=== PATIENT | female | born 1955 | race Caucasian/White ===

== ENCOUNTER 2024-08-21 10:00 | Outpatient (CLI) | payer MEDICARE, SELFPAY ==
[2024-08-21 18:46] LABS: Basophils % 0.4 % (0.1-2.0); Eosinophils # 0.3 Kmm3 (0.0-0.4); Eosinophils % 3.3 % (0.1-12.0); Hematocrit 40.5 % (37.0-47.0); Hemoglobin 12.7 g/dL (12.2-16.2); Immature Granulocytes # 0.02 10^3uL; Immature Granulocytes % 0.2 %; Lymphocytes # 2.2 K/mm3 (0.7-4.5); Lymphocytes % 24.5 % (10-50); Mean Corpuscular HGB Conc 31.4 g/dL (31.8-35.4); Mean Corpuscular Hemoglobin 25.9 pg (27.0-31.2); Mean Corpuscular Volume 82.5 fl (81-99); Mean Platelet Volume 10.5 fl (7.4-10.4); Monocytes % 11.4 % (1.7-9.3); Neutrophils # 5.5 K/mm3 (1.8-7.8); Neutrophils % 60.2 % (37.0-80.0); Nucleated Red Blood Cells # 0 10^3/uL; Nucleated Red Blood Cells % 0 %; Platelet Count 210 K/mm3 (142-424); Red Blood Count 4.91 M/mm3 (4.20-5.40); Red Cell Distribution Width 15.5 % (11.5-17.5); Red Cell Distribution Width-SD 46.7 fL; White Blood Count 9.1 K/mm3 (4.8-10.8)
[2024-08-21 19:20] LABS: Alanine Aminotransferase 17 U/L (12-78); Albumin Level 3.8 g/dl (3.5-5.0); Albumin/Globulin Ratio 1.5 (1.1-1.8); Alkaline Phosphatase 121 U/L (38-126); Anion Gap 10.3 mEq/L (5-15); Aspartate Amino Transferase 17 U/L (14-36); Bilirubin,Total 0.6 mg/dl (0.2-1.3); Blood Urea Nitrogen 39 mg/dl (7-17); Calcium 8.9 mg/dl (8.4-10.2); Carbon Dioxide 28 mmol/L (22.0-30.0); Chloride 102 mmol/L (98-107); Chol/HDL Ratio 3.1 (1-3.5); Cholesterol 173 mg/dl (140-200); Estimated Glomerular Filt Rate 45 ml/min (>60); GFR (African American) 54 ML/MIN (>60); Globulin 2.5 g/dL (1.3-3.2); Glucose 119 mg/dl (74-100); HDL Cholesterol 56 mg/dl (40-60); Potassium 4.3 mmoL/L (3.5-5.1); Sodium 136 mmol/L (136-145); Total Protein,Serum 6.3 g/dl (6.3-8.2); Triglycerides 79 mg/dl (30-150); VLDL Cholesterol 16 mg/dL (0-40)
[2024-08-21 19:32] LABS: Direct LDL Cholesterol 78.08 mg/dL (100-129)
[2024-08-21 19:39] LABS: T4 (Thyroxine) 19.2 ug/dl (5.53-11.0)
[2024-08-21 19:45] LABS: D-Dimer 1.11 ug/mL (0.0-0.5)
[2024-08-21 19:52] LABS: Thyroid Stimulating Hormone < 0.02 uIU/mL (0.465-4.68)
[2024-08-21 19:55] LABS: HIV Combo NEGATIVE (Negative)
[2024-08-21 20:09] LABS: Hemoglobin A1C 6.7 % (4.0-6.0)
[2024-08-21 20:45] LABS: Hepatitis C Ab Qual. W/ RFX NEGATIVE (Negative)
--- OUTSIDE RECORDS SUMMARY | 2024-08-22 13:23 | XMS_ITS | Clinical Summary ---
Author Organization [facility] Address [address] [address] Phone Care Team Providers Care Six Color Press Operator Name Role Phone Unavailable Primary Care Provider Unavailabl e Allergies Active Allergy Reactions Criticality Noted Date Comments Adhesive Rash 10/16/2022 Medications albuterol (PROVENTIL) 2.5 mg /3 mL (0.083 %) Inhl Solution for Nebulization Take 2.5 mg by nebulization every 6 hours as needed. Active albuterol (PROVENTIL HFA;VENTOLIN HFA) 90 mcg/actuation Inhl HFA Aerosol Inhaler Inhale 2 Puffs into the lungs every 6 hours as needed. Active aspirin 81 mg Oral Tablet, Delayed Release (E.C.) Take 81 mg by mouth daily. Active torsemide (DEMADEX) 100 mg Oral Tablet Take 50 mg by mouth daily. Active rosuvastatin (CRESTOR) 40 mg Oral Tablet Take 40 mg by mouth nightly. Active pioglitazone (ACTOS) 15 mg Oral Tablet Take 15 mg by mouth daily. Active nitroGLYCERIN (NITROSTAT) 0.4 mg SL Tablet, Sublingual Place 0.4 mg under the tongue once. Active montelukast (SINGULAIR) 10 mg Oral Tablet Take 10 mg by mouth daily. Active metFORMIN (GLUCOPHAGE) 1,000 mg Oral Tablet Take 1,000 mg by mouth 2 times daily (with meals). Active lisinopriL (PRINIVIL;ZESTRI L) 5 mg Oral Tablet Take 5 mg by mouth daily. Active LEVOthyroxine (SYNTHROID) 150 mcg Oral Tablet Take 300 mcg by mouth daily. Active COMBIVENT RESPIMAT 20-100 mcg/actuation Inhl Mist Inhale 1 Puff into the lungs every 6 hours as needed. Active fluticasone propionate (FLONASE) 50 mcg/actuation Nasl [place], Suspension 2 Sprays by Nasal route daily. Active empagliflozin (JARDIANCE) 10 mg Oral Tablet Take 10 mg by mouth daily. Active TRULICITY 1.5 mg/0.5 mL SubQ Pen Injector once a week. Acti ve clopidogreL (PLAVIX) 75 mg Oral Tablet Take 75 mg by mouth daily. Active cephALEXin (KEFLEX) 500 mg Oral Capsule Take 500 mg by mouth every 6 hours. Active Oxygen and Equipment MISCELLANEOU 1 Device by MISCELLANEOUS route once. 2-3 L continuously Active pantoprazole (PROTONIX) 40 mg Oral Tablet, Delayed Release (E.C.) Take 1 Tablet by mouth daily. 30 Tablet 2 10/22/19 23 Active spironolactone (ALDACTONE) 25 mg Oral TabletIndication s:SOB (shortness of breath) Take 1 Tablet by mouth 2 times daily. 60 Tablet 11 10/31/19 23 Active Additional Information Patient not taking.Reason: Advised by Physician, Reported on 10/23/2023 bumetanide (BUMEX) 2 mg Oral Tablet Take 2 mg by mouth daily. Active Active Problems Problem Noted Date Diagnosed Date Severe aortic stenosis 10/06/2022 Overview (10/06/2022): Added automatically from request for surgery [id number] Surgical History Surgery Date Site/Laterality Comments CARDIAC CATHETERIZATION CARDIAC SURGERY stents x4 CHOLECYSTECTOMY TUBAL LIGATION DENTAL SURGERY full teeth extracted AORTIC VALVE REPLACEMENT 10/19/2022 N/A Transcatheter aortic valve replacement with echocardiogram and [place]; Surgeon: Alfred Greenberg MD; Location: [facility] MAIN OR; Service: Open Heart Medical devices from this surgery are in the Medical Devices section. Medical History Medical History Date Comments Asthma COPD (chronic obstructive pulmonary disease) (HC C) Pulmonary emphysema (HCC) Shortness of breath Sleep apnea can not wear Cpa p Pneumonia 2021 Bronchitis, chronic (HCC) Oxygen dependent 2-3 L continuou sly Hyperlipidemia Hypertension [place] (myocardial infarction) ([facility]) 12/13/1998 Heart murmur CAD (coronary artery disease) CHF (congestive heart failure) (HCC) Heartburn Arthritis Headache migraines Bladder problem Chronic kidney disease Diabetes mellitus (HCC) Thyroid disease Motion sickness Family History Medical History Relation Name Comments COPD Brother Heart Disease Brother Seizures Daughter Diabetes Father Heart Disease Father Cancer Mother breast, throat Kidney Disease Mother Unknown Sister Anesth Problems Neg Hx Relation Name Status Comments Brother Daughter Father Mother Sister Social History Tobacco Use Types Packs/Day Years Used Date Smoking Tobacco: Former Cigarettes Q uit: 1976 Smokeless Tobacco: Never Tobacco Cessation:Counseling Given: Not Answered Alcohol Use Standard Drinks/Week Comments Never 0 (1 standard drink = 0.6 oz pur e alcohol) Comments No Sex and Gender Information Value Date Recorded Sex Assigned at Not on file Legal Sex Female 9:07 AM EDT Gender Identity Not on file Sexual Orientation Not on file Obstetrics History Last Filed Vital Signs Vital Sign Reading Time Taken Comments Blood Pressure 96/59 10/23/2023 10:20 AM EDT Pulse 72 10/23/2023 10:20 AM EDT Temperature 37.1 C (98.7 F) 10/20/2022 8:52 AM EDT Respiratory Rate 18 10/20/2022 12:28 PM EDT Oxygen Saturation 94% 10/23/2023 10:20 AM EDT Inhaled Oxygen Concentration - - Weight 91.4 kg (201 lb 9.6 oz) 10/23/2023 10:20 AM EDT Height 152.4 cm (5') 10/23/2023 10:20 AM EDT Body Mass Index 39.37 10/23/2023 10:20 AM EDT Plan of Treatment Health Maintenance Due Date Last Done Comments Wellness Exam Medicare 08/09/1958 Microalbuminuria 08/09/1965 Diabetic Eye Exam 08/09/1973 Hepatitis C Screening 08/09/1973 Breast Cancer Screening 1995 Cologuard 08/09/2000 Colon Cancer Screening 08/09/2000 Colonoscopy 08/09/2000 FIT 08/09/2000 Sigmoidoscopy 08/09/2000 Virtual Colonography 08/09/2000 Zoster (1 of 2) 08/09/2005 RSV or 60+ (1 - Ris k 60-74 years 1-dose series) 2015 Bone Density Screening 08/09/2020 Hemoglobin A1c 04/18/2023 10/16/2022, 08/04/2022 Lipids 08/05/2023 08/04/2022 COVID-19 Vaccine (5 - 2023-2 5 season) 2023 02/22/2022, 10/12/2021, 01/26/2021, Additional history exists Influenza Vaccine (Season Ended) 2024 01/03/2023, 12/20/2021, 12/15/2020, Additional history exists Pneumococcal Vaccine 50+ (3 of 3 - PCV20 or PCV21) 12/15/2025 12/15/2020, 07/31/2016, 03/31/2011, Additional history exists DTaP/TDaP/Td (2 - Td or Tdap) 07/31/2026 07/31/2016 Hepatitis B Vaccine Aged Out No longe r eligible based on patient's age to complete this topic Meningococcal B Vaccine Aged Out No l onger eligible based on patient's age to complete this topic Medical Devices Implanted Type Area Stacker And Sorter Operator Device Identifier Shelf Expiration Date Model / Serial / Lot Cardiac Stents [place] 3 Ultra Transcatheter Heart Valve (26mm) - [id number] Implanted:Qty: 1 on 10/19/2022 by Alfred Greenberg MD at [facility] N/A: Heart [employer] [id number] 06/11/2025 [id number] / [id number] / Procedures Procedure Name Priority Date/Time Associated Diagnosis Comments HEMOGLOBIN A1C Routine 10/16/2022 10:23 AM EDT from Last 3 Months or Most Recently Relevant to Health Maintenance Results * (ABNORMAL) HEMOGLOBIN A1C (10/16/2022 10:23 AM EDT) Hgb A1C 6.9(H) 4.2 - 5.6 % 10/16/2022 11:19 AM EDT [employer] Est. Avg Glucose 151 mg/dL 10/16/2022 11:19 AM EDT [employer] Blood VENOUS BLOOD / Unknown Venipuncture / Unknown 10/16/2022 10:23 AM EDT 10/16/2022 10:29 AM EDT Narrative [employer] - 10/16/2022 11:19 AM EDT REFERENCE RANGE: Normal: 4.0-5.6% Pre-diabetes: 5.7-6.4% Provisional diagnosis of diabetes: >6.4% Hgb F>10% and anything which shortens red cell survival, such as hemolytic anemia, or unstable hemoglobin variants such as HbSS, HbSC, or HbCC, will lower the HbA1c value associated with a given level of glycemic control. Neena Concepcion APRN CHEMISTRY ORDERABLES Fin al Result [facility] [employer], [address] , [place] [id number] from Last 3 Months or Most Recently Relevant to Health Maintenance Insurance [facility] [address] [facility] [place] [address] Advance Directives For more information, please contact: [phone] Documents on File Type Date Recorded Patient Research Biostatistician Expl anation Power of Police Lieutenant Patrol 10/19/2022 9:00 AM * Full Code (Latest Code Status on File) Date Activated Date Inactivated Comments 10/19/2022 3:07 PM 10/20/2022 5:12 PM
--- OUTSIDE RECORDS SUMMARY | 2024-08-22 13:23 | XMS_ITS | Referral Summary ---
Author Organization [employer] [facility] Address [address] [place] [address] Care Team Providers Care Timber Deadener Name Role Phone Unavailable Primary Care Provider Unavailabl e Allergies No known active allergies Medications albuterol HFA (VENTOLIN HFA) 90 mcg/actuation inhaler Inhale 2 puffs by mouth via inhaler every 6 (six) hours as needed for Wheezing. Active bumetanide (BUMEX) 2 MG tablet Take 2 tablets (4 mg total) by mouth in the morning and 2 tablets (4 mg total) before bedtime. Active clopidogreL (PLAVIX) 75 mg tablet Take 1 tablet (75 mg total) by mouth in the morning. Active dulaglutide (Trulicity) 1.5 mg/0.5 mL syringe Inject 0.5 mLs (1.5 mg total) subcutaneously once a week. Active levothyroxine (SYNTHROID, LEVOTHROID) 150 MCG tablet Take 2 tablets (300 mcg total) by mouth Every morning on an empty stomach. Active lisinopriL (PRINIVIL,ZEST RIL) 5 MG tablet Take 1 tablet (5 mg total) by mouth in the morning. Active metFORMIN (GLUCOPHAGE) 1000 MG tablet Take 1 tablet (1,000 mg total) by mouth 2 (two) times daily with breakfast and dinner. Active pioglitazone (ACTOS) 15 MG tablet Take 1 tablet (15 mg total) by mouth in the morning. Active rosuvastatin (CRESTOR) 40 MG tablet Take 1 tablet (40 mg total) by mouth in the morning. Active aspirin 81 MG EC tablet Take 1 tablet (81 mg total) by mouth in the morning. Active montelukast (SINGULAIR) 10 mg tablet Take 1 tablet (10 mg total) by mouth nightly. Active Active Problems Problem Noted Date Diagnosed Date CAD in [place] artery 08/04/2022 Asthma 08/04/2022 CHF (congestive heart failure) 08/04/2022 COPD (chronic obstructive pulmonary disease) Coronary artery disease 08/04/2022 Diabetes mellitus 08/04/2022 Hyperlipidemia 08/04/2022 Hypothyroidism 08/04/2022 CKD (chronic kidney disease) 08/04/2022 Aortic stenosis 08/04/2022 Social History Tobacco Use Types Packs/Day Years Used Date Smoking Tobacco: Every Day Cigarettes 1 52 Smokeless Tobacco: Never Tobacco Cessation:Ready to Q uit: Not Asked; Counseling Given: Not Answered Alcohol Use Standard Drinks/Week Comments Never 0 (1 standard drink = 0.6 oz pur e alcohol) Interpersonal Safety Answer Date Record ed Family or friends hurt you Not on file 03/30 Family or friends insult you Not on file 02/2024 Family or friends threaten you Not on file 0 03/30/2023 Family or friends scream or curse at you Not on file 03/30/2023 Housing Stability Answer Date Recorded Living situation today Not on file Living situation problems Not on file 2023 Food Insecurity Answer Date Recorded Food run out past 12 months Not on file 03/19 Food did not last past 12 months Not on file 03/30/2023 Employment Answer Date Recorded Help finding and keeping a job Not on file 0 03/30/2023 Family and Community Support Answer Marcellus e Recorded Help with Day to Day Activities Not on file 03/30/2023 Feeling Lonely or Isolated Not on file 03/30 Educational Attainment Answer Date Sammy rded Speak language other than Singaporean at home Not on file 03/30/2023 Want help with school or training Not on file 03/30/2023 Depression Answer Date Recorded PHQ-2 Risk Not on file 03/30/2023 Disabilities Answer Date Recorded Difficulty concentrating Not on file 024 Difficulty doing errands alone Not on file 0 03/30/2023 Substance Use Answer Date Recorded Used prescription meds for non-medical reasons N ot on file 03/30/2023 Used illegal drugs past 12 months Not on file 03/30/2023 Comments Unknown Sex and Gender Information Value Date Recorded Sex Assigned at Not on file Legal Sex Female 3:05 PM CDT Gender Identity Not on file Sexual Orientation Not on file Last Filed Vital Signs Vital Sign Reading Time Taken Comments Blood Pressure 118/70 08/08/2022 5:00 PM EDT Pulse 68 08/08/2022 5:00 PM EDT Temperature 36.8 C (98.2 F) 08/08/2022 5:00 PM EDT Respiratory Rate 16 08/07/2022 6:00 PM EDT Oxygen Saturation 94% 08/08/2022 5:00 PM EDT Inhaled Oxygen Concentration - - Weight 110.8 kg (244 lb 4.8 oz) 08/05/2022 1:55 AM EDT Height - - Body Mass Index - - Plan of Treatment Not on file Procedures Procedure Name Priority Date/Time Associated Diagnosis Comments HEMOGLOBIN A1C Routine 08/04/2022 8:23 PM EDT from Last 3 Months or Most Recently Relevant to Health Maintenance Results * Hemoglobin A1c (08/04/2022 8:23 PM EDT) Hemoglobin A1C 8.8 % 08/05/2022 12:00 PM EDT [facility] Comment: Hemoglobin A1C levels are related to mean glucose during the preceding 2-3 months. Less than 7% demonstrates glycemic control in diabetic patients. Hemoglobin AlC % Suggested Diagnosis > or = 6.5 Diabetic 5.7 - 6.4 Prediabetic <5.7 Non-diabetic eAVG Glucose 205.86 mg/dL 08/05/2022 12:00 PM EDT [facility] Blood Venipuncture / Unknown 08/04/2022 8:23 PM EDT 08/04/2022 8:29 PM EDT us William Lau PA-C LAB BLOOD ORDERABLES Final Re sult [facility] [address] [phone] from Last 3 Months or Most Recently Relevant to Health Maintenance Insurance [employer] [facility] [place] [facility] DUAL COMPLETE MCR ADV [facility] MEDICARE ADVANTAGE Advance Directives For more information, please contact: [phone] * Full Code (Latest Code Status on File) Date Activated Date Inactivated Comments 08/04/2022 6:56 PM 08/09/2022 12:06 AM
--- OUTSIDE RECORDS SUMMARY | 2024-08-22 13:23 | XMS_ITS | Data Portability ---
Author Organization [facility] Address [address] [place] [address] Care Team Providers Care Program Coordinator Name Role Phone KASEY FITZGERALD Fine Hairer Assessment No assessment recorded. Plan of Treatment Reminders Order Date Submit Date Provider Last Modified By Organization Details Last Modified Time Details Appointments None recorded. Lab HbA1c (hemoglobin A1c), blood 2024 025 [facility], [address] [place], [address], 5 15:06:25 HbA1c (hemoglobin A1c), blood 2023 024 [facility], [address], [address], [place], [address], 4 08:37:42 CMP, serum or plasma 2023 024 [facility], [address], [address], [place], [address], 4 08:37:41 CBC w/ auto diff 2023 024 [facility], [address], [address], [place], [address], 4 08:37:40 lipid panel, serum 2023 024 [facility], [address], [address], [place], [address], 4 08:37:42 vitamin D, 25-hydroxy, total, serum 2023 024 [facility], [address], [address], [place], [address], 4 08:37:43 HbA1c (hemoglobin A1c), blood [address], [address] [place], [address], 4 14:43:14 HbA1c (hemoglobin A1c), blood 2023 024 [facility], [address], [address], [place], [address], 4 10:36:53 CMP, serum or plasma 2023 024 [facility], [address], [place], [address], 4 10:36:50 CBC w/ auto diff 2023 024 [facility], [address], [address], [place], [address], 4 10:36:49 lipid panel, serum 2023 024 [facility], [address], [address], [place], [address], 4 10:36:52 TSH + free T4, serum 2023 024 [facility], [address], [address], [place], [address], 4 10:36:48 vitamin D, 25-hydroxy, total, serum 2023 024 [facility], [address], [place], [address], 4 10:36:54 vitamin B12 + folate, serum or blood 2023 024 [facility], [address], [address], [place], [address], 4 10:36:52 Referral None recorded. Procedures None recorded. Surgeries None recorded. Imaging None recorded. Medication Orders fluticasone propionate 50 mcg/actuati on nasal spray,suspe nsion [address], [address], 5 10:44:00 OneTouch Verio test strips [address], [address], 5 10:43:59 ergocalcife rol (vitamin D2) 1,250 mcg (50,000 unit) capsule [address], [address], 5 10:43:59 Januvia 100 mg tablet [address], [address], 5 09:26:29 Mounjaro 7.5 mg/0.5 mL subcutaneou s pen injector [address], [address], 5 09:28:06 ergocalcife rol (vitamin D2) 1,250 mcg (50,000 unit) capsule 2023 024 [facility], [address] [place] [address], [place], [address], 4 11:00:11 Mounjaro 7.5 mg/0.5 mL subcutaneou s pen injector [email or web address], [place], [address], 5 09:13:27 amoxicillin 875 mg-potassiu m clavulanate 125 mg tablet [address], [address], 4 16:08:46 prednisone 10 mg tablet [address], [address], 4 16:08:43 omeprazole 40 mg capsule,del ayed release [address], [place], [address], 4 11:23:20 ropinirole 0.25 mg tablet [address], [address], 4 11:23:20 Mounjaro 5 mg/0.5 mL subcutaneou s pen injector [address], [address], 4 14:14:46 Patient TargetsNo targets recorded. Patient Instructions Encounter Date Encounter Id Patient Instructions Last Modified By Organization Details Last Modified Time 11/05/2023 [id number] smoking cessatio n counseling, greater than 3 minutes up to 10 minutes* Not available 11/05/2023 09:04:56 learning about healthy weight Not available 11/05/2023 14:00:04 body mass index: care instructions Not available 11/05/2023 14:00:04 Advised to take medication as directed Will call with results of labs once available Encouraged to follow heart healthy lifestyle - low fat diet and aim for 30 minutes per day of physical exercise. To call office for questions, concerns or issues Not available 11/05/2023 18:06:40 01/15/2024 [id number] learning about healthy weight Not available 01/15/2024 11:14:19 body mass index: care instructions Not available 01/15/2024 11:14:19 diabetic foot exam* Not available 01/15/2024 11:13:46 Advised to take medication as directed Discussed result of POC hgb A1c with pt Reviewed importance of hydration and rest To call office for questions, concerns or issues Not available 01/15/2024 15:03:27 03/10/2024 [id number] smoking cessatio n counseling, greater than 3 minutes up to 10 minutes* Not available 03/17/2024 07:37:27 learning about healthy weight Not available 03/10/2024 12:06:04 body mass index: care instructions Not available 03/10/2024 12:06:04 Advised to take medication as directed Will call with results of labs once available Encouraged to follow heart healthy lifestyle - low fat diet and aim for 30 minutes per day of physical exercise. To call office for questions, concerns or issues Not available 03/10/2024 11:02:36 04/30/2024 [id number] smoking cessatio n counseling, greater than 3 minutes up to 10 minutes* Not available 04/30/2024 08:50:05 learning about healthy weight Not available 04/30/2024 13:28:36 body mass index: care instructions Not available 04/30/2024 13:28:36 Will stop Mounjaro and start januvia Continue Jardiance and Metformin Advised to take medication as directed Will see in office in 2 months for repeat labs Encouraged to increase fiber in diet Reviewed signs warranting immediate evaluation - blood in stool, severe pain, lethargy, cyanosis To call office for questions, concerns or issues Not available 04/30/2024 10:48:10 06/17/2024 [id number] Discussed result s of in office testing with pt Advised to take medication as directed Encouraged to follow heart healthy lifestyle - low fat diet and aim for 30 minutes of physical activity per day To call office for questions, concerns or issues Not available 06/17/2024 15:07:36 Reason for Referral None Reported. Results Created Date Observation Date Name Description Value Unit Range Abnormal Flag Note LastModifiedBy Organization Detail LastModifiedTime 11/05/1911/06/2023 TSH+F REE T4 TSH 4.410 uIU/m L 0.450- 4.500 normal Not Available [facility] ([facility]) [address] [place], [address], 11/06/2023 10:36:48 11/05/19 24 11/06/2023 TSH+F REE T4 T4,free(dire ct) 1.46 NG/dL 0.82-1 .77 normal Not Available [facility] ([facility]) [address] [place], [address], 11/06/2023 10:36:48 11/05/19 24 11/06/2023 CBC WITH DIFFE RENTI AL/PL ATELE T WBC 8.8 x10e3 /uL 3.4-10 .8 normal Not Available [facility] ([facility]) [address] [place], [address], 11/06/2023 10:36:49 11/05/19 24 11/06/2023 CBC WITH DIFFE RENTI AL/PL ATELE T RBC 6.05 x10e6 /uL 3.77-5 .28 above high normal Not Available [facility] ([facility]) [address] [place], [address], 11/06/2023 10:36:49 08/19/20 24 11/06/2023 CBC WITH DIFFE RENTI AL/PL ATELE T hemoglobin 16.4 g/dL 11.1-1 5.9 above high normal Not Available [facility] ([facility]) [address] [place], [address], 11/06/2023 10:36:49 11/05/19 24 11/06/2023 CBC WITH DIFFE RENTI AL/PL ATELE T hematocrit 52.7 % 34.0-4 6.6 above high normal Not Available [facility] ([facility]) [address] [place], [address], 11/06/2023 10:36:49 11/05/19 24 11/06/2023 CBC WITH DIFFE RENTI AL/PL ATELE T MCV 87 fL 79-97 normal Not Available [facility] ([facility]) [address] [place], [address], 11/06/2023 10:36:49 11/05/19 24 11/06/2023 CBC WITH DIFFE RENTI AL/PL ATELE T MCH 27.1 pg 26.6-3 3.0 normal Not Available [facility] ([facility]) [address] [place], [address], 11/06/2023 10:36:49 11/05/19 24 11/06/2023 CBC WITH DIFFE RENTI AL/PL ATELE T MCHC 31.1 g/dL 31.5-3 5.7 below low normal Not Available [facility] ([facility]) [address] [place], [address], 11/06/2023 10:36:49 11/05/19 24 11/06/2023 CBC WITH DIFFE RENTI AL/PL ATELE T RDW 13.7 % 11.7-1 5.4 Not Available [facility] ([facility]) [address] [place], [address], 11/06/2023 10:36:49 11/05/19 24 11/06/2023 CBC WITH DIFFE RENTI AL/PL ATELE T platelets 184 x10e3 /uL 150-45 0 normal Not Available [facility] ([facility]) [address] [facility], [place], [address], 11/06/2023 10:36:49 11/05/19 24 11/06/2023 CBC WITH DIFFE RENTI AL/PL ATELE T neutrophils 63 % not estab. normal Not Available [facility] ([facility]) [address] [facility], [place], [address], 11/06/2023 10:36:49 11/05/19 24 11/06/2023 CBC WITH DIFFE RENTI AL/PL ATELE T lymphs 23 % not estab. normal Not Available [facility] ([facility]) [address] [facility], [place], [address], 11/06/2023 10:36:49 11/05/19 24 11/06/2023 CBC WITH DIFFE RENTI AL/PL ATELE T monocytes 10 % not estab. normal Not Available [facility] ([facility]) [address] [facility], [place], [address], 11/06/2023 10:36:49 11/05/19 24 11/06/2023 CBC WITH DIFFE RENTI AL/PL ATELE T eos 3 % not estab. normal Not Available [facility] ([facility]) [address] [facility], [place], [address], 11/06/2023 10:36:49 11/05/19 24 11/06/2023 CBC WITH DIFFE RENTI AL/PL ATELE T basos 1 % not estab. normal Not Available [facility] ([facility]) [address] [facility], [place], [address], 11/06/2023 10:36:49 11/05/19 24 11/06/2023 CBC WITH DIFFE RENTI AL/PL ATELE T immature cells SERVICE OPERATIONS MANAGER Not Available [facility] ([facility]) [address] [place], [address], 11/06/2023 10:36:49 11/05/19 24 11/06/2023 CBC WITH DIFFE RENTI AL/PL ATELE T neutrophils (absolute) 5.6 x10e3 /uL 1.4-7. 0 normal Not Available [facility] ([facility]) [address] [place], [address], 11/06/2023 10:36:49 11/05/19 24 11/06/2023 CBC WITH DIFFE RENTI AL/PL ATELE T lymphs (absolute) 2.0 x10e3 /uL 0.7-3. 1 normal Not Available [facility] ([facility]) [address] [place], [address], 11/06/2023 10:36:49 11/05/19 24 11/06/2023 CBC WITH DIFFE RENTI AL/PL ATELE T monocytes(ab solute) 0.8 x10e3 /uL 0.1-0. 9 normal Not Available [facility] ([facility]) [address] [place], [address], 11/06/2023 10:36:49 11/05/19 24 11/06/2023 CBC WITH DIFFE RENTI AL/PL ATELE T eos (absolute) 0.3 x10e3 /uL 0.0-0. 4 normal Not Available [facility] ([facility]) [address] [place], [address], 11/06/2023 10:36:49 11/05/19 24 11/06/2023 CBC WITH DIFFE RENTI AL/PL ATELE T baso (absolute) 0.1 x10e3 /uL 0.0-0. 2 normal Not Available [facility] ([facility]) [address] [place], [address], 11/06/2023 10:36:49 11/05/19 24 11/06/2023 CBC WITH DIFFE RENTI AL/PL ATELE T immature granulocytes 0 % not estab. Not Available [facility] ([facility]) [address] [facility], [place], [address], 11/06/2023 10:36:49 11/05/19 24 11/06/2023 CBC WITH DIFFE RENTI AL/PL ATELE T immature grans (abs) 0.0 x10e3 /uL 0.0-0. 1 Not Available [facility] ([facility]) [address] [facility], [place], [address], 11/06/2023 10:36:49 11/05/19 24 11/06/2023 CBC WITH DIFFE RENTI AL/PL ATELE T NRBC SERVICE OPERATIONS MANAGER Not Available [facility] ([facility]) [address] [facility], [place], [address], 11/06/2023 10:36:49 11/05/19 24 11/06/2023 CBC WITH DIFFE RENTI AL/PL ATELE T hematology comments: SERVICE OPERATIONS MANAGER Not Available [facility] ([facility]) [address] [facility], [place], [address], 11/06/2023 10:36:49 11/05/19 24 11/06/2023 COMP. METAB OLIC PANEL (14) glucose 321 mg/dL 70-99 above high normal Not Available [facility] ([facility]) [address] [facility], [place], [address], 11/06/2023 10:36:50 11/05/19 24 11/06/2023 COMP. METAB OLIC PANEL (14) BUN 27 mg/dL 8-27 normal Not Available [facility] ([facility]) [address] [facility], [place], [address], 11/06/2023 10:36:50 11/05/19 24 11/06/2023 COMP. METAB OLIC PANEL (14) creatinine 1.26 mg/dL 0.57-1 .00 above high normal Not Available [facility] ([facility]) [address] [facility] [place], [address], 11/06/2023 10:36:50 11/05/19 24 11/06/2023 COMP. METAB OLIC PANEL (14) eGFR 47 mL/mi n/1.7 3 >59 below low normal Not Available [facility] ([facility]) [address] [facility] [place], [address], 11/06/2023 10:36:50 11/05/19 24 11/06/2023 COMP. METAB OLIC PANEL (14) BUN/creatini ne ratio 21 12-28 normal Not Available [facility] ([facility]) [address] [facility] [place], [address], 11/06/2023 10:36:50 11/05/19 24 11/06/2023 COMP. METAB OLIC PANEL (14) sodium 135 mmol/ L 134-14 4 normal Not Available [facility] ([facility]) [address] [facility] [place], [address], 11/06/2023 10:36:50 11/05/19 24 11/06/2023 COMP. METAB OLIC PANEL (14) potassium 4.0 mmol/ L 3.5-5. 2 normal Not Available [facility] ([facility]) [address] [facility] [place], [address], 11/06/2023 10:36:50 11/05/19 24 11/06/2023 COMP. METAB OLIC PANEL (14) chloride 91 mmol/ L 96-106 below low normal Not Available [facility] ([facility]) [address] [facility] [place], [address], 11/06/2023 10:36:50 11/05/19 24 11/06/2023 COMP. METAB OLIC PANEL (14) carbon dioxide, total 28 mmol/ L 20-29 normal Not Available [facility] ([facility]) [address] [place], [address], 11/06/2023 10:36:50 11/05/19 24 11/06/2023 COMP. METAB OLIC PANEL (14) calcium 9.3 mg/dL 8.7-10 .3 normal Not Available [facility] ([facility]) [address] [place], [address], 11/06/2023 10:36:50 11/05/19 24 11/06/2023 COMP. METAB OLIC PANEL (14) protein, total 6.6 g/dL 6.0-8. 5 normal Not Available [facility] ([facility]) [address] [place], [address], 11/06/2023 10:36:50 11/05/19 24 11/06/2023 COMP. METAB OLIC PANEL (14) albumin 4.1 g/dL 3.9-4. 9 normal Not Available [facility] ([facility]) [address] [place], [address], 11/06/2023 10:36:50 11/05/19 24 11/06/2023 COMP. METAB OLIC PANEL (14) globulin, total 2.5 g/dL 1.5-4. 5 Not Available [facility] ([facility]) [address] [place], [address], 11/06/2023 10:36:50 11/05/19 24 11/06/2023 COMP. METAB OLIC PANEL (14) bilirubin, total 0.8 mg/dL 0.0-1. 2 normal Not Available [facility] ([facility]) [address] [place], [address], 11/06/2023 10:36:50 11/05/19 24 11/06/2023 COMP. METAB OLIC PANEL (14) alkaline phosphatase 154 IU/L 44-121 above high normal Not Available [facility] ([facility]) [address] [place], [address], 11/06/2023 10:36:50 11/05/19 24 11/06/2023 COMP. METAB OLIC PANEL (14) AST (SGOT) 14 IU/L 0-40 normal Not Available [facility] ([facility]) [address] [place], [address], 11/06/2023 10:36:50 11/05/19 24 11/06/2023 COMP. METAB OLIC PANEL (14) ALT (SGPT) 12 IU/L 0-32 normal Not Available [facility] ([facility]) [address] [place], [address], 11/06/2023 10:36:50 11/05/19 24 11/06/2023 LIPID PANEL cholesterol, total 239 mg/dL 100-19 9 above high normal Not Available [facility] ([facility]) [address] [place], [address], 11/06/2023 10:36:51 11/05/19 24 11/06/2023 LIPID PANEL triglyceride s 168 mg/dL 0-149 above high normal Not Available [facility] ([facility]) [address] [facility], [place], [address], 11/06/2023 10:36:51 11/05/19 24 11/06/2023 LIPID PANEL HDL cholesterol 58 mg/dL >39 normal Not Available [facility] ([facility]) [address] [place], [address], 11/06/2023 10:36:51 11/05/19 24 11/06/2023 LIPID PANEL VLDL cholesterol tico 30 mg/dL 5-40 Not Available [facility] ([facility]) [address] [place], [address], 11/06/2023 10:36:51 11/05/19 24 11/06/2023 LIPID PANEL LDL chol calc ([facility]) 151 mg/dL 0-99 above high normal Not Available [facility] ([facility]) [address] [facility] [place], [address], 11/06/2023 10:36:51 11/05/19 24 11/06/2023 LIPID PANEL LDL calc comment: SERVICE OPERATIONS MANAGER Not Available [facility] ([facility]) [address] [facility], [place], [address], 11/06/2023 10:36:51 11/05/19 24 11/06/2023 VITAM IN B12 AND FOLAT E vitamin B12 1250 pg/mL 232-12 45 above high normal Not Available [facility] ([facility]) [address] [facility], [place], [address], 11/06/2023 10:36:52 11/05/19 24 11/06/2023 VITAM IN B12 AND FOLAT E folate (folic acid), serum 10.1 NG/mL >3.0 normal A serum folat e laura ntrat ion of less than 3.1 ng/mL is consi dered to repre sent clini tico defic iency . Not Available [facility] ([facility]) [address] [facility], [place], [address], 11/06/2023 10:36:52 11/05/19 24 11/06/2023 HEMOG LOBIN A1C hemoglobin A1C 14.6 % 4.8-5. 6 above high normal Predi abete s: 5.7 - 6.4 Diabe cedrick: >6.4 Glyce jong contr ol for adult s with diabe cedrick: <7.0 Not Available [facility] ([facility]) [address] [facility], [place], [address], 11/06/2023 10:36:53 11/05/19 24 11/06/2023 VITAM IN D, 25-HY DROXY vitamin D, 25-hydroxy 13.8 NG/mL 30.0-1 00.0 below low normal Vitam in D defic iency has been defin ed by the Insti tute of Medic ine and an Endoc rine Socie ty pract ice guide line as a level of serum 25-OH vitam in D less than 20 ng/mL (1,2) . The Endoc rine Socie ty went on to furth er defin e vitam in D insuf ficie ncy as a level betwe en 21 and 29 ng/mL (2). 1. IOM (Inst itute of Medic ine). 2010. Dieta ry refer ence cecil es for calci um and D. Heidi ashton [place]: The [facility] . 2. Prudencio amor MF, Brent alexis [place], Bisch off-F errar i MYRICK, et al. Evalu ation , treat ment, and preve ntion of vitam in D defic iency : an Endoc rine Socie ty clini tico pract ice guide line. JCEM. 2010; 96(7) :1911 -30. Not Available [facility] ([facility]) [address] [facility], [place], [address], 11/06/2023 10:36:54 01/15/2001/15/2024 HbA1c (hemo globi n A1c), blood HbA1C 9.2 % Not Available [facility] [address] [place], [address], 01/15/2024 10:59:43 03/10/20 24 03/11/2024 CBC WITH DIFFE RENTI AL/PL ATELE T WBC 8.3 x10e3 /uL 3.4-10 .8 normal Not Available [facility] ([facility]) [address] [place], [address], 03/11/2024 08:37:40 03/10/20 24 03/11/2024 CBC WITH DIFFE RENTI AL/PL ATELE T RBC 4.68 x10e6 /uL 3.77-5 .28 normal Not Available [facility] ([facility]) [address] [place], [address], 03/11/2024 08:37:40 03/10/20 24 03/11/2024 CBC WITH DIFFE RENTI AL/PL ATELE T hemoglobin 13.1 g/dL 11.1-1 5.9 normal Not Available [facility] ([facility]) [address] [place], [address], 03/11/2024 08:37:40 03/10/20 24 03/11/2024 CBC WITH DIFFE RENTI AL/PL ATELE T hematocrit 40.3 % 34.0-4 6.6 normal Not Available [facility] ([facility]) [address] [place], [address], 03/11/2024 08:37:40 03/10/2003/11/2024 CBC WITH DIFFE RENTI AL/PL ATELE T MCV 86 fL 79-97 normal Not Available [facility] ([facility]) [address] [place], [address], 03/11/2024 08:37:40 03/10/20 24 03/11/2024 CBC WITH DIFFE RENTI AL/PL ATELE T MCH 28.0 pg 26.6-3 3.0 normal Not Available [facility] ([facility]) [address] [place], [address], 03/11/2024 08:37:40 03/10/20 24 03/11/2024 CBC WITH DIFFE RENTI AL/PL ATELE T MCHC 32.5 g/dL 31.5-3 5.7 normal Not Available [facility] ([facility]) [address] [place], [address], 03/11/2024 08:37:40 03/10/20 24 03/11/2024 CBC WITH DIFFE RENTI AL/PL ATELE T RDW 12.8 % 11.7-1 5.4 Not Available [facility] ([facility]) [address] [place], [address], 03/11/2024 08:37:40 03/10/20 24 03/11/2024 CBC WITH DIFFE RENTI AL/PL ATELE T platelets 216 x10e3 /uL 150-45 0 normal Not Available [facility] ([facility]) [address] [facility], [place], [address], 03/11/2024 08:37:40 03/10/20 24 03/11/2024 CBC WITH DIFFE RENTI AL/PL ATELE T neutrophils 66 % not estab. normal Not Available [facility] ([facility]) [address] [facility], [place], [address], 03/11/2024 08:37:40 03/10/2003/11/2024 CBC WITH DIFFE RENTI AL/PL ATELE T lymphs 22 % not estab. normal Not Available [facility] ([facility]) [address] [facility], [place], [address], 03/11/2024 08:37:40 03/10/20 24 03/11/2024 CBC WITH DIFFE RENTI AL/PL ATELE T monocytes 8 % not estab. normal Not Available [facility] ([facility]) [address] [facility], [place], [address], 03/11/2024 08:37:40 03/10/20 24 03/11/2024 CBC WITH DIFFE RENTI AL/PL ATELE T eos 3 % not estab. normal Not Available [facility] ([facility]) [address] [facility], [place], [address], 03/11/2024 08:37:40 03/10/20 24 03/11/2024 CBC WITH DIFFE RENTI AL/PL ATELE T basos 1 % not estab. normal Not Available [facility] ([facility]) [address] [facility], [place], [address], 03/11/2024 08:37:40 03/10/20 24 03/11/2024 CBC WITH DIFFE RENTI AL/PL ATELE T immature cells SERVICE OPERATIONS MANAGER Not Available [facility] ([facility]) [address] [place], [address], 03/11/2024 08:37:40 03/10/20 24 03/11/2024 CBC WITH DIFFE RENTI AL/PL ATELE T neutrophils (absolute) 5.5 x10e3 /uL 1.4-7. 0 normal Not Available [facility] ([facility]) [address] [place], [address], 03/11/2024 08:37:40 03/10/20 24 03/11/2024 CBC WITH DIFFE RENTI AL/PL ATELE T lymphs (absolute) 1.8 x10e3 /uL 0.7-3. 1 normal Not Available [facility] ([facility]) [address] [place], [address], 03/11/2024 08:37:40 03/10/20 24 03/11/2024 CBC WITH DIFFE RENTI AL/PL ATELE T monocytes(ab solute) 0.7 x10e3 /uL 0.1-0. 9 normal Not Available [facility] ([facility]) [address] [place], [address], 03/11/2024 08:37:40 03/10/20 24 03/11/2024 CBC WITH DIFFE RENTI AL/PL ATELE T eos (absolute) 0.3 x10e3 /uL 0.0-0. 4 normal Not Available [facility] ([facility]) [address] [place], [address], 03/11/2024 08:37:40 03/10/20 24 03/11/2024 CBC WITH DIFFE RENTI AL/PL ATELE T baso (absolute) 0.1 x10e3 /uL 0.0-0. 2 normal Not Available [facility] ([facility]) [address] [place], [address], 03/11/2024 08:37:40 03/10/20 24 03/11/2024 CBC WITH DIFFE RENTI AL/PL ATELE T immature granulocytes 0 % not estab. Not Available [facility] ([facility]) [address] [facility], [place], [address], 03/11/2024 08:37:40 03/10/20 24 03/11/2024 CBC WITH DIFFE RENTI AL/PL ATELE T immature grans (abs) 0.0 x10e3 /uL 0.0-0. 1 Not Available [facility] ([facility]) [address] [facility], [place], [address], 03/11/2024 08:37:40 03/10/20 24 03/11/2024 CBC WITH DIFFE RENTI AL/PL ATELE T NRBC SERVICE OPERATIONS MANAGER Not Available [facility] ([facility]) [address] [facility], [place], [address], 03/11/2024 08:37:40 03/10/20 24 03/11/2024 CBC WITH DIFFE RENTI AL/PL ATELE T hematology comments: SERVICE OPERATIONS MANAGER Not Available [facility] ([facility]) [address] [facility], [place], [address], 03/11/2024 08:37:40 03/10/20 24 03/11/2024 COMP. METAB OLIC PANEL (14) glucose 113 mg/dL 70-99 above high normal Not Available [facility] ([facility]) [address] [facility], [place], [address], 03/11/2024 08:37:41 03/10/20 24 03/11/2024 COMP. METAB OLIC PANEL (14) BUN 32 mg/dL 8-27 above high normal Not Available [facility] ([facility]) [address] [place], [address], 03/11/2024 08:37:41 03/10/20 24 03/11/2024 COMP. METAB OLIC PANEL (14) creatinine 0.70 mg/dL 0.57-1 .00 normal Not Available [facility] ([facility]) [address] [facility] [place], [address], 03/11/2024 08:37:41 03/10/20 24 03/11/2024 COMP. METAB OLIC PANEL (14) eGFR 94 mL/mi n/1.7 3 >59 normal Not Available [facility] ([facility]) [address] [facility] [place], [address], 03/11/2024 08:37:41 03/10/20 24 03/11/2024 COMP. METAB OLIC PANEL (14) BUN/creatini ne ratio 46 12-28 above high normal Not Available [facility] ([facility]) [address] [facility] [place], [address], 03/11/2024 08:37:41 03/10/20 24 03/11/2024 COMP. METAB OLIC PANEL (14) sodium 140 mmol/ L 134-14 4 normal Not Available [facility] ([facility]) [address] [facility] [place], [address], 03/11/2024 08:37:41 03/10/20 24 03/11/2024 COMP. METAB OLIC PANEL (14) potassium 3.6 mmol/ L 3.5-5. 2 normal Not Available [facility] ([place] [facility]) [address] [facility] [place], [address], 03/11/2024 08:37:41 03/10/20 24 03/11/2024 COMP. METAB OLIC PANEL (14) chloride 99 mmol/ L 96-106 normal Not Available [facility] ([place] [facility]) [address] [facility] [place], [address], 03/11/2024 08:37:41 03/10/20 24 03/11/2024 COMP. METAB OLIC PANEL (14) carbon dioxide, total 23 mmol/ L 20-29 normal Not Available [facility] ([facility]) [address] [place], [address], 03/11/2024 08:37:41 03/10/20 24 03/11/2024 COMP. METAB OLIC PANEL (14) calcium 9.0 mg/dL 8.7-10 .3 normal Not Available [facility] ([facility]) [address] [place], [address], 03/11/2024 08:37:41 03/10/20 24 03/11/2024 COMP. METAB OLIC PANEL (14) protein, total 6.1 g/dL 6.0-8. 5 normal Not Available [facility] ([facility]) [address] [facility] [place], [address], 03/11/2024 08:37:41 03/10/20 24 03/11/2024 COMP. METAB OLIC PANEL (14) albumin 4.0 g/dL 3.9-4. 9 normal Not Available [facility] ([facility]) [address] [facility] [place], [address], 03/11/2024 08:37:41 03/10/20 24 03/11/2024 COMP. METAB OLIC PANEL (14) globulin, total 2.1 g/dL 1.5-4. 5 Not Available [facility] ([facility]) [address] [facility] [place], [address], 03/11/2024 08:37:41 03/10/20 24 03/11/2024 COMP. METAB OLIC PANEL (14) bilirubin, total 0.3 mg/dL 0.0-1. 2 normal Not Available [facility] ([facility]) [address] [facility] [place], [address], 03/11/2024 08:37:41 03/10/20 24 03/11/2024 COMP. METAB OLIC PANEL (14) alkaline phosphatase 132 IU/L 44-121 above high normal Not Available [facility] ([facility]) [address] [facility] [place], [address], 03/11/2024 08:37:41 03/10/20 24 03/11/2024 COMP. METAB OLIC PANEL (14) AST (SGOT) 14 IU/L 0-40 normal Not Available [facility] ([facility]) [address] [place], [address], 03/11/2024 08:37:41 03/10/20 24 03/11/2024 COMP. METAB OLIC PANEL (14) ALT (SGPT) 10 IU/L 0-32 normal Not Available [facility] ([facility]) [address] [place], [address], 03/11/2024 08:37:41 03/10/20 24 03/11/2024 LIPID PANEL cholesterol, total 175 mg/dL 100-19 9 normal Not Available [facility] ([facility]) [address] [place], [address], 03/11/2024 08:37:42 03/10/20 24 03/11/2024 LIPID PANEL triglyceride s 117 mg/dL 0-149 normal Not Available [facility] ([facility]) [address] [place], [address], 03/11/2024 08:37:42 03/10/20 24 03/11/2024 LIPID PANEL HDL cholesterol 46 mg/dL >39 normal Not Available [facility] ([facility]) [address] [place], [address], 03/11/2024 08:37:42 03/10/20 24 03/11/2024 LIPID PANEL VLDL cholesterol tico 21 mg/dL 5-40 Not Available [facility] ([facility]) [address] [place], [address], 03/11/2024 08:37:42 03/10/20 24 03/11/2024 LIPID PANEL LDL chol calc ([facility]) 108 mg/dL 0-99 above high normal Not Available [facility] ([facility]) [address] [facility] [place], [address], 03/11/2024 08:37:42 03/10/2003/11/2024 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 6 above high normal Predi abete s: 5.7 - 6.4 Diabe cedrick: >6.4 Glyce jong contr ol for adult s with diabe cedrick: <7.0 Not Available [facility] ([facility]) [address] [facility], [place], [address], 03/11/2024 08:37:42 03/10/2003/11/2024 VITAM IN D, 25-HY DROXY vitamin D, 25-hydroxy 34.0 NG/mL 30.0-1 00.0 Vitam in D defic iency has been defin ed by the Insti tute of Medic ine and an Endoc rine Socie ty pract ice guide line as a level of serum 25-OH vitam in D less than 20 ng/mL (1,2) . The Endoc rine Socie ty [facility] e vitam in D insuf ficie ncy as a level betwe en 21 and 29 ng/mL (2). 1. IOM (Inst itute of Medic ine). 2010. Dieta ry refer ence intak es for calci um and D. Heidi ashton [place]: The [facility] Press . 2. Prduencio maor MF, Brent alexis [place], Vlad off-F errdaquan i MYRICK, et al. Evalu ation , treat ment, and preve ntion of vitam in D defic iency : an Endoc rine Socie ty clini tico pract ice guide line. JCEM. 2010; 96(7) :1911 -30. Not Available [facility] ([facility]) [address], [place], [address], 03/11/2024 08:37:43 06/18/1906/17/2024 HbA1c (hemo globi n A1c), blood HbA1C 7.8 % Not Available [facility] [address] [place], [address], 06/17/2024 10:42:37 Result Notes None recorded. Problems Name Problem SNOMED Code Status Onset Date Resolution Date Notes Provider Name and Address Organization Details Recorded Time Environm ental allergy 386528011 Active 2016 Not Available [facility] 3 22:28:27 Gastroes ophageal reflux disease 681512678 Active 2017 Not Available [facility] 3 22:28:27 Chronic kidney disease 944814645 Active 2019 Not Available [facility] 3 22:28:27 Peripher al venous insuffic iency 29855419 Active 2019 Not Available [facility] 3 22:28:27 Allergic rhinitis 00607010 Active 2019 Not Available [facility] 3 22:28:27 Type 2 diabetes mellitus 98159901 Active 2020 Not Available [facility] 3 22:28:27 Mammogra m declined 385903111 Completed 202009/03/2023 Yesi Larry null, [place] - [facility] 4 10:27:19 Colonosc opy declined 05378554761 9100 Completed 202009/03/2023 Crystal Laron null, [place] - [facility] 4 10:27:06 Peripher al edema 437527858 Active 2020 Not Available [facility] 3 22:28:27 Uncontro lled type 2 diabetes mellitus 358872276 Completed 201502/15/2016 Micaela Reza null, [place] - [facility] 6 19:41:00 Diabetes mellitus 27661750 Active 2015 Not Available [facility] 3 22:28:27 Congesti ve heart failure 99435916 Active 2015 Not Available [facility] 3 22:28:27 Essentia l hyperten desire 39746638 Active 2015 Not Available [facility] 3 22:28:27 Morbid obesity 041768171 Active 2015 Not Available [facility] 3 22:28:27 Tobacco user 939656547 Completed 201504/04/2021 Christi Barrios APRN [address], [place], [address] , [place] - [facility] 2 21:27:12 Mixed hyperlip idemia 526343224 Active 2015 Not Available [facility] 3 22:28:27 Aortic valve stenosis 80967884 Active 2015 Not Available [facility] 3 22:28:27 Chronic obstruct benji pulmonar y disease 51073270 Active 2015 Not Available [facility] 3 22:28:26 Hypothyr oidism 98066529 Completed 201506/28/2016 Micaela cloud, [place] - [facility] 7 19:20:39 Asthma 554387559 Completed 201501/03/2023 Christi Barrios APRN [address], [place], [address] , [place] - [facility] 3 22:03:03 Coronary arterios clerosis 15101516 Active 2015 Not Available [facility] 3 22:28:27 Ex-heavy cigarett e smoker (20-39/d ay) 445066915 Completed 202104/04/2021 Christi Barrios APRN [address], [place], [address] , [place] - [facility] 2 21:27:32 Heavy cigarett e smoker (20-39 cigs/day ) 599941431 Completed 202101/03/2023 Removal Reason: quit Fall 2022 Christi Barrios APRN [address], [place], [address] , [place] - [facility] 3 22:03:37 Hypokale denise 27485351 Active 2021 Not Available [facility] 3 22:28:27 Stented coronary artery 370148742 Active 2015 Not Available [facility] 3 22:28:27 Influenz a vaccine needed 03373269849 06 Completed 201502/07/2017 Yesi Larry null, [place] - [facility] 7 10:17:32 Preinfar ction syndrome 9326241 Active Not Available [facility] 3 22:28:27 Former heavy tobacco smoker 19990559843 4100 Completed 202205/23/2023 Christi Barrios, [employer]IST [address], [place], [address] , [place] - [facility] 4 21:13:27 Dependen ce on suppleme ntal oxygen 61207514980 7 Active 2022 Not Available [facility] 3 22:28:27 Vitamin D deficien cy 17041494 Active 2023 Tanaveronica Cardenas, ISAAC [address], [place], [address] , [place] - [facility] 4 14:23:44 Renewal of prescrip tion Completed 201608/08/2017 Yesi Larry null, [place] - [facility] 8 09:25:19 Bilatera l cramp of muscle of lower limbs 82125405173 828327 Active 2023 Tana Cardenas, ISAAC [address], [place], [address] , [place] - [facility] 4 11:18:30 Acute sinusiti s 64333542 Completed 202304/30/2024 Yesi Larry null, [place] - [facility] 5 08:44:32 Nicotine dependen ce 58940722 Active 2023 Tana Cardenas APRN [address], [place], [address] , [place] - [facility] 4 11:02:40 Diarrhea 47848978 Active 2024 Tana Ronald, [employer] [address], [place], [address] , [facility] - [facility] 5 09:20:05 Acute cellulit is Active 2024 Tana Ronald, [employer] [address], [place], [address] , [facility] - [facility] 5 15:05:40 Chronic diarrhea 590506337 Active 2016 Not Available [facility] 3 22:28:27 Heart murmur 76122298 Active 2016 Not Available [facility] 3 22:28:27 History of coronary artery bypass grafting 069984336 Active 2016 Not Available [facility] 3 22:28:27 Acquired hypothyr oidism 365317641 Active 2016 Not Available [facility] 3 22:28:26 Notes:Some problems listed i n Documents: #[id number], #[id number], #[id number], #[id number] could not be added to this patient's chart. Please review these documents and add these problems to the patient's chart manually as needed. Problem Notes None recorded. Procedures Surgical History Date Name Laterality Status Provider Name and Address Organization Details Recorded Time 07/23/19 24 A1C level 8.0 to 9.0 completed Christi Barrios APRN [address], [place], [address], [place] - [facility] 08/29/2023 11:47:21 01/23/20 23 Advance Care Planning cancelled Kiran [place] - [facility] 01/19/2023 13:31:56 01/23/20 23 Functional Status Assessed cancelled Kiran [place] - [facility] 01/19/2023 13:31:56 01/04/20 23 A1C level 6.9 and below completed Christi Barrios APRN [address], [place], [address], [facility] - [facility] 01/03/2023 21:57:07 09/05/19 23 cardiac catheterization completed Yesi Larry [place] - [facility] 09/07/2022 15:53:46 08/10/19 23 Medication Reconcilliation completed Tanisha Josepht [place] - [facility] 08/09/2022 13:14:51 12/21/19 22 A1C level 7.0 to 7.9 completed Christi Barrios APRN [address], [place], [address], [place] - [facility] 01/30/2022 20:44:46 11/04/19 20 Systolic B/P less than 130 mm Hg completed Aracelibereket Dietrich [place] - [facility] 11/04/2019 09:34:43 11/04/19 20 Diastolic B/P less than 80 mm Hg completed Aracelibereket [place] - [facility] 11/04/2019 09:34:48 08/01/19 17 Advance Care Planning completed Bessy [place] - [facility] 07/31/2016 12:53:13 Cholecystectomy, laparoscopic completed Micaela Reza [place] - [facility] 02/15/2016 19:46:05 Stent, coated/cov w/del sys completed Micaela Reza [place] - [facility] 01/03/2023 15:19:10 CABG completed Micaela Reza [place] - [facility] 02/15/2016 19:46:27 Tubal Ligation completed Micaela Reza [place] - [facility] 02/15/2016 19:46:41 Cardiac Cath completed Yesi Larry [place] - [facility] 01/15/2024 10:52:22 Cardiac Surgery completed Yesi Larry [facility] 01/15/2024 10:52:22 Adnexal surgery completed Yesi Larry [facility] 01/15/2024 10:52:22 Imaging Results None recorded. Procedure Notes None recorded. Medical Equipment None Reported. Allergies No known drug allergies Medications Name Sig Start Date Stop Date Status Note LastModified by Organization Details LastModified Time Prescript ion - Renewal 05/09 completed [facility] Not Available Not Available Not Available cyclobenz aprine 10 mg tablet TAKE ONE (1) TABLET THREE (3) TIMES A DAY BY ORAL ROUTE NEEDED FOR 10 DAYS. 04/05 completed Not Available Not Available Not Available metolazon e 2.5 mg tablet TAKE ONE TABLET BY MOUTH EVERY DAY FOR 3 DAYS 09/21 completed Not Available Not Available Not Available pioglitaz one 15 mg tablet TAKE ONE TABLET BY MOUTH EVERY DAY 01/03 completed Not Available Not Available Not Available atorvasta tin 40 mg tablet take 1 tablet (40 mg) by oral route once daily at bedtime 02/11 completed atorvast atin 40 mg oral tablet;P rescribe Status: Prescrib ed on: 02/08/20 13 7:24PM;D iscontin ued Status: Disconti nued on: 02/12/20 13 1:08PM;U ser: neuss;Es t. Completi on: 08/07/19 14;Indic ation: Mixed Hyperlip idemia - ();Phar Norris fied: 02/08/20 13 7:24PM Not Available Not Available Not Available metformin 500 mg tablet TAKE 1 TABLET TWICE DAILY WITH MORNING AND EVENING MEALS. 01/12 completed Not Available Not Available Not Available prednison e 10 mg tablet TAKE ONE (1) TABLET TWICE A DAY BY ORAL ROUTE FOR FIVE (5) DAYS. 03/10 completed Not Available Not Available Not Available doxycycli ne hyclate 100 mg capsule TAKE ONE (1) CAPSULE TWICE A DAY BY ORAL ROUTE FOR 7 DAYS. 06/24 completed Not Available Not Available Not Available ipratropi um 0.5 mg-albute rol 3 mg (2.5 mg base)/3 mL nebulizat ion soln inhale 3 millilit ers by nebuliza tion route 4 times per day for 30 days 12/25 completed ipratrop ium-albu terol 0.5 mg-3 mg(2.5 mg base)/3 mL inhalati on solution for nebuliza tion;Rec orded Status: Recorded on: 10/07/19 14 3:08PM;U ser: neuss;In dication : Chronic Obstruct benji Pulmonar y Disease with Bronchos pasms - (08.4960 02) Not Available Not Available Not Available Toprol XL 100 mg tablet,ex tended release take 1 tablet (100 mg) by oral route daily for 30 days 02/17 completed Toprol XL 100 mg oral tablet extended release 24 hr;Recor ded Status: Recorded on: 02/25/20 14 4:14PM;D iscontin ued Status: Disconti nued on: 02/18/20 15 2:00PM;U ser: neuss;Es t. Completi on: 08/24/19 15 Not Available Not Available Not Available torsemide 20 mg tablet TAKE ONE (1) TABLET (20 MG) BY ORAL ROUTE ONCE DAILY 05/22 completed Not Available Not Available Not Available bumetanid e 2 mg tablet TAKE TWO (2) TABLETS TWICE A DAY BY ORAL ROUTE FOR 90 DAYS. 2024 active Not Available Not Available Not Avai lable albuterol sulfate 2.5 mg/3 mL (0.083 %) solution for nebulizat ion INHALE THREE (3) ML FOUR (4) TIMES A DAY BY NEBULIZA TION ROUTE NEEDED. active Not Available Not Available No t Available azithromy cindy 250 mg tablet TAKE 2 TABLETS (500 MG) BY ORAL ROUTE ONCE DAILY FOR 1 DAY THEN 1 TABLET (250 MG) BY ORAL ROUTE ONCE DAILY FOR 4 DAYS 04/25 completed Not Available Not Available Not Available aspirin 325 mg tablet take 1 tablet (325 mg) by oral route daily for 30 days 06/21 completed aspirin 325 mg oral tablet;R ecorded Status: Recorded on: 03/23/19 11 3:57PM;U ser: ilya Matos on: 06/22/19 11 Not Available Not Available Not Available Celestone Soluspan 6 mg/mL suspensio n for injection Take 9 mg by injectio n route. 07/22 completed Not Available Not Available Not Available Lipitor 80 mg tablet take 0.5 tablet by oral route daily 12/17 completed Lipitor 80 mg oral tablet;R ecorded Status: Recorded on: 09/14/19 11 2:49PM;D iscontin ued Status: Disconti nued on: 12/18/19 13 11:23AM; User: cherri Matos on: 10/14/19 11 Not Available Not Available Not Available prednison e 20 mg tablet 2qd x5 days and then 1 qd x 5 days 11/12 completed predniso ne 20 mg oral tablet;R ecorded Status: Recorded on: 03/27/19 12 7:49PM;D iscontin ued Status: Disconti nued on: 11/13/19 13 5:03PM;U ser: bishopk; Est. Completi on: 04/06/19 12;Indic ation: Symptoms Involvin g Respirat ory System And Chest - (786.9) Not Available Not Available Not Available isosorbid e mononitra te ER 30 mg tablet,ex tended release 24 hr 09/13 completed Not Available Not Available Not Available Alcohol Pads 05/09 completed Not Available Not Available Not Available sertralin e 100 mg tablet take 1 tablet (50 mg) by oral route daily for 30 days 02/17 completed sertrali ne 100 mg oral tablet;P rescribe Status: Prescrib ed on: 02/24/20 14 2:36PM;D iscontin ued Status: Disconti nued on: 02/18/20 15 2:00PM;U ser: neuss;Es t. Completi on: 08/23/19 15;Pharm acyVerif ied: 02/24/20 14 2:36PM Not Available Not Available Not Available metolazon e 5 mg tablet TAKE ONE (1) TABLET ONCE DAILY 09/13 completed Not Available Not Available Not Available Excedrin Migraine 250 mg-250 mg-65 mg tablet take 1 tablet by oral route daily as needed for 90 days 07/31 completed Excedrin Migraine 250-250- 65 mg oral tablet;R ecorded Status: Recorded on: 10/07/19 14 3:08PM;U ser: neuss Not Available Not Available Not Available Lantus U-100 Insulin 100 unit/mL subcutane ous solution INJECT 35 UNITS IN THE EVENING. 05/09 completed Not Available Not Available Not Available acetazola mide 250 mg tablet Take 1 tablet every day by oral route. 01/03 completed On a 7 day trial from [facility] per [facility] 09/13/22 Not Available Not Available Not Available torsemide 10 mg tablet TAKE ONE (1) TABLET (10 MG) BY ORAL ROUTE ONCE DAILY 05/22 completed Pt not taking Not Available Not Available Not Available penicilli n V potassium 500 mg tablet take 1 tablet (500 mg) by oral route 3 times per day for 10 days 03/03 completed penicill in V chris m 500 mg oral tablet;P rescribe Status: Prescrib ed on: 02/05/20 13 12:21PM; Disconti nued Status: Disconti nued on: 03/03/20 13 1:09PM;U ser: neuss;Es t. Completi on: 02/15/20 13;Indic ation: abscesse d tooth - (522.5); Pharmacy Verified : 02/05/20 13 12:21PM Not Available Not Available Not Available potassium chloride ER 10 mEq tablet,ex tended release TAKE 1 TABLET BY MOUTH EVERY DAY 12/20 completed Not Available Not Available Not Available metronida zole 500 mg tablet Take 1 tablet every 8 hours by oral route. 07/31 completed Not Available Not Available Not Available clopidogr el 75 mg tablet TAKE ONE (1) TABLET EVERY DAY BY ORAL ROUTE FOR 90 DAYS. active Not Available Not Available No t Available amlodipin e 5 mg tablet TAKE ONE (1) TABLET EVERY DAY BY ORAL ROUTE DIRECTED FOR 90 DAYS. 2024 active Not Available Not Available Not Avai lable sulfameth oxazole 800 mg-trimet hoprim 160 mg tablet TAKE ONE TABLET BY MOUTH TWICE DAILY FOR 10 DAYS 11/03 completed Not Available Not Available Not Available omeprazol e 40 mg capsule,d elayed release TAKE ONE (1) CAPSULE EVERY DAY BY ORAL ROUTE FOR 30 DAYS. 2024 active Not Available Not Available Not Avai lable aspirin 81 mg tablet,de layed release Take 1 tablet every day by oral route as directed for 90 days. 09/02 completed Not Available Not Available Not Available spironola ctone 25 mg tablet TAKE ONE (1) TABLET BY MOUTH TWO (2) TIMES DAILY. 01/03 completed Not Available Not Available Not Available Depo-Medr ol 80 mg/mL suspensio n for injection Take 1 mL by injectio n route. 06/28 completed Not Available Not Available Not Available levothyro xine 100 mcg tablet take 3 tablets (100 mcg) by oral route once daily 03/31 completed levothyr oxine 100 mcg oral tablet;R ecorded Status: Recorded on: 03/23/19 11 3:57PM;D iscontin ued Status: Disconti nued on: 03/31/19 12 5:32PM;U ser: rankinw; Est. Completi on: 06/22/19 11 Not Available Not Available Not Available Tessalon Perles 100 mg capsule take 1 capsule (100 mg) by oral route every 4 hours as needed for 10 days 03/23 completed Tessalon Perles 100 mg oral capsule; Recorded Status: Recorded on: 05/12/19 10 10:27AM; Disconti nued Status: Disconti nued on: 03/23/19 11 3:20PM;U ser: rankinw; Est. Completi on: 05/23/19 10;Indic ation: Cough - (16.6894 00);Prin josé miguel: 05/12/19 10 Not Available Not Available Not Available quinapril 10 mg tablet take 1 tablet (10 mg) by oral route daily for 30 days 10/06 completed quinapri l 10 mg oral tablet;P rescribe Status: Prescrib ed on: 02/08/20 13 7:24PM;D iscontin ued Status: Disconti nued on: 10/07/19 14 3:08PM;U ser: neuss;Es t. Completi on: 08/07/19 14;Pharm acyVerif ied: 02/08/20 13 7:24PM Not Available Not Available Not Available ceftriaxo ne 1 gram solution for injection Take 1 g by injectio n route. 08/26 completed Not Available Not Available Not Available lancets test tid--E11 .51 05/09 completed lancets 250.02 Misc.(No n-Drug; Combo Route) Misc;Rec orded Status: Recorded on: 07/26/19 16 8:36PM;U ser: neuss;Es t. Completi on: 07/21/19 17;Indic ation: None Availabl e - (-5) Not Available Not Available Not Available potassium chloride ER 20 mEq tablet,ex tended release(p art/cryst ) TAKE ONE TABLET BY MOUTH EVERY DAY when taking metolazo ne FOR 3 DAYS 09/21 completed Not Available Not Available Not Available torsemide 100 mg tablet Take 0.5 tablets every day by oral route. 12/05 completed Not Available Not Available Not Available ropinirol e 0.25 mg tablet TAKE ONE (1) TABLET TWICE A DAY BY ORAL ROUTE NEEDED FOR 30 DAYS, FOR LEG CRAMPS. active Not Available Not Available No t Available insulin aspart U-100 100 unit/mL subcutane ous solution 08/04 completed Not Available Not Available Not Available cephalexi n 500 mg capsule TAKE ONE (1) CAPSULE BY MOUTH TWICE DAILY FOR 7 DAYS active Not Available Not Available No t Available pantopraz ole 40 mg tablet,de layed release Take 1 tablet every day by oral route for 90 days. 01/14 completed Not Available Not Available Not Available metformin 1,000 mg tablet TAKE ONE (1) TABLET TWICE A DAY BY ORAL ROUTE WITH MEALS FOR 90 DAYS. 2024 active Not Available Not Available Not Avai lable levothyro xine 125 mcg tablet take 3 tablets by oral route daily 02/11 completed levothyr oxine 125 mcg oral tablet;R ecorded Status: Recorded on: 01/18/20 13 5:08PM;D iscontin ued Status: Disconti nued on: 02/12/20 13 1:08PM;U ser: neuss;Chelle matias. Completi on: 04/17/19 14 Not Available Not Available Not Available Cipro 500 mg tablet take 1 tablet (500 mg) by oral route 2 times per day for 10 days 08/19 completed Cipro 500 mg oral tablet;R ecorded Status: Recorded on: 04/25/19 12 5:23PM;D iscontin ued Status: Disconti nued on: 08/20/19 13 11:46AM; User: indy;Chelle medina Completi on: 05/05/19 12;Print ed: 04/25/19 12 Not Available Not Available Not Available levothyro xine 150 mcg tablet TAKE TWO (2) TABLETS EVERY DAY BY ORAL ROUTE IN THE MORNING FOR 90 DAYS. 2024 active Not Available Not Available Not Avai lable Combivent 18 mcg-103 mcg/actua tion aerosol inhaler inhale 2 puffs by inhalati on route 4 times per day for 30 days 08/19 completed Combiven t 18-103 mcg/actu ation inhalati on aerosol; Recorded Status: Recorded on: 02/16/20 12 11:34AM; Disconti nued Status: Disconti nued on: 08/20/19 13 11:44AM; User: dayna aparicio;Est. Maryurii on: 03/17/20 12;Print ed: 02/16/20 12 Not Available Not Available Not Available Advair Diskus 500 mcg-50 mcg/dose powder for inhalatio n inhale 1 puff by inhalati on route 2 times per day morning and evening approxim ately 12 hours apart 03/23 completed Advair Diskus 500-50 mcg/dose inhalati on blister with device;R ecorded Status: Recorded on: 05/12/19 10 10:21AM; Disconti nued Status: Disconti nued on: 03/23/19 11 3:53PM;U ser: vesth Not Available Not Available Not Available nitroglyc helio 0.4 mg sublingua l tablet DISSOLVE 1 TABLET UNDER THE TONGUE EVERY 5 MINUTES UP TO 3 DOSES NEEDED FOR CHEST PAIN - IF NO RELIEF CALL 911 active Not Available Not Available No t Available omeprazol e 20 mg capsule,d elayed release TAKE ONE (1) CAPSULE EVERY DAY BY ORAL ROUTE IN THE MORNING FOR 90 DAYS. 12/05 completed Not Available Not Available Not Available bumetanid e 1 mg tablet Take 4 mg by oral route. 09/13 completed Not Available Not Available Not Available monteluka st 10 mg tablet TAKE ONE (1) TABLET EVERY DAY BY ORAL ROUTE AT BEDTIME FOR 90 DAYS. 2024 active Not Available Not Available Not Avai lable lisinopri l 5 mg tablet TAKE ONE (1) TABLET EVERY DAY BY ORAL ROUTE FOR 90 DAYS. active Not Available Not Available No t Available Baby Aspirin 81 mg chewable tablet chew 1 tablet by oral route QD for 100 days do not take if you are allergic to aspirin or its componen ts, or have question s of gastroin testinal intolera nce 11/12 completed Baby Aspirin 81 mg oral tablet,c hewable; Recorded Status: Recorded on: 03/31/19 12 5:32PM;D iscontin ued Status: Disconti nued on: 11/13/19 13 5:05PM;U ser: neuss;Es carol Matos on: 04/04/19 15 Not Available Not Available Not Available metoprolo l succinate ER 25 mg tablet,ex tended release 24 hr 09/13 completed Not Available Not Available Not Available ergocalci ferol (vitamin D2) 1,250 mcg (50,000 unit) capsule TAKE ONE (1) CAPSULE EVERY WEEK BY ORAL ROUTE FOR 90 DAYS. active Not Available Not Available No t Available levofloxa cindy 500 mg tablet Take 1 tablet every day by oral route for 7 days. 02/23 completed Not Available Not Available Not Available methylpre dnisolone 4 mg tablets in a dose pack TAKE DIRECTED FOR 6 DAYS 12/20 completed Not Available Not Available Not Available sertralin e 20 mg/mL oral concentra te take 2.5 millilit ers (50 mg) by oral route once daily and mix with 4 oz. (1/2 cup) of water, riky elena, lemon/li me soda, lemonade or orange juice ONLY 03/23 completed sertrali ne 20 mg/mL oral concentr ate;Sammy rded Status: Recorded on: 05/12/19 10 10:25AM; Disconti nued Status: Disconti nued on: 03/23/19 11 3:20PM;U ser: vesth;In dication : Depressi on - () Not Available Not Available Not Available cefdinir 300 mg capsule TAKE ONE CAPSULE BY MOUTH TWICE DAILY FOR 10 DAYS 11/03 completed Not Available Not Available Not Available losartan 100 mg tablet take 1 tablet (100 mg) by oral route once daily for 90 days 02/24 completed losartan 100 mg oral tablet;P rescribe Status: Prescrib ed on: 08/29/19 15 6:41PM;U ser: neuss;Es carol Matos on: 02/25/20 15;Pharm acyVerif ied: 08/29/19 15 6:41PM Not Available Not Available Not Available Lipitor 10 mg tablet take 1 tablet (10 mg) by oral route once daily 03/23 completed Lipitor 10 mg oral tablet;R ecorded Status: Recorded on: 05/12/19 10 10:21AM; Disconti nued Status: Disconti nued on: 03/23/19 11 3:31PM;U ser: vesth Not Available Not Available Not Available fluticaso ne propionat e 50 mcg/actua tion nasal spray,vinnie pension USE ONE SPRAY IN EACH NOSTRIL IN THE MORNING AND IN THE EVENING active Not Available Not Available No t Available sertralin e 50 mg tablet take 1 tablet (50 mg) by oral route daily for 30 days 01/17 completed sertrali ne 50 mg oral tablet;R ecorded Status: Recorded on: 03/23/19 11 3:57PM;D iscontin ued Status: Disconti nued on: 01/18/20 13 2:58PM;U ser: rankinw; Est. Completi on: 06/22/19 11 Not Available Not Available Not Available loratadin e 10 mg tablet TAKE 1 TABLET BY MOUTH EVERY DAY 09/13 completed Not Available Not Available Not Available levothyro xine 112 mcg tablet take 3 tablets by oral route daily for 30 days 12/17 completed levothyr oxine 112 mcg oral tablet;R ecorded Status: Recorded on: 02/16/20 12 11:34AM; Disconti nued Status: Disconti nued on: 12/18/19 13 11:23AM; User: dayna aparicio;Est. Completi on: 03/17/20 12;Print ed: 02/16/20 12 Not Available Not Available Not Available amoxicill in 875 mg-potass ium clavulana te 125 mg tablet TAKE ONE (1) TABLET EVERY 12 HOURS BY ORAL ROUTE FOR 7 DAYS. 03/10 completed Not Available Not Available Not Available amoxicill in 500 mg-potass ium clavulana te 125 mg tablet TAKE ONE TABLET BY MOUTH EVERY 8 HOURS FOR 10 DAYS 11/03 completed Not Available Not Available Not Available Ventolin HFA 90 mcg/actua tion aerosol inhaler INHALE TWO (2) PUFFS EVERY 4-6 HOURS BY INHALATI ON ROUTE NEEDED FOR 30 DAYS. active Not Available Not Available No t Available albuterol (refill) 90 mcg/actua tion aerosol inhaler 09/13 completed Not Available Not Available Not Available furosemid e 10 mg/mL injection syringe one time only 05/09 completed Not Available Not Available Not Available Zithromax 500 mg tablet take 1 tablet (500 mg) by oral route once daily for 3 days 03/23 completed Zithroma x 500 mg oral tablet;R ecorded Status: Recorded on: 05/12/19 10 10:27AM; Disconti nued Status: Disconti nued on: 03/23/19 11 3:20PM;U ser: rankinw; Est. Completi on: 05/15/19 10;Print ed: 05/12/19 10 Not Available Not Available Not Available ezetimibe 10 mg tablet TAKE ONE TABLET BY MOUTH EVERY DAY 04/01 completed Not Available Not Available Not Available Novolog FlexPen U-100 Insulin aspart 100 unit/mL (3 mL) subcutane ous inject if greater than 200 11/05 completed Novolog Flexpen 100 unit/mL subcutan eous insulin pen;Sammy rded Status: Recorded on: 10/07/19 14 3:08PM;U ser: neuss;Es t. Completi on: 11/06/19 14 Not Available Not Available Not Available cholestyr amine (with sugar) 4 gram powder for susp in a packet 07/31 completed Not Available Not Available Not Available rosuvasta tin 40 mg tablet TAKE ONE (1) TABLET EVERY DAY BY ORAL ROUTE AT BEDTIME FOR 90 DAYS. 2024 active Not Available Not Available Not Avai lable Spiriva with [employer]iH[employer] r 18 mcg and inhalatio n capsules inhale 1 capsule (18 mcg) by inhalati on route once daily 08/08 completed Not Available Not Available Not Available nitrofura ntoin monohydra te/macroc rystals 100 mg capsule TAKE 1 CAPSULE BY MOUTH TWICE DAILY FOR 10 DAYS 11/03 completed Not Available Not Available Not Available Sure Comfort Insulin Syringe 0.5 mL 31 gauge x 5/16 USE FOUR TIMES A DAY. 05/09 completed Not Available Not Available Not Available Glucose Test Strips tid 07/28 completed glucose strips 250.02;R ecorded Status: Recorded on: 01/19/20 11 8:50AM;D iscontin ued Status: Disconti nued on: 07/29/19 15 12:17PM; User: cherri EstLakshmi Completi on: 01/13/20 12;Indic ation: diabetes - (-5);Evie nted: 01/19/20 11 Not Available Not Available Not Available Glucomete r-M test qid 07/28 completed glucomet er 250.02;R ecorded Status: Recorded on: 08/23/19 11 4:54PM;D iscontin ued Status: Disconti nued on: 07/29/19 15 12:17PM; User: cherri EstLakshmi Completi on: 09/22/19 11;Indic ation: diabetes - (-5) Not Available Not Available Not Available Insulin Syringe 0.5 mL 30 gauge x 5/16 qid -- DX: 250.00 02/06 completed Insulin Syringe 1/2 mL 30 gauge x 5/16 miscella neous syringe; Prescrib e Status: Prescrib ed on: 02/12/20 13 1:08PM;U ser: neuss;Es t. Completi on: 02/07/20 14;Pharm acyVerif ied: 02/12/20 13 1:08PM Not Available Not Available Not Available Januvia 100 mg tablet TAKE ONE (1) TABLET EVERY DAY BY ORAL ROUTE FOR 90 DAYS. 2024 active Not Available Not Available Not Avai lable Symbicort 160 mcg-4.5 mcg/actua tion HFA aerosol inhaler INHALE TWO (2) PUFFS BY MOUTH TWICE DAILY ON A REGULAR BASIS 12/20 completed Not Available Not Available Not Available Humalog KwikPen (U-100) Insulin 100 unit/mL subcutane ous INJECT PER SLIDING SCALE: <200 = NO INSULIN; 201-250 = FIVE (5) UNITS; 251-300 = 8 UNITS; 301-350 = 12 UNITS; 351-400 = 15 UNITS; >401 = CALL OFFICE PLEASE. MAX DAILY DOSE OF 60 UNITS active Not Available Not Available No t Available Solu-Medr ol (PF) 125 mg/2 mL solution for injection Take 125 mg by injectio n route as directed . 02/27 completed Not Available Not Available Not Available OneTouch Verio test strips DIRECTED TO TEST BLOOD SUGAR (4) TIMES DAILY active Not Available Not Available No t Available Chantix Starting Month Box 0.5 mg (11)-1 mg (42) tablets in dose pack 05/09 completed Not Available Not Available Not Available Unifine Pentips Plus 31 gauge x 5/16 needle use as directed for 33 days 08/08 completed Not Available Not Available Not Available Combivent Respimat 20 mcg-100 mcg/actua tion solution for inhalatio n INHALE ONE (1) PUFF FOUR (4) TIMES A DAY BY INHALATI ON ROUTE FOR 30 DAYS. active Not Available Not Available No t Available Invokana 100 mg tablet TAKE 1 TABLET BEFORE FIRST MEAL OF THE DAY. 03/24 completed Not Available Not Available Not Available Farxiga 10 mg tablet Take 1 tablet every day by oral route. 01/03 completed Not Available Not Available Not Available Jardiance 10 mg tablet TAKE ONE (1) TABLET EVERY DAY BY ORAL ROUTE DIRECTED FOR 90 DAYS. 2024 active Not Available Not Available Not Avai lable Jardiance 25 mg tablet Take 1 tablet every day by oral route for 90 days. 01/25 completed Not Available Not Available Not Available Trulicity 1.5 mg/0.5 mL subcutane ous pen injector Inject 1.5 mg every week by subcutan eous route as directed for 90 days. 09/02 completed Not Available Not Available Not Available Trulicity 0.75 mg/0.5 mL subcutane ous pen injector INJECT 0.75MG SUBCUTAN EOUSLY ONCE WEEKLY 09/06 completed dose increase d Not Available Not Available Not Available OneTouch Verio Flex Meter DIRECTED TO CHECK BLOOD SUGAR THREE (3) TIMES DAILY active Not Available Not Available No t Available Ollie Grimaldo U-100 Insulin 100 unit/mL (3 mL) subcutane ous INJECT 35 UNITS BY SUBCUTAN EOUS ROUTE EVERY EVENING. 08/08 completed Not Available Not Available Not Available oxygen 3L per [place] ATC 09/02 completed Not Available Not Available Not Available OneTouch Ultra Blue Test Strip USE 1 STRIP TO CHECK GLUCOSE THREE TIMES DAILY 08/30 completed Not Available Not Available Not Available OneTouch Delica Plus Lancet 33 gauge DIRECTED TO TEST BLOOD SUGAR THREE (3) TIMES DAILY active Not Available Not Available No t Available Breztri Aerospher e 160 mcg-9mcg- 4.8mcg/ac tuation HFA aerosol inhaler INHALE TWO (2) PUFFS TWICE A DAY BY INHALATI ON ROUTE. active Not Available Not Available No t Available Mounjaro 7.5 mg/0.5 mL subcutane ous pen injector INJECT 7.5 MG EVERY WEEK BY SUBCUTAN EOUS ROUTE FOR 28 DAYS. 04/30 completed Not Available Not Available Not Available Mounjaro 5 mg/0.5 mL subcutane ous pen injector INJECT FIVE (5) MG EVERY WEEK BY SUBCUTAN EOUS ROUTE FOR 28 DAYS. 01/14 completed Not Available Not Available Not Available Mounjaro 2.5 mg/0.5 mL subcutane ous pen injector INJECT TWO AND A HALF (2 & 1/2) MG EVERY WEEK BY SUBCUTAN EOUS ROUTE FOR 30 DAYS. 11/05 completed Not Available Not Available Not Available Astepro Allergy 205.5 mcg (0.15 %) nasal spray Alma 1 spray twice a day by intranas al route as directed . 2023 active Not Available Not Available Not Avai lable Vitals Date Recorded Body height Body mass index (BMI) Body weight Heart rate Oxygen saturation Oxygen saturation in Arterial blood by Pulse oximetry Respiratory rate Systolic blood pressure Diastolic blood pressure Provider Name and Address Organization Details Last Updated DateTime 5 151.13 cm 35.2 kg/m2 66900.8 5 g 74 /min 98 % 98 % 18 /min 126 mm[Hg] 80 mm[Hg] Crystal Laron [place] - [facility] 5 08:49:22 Date Recorded Body height Body mass index (BMI) Body weight Body temperature Heart rate Oxygen saturation Oxygen saturation in Arterial blood by Pulse oximetry Respiratory rate Systolic blood pressure Diastolic blood pressure Provider Name and Address Organization Details Last Updated DateTime 5 151.13 cm 32.6 kg/m2 60202.8 5 g 98.4 [degF] 97 /min 93 % 93 % 18 /min 110 mm[Hg] 64 mm[Hg] Tana Jake [place] - [facility] 5 10:22:20 Date Recorded Body height Body mass index (BMI) Body weight Heart rate Oxygen saturation Oxygen saturation in Arterial blood by Pulse oximetry Respiratory rate Systolic blood pressure Diastolic blood pressure Provider Name and Address Organization Details Last Updated DateTime 4 151.13 cm 38.7 kg/m2 93984.5 1 g 76 /min 91 % 91 % 18 /min 118 mm[Hg] 72 mm[Hg] Yesi Larry [place] - [facility] 4 09:11:24 Date Recorded Body height Body mass index (BMI) Body weight Heart rate Oxygen saturation Oxygen saturation in Arterial blood by Pulse oximetry Respiratory rate Systolic blood pressure Diastolic blood pressure Provider Name and Address Organization Details Last Updated DateTime 4 151.13 cm 37.5 kg/m2 65440.9 6 g 71 /min 97 % 97 % 18 /min 122 mm[Hg] 80 mm[Hg] Yesi Larry [place] - [facility] 4 10:58:27 Date Recorded Body height Body mass index (BMI) Body weight Heart rate Oxygen saturation Oxygen saturation in Arterial blood by Pulse oximetry Respiratory rate Systolic blood pressure Diastolic blood pressure Provider Name and Address Organization Details Last Updated DateTime 4 151.13 cm 36.5 kg/m2 50938 g 78 /min 93 % 93 % 18 /min 124 mm[Hg] 80 mm[Hg] Yesi Larry [place] - [facility] 4 10:40:51 Social History Question Answer Notes LastModified by Organizat ion Details LastModified Time Tobacco Smoking Status Former Smoker Yesi [place], [place] - [facility] 01/15/2024 10:52:22 Do You Have An Advance Directive? No [email or web address] Information not available 07/31/2016 Are You Blind Or Do You Have Difficulty Seeing? No [email or web address] Information not available 07/31/2016 What Is Your Level Of Caffeine Consumption? Heavy Information not available 11/04/2019 How Much Tobacco Do You Chew? None Information not available 11/04/2019 Are You Deaf Or Do You Have Serious Difficulty Hearing? No [email or web address] Information not available 07/31/2016 What Type Of Diet Are You Following? REGULAR [email or web address] Information not available 07/31/2016 Which Illicit Or Recreational Drugs Have You Used? Never Information not available 02/15/2016 What Is The Highest Grade Or Level Of School You Have Completed Or The Highest Degree You Have Received? [id number] Information not available 01/15/2024 When Did You Quit Smoking? 1-5yearssinc elastcigaret te Has Went Back To Smoking [email or web address] Information not available 05/23/2023 Hard Of Hearing Or Deaf In One Or Both Ears? No [email or web address] Information not available 07/31/2016 Single Or Multi-level Home/work? Single Level Home [email or web address] Information not available 07/31/2016 Legally Blind In One Or Both Eyes? No Information not available 02/15/2016 Live Alone Or With Others? With Others [email or web address] Information not available 02/15/2016 Marital Status [email or web address] Informat ion not available 07/31/2016 What Was The Date Of Your Most Recent Tobacco Screening? 06/17/2024 Information not available 06/17/2024 How Many Children Do You Have? 4 Information not available 01/15/2024 What Is Your Current Pack Years? 30ormorepack years [email or web address] Information not available 12/20/2021 Do You Use Protection Against STDs? No Information not available 01/15/2024 What Is Your Relationship Status? Domestic Partner Information not available 01/15/2024 Do You Use Your Seat Belt Or Car Seat Routinely? No Information not available 01/15/2024 Seat Belts Used Routinely Yes [email or web address] Information not available 07/31/2016 Are You Sexually Active? Yes Information not available 01/15/2024 Smoke Alarm In Home Yes [email or web address] Information not available 02/15/2016 At What Age Did You Start Smoking Tobacco? 11 Information not available 12/20/2021 Are You Passively Exposed To Smoke? Yes Information not available 01/15/2024 How Much Tobacco Do You Smoke? No [email or web address] Information not available 01/03/2023 Do You Use Sunscreen Routinely? Yes [email or web address] Information not available 07/31/2016 Has Tobacco Cessation Counseling Been Provided? Yes [email or web address] Information not available 07/31/2016 On What Date Was Tobacco Cessation Counseling Provided? 06/17/2024 Information not available 06/17/2024 How Many Years Have You Smoked Tobacco? 55 [email or web address] Information not available 12/20/2021 Do You Have Difficulty Walking Or Climbing Stairs? No [email or web address] Information not available 07/31/2016 Sex: Female Functional Status Question Answer Note LastModified by Organizat ion Details LastModified Time Do you or have you ever used smokeless tobacco? Never used smokeless tobacco Information not available 11/04/2019 Are you currently employed? No [email or web address] Information not available 02/15/2016 Urinary incontinence assessment performed? Yes [email or web address] Information not available 07/31/2016 Are you able to care for yourself? Yes [email or web address] Information not available 02/15/2016 Do you have difficulty dressing or bathing? No [email or web address] Information not available 07/31/2016 Do you or have you ever used e-cigarettes or vape? Never used electronic cigarettes Information not available 11/04/2019 What is your exercise level? Occasional [email or web address] Information not available 02/15/2016 Do you use any illicit or recreational drugs? No Information not available 04/01/2021 Do you or have you ever used any other forms of tobacco or nicotine? No Information not available 04/01/2021 What is your level of alcohol consumption? Occasional Information not available 11/04/2019 Are you able to walk? YESWOREST [email or web address] Information not available 07/31/2016 Do you have difficulty doing errands alone? No Information not available 07/31/2016 What is your occupation? retired [email or web address] Information not available 05/11/2020 Mental Status Question Answer Note LastModified by Organizat ion Details LastModified Time Do you feel stressed (tense, restless, nervous, or anxious, or unable to sleep at night)? [id number] Information not available 01/15/2024 Do you have difficulty concentrating, remembering or making decisions? No [email or web address] Information no t available 07/31/2016 Family History Relationship Description Onset Age of this Age Resolved Age Notes LastModified by Organization Details LastModified Time Father Coronary arterioscler osis Not available 2023 10:52:21 Father Diabetes mellitus Not available 2023 10:52:21 Paternal Grandmother Coronary arterioscler osis Not available 2023 10:52:21 Mother Malignant tumor of esophagus Not available 2023 10:52:21 Daughter Asthma Not available 01/15/2024 10:52:21 Medical History Condition Response Vision or Eye Problems Y Headaches Y Hospitalizations Y Thyroid Problems Y Diabetes Y Heart Disease Y Hypertension Y Gynecological History Statement/Question Response Abnormal Pap N Date of Last Mammogram Date of LMP 03/19/1998 STIs/STDs N HPV Vaccine N Most Recent Mammogram Current Control Method N/A Age at Menarche 11 Age at First Child 18 If Post Menopausal, Age at Menopause 42 Sexually Active? Y Menses Monthly N Date of Last Pap Smear Hormone Replacement Therapy N Obstetrics History GPAL:G 0 P 0 0 0 0 Immunizations Vaccine Type Date Status Note Provider Name and Address Organization Details Recorded Time pneumococcal polysaccharide PPV23 017 completed Not Available [facility] 04/05/2019 03:54:29 Tdap 017 completed Not Available [facility] 04/05/2019 03:54:30 Influenza, high-dose, quadrivalent, PF 020 completed Evita Mead null, [place] - [facility] 03/03/2020 18:12:29 Influenza, high-dose, quadrivalent, PF 021 completed Evita Mead null, [place] - [facility] 12/15/2020 11:15:26 Pneumococcal conjugate PCV 13 021 completed Evita Mead null, [place] - [facility] 12/15/2020 11:16:42 Pneumococcal conjugate PCV 13 012 completed Not Available [facility] 01/26/2023 22:28:28 influenza, unspecified formulation 010 completed Not Available [facility] 01/26/2023 22:28:28 influenza, unspecified formulation 012 completed Not Available [facility] 01/26/2023 22:28:28 influenza, unspecified formulation 013 completed Not Available [facility] 01/26/2023 22:28:28 influenza, unspecified formulation 014 completed Not Available [facility] 01/26/2023 22:28:28 influenza, unspecified formulation 015 completed Not Available [facility] 01/26/2023 22:28:28 influenza, unspecified formulation 012 completed Not Available [facility] 01/26/2023 22:28:27 Influenza, high-dose, quadrivalent, PF 022 completed Christi Barrios, [employer] [address], [place], [address], [place] - [facility] 01/30/2022 20:40:07 Influenza, split virus, quadrivalent, preservative 017 cancelled patient objection Not Available [facility] 04/05/2019 03:54:47 Influenza, high-dose, quadrivalent, PF 023 completed Christi Barrios, [employer] [address], [place], [address], [place] - [facility] 01/03/2023 18:20:18 Influenza, high-dose, trivalent, PF 024 completed Tana Cardenas, [employer] [address], [place], [address], [place] - [facility] 03/10/2024 13:06:29 SARS-COV-2 (COVID-19) vaccine, UNSPECIFIED 021 completed Not Available [facility] 01/26/2023 22:28:27 pneumococcal polysaccharide PPV23 009 completed Not Available [facility] 01/26/2023 22:28:27 Influenza, split virus, trivalent, PF 009 completed Not Available [facility] 01/26/20[facility] 22:28:28 COVID-19, mRNA, LNP-S, PF, 100 mcg/0.5mL dose or 50 mcg/0.25mL dose 022 completed Not Available [facility] 01/26/2023 22:28:27 COVID-19, mRNA, LNP-S, bivalent, PF, 50 mcg/0.5 mL or 25mcg/0.25 mL dose 022 completed Not Available [facility] 01/26/2023 22:28:27 COVID-19, mRNA, LNP-S, PF, 100 mcg/0.5mL dose or 50 mcg/0.25mL dose 021 completed Not Available [facility] 01/26/2023 22:28:27 pneumococcal polysaccharide PPV23 012 completed Not Available [facility] 01/26/2023 22:28:27 Past Encounters Encounter ID Performer Location Encounter Start Date Encounter Closed Date Diagnosis/Indication Diagnosis SNOMED-CT Code Diagnosis ICD10 Code Diagnosis Note [id number] Estiven No MD [address] [place] [address] 02/22/2016 13:45:17 02/22/2016 15:11:56 Type 2 diabetes mellitus 08104280 E11.9 Diabetes mellitus 644024 09 E11.9 Chronic ob structive pulmonary disease 57090504 J44.9 Aortic valve stenosis 60 032361 I35.0 Hypothyroidism 28315991 E03.9 Tobacco user 683918866 Z 72.0 Coronary arteriosclerosis 87437349 I25.10 Stented co ronary artery 333493336 Z95.5 Influenza vaccine needed 5551964798 106 Z23 Morbid obesity 695508081 E66.01 Allergic rhinitis 550147 04 J30.89 [id number] Estiven No MD [facility] [address] [place], [place] [address] [place] [address] 06/28/2016 17:14:11 06/28/2016 20:39:41 Stented coronary artery 096633124 Z95.5 Congestive heart failure 39888796 I50.9 Chronic ob structive pulmonary disease 42712938 J44.9 Diabetes mellitus 497455 09 E11.9 Renewal of prescription 731621942 Z76.0 Tobacco user 600112115 Z 72.0 Chronic diarrhea 1487453 09 K52.9 Acquired hypothyroidism 837410713 E03.9 Diarrhea 79897534 R19.7 [id number] Estiven No MD [facility] [address] [place] [address] [place] [address] 07/12/2016 15:29:16 07/12/2016 18:26:13 Congestive heart failure 11284499 I50.9 Chronic ob structive pulmonary disease 72977715 J44.9 Nicotine dependence 5629 4008 F17.200 Screening for malignant neoplasm of colon 246135397 Z12.11 Acquired hypothyroidism 229101541 E03.9 [id number] Shona Burton APRN [facility] [address] [place] [address] [place] [address] 07/31/2016 12:49:03 07/31/2016 13:57:55 General examination of patient 419351187 Z00.00 Body mass index 40+ - severely obese 219031068 Z68.42 Nicotine dependence 5629 4008 F17.200 Screening mammography 24 053472 Z12.31 Diabetes mellitus 536815 09 E11.9 Viral screening 02643474 4 Z11.59 At [facility] ed risk for falls 181258225 Z91.81 Vaccination required 170 580020 Z28.3 Chronic ob structive pulmonary disease 49370819 J44.9 [id number] Estiven No MD [facility] [address] [place] [address] [place] [address] 09/22/2016 08:11:12 09/22/2016 10:03:53 Chronic obstructive pulmonary disease 53433607 J44.9 Dyspnea 989313280 R06.02 Type 2 rena betes mellitus without complication 529668683 E11.9 Abdominal pain 11483589 R10.9 Morbid obesity 504505121 E66.01 Acute sinusitis 69138062 J01.90 Edema of l ower extremity 124065775 R60.0 [id number] Estiven No MD [facility] [address] [place], [address] [place] [address] 02/07/2017 08:55:06 02/07/2017 10:30:42 Acquired hypothyroidism 296416380 E03.9 Heart murmur 66893850 R0 1.1 Chronic ob structive pulmonary disease 60473084 J44.9 Mixed hyperlipidemia 267 807470 E78.2 Essential hypertension 35410999 I10 Body mass index 40+ - severely obese 102399787 Z68.41 Administra tion of influenza vaccine 92309340 Z23 Type 2 rena betes mellitus without complication 459135626 E11.9 Environmental allergy 42 5129955 T78.49XD Renewal of prescription 255589431 Z76.0 Acute bila teral otitis media 217318855 H66.93 [id number] Estiven No MD [address] [place] [address] 05/09/2017 09:49:05 05/09/2017 10:43:14 Acquired hypothyroidism 186579661 E03.9 Chronic ob structive pulmonary disease 51338437 J44.9 Mixed hyperlipidemia 267 363790 E78.2 Congestive heart failure 09553432 I50.9 Essential hypertension 86827091 I10 Diabetes mellitus 439043 09 E11.9 Aortic valve stenosis 60 384948 I35.0 Body mass index 40+ - severely obese 973817385 Z68.41 [id number] Estiven No MD [address] [place] [address] 08/08/2017 09:14:38 08/08/2017 10:57:33 Acquired hypothyroidism 399852080 E03.9 Heart murmur 22889412 R0 1.1 Stented co ronary artery 924998118 Z95.5 Chronic ob structive pulmonary disease 17446419 J44.9 Morbid obesity 885381308 E66.01 Mixed hyperlipidemia 267 248522 E78.2 Congestive heart failure 04499516 I50.9 Coronary arteriosclerosis 60560155 I25.10 Essential hypertension 93904029 I10 Aortic valve stenosis 60 384819 I35.0 Diabetes mellitus 009888 09 E11.9 Body mass index 30+ - obesity 338949296 Z68.37 Type 2 rena betes mellitus without complication 407250179 E11.9 Asthma 335486334 J45.90 9 Environmental allergy 42 8503066 T78.49XD Gastroesop hageal reflux disease 387367887 K21.9 [id number] Neha Schilling MD [address] [place] [address] 11/04/2019 09:02:09 11/04/2019 11:06:00 Chronic obstructive pulmonary disease 81635377 J44.9 Mixed hyperlipidemia 267 986707 E78.2 Diabetes mellitus 364456 09 E11.21 Chronic ki dney disease 868191248 N18.9 Acquired hypothyroidism 138573347 E03.9 History of coronary artery bypass grafting 192725077 Z95.1 Congestive heart failure 07003916 I50.9 Coronary arteriosclerosis 01408449 I25.10 Essential hypertension 40865473 I10 Heart murmur 30355816 R0 1.1 Gastroesop hageal reflux disease 491619283 K21.9 Chronic diarrhea 9864129 09 K52.9 Peripheral venous insufficiency 19490168 I87.2 Allergic rhinitis 989612 04 J30.9 [id number] Neha Schilling MD [address] [place] [address] 01/13/2020 18:27:35 01/13/2020 19:00:01 Chronic obstructive pulmonary disease 85808503 J44.9 Allergic rhinitis 391207 04 J30.9 Acquired hypothyroidism 170063296 E03.9 Coronary arteriosclerosis 65855295 I25.10 Diabetes mellitus 508683 09 E11.21 Mixed hyperlipidemia 267 393817 E78.2 Essential hypertension 06765063 I10 Asthma 303437501 J45.90 9 Gastroesop hageal reflux disease without esophagitis 723170646 K21.9 [id number] Neha Schilling MD [address] [place] [address] 02/04/2020 09:32:15 02/04/2020 13:16:07 Administration of influenza vaccine 00528144 Z23 [id number] Neha Schilling MD [address] [place] [address] 03/23/2020 16:54:17 03/23/2020 17:56:46 Diabetes mellitus 76948131 E11.21 Chronic ob structive pulmonary disease 31990648 J44.9 Acute exac erbation of chronic obstructive pulmonary disease 658721607 J44.1 Acquired hypothyroidism 255673970 E03.9 Asthma 486419674 J45.90 9 Gastroesop hageal reflux disease 625888640 K21.9 Mixed hyperlipidemia 267 828752 E78.2 History of coronary artery bypass grafting 323498540 Z95.1 Stented co ronary artery 303711740 Z95.5 Congestive heart failure 37643481 I50.9 Coronary arteriosclerosis 22298883 I25.10 Essential hypertension 81266101 I10 Allergic rhinitis 641899 04 J30.9 Chronic ki dney disease 767162108 N18.9 Heart murmur 09424785 R0 1.1 [id number] Neha Schilling MD [address] [place] [address] 06/21/2020 12:34:51 06/21/2020 13:56:17 Body mass index 40+ - severely obese 050004499 Z68.42 Type 2 rena betes mellitus 80044941 E11.21 Nicotine d ependence with current use 036314781 F17.200 Mammogram declined 69290 5004 Z53.20 Colonoscopy declined 496 8142226 47115 Z53.20 Acute exac erbation of chronic obstructive pulmonary disease 305973958 J44.1 and rash on left arm Acquired hypothyroidism 543037082 E03.9 Chronic ob structive pulmonary disease 16278993 J44.9 Asthma 331394623 J45.90 9 [id number] Neha Schilling MD [address] [place] [address] 09/21/2020 11:42:08 09/21/2020 16:22:49 Type 2 diabetes mellitus 78100684 E11.21 Peripheral edema 2892926 00 R60.9 Acquired hypothyroidism 445132431 E03.9 Mixed hyperlipidemia 267 002806 E78.2 Hypertensive disorder 38 014273 I10 [id number] Neha Schilling MD [address] [place] [address] 12/15/2020 09:50:17 12/15/2020 11:27:01 Administration of influenza vaccine 24307403 Z23 Type 2 rena betes mellitus 63079424 E11.21 Screening mammography 24 380276 Z12.31 Essential hypertension 67936998 I10 Infection of skin and/or subcutaneous tissue 18963623 L08.9 Administra tion of pneumococcal vaccine 64373812 Z23 [id number] Christi Barrios [address] [place] [address] 04/01/2021 14:13:42 04/01/2021 16:22:44 Chronic obstructive pulmonary disease 25514756 J44.9 Type 2 rena betes mellitus 62589192 E11.21 Congestive heart failure 16451046 I50.9 Acquired hypothyroidism 260008991 E03.9 Acute bact erial bronchitis 810362582 J20.9 Heavy ciga rette smoker (20-39 cigs/day) 829290791 Z72.0 Coronary arteriosclerosis 74768758 I25.10 Hypokalemia 68794239 E87 .6 Mixed hyperlipidemia 267 543687 E78.2 Gastroesop hageal reflux disease 927803956 K21.9 Morbid obesity 216023149 E66.01 [id number] Chrystal Welch [address] [place] [address] 09/06/2021 13:43:04 09/06/2021 14:50:20 Chronic obstructive pulmonary disease 77343715 J44.9 Acute exac erbation of chronic obstructive pulmonary disease 757715989 J44.1 Type 2 rena betes mellitus 77647215 E11.65 Heavy ciga rette smoker (20-39 cigs/day) 237297933 Z72.0 [id number] Christi Barrios [address] [place] [address] 12/20/2021 13:21:30 12/20/2021 15:15:38 Screening mammography 77693055 Z12.31 Screening for malignant neoplasm of colon 907390857 Z12.11 Body mass index 40+ - severely obese 847921258 Z68.42 Morbid obesity 120162481 E66.01 Chronic ob structive pulmonary disease 06931784 J44.9 Diabetes mellitus 235871 09 E11.21 Acquired hypothyroidism 266266491 E03.9 Mixed hyperlipidemia 267 803103 E78.2 Allergic rhinitis 269584 04 J30.9 Acute exac erbation of chronic obstructive pulmonary disease 240183569 J44.1 Influenza vaccine needed 7437819097 106 Z23 Heavy ciga rette smoker (20-39 cigs/day) 703515924 Z72.0 [id number] Christi Barrios[address] [place] [address] 02/27/2022 12:51:25 02/27/2022 15:00:27 Chronic obstructive pulmonary disease 39872809 J44.9 Type 2 rena betes mellitus 35538848 E11.21 Respirator y tract congestion 717520012 R09.89 Acute bact erial sinusitis 42912650 J01.90 [id number] Christi Barrios [address] [place] [address] 04/05/2022 15:28:16 04/05/2022 17:33:58 Acquired hypothyroidism 186783924 E03.9 Mixed hyperlipidemia 267 676908 E78.2 Essential hypertension 01984867 I10 Type 2 rena betes mellitus 68826559 E11.21 Acute bact erial sinusitis 26410024 J01.90 Body mass index 40+ - severely obese 167425220 Z68.42 Left Achil les tendinitis 2454662360 36611 M76.62 [id number] Christi Barrios[address] [place] [address] 08/09/2022 13:00:25 08/09/2022 13:57:19 Chronic obstructive pulmonary disease 19473884 J44.9 Type 2 rena betes mellitus 30899044 E11.21 Essential hypertension 34578888 I10 controlled Renewal of prescription 719539141 Z76.0 Gastroesop hageal reflux disease 076711926 K21.9 Hospital i npatient stay within past 30 days 3736477125 106 Z76.89 Acute non- ST segment elevation myocardial infarction 898983504 I21.4 Aortic valve stenosis 60 564030 I35.0 Congestive heart failure 46637289 I50.9 [id number] Chrystal Welch [address] [place] [address] 09/01/2022 10:43:24 09/01/2022 12:23:56 Dyspnea 089746102 R06.00 Chest x-ray ordered. Results discussed with patient at time of office visit. Encouraged patient to notify cardiology of results of chest x-ray. Patient verbalized understand ing. Congestive heart failure 57874243 I50.9 Patient reports she is scheduled to f/u with her cardiologi st, Dr. Landers, on 09/04/22. Encouraged patient to attend cardiology appointmen t as scheduled. Cough 79665217 R05.9 Body mass index 40+ - severely obese 167192899 Z68.41 Morbid obesity 525933058 E66.01 Ex-smoker 1673916 Z87.89 1 [id number] Christi Barrios [employer] [facility] [address] [place] [place] 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 [address] 05/23/2023 15:50:09 05/23/2023 17:20:15 Chronic obstructive pulmonary disease 84041683 J44.9 Type 2 rena betes mellitus 29076447 E11.21 stable, controlled Acute bact erial sinusitis 46146025 J01.90 Acute exac erbation of chronic obstructive pulmonary disease 191198763 J44.1 Cellulitis of lower leg 411592794 L03.116 Heart murmur 17415555 R0 1.1 Cigarette smoker 8601019 7 F17.411 [id number] Christi Barrios [address] [place] [address] 07/23/2023 15:24:04 07/23/2023 17:21:25 History of coronary artery bypass grafting 915556453 Z95.1 Type 2 rena betes mellitus 51418788 E11.21 Chronic ob structive pulmonary disease 97370302 J44.9 Acute bact erial sinusitis 66298667 J01.90 Cellulitis of lower leg 255707909 L03.116 Heart murmur 63791081 R0 1.1 Cigarette smoker 3713086 7 F17.921 [id number] Tanaveronica Cardenas [address] [place] [address] 09/03/2023 10:18:36 09/03/2023 11:12:24 Acquired hypothyroidism 931475312 E03.9 Chronic ob structive pulmonary disease 10220913 J44.9 Mixed hyperlipidemia 267 596056 E78.2 Type 2 rena betes mellitus 09805620 E11.21 Essential hypertension 12522762 I10 Nicotine dependence 5629 4008 F17.200 Body mass index 40+ - severely obese 523826924 Z68.41 Morbid obesity 205871983 E66.01 [id number] Tana Cardenas [address] [facility] [address] 11/05/2023 08:57:31 11/05/2023 10:24:29 Acquired hypothyroidism 565455426 E03.9 Gastroesop hageal reflux disease 161327924 K21.9 Mixed hyperlipidemia 267 734645 E78.2 Essential hypertension 97255565 I10 Type 2 rena betes mellitus 66115881 E11.21 Nicotine dependence 5629 4008 F17.200 Body mass index 30+ - obesity 008383222 Z68.38 Obesity 677515757 E66.9 [id number] Tana Cardenas [address] [place] [address] 01/15/2024 10:08:29 01/15/2024 12:26:22 Type 2 diabetes mellitus 19394946 E11.21 Body mass index 30+ - obesity 636692992 Z68.37 Obesity 250009789 E66.9 Gastroesop hageal reflux disease 895856847 K21.9 Bilateral cramp of muscle of lower limbs 6705139053 5452797 R25.2 Acute sinusitis 32942066 J01.90 [id number] Tana Cardenas [address] [place] [address] 03/10/2024 10:18:07 03/10/2024 12:03:27 Essential hypertension 06846761 I10 Type 2 rena betes mellitus 77292757 E11.21 Chronic ki dney disease 836472625 N18.9 Hypokalemia 43258221 E87 .6 Vitamin D deficiency 347 21512 E55.9 Peripheral edema 6262961 00 R60.9 Gastroesop hageal reflux disease 023883450 K21.9 Acquired hypothyroidism 842394680 E03.9 Chronic ob structive pulmonary disease 71355510 J44.9 Influenza vaccine needed 8342938976 106 Z23 Mammogram declined 49587 5004 Z53.20 Body mass index 30+ - obesity 717122439 Z68.36 Obesity 678679012 E66.9 Nicotine dependence 5629 4008 F17.208 [id number] Tana Cardenas [address] [place] [address] 04/30/2024 08:16:00 04/30/2024 09:22:11 Body mass index 30+ - obesity 425799942 Z68.35 Obesity 752770276 E66.9 Nicotine dependence 5629 4008 F17.200 Type 2 rena betes mellitus 12577560 E11.21 intolerant to Mounjaro - diarrhea Diarrhea 86169922 R19.7 [id number] Tana Cardenas [address] [place] [address] 06/17/2024 10:09:30 06/17/2024 11:46:20 Acquired hypothyroidism 975660114 E03.9 Chronic ob structive pulmonary disease 17428059 J44.9 Gastroesop hageal reflux disease 498140666 K21.9 Mixed hyperlipidemia 267 669896 E78.2 Type 2 rena betes mellitus 52875566 E11.21 intolerant to Mounjaro - diarrhea Vitamin D deficiency 347 23830 E55.9 Allergic rhinitis 055919 04 J30.9 Health Concerns Section Related Observation LastModified by Organization Detai ls LastModified Time None Recorded Concern Status LastModified by Organization Details LastModified Time None Recorded Advance Directives Directive N: Payers Insurance Date Sequence Insurance Name Policy Number Policy Low Covered Member ID Low Member ID Guarantor Name 04/27/2021 [place] [facility] WRAP BILLING (MEDICAID) Sunita Trent [id number] Sunita Trent 06/25/2021 1 [place] Sunita Trent [id number] Sunita Trent 06/18/2024 [place] [facility] WRAP BILLING (MEDICAID) DANIELLA Trent [id number] Sunita Trent 06/17/2024 2 [facility] (MEDICAID HMO) Sunita Trent [id number] Sunita Trent 04/01/2021 [employer] [place] [facility] (MEDICARE) Sunita Trent [id number] Sunita Trent 04/13/2016 2 UNSPECIFIED REMIT PAYOR Sunita Trent 06/19/2024 [facility] - DUAL ELIGIBLE (MEDICARE REPLACEMENT/AD VANTAGE - HMO) DANIELLA Trent [id number] Sunita Trent 06/17/2024 1 [facility] DANIELLA Trent [id number] Sunita Trent 04/01/2021 1 [facility] (MEDICARE REPLACEMENT/AD VANTAGE - HMO) DANIELLA Trent [id number] Sunita Trent 04/28/2016 1 UNSPECIFIED REMIT PAYOR Sunita Trent 05/16/2016 2 UNSPECIFIED REMIT PAYOR Sunita Trent 12/07/2021 [place] [facility] [place] Sunita Tina Twan [id number] Sunita Tina Twan 12/07/2021 1 [facility] (MEDICAID HMO) Sunita Trent [id number] Sunita Tina Twan 04/01/2021 2 [place] [facility] - FFS/TRADITIONA L Sunita Trent [id number] Sunita Trent Notes Date Note Type Note Provider Name and Address Organization Details Recorded Time 4 text/html Presents for follow up DM, HTN, HLD, ASFeeling wellStates she has been [facility] following TAVR last yearNo chest pain, shortness of breath, dizziness, lightheadedness, syncope, palpitations or edema.No fever, chills or cough.Smoking 1 ppdDenies alcohol and illicit drug usageCompliant with medications Tana Cardenas APRN [address] [facility], [place], [address], [facility] 11/05/2023 18:06:46 4 text/html Presents for sore throat, sinus pressure, ear pain for past 7-10 daysDoes endorse subjective fever, nasal drainage, headaches, muscle cramps to hands and legsNo body achesNo chest pain, shortness of breath, dizziness, lightheadedness, syncope, palpitations or edema.Compliant with medicationsDoes smoke 1 ppdDenies alcohol and illicit drug usageHas not taken anything OTC for symptoms Tana Cardenas APRN [address], [place], [address], [facility] - [facility] 01/15/2024 15:03:33 4 text/html Presents for follow up regarding hypothyroidism, COPD, CHF, DM, HTN, HLDFeeling wellTolerating mounjaroNo chest pain, shortness of breath, dizziness, lightheadedness, syncope, palpitations or edema.No fever or chillsDoes endorse cough non productive - attributes to smokeCompliant with medicationsSmoking 1-1.5 ppdDenies alcohol and illicit drug usage Tana Cardenas APRN [address], [place], [address], [place] - [facility] 03/10/2024 13:06:46 5 text/html Presents for issues diarrheaHas been occurring intermittently since starting Mounjaro but has recently worsenedNo chest pain, shortness of breath, dizziness, lightheadedness, syncope, palpitations or edema. No fever, chills or cough.No hematochezia, hematuria, melenaCompliant with medicationsSmoking 1 ppdDenies alcohol and illicit drug usage. Tana Cardenas APRN [address], [place], [address], [facility] - [facility] 04/30/2024 10:48:27 5 text/html Patient in for check up and lab work. Patient is fasting. Presents for follow up regarding DM, HTN, HLDFeeling wellNo chest pain, shortness of breath, dizziness, lightheadedness, syncope, palpitations or edema. No fever, chills or cough.Compliant with medicationsSmoking 1 ppdDenies alcohol and illicit drug usage. Tana Cardenas APRN [address], [place], [address], [place] - [facility] 06/17/2024 15:07:43 OBGyn Episode No OBEpisode recorded.
--- OUTSIDE RECORDS SUMMARY | 2024-08-22 13:23 | XMS_ITS | Clinical Summary ---
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 Name Role Phone Unavailable Primary Care Provider [...] Problem Noted Date Diagnosed Date CAD in [place] artery 08/04/2022 Asthma 08/04/2022 CHF (congestive heart [...] Date Sammy rded Speak language other than [place] at home Not on file 03/30/2023 Want [...] Mass Index - - Plan of Treatment Health Maintenance Due Date Last Done Comments CT Colonography 1955 Colonoscopy 1955 Colorectal Cancer Screening 1955 DXA SCAN 1955 Diabetic Kidney Health Evalu ation (KED) 1955 FOBT/FIT 1955 Fit-DNA (Cologuard) 1955 Sigmoidoscopy 1955 Diabetic Eye Exam 08/09/1965 Diabetic foot exam 08/09/1965 Depression Screening (12+) 1967 Hepatitis C Screening 08/09/1973 Breast Cancer Screening 1995 Shingles Vaccine (Zoster) (1 of 2) 08/09/2005 Respiratory Syncytial Virus (RSV) Adult or (1 - Risk 60-74 years 1-dose series) 2015 Hemoglobin A1C 02/04/2023 08/04/2022 Tobacco Cessation Counseling and Screening (12+) 08/05/2023 08/04/2022 COVID-19 VACCINE (4 - 2023-2 5 season) 2023 02/22/2022, 10/12/2021, 01/26/2021 Falls Risk Screening 03/19/2024 Influenza Vaccine (Season Ended) 2024 12/20/2021, 12/15/2020, 02/04/2020 Pneumococcal 50+ years (3 of 3 - PCV20 or PCV21) 12/15/2025 12/15/2020, 07/31/2016, 03/31/2011, Additional history exists DTAP/TDAP/TD VACCINES (2 - T d or Tdap) 07/31/2026 07/31/2016 Procedures Procedure Name Priority Date/Time Associated Diagnosis Comments HEMOGLOBIN A1C Routine 08/04/2022 8:23 PM EDT from Last 3 Months or Most Recently Relevant to Health Maintenance Results * Hemoglobin A1c (08/04/2022 8:23 PM EDT) Hemoglobin A1C 8.8 % 08/05/2022 12:00 PM EDT [facility] Comment: Hemoglobin A1C levels are related to mean glucose during the preceding 2-3 months. Less than 7% demonstrates glycemic control in diabetic patients. Hemoglobin AlC % Suggested Diagnosis > or = 6.5 Diabetic 5.7 - 6.4 Prediabetic <5.7 Non-diabetic eAVG Glucose 205.86 mg/dL 08/05/2022 12:00 PM EDT [facility] Blood Venipuncture / Unknown 08/04/2022 8:23 PM EDT 08/04/2022 8:29 PM EDT us William Lau PA-C LAB BLOOD ORDERABLES Final Re sult [facility] [address] [phone] from Last 3 Months or Most Recently Relevant to Health [place] [address] [employer] [facility] DUAL COMPLETE MCR ADV [facility] MEDICARE ADVANTAGE Advance Directives For more information, please contact: [phone] * Full Code (Latest Code Status on File) Date Activated Date Inactivated Comments 08/04/2022 6:56 PM 08/09/2022 12:06 AM
[2024-08-23 08:16] LABS: Hepatitis B Surface Antigen Negative (Negative)
== END 2024-08-21 23:59 | disposition home or self-care (01) ==
LOC: LAB.DROPOF 08-22 13:20
PROVIDERS: PCP Family Medicine; Visit Provider Family Medicine
DX: R60.0 Localized edema (principal)
CPT/HCPCS: 80053; 80061; 83036; 84436; 84443; 85025; 85378; 86803; 87340; 87389

== ENCOUNTER 2024-09-16 10:22 | Outpatient (CLI) | payer MEDICARE, OTHER, SELFPAY ==
--- OUTSIDE RECORDS SUMMARY | 2024-09-16 10:24 | XMS_ITS | Referral Summary ---
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 Name Role Phone Unavailable Primary Care Provider [...] Problem Noted Date Diagnosed Date CAD in [place] artery 08/04/2022 Asthma 08/04/2022 CHF (congestive heart [...] drink = 0.6 oz pur e alcohol) Food Insecurity Answer Date Recorded Food run [...] Date Sammy rded Speak language other than Swedish at home Not on file 03/30/2023 Want help with school or training Not on file 03/30/2023 Substance Use Answer Date Recorded Used [...] A1C 8.8 % 08/05/2022 12:00 PM EDT [facility] Comment: Hemoglobin A1C levels are related to mean glucose during the preceding 2-3 months. Less than 7% demonstrates glycemic control in diabetic patients. Hemoglobin AlC % Suggested Diagnosis > or = 6.5 Diabetic 5.7 - 6.4 Prediabetic <5.7 Non-diabetic eAVG Glucose 205.86 mg/dL 08/05/2022 12:00 PM EDT [facility] Blood Venipuncture / Unknown 08/04/2022 8:23 PM EDT 08/04/2022 8:29 PM EDT us William Lau PA-C LAB BLOOD ORDERABLES Final Re sult [facility] [address] [phone] from Last 3 Months or Most Recently Relevant to [place] [address] [facility] D[facility] ADV [facility] MEDICARE ADVANTAGE Advance Directives For more information, please contact: [phone] * Full Code (Latest Code Status on File) Date Activated Date Inactivated Comments 08/04/2022 6:56 PM 08/09/2022 12:06 AM
--- OUTSIDE RECORDS SUMMARY | 2024-09-16 10:24 | XMS_ITS | Data Portability ---
Author Organization Formerly [facility] Address [address] [place] [address] Care Team Providers [employer] Scientists Name Role Phone KASEY FITZGERALD Track Sweeper Assessment No assessment recorded. Plan of Treatment Reminders Order Date Submit Date Provider Last Modified By Organization Details Last Modified Time Details Appointments None recorded. Lab HbA1c (hemoglobin A1c), blood 2024 025 [facility], [address] [place], [address], 5 15:06:25 HbA1c (hemoglobin A1c), blood 2023 024 [facility], [address], [address], [place], [address], 4 08:37:42 CMP, serum or plasma 2023 024 [facility], [address], [place], [address], 4 08:37:41 CBC w/ auto diff 2023 024 [facility], [address], [address], [place], [address], 4 08:37:40 lipid panel, serum 2023 024 [facility], [address], [address], [place], [address], 4 08:37:42 vitamin D, 25-hydroxy, total, serum 2023 024 [facility], [address], [address], [place], [address], 4 08:37:43 HbA1c (hemoglobin A1c), blood [email or web address], [address] [place], [address], 4 14:43:14 HbA1c (hemoglobin A1c), blood 2023 024 [facility], [address], [address], [place], [address], 4 10:36:53 CMP, serum or plasma 2023 024 [facility], [address], [address], [place], [address], 4 10:36:50 CBC w/ auto diff 2023 024 [facility], [address], [address], [place], [address], 4 10:36:49 lipid panel, serum 2023 024 [facility], [address], [address], [place], [address], 4 10:36:52 TSH + free T4, serum 2023 024 [facility], [address], [address], [place], [address], 4 10:36:48 vitamin D, 25-hydroxy, total, serum 2023 024 [facility], [address], [address], [place], [address], 4 10:36:54 vitamin B12 + folate, serum or blood 2023 024 [facility], [address], [address], [place], [address], 4 10:36:52 Referral None recorded. Procedures None recorded. Surgeries None recorded. Imaging None recorded. Medication Orders fluticasone propionate 50 mcg/actuati on nasal spray,suspe nsion [address], [address], 5 10:44:00 OneTouch Verio test strips [address], [address], 5 10:43:59 ergocalcife rol (vitamin D2) 1,250 mcg (50,000 unit) capsule [address], [address], 5 10:43:59 Januvia 100 mg tablet [address], [address], 5 09:26:29 Mounjaro 7.5 mg/0.5 mL subcutaneou s pen injector [address], [address], 5 09:28:06 ergocalcife rol (vitamin D2) 1,250 mcg (50,000 unit) capsule 12/2023 [facility], [address] [place] [id number], [place], [address], 4 11:00:11 Mounjaro 7.5 mg/0.5 mL subcutaneou s pen injector [email or web address] - [address], [place], [address], 5 09:13:27 amoxicillin 875 mg-potassiu m clavulanate 125 mg tablet [address], [place], [address], 4 16:08:46 prednisone 10 mg tablet [address], [address], 4 16:08:43 omeprazole 40 mg capsule,del ayed release [address], [address], 4 11:23:20 ropinirole 0.25 mg tablet [address], [address], 4 11:23:20 Mounjaro 5 mg/0.5 mL subcutaneou s pen injector [address], [address], 4 14:14:46 Patient TargetsNo targets recorded. Patient Instructions Encounter Date Encounter Id Patient Instructions Last Modified By Organization Details Last Modified Time 11/05/2023 [id number] smoking cessatio n counseling, greater than 3 [...] or issues Not available 11/05/2023 18:06:40 01/15/2024 [id number] learning about healthy weight Not available 01/15/2024 11:14:19 body mass index: care instructions Not available 01/15/2024 11:14:19 diabetic foot exam* Not available 01/15/2024 11:13:46 Advised to take medication as directed Discussed result of POC hgb A1c with pt Reviewed importance of hydration and rest To call office for questions, concerns or issues Not available 01/15/2024 15:03:27 03/10/2024 [id number] smoking cessatio n counseling, greater than 3 [...] or issues Not available 03/10/2024 11:02:36 04/30/2024 [id number] smoking cessatio n counseling, greater than 3 [...] or issues Not available 04/30/2024 10:48:10 06/17/2024 [id number] Discussed result s of in office testing [...] L 0.450- 4.500 normal Not Available [facility] ([facility] [place] [facility]) [address] [place], [address], 11/06/2023 10:36:48 11/05/19 24 11/06/2023 TSH+F REE T4 T4,free(dire ct) 1.46 NG/dL 0.82-1 .77 normal Not Available [facility] ([facility] [place] [facility] [address] [place], [address], 11/06/2023 10:36:48 11/05/19 24 11/06/2023 CBC WITH DIFFE RENTI AL/PL ATELE T WBC 8.8 x10e3 /uL 3.4-10 .8 normal Not Available [facility] ([facility] [place] [facility] [address] [place], [address], 11/06/2023 10:36:49 11/05/19 24 11/06/2023 CBC WITH DIFFE RENTI AL/PL ATELE T RBC 6.05 x10e6 /uL 3.77-5 .28 above high normal Not Available [facility] ([facility] [place] [facility] [address] [place], [address], 11/06/2023 10:36:49 11/05/19 24 11/06/2023 CBC WITH DIFFE RENTI AL/PL ATELE T hemoglobin 16.4 g/dL 11.1-1 5.9 above high normal Not Available [facility] ([facility] [place] [facility] [address] [facility], [place], [address], 11/06/2023 10:36:49 11/05/19 24 11/06/2023 CBC WITH DIFFE RENTI AL/PL ATELE T hematocrit 52.7 % 34.0-4 6.6 above high normal Not Available [facility] ([facility] [place] [facility] [address] [place], [address], 11/06/2023 10:36:49 11/05/19 24 11/06/2023 CBC WITH DIFFE RENTI AL/PL ATELE T MCV 87 fL 79-97 normal Not Available [facility] ([facility] [place] [facility] [address] [place], [address], 11/06/2023 10:36:49 11/05/19 24 11/06/2023 CBC WITH DIFFE RENTI AL/PL ATELE T MCH 27.1 pg 26.6-3 3.0 normal Not Available [facility] ([facility] [place] [facility] [address] [place], [address], 11/06/2023 10:36:49 11/05/19 24 11/06/2023 CBC WITH DIFFE RENTI AL/PL ATELE T MCHC 31.1 g/dL 31.5-3 5.7 below low normal Not Available [facility] ([facility] [place] [facility] [address] [place], [address], 11/06/2023 10:36:49 11/05/19 24 11/06/2023 CBC WITH DIFFE RENTI AL/PL ATELE T RDW 13.7 % 11.7-1 5.4 Not Available [facility] ([facility] [place] [facility] [address] [place], [address], 11/06/2023 10:36:49 11/05/19 24 11/06/2023 CBC WITH DIFFE RENTI AL/PL ATELE T platelets 184 x10e3 /uL 150-45 0 normal Not Available [facility] ([facility] [place] [facility] [address] [facility], [place], [address], 11/06/2023 10:36:49 11/05/19 24 11/06/2023 CBC WITH DIFFE RENTI AL/PL ATELE T neutrophils 63 % not estab. normal Not Available [facility] ([facility] [place] [facility] [address] [facility], [place], [address], 11/06/2023 10:36:49 11/05/19 24 11/06/2023 CBC WITH DIFFE RENTI AL/PL ATELE T lymphs 23 % not estab. normal Not Available [facility] ([facility] [place] [facility] [address] [facility], [place], [address], 11/06/2023 10:36:49 11/05/19 24 11/06/2023 CBC WITH DIFFE RENTI AL/PL ATELE T monocytes 10 % not estab. normal Not Available [facility] ([facility] [place] [facility] [address] [facility], [place], [address], 11/06/2023 10:36:49 11/05/19 24 11/06/2023 CBC WITH DIFFE RENTI AL/PL ATELE T eos 3 % not estab. normal Not Available [facility] ([facility] [place] [facility] [address] [facility], [place], [address], 11/06/2023 10:36:49 11/05/19 24 11/06/2023 CBC WITH DIFFE RENTI AL/PL ATELE T basos 1 % not estab. normal Not Available [facility] ([facility] [place] [facility] [address] [facility], [place], [address], 11/06/2023 10:36:49 11/05/19 24 11/06/2023 CBC WITH DIFFE RENTI AL/PL ATELE T immature cells DIRECTOR OF STUDENT FINANCIAL AID Not Available [facility] ([facility] [place] [facility] [address] [place], [address], 11/06/2023 10:36:49 11/05/19 24 11/06/2023 CBC WITH DIFFE RENTI AL/PL ATELE T neutrophils (absolute) 5.6 x10e3 /uL 1.4-7. 0 normal Not Available [facility] ([facility] [place] [facility] [address] [place], [address], 11/06/2023 10:36:49 11/05/19 24 11/06/2023 CBC WITH DIFFE RENTI AL/PL ATELE T lymphs (absolute) 2.0 x10e3 /uL 0.7-3. 1 normal Not Available [facility] ([facility] [place] [facility] [address] [place], [address], 11/06/2023 10:36:49 11/05/19 24 11/06/2023 CBC WITH DIFFE RENTI AL/PL ATELE T monocytes(ab solute) 0.8 x10e3 /uL 0.1-0. 9 normal Not Available [facility] ([facility] [place] [facility] [address] [place], [address], 11/06/2023 10:36:49 11/05/19 24 11/06/2023 CBC WITH DIFFE RENTI AL/PL ATELE T eos (absolute) 0.3 x10e3 /uL 0.0-0. 4 normal Not Available [facility] ([facility] [place] [place] [facility] [address] [place], [address], 11/06/2023 10:36:49 11/05/19 24 11/06/2023 CBC WITH DIFFE RENTI AL/PL ATELE T baso (absolute) 0.1 x10e3 /uL 0.0-0. 2 normal Not Available [facility] ([facility] [place] [place] [facility] [address] [place], [address], 11/06/2023 10:36:49 11/05/19 24 11/06/2023 CBC WITH DIFFE RENTI AL/PL ATELE T immature granulocytes 0 % not estab. Not Available [facility] ([facility] [place] [place] [facility] [address] [facility], [place], [address], 11/06/2023 10:36:49 11/05/19 24 11/06/2023 CBC WITH DIFFE RENTI AL/PL ATELE T immature grans (abs) 0.0 x10e3 /uL 0.0-0. 1 Not Available [facility] ([facility] [place] [facility] [address] [facility], [place], [address], 11/06/2023 10:36:49 11/05/19 24 11/06/2023 CBC WITH DIFFE RENTI AL/PL ATELE T NRBC DIRECTOR OF STUDENT [employer]ANCIAL AID Not Available [facility] ([facility] [place] [place] [facility] [address] [facility], [place], [address], 11/06/2023 10:36:49 11/05/19 24 11/06/2023 CBC WITH DIFFE RENTI AL/PL ATELE T hematology comments: DIRECTOR OF STUDENT FINANCIAL AID Not Available [facility] ([facility] [place] [facility] [address] [facility], [place], [address], 11/06/2023 10:36:49 11/05/19 24 11/06/2023 COMP. METAB OLIC PANEL (14) glucose 321 mg/dL 70-99 above high normal Not Available [facility] ([facility] [place] [place] [facility] [address] [facility], [place], [address], 11/06/2023 10:36:50 11/05/19 24 11/06/2023 COMP. METAB OLIC PANEL (14) BUN 27 mg/dL 8-27 normal Not Available [facility] ([facility] [place] [facility] [address] [place], [address], 11/06/2023 10:36:50 11/05/19 24 11/06/2023 COMP. METAB OLIC PANEL (14) creatinine 1.26 mg/dL 0.57-1 .00 above high normal Not Available [facility] ([facility] [place] [facility] [address] [place], [address], 11/06/2023 10:36:50 11/05/19 24 11/06/2023 COMP. METAB OLIC PANEL (14) eGFR 47 mL/mi n/1.7 3 >59 below low normal Not Available [facility] ([facility] [place] [place] [facility] [address] [place], [address], 11/06/2023 10:36:50 11/05/19 24 11/06/2023 COMP. METAB OLIC PANEL (14) BUN/creatini ne ratio 21 12-28 normal Not Available [facility] ([facility] [place] [place] [facility] [address] [place], [address], 11/06/2023 10:36:50 11/05/19 24 11/06/2023 COMP. METAB OLIC PANEL (14) sodium 135 mmol/ L 134-14 4 normal Not Available [facility] ([facility] [place] [place] [facility] [address] [place], [address], 11/06/2023 10:36:50 11/05/19 24 11/06/2023 COMP. METAB OLIC PANEL (14) potassium 4.0 mmol/ L 3.5-5. 2 normal Not Available [facility] ([facility] [place] [place] [facility] [address] [place], [address], 11/06/2023 10:36:50 11/05/19 24 11/06/2023 COMP. METAB OLIC PANEL (14) chloride 91 mmol/ L 96-106 below low normal Not Available [facility] ([facility] [place] [place] [facility] [address] [place], [address], 11/06/2023 10:36:50 11/05/19 24 11/06/2023 COMP. METAB OLIC PANEL (14) carbon dioxide, total 28 mmol/ L 20-29 normal Not Available [facility] ([facility] [place] [place] [facility] [address], [place], [address], 11/06/2023 10:36:50 11/05/19 24 11/06/2023 COMP. METAB OLIC PANEL (14) calcium 9.3 mg/dL 8.7-10 .3 normal Not Available [facility] ([facility] [place] [place] [facility] [address] [place], [id number], 11/06/2023 10:36:50 11/05/19 24 11/06/2023 COMP. METAB OLIC PANEL (14) protein, total 6.6 g/dL 6.0-8. 5 normal Not Available [facility] ([facility] [place] [place] [facility] [address], [place], [address], 11/06/2023 10:36:50 11/05/19 24 11/06/2023 COMP. METAB OLIC PANEL (14) albumin 4.1 g/dL 3.9-4. 9 normal Not Available [facility] ([facility] [place] [place] [facility] [address] [place], [address], 11/06/2023 10:36:50 11/05/19 24 11/06/2023 COMP. METAB OLIC PANEL (14) globulin, total 2.5 g/dL 1.5-4. 5 Not Available [facility] ([facility] [place] [facility] [address] [place], [address], 11/06/2023 10:36:50 11/05/19 24 11/06/2023 COMP. METAB OLIC PANEL (14) bilirubin, total 0.8 mg/dL 0.0-1. 2 normal Not Available [facility] ([facility] [place] [place] [facility] [address] [place], [address], 11/06/2023 10:36:50 11/05/19 24 11/06/2023 COMP. METAB OLIC PANEL (14) alkaline phosphatase 154 IU/L 44-121 above high normal Not Available [facility] ([facility] [place] [place] [facility] [address] [facility], [place], [address], 11/06/2023 10:36:50 11/05/19 24 11/06/2023 COMP. METAB OLIC PANEL (14) AST (SGOT) 14 IU/L 0-40 normal Not Available [facility] ([facility] [place] [facility] [address] [place], [address], 11/06/2023 10:36:50 11/05/19 24 11/06/2023 COMP. METAB OLIC PANEL (14) ALT (SGPT) 12 IU/L 0-32 normal Not Available [facility] ([facility] [place] [place] [facility] [address] [place], [address], 11/06/2023 10:36:50 11/05/19 24 11/06/2023 LIPID PANEL cholesterol, total 239 mg/dL 100-19 9 above high normal Not Available [facility] ([facility] [place] [facility] [address] [place], [address], 11/06/2023 10:36:51 11/05/19 24 11/06/2023 LIPID PANEL triglyceride s 168 mg/dL 0-149 above high normal Not Available [facility] ([facility] [place] [place] [facility] [address] [place], [address], 11/06/2023 10:36:51 11/05/19 24 11/06/2023 LIPID PANEL HDL cholesterol 58 mg/dL >39 normal Not Available [facility] [place] [place] [facility] [address] [place], [address], 11/06/2023 10:36:51 11/05/19 24 11/06/2023 LIPID PANEL VLDL cholesterol tico 30 mg/dL 5-40 Not Available [facility] ([facility] [place] [facility] [address] [place], [address], 11/06/2023 10:36:51 11/05/19 24 11/06/2023 LIPID PANEL LDL chol calc ([facility]) 151 mg/dL 0-99 above high normal Not Available [facility] ([facility] [place] [place] [facility] [address] [place], [address], 11/06/2023 10:36:51 11/05/19 24 11/06/2023 LIPID PANEL LDL calc comment: DIRECTOR OF STUDENT FINANCIAL AID Not Available [facility] ([facility] [place] [place] [facility] [address] [facility], [place], [address], 11/06/2023 10:36:51 11/05/19 24 11/06/2023 VITAM IN B12 AND FOLAT E vitamin B12 1250 pg/mL 232-12 45 above high normal Not Available [facility] ([facility] [place] [place] [facility] [address] [facility], [place], [address], 11/06/2023 10:36:52 11/05/19 24 11/06/2023 VITAM IN B12 AND FOLAT E folate (folic acid), serum 10.1 NG/mL >3.0 normal A serum folat e laura ntrat ion of less than 3.1 ng/mL is consi dered to repre sent clini tico defic iency . Not Available [facility] ([facility] [place] [place] [facility] [address] [facility], [place], [address], 11/06/2023 10:36:52 11/05/19 24 11/06/2023 HEMOG LOBIN A1C hemoglobin A1C 14.6 % 4.8-5. 6 above high normal Predi abete s: 5.7 - 6.4 Diabe cedrick: >6.4 Glyce jong contr ol for adult s with diabe cedrick: <7.0 Not Available [facility] ([facility] [place] [facility] [address] [place], [address], 11/06/2023 10:36:53 11/05/19 24 11/06/2023 VITAM IN [...] um and D. Heidi [place]: [facility] . 2. Prudencio amor MF, Brent alexis [place], Vlad off-F errar i MYRICK, et al. Evalu ation , treat ment, and preve ntion of vitam in D defic iency : an Endoc rine Socie ty clini tico pract ice guide line. JCEM. 2010; 96(7) :1911 -30. Not Available [facility] ([facility] [place] [facility] [address] [place], [address], 11/06/2023 10:36:54 01/15/20 24 01/15/2024 HbA1c (hemo globi n A1c), blood HbA1C 9.2 % Not Available [facility] [address] [place], [address], 01/15/2024 10:59:43 03/10/20 24 03/11/2024 CBC WITH DIFFE RENTI AL/PL ATELE T WBC 8.3 x10e3 /uL 3.4-10 .8 normal Not Available [facility] ([facility] [place] [facility] [address] [place], [address], 03/11/2024 08:37:40 03/10/20 24 03/11/2024 CBC WITH DIFFE RENTI AL/PL ATELE T RBC 4.68 x10e6 /uL 3.77-5 .28 normal Not Available [facility] ([facility] [place] [facility] [address] [place], [address], 03/11/2024 08:37:40 03/10/20 24 03/11/2024 CBC WITH DIFFE RENTI AL/PL ATELE T hemoglobin 13.1 g/dL 11.1-1 5.9 normal Not Available [facility] ([facility] [place] [facility] [address] [place], [address], 03/11/2024 08:37:40 03/10/20 24 03/11/2024 CBC WITH DIFFE RENTI AL/PL ATELE T hematocrit 40.3 % 34.0-4 6.6 normal Not Available [facility] ([facility] [place] [facility] [address] [place], [address], 03/11/2024 08:37:40 03/10/2003/11/2024 CBC WITH DIFFE RENTI AL/PL ATELE T MCV 86 fL 79-97 normal Not Available [facility] ([facility] [place] [facility] [address] [place], [address], 03/11/2024 08:37:40 03/10/20 24 03/11/2024 CBC WITH DIFFE RENTI AL/PL ATELE T MCH 28.0 pg 26.6-3 3.0 normal Not Available [facility] ([facility] [place] [facility] [address] [place], [address], 03/11/2024 08:37:40 03/10/20 24 03/11/2024 CBC WITH DIFFE RENTI AL/PL ATELE T MCHC 32.5 g/dL 31.5-3 5.7 normal Not Available [facility] ([facility] [place] [facility] [address] [place], [address], 03/11/2024 08:37:40 03/10/20 24 03/11/2024 CBC WITH DIFFE RENTI AL/PL ATELE T RDW 12.8 % 11.7-1 5.4 Not Available [facility] ([facility] [place] [facility] [address] [place], [address], 03/11/2024 08:37:40 03/10/20 24 03/11/2024 CBC WITH DIFFE RENTI AL/PL ATELE T platelets 216 x10e3 /uL 150-45 0 normal Not Available [facility] ([facility] [place] [facility] [address] [facility], [place], [address], 03/11/2024 08:37:40 03/10/20 24 03/11/2024 CBC WITH DIFFE RENTI AL/PL ATELE T neutrophils 66 % not estab. normal Not Available [facility] ([facility] [place] [facility] [address] [facility], [place], [address], 03/11/2024 08:37:40 03/10/20 24 03/11/2024 CBC WITH DIFFE RENTI AL/PL ATELE T lymphs 22 % not estab. normal Not Available [facility] ([facility] [place] [facility] [address] [facility], [place], [address], 03/11/2024 08:37:40 03/10/20 24 03/11/2024 CBC WITH DIFFE RENTI AL/PL ATELE T monocytes 8 % not estab. normal Not Available [facility] ([facility] [place] [facility] [address] [facility], [place], [address], 03/11/2024 08:37:40 03/10/20 24 03/11/2024 CBC WITH DIFFE RENTI AL/PL ATELE T eos 3 % not estab. normal Not Available [facility] ([facility] [place] [facility] [address] [facility], [place], [address], 03/11/2024 08:37:40 03/10/20 24 03/11/2024 CBC WITH DIFFE RENTI AL/PL ATELE T basos 1 % not estab. normal Not Available [facility] ([facility] [place] [facility] [address] [facility], [place], [address], 03/11/2024 08:37:40 03/10/20 24 03/11/2024 CBC WITH DIFFE RENTI AL/PL ATELE T immature cells DIRECTOR OF STUDENT FINANCIAL AID Not Available [facility] ([facility] [place] [place] [facility] [address] [place], [address], 03/11/2024 08:37:40 03/10/20 24 03/11/2024 CBC WITH DIFFE RENTI AL/PL ATELE T neutrophils (absolute) 5.5 x10e3 /uL 1.4-7. 0 normal Not Available [facility] ([facility] [place] [facility] [address] [place], [address], 03/11/2024 08:37:40 03/10/20 24 03/11/2024 CBC WITH DIFFE RENTI AL/PL ATELE T lymphs (absolute) 1.8 x10e3 /uL 0.7-3. 1 normal Not Available [facility] ([facility] [place] [facility] [address] [place], [address], 03/11/2024 08:37:40 03/10/20 24 03/11/2024 CBC WITH DIFFE RENTI AL/PL ATELE T monocytes(ab solute) 0.7 x10e3 /uL 0.1-0. 9 normal Not Available [facility] ([facility] [place] [facility] [address] [place], [address], 03/11/2024 08:37:40 03/10/20 24 03/11/2024 CBC WITH DIFFE RENTI AL/PL ATELE T eos (absolute) 0.3 x10e3 /uL 0.0-0. 4 normal Not Available [facility] ([facility] [place] [facility] [address] [place], [address], 03/11/2024 08:37:40 03/10/20 24 03/11/2024 CBC WITH DIFFE RENTI AL/PL ATELE T baso (absolute) 0.1 x10e3 /uL 0.0-0. 2 normal Not Available [facility] ([facility] [place] [facility] [address] [place], [address], 03/11/2024 08:37:40 03/10/20 24 03/11/2024 CBC WITH DIFFE RENTI AL/PL ATELE T immature granulocytes 0 % not estab. Not Available [facility] ([facility] [place] [facility] [address] [facility], [place], [address], 03/11/2024 08:37:40 03/10/20 24 03/11/2024 CBC WITH DIFFE RENTI AL/PL ATELE T immature grans (abs) 0.0 x10e3 /uL 0.0-0. 1 Not Available [facility] ([facility] [address] [facility], [place], [address], 03/11/2024 08:37:40 03/10/20 24 03/11/2024 CBC WITH DIFFE RENTI AL/PL ATELE T NRBC DIRECTOR OF STUDENT FINANCIAL AID Not Available [facility] ([facility] [place] [facility] [address] [facility], [place], [address], 03/11/2024 08:37:40 03/10/20 24 03/11/2024 CBC WITH DIFFE RENTI AL/PL ATELE T hematology comments: DIRECTOR OF STUDENT FINANCIAL AID Not Available [facility] ([facility] [place] [facility] [address] [facility], [place], [address], 03/11/2024 08:37:40 03/10/20 24 03/11/2024 COMP. METAB OLIC PANEL (14) glucose 113 mg/dL 70-99 above high normal Not Available [facility] ([facility] [address] [facility], [place], [address], 03/11/2024 08:37:41 03/10/20 24 03/11/2024 COMP. METAB OLIC PANEL (14) BUN 32 mg/dL 8-27 above high normal Not Available [facility] ([facility] [address] [facility], [place], [address], 03/11/2024 08:37:41 03/10/20 24 03/11/2024 COMP. METAB OLIC PANEL (14) creatinine 0.70 mg/dL 0.57-1 .00 normal Not Available [facility] ([facility] [place] [place] [facility] [address] [place], [id number], 03/11/2024 08:37:41 03/10/20 24 03/11/2024 COMP. METAB OLIC PANEL (14) eGFR 94 mL/mi n/1.7 3 >59 normal Not Available [facility] [place] [place] [place] [facility] [address] [place], [id number], 03/11/2024 08:37:41 03/10/20 24 03/11/2024 COMP. METAB OLIC PANEL (14) BUN/creatini ne ratio 46 12-28 above high normal Not Available [facility] ([facility] [place] [place] [facility] [address] [place], [id number], 03/11/2024 08:37:41 03/10/20 24 03/11/2024 COMP. METAB OLIC PANEL (14) sodium 140 mmol/ L 134-14 4 normal Not Available [facility] ([facility] [place] [place] [facility] [address] [place], [id number], 03/11/2024 08:37:41 03/10/20 24 03/11/2024 COMP. METAB OLIC PANEL (14) potassium 3.6 mmol/ L 3.5-5. 2 normal Not Available [facility] ([facility] [place] [place] [facility] [address] [place], [id number], 03/11/2024 08:37:41 03/10/20 24 03/11/2024 COMP. METAB OLIC PANEL (14) chloride 99 mmol/ L 96-106 normal Not Available [facility] ([facility] [place] [place] [facility] [address] [place], [id number], 03/11/2024 08:37:41 03/10/20 24 03/11/2024 COMP. METAB OLIC PANEL (14) carbon dioxide, total 23 mmol/ L 20-29 normal Not Available [facility] ([facility] [place] [place] [facility] [address] [place], [address], 03/11/2024 08:37:41 03/10/20 24 03/11/2024 COMP. METAB OLIC PANEL (14) calcium 9.0 mg/dL 8.7-10 .3 normal Not Available [facility] ([facility] [place] [place] [facility] [address] [place], [address], 03/11/2024 08:37:41 03/10/20 24 03/11/2024 COMP. METAB OLIC PANEL (14) protein, total 6.1 g/dL 6.0-8. 5 normal Not Available [facility] ([facility] [place] [place] [facility] [address] [place], [address], 03/11/2024 08:37:41 03/10/20 24 03/11/2024 COMP. METAB OLIC PANEL (14) albumin 4.0 g/dL 3.9-4. 9 normal Not Available [facility] ([facility] [place] [place] [facility] [address] [place], [address], 03/11/2024 08:37:41 03/10/20 24 03/11/2024 COMP. METAB OLIC PANEL (14) globulin, total 2.1 g/dL 1.5-4. 5 Not Available [facility] ([facility] [place] [place] [facility] [address] [place], [address], 03/11/2024 08:37:41 03/10/20 24 03/11/2024 COMP. METAB OLIC PANEL (14) bilirubin, total 0.3 mg/dL 0.0-1. 2 normal Not Available [facility] ([facility] [place] [place] [facility] [address] [place], [address], 03/11/2024 08:37:41 03/10/20 24 03/11/2024 COMP. METAB OLIC PANEL (14) alkaline phosphatase 132 IU/L 44-121 above high normal Not Available [facility] ([facility] [place] [place] [facility] [address] [facility], [place], [address], 03/11/2024 08:37:41 03/10/20 24 03/11/2024 COMP. METAB OLIC PANEL (14) AST (SGOT) 14 IU/L 0-40 normal Not Available [facility] ([facility] [place] [place] [facility] [address] [facility], [place], [address], 03/11/2024 08:37:41 03/10/20 24 03/11/2024 COMP. METAB OLIC PANEL (14) ALT (SGPT) 10 IU/L 0-32 normal Not Available [facility] ([facility] [place] [place] [facility] [address] [place], [address], 03/11/2024 08:37:41 03/10/20 24 03/11/2024 LIPID PANEL cholesterol, total 175 mg/dL 100-19 9 normal Not Available [facility] ([facility] [place] [place] [facility] [address] [place], [address], 03/11/2024 08:37:42 03/10/20 24 03/11/2024 LIPID PANEL triglyceride s 117 mg/dL 0-149 normal Not Available [facility] ([facility] [place] [place] [facility] [address] [place], [address], 03/11/2024 08:37:42 03/10/20 24 03/11/2024 LIPID PANEL HDL cholesterol 46 mg/dL >39 normal Not Available [facility] ([facility] [place] [place] [facility] [address] [place], [address], 03/11/2024 08:37:42 03/10/20 24 03/11/2024 LIPID PANEL VLDL cholesterol tico 21 mg/dL 5-40 Not Available [facility] ([facility] [place] [place] [facility] [address] [place], [address], 03/11/2024 08:37:42 03/10/20 24 03/11/2024 LIPID PANEL LDL chol calc ([facility]) 108 mg/dL 0-99 above high normal Not Available [facility] ([facility] [place] [place] [facility] [address] [facility], [place], [address], 03/11/2024 08:37:42 03/10/2003/11/2024 LIPID PANEL LDL calc comment: DIRECTOR OF STUDENT FINANCIAL AID Not Available [facility] ([facility] [place] [place] [facility] [address] [facility], [place], [address], 03/11/2024 08:37:42 03/10/2003/11/2024 HEMOG LOBIN A1C hemoglobin A1C 6.9 % 4.8-5. 6 above high normal Predi abete s: 5.7 - 6.4 Diabe cedrick: >6.4 Glyce jong contr ol for adult s with diabe cedrick: <7.0 Not Available [facility] ([facility] [place] [place] [facility] [address] [facility], [place], [address], 03/11/2024 08:37:42 03/10/2003/11/2024 VITAM IN D, 25-HY [...] Endoc [facility] vitam in D insuf ficie ncy as a level betwe en 21 and 29 ng/mL (2). 1. IOM (Inst itute of Medic ine). 2010. Dieta ry refer ence intak es for calci um and D. Heidi ashton [place]: [facility]ade [facility] Press . 2. Prudencio amor MF, Brent alexis [place], Vlad off-F teresa i MYRICK, et al. Evalu ation , treat ment, and preve ntion of vitam in D defic iency : an Endoc rine Socie ty clini tico pract ice guide line. JCEM. 2010; 96(7) :1911 -30. Not Available [facility] ([facility] [place] [place] [facility] [address], [place], [address], 03/11/2024 08:37:43 06/18/19 25 06/17/2024 HbA1c (hemo globi n A1c), blood HbA1C 7.8 % Not Available [facility] [address] [place], [address], 06/17/2024 10:42:37 Result Notes None recorded. Problems Name Problem SNOMED Code Status Onset Date Resolution Date Notes Provider Name and Address Organization Details Recorded Time Environm ental allergy 518992002 Active 2016 Not Available [facility] 3 22:28:27 Gastroes ophageal reflux disease 421092323 Active 2017 Not Available [facility] 3 22:28:27 Chronic kidney disease 551782202 Active 2019 Not Available [facility] 3 22:28:27 Peripher al venous insuffic iency 37123986 Active 2019 Not Available [facility] 3 22:28:27 Allergic rhinitis 71558564 Active 2019 Not Available [facility] 3 22:28:27 Type 2 diabetes mellitus 57509195 Active 2020 Not Available [facility] 3 22:28:27 Mammogra m declined 251520021 Completed 202009/03/2023 JENNIFER Coyle - [facility] 4 10:27:19 Colonosc opy declined 65480135570 9100 Completed 202009/03/2023 Yesi cloud [place] - [facility] 4 10:27:06 Peripher al edema 375343636 Active 2020 Not Available [facility] 3 22:28:27 Uncontro lled type 2 diabetes mellitus 472122433 Completed 201502/15/2016 Micaela cloud, [place] - [facility] 6 19:41:00 Diabetes mellitus 61294907 Active 2015 Not Available [facility] 3 22:28:27 Congesti ve heart failure 37017048 Active 2015 Not Available [facility] 3 22:28:27 Essentia l hyperten desire 48703390 Active 2015 Not Available [facility] 3 22:28:27 Morbid obesity 930889009 Active 2015 Not Available [facility] 3 22:28:27 Tobacco user 645790354 Completed 201504/04/2021 Christi Barrios APRN [address], [place], [address] , [place] - [facility] 2 21:27:12 Mixed hyperlip idemia 275612099 Active 2015 Not Available [facility] 3 22:28:27 Aortic valve stenosis 45970731 Active 2015 Not Available [facility] 3 22:28:27 Chronic obstruct benji pulmonar y disease 17231457 Active 2015 Not Available [facility] 3 22:28:26 Hypothyr oidism 71247343 Completed 201506/28/2016 Micaela Reza [place] - [facility] 7 19:20:39 Asthma 043438141 Completed 201501/03/2023 Christi Barrios APRN [address], [place], [address] , [place] - [facility] 3 22:03:03 Coronary arterios clerosis 12065131 Active 2015 Not Available [facility] 3 22:28:27 Ex-heavy cigarett e smoker (20-39/d ay) 396048953 Completed 202104/04/2021 Christi Barrios APRN [address], [place], [address] , [place] - [facility] 2 21:27:32 Heavy cigarett e smoker (20-39 cigs/day ) 764694859 Completed 202101/03/2023 Removal Reason: quit Fall 2022 Christi Barrios, [employer] [address], [place], [address] , [place] - [facility] 3 22:03:37 Hypokale denise 45176497 Active 2021 Not Available [facility] 3 22:28:27 Stented coronary artery 418048891 Active 2015 Not Available [facility] 3 22:28:27 Influenz a vaccine needed 86340568814 06 Completed 201502/07/2017 Yesi Larry [place] - [facility] 7 10:17:32 Preinfar ction syndrome 6220442 Active Not Available [facility] 3 22:28:27 Former heavy tobacco smoker 92859226926 4100 Completed 202205/23/2023 Christi Barrios, [employer] [address], [place], [address] , [place] - [facility] 4 21:13:27 Dependen ce on suppleme ntal oxygen 08974303757 7 Active 2022 Not Available [facility] 3 22:28:27 Vitamin D deficien cy 48245502 Active 2023 Tana Ronald, ISAAC [address], [place], [address] , [place] [facility] 4 14:23:44 Renewal of prescrip tion Completed 201608/08/2017 Yesi Larry null[place] - [facility] 8 09:25:19 Bilatera l cramp of muscle of lower limbs 13984332635 694027 Active 2023 Tana Cardenas, [employer] [address], [place], [address] , [place] [facility] 4 11:18:30 Acute sinusiti s 29466836 Completed 202304/30/2024 Yesi Larry [place] - [facility] 5 08:44:32 Nicotine dependen ce 64763040 Active 2023 Tanaveronica Cardenas [employer] [address], [place], [address] , [place] [facility] 4 11:02:40 Diarrhea 81287830 Active 2024 Tana Ronald, [employer] [address], [place], [address] , [place] - [facility] 5 09:20:05 Acute cellulit is Active 2024 Tana Ronald, [employer] [address], [place], [address] , [place] - [facility] 5 15:05:40 Chronic diarrhea 976410390 Active 2016 Not Available [facility] 3 22:28:27 Heart murmur 50163072 Active 2016 Not Available [facility] 3 22:28:27 History of coronary artery bypass grafting 686049981 Active 2016 Not Available [facility] 3 22:28:27 Acquired hypothyr oidism 985956952 Active 2016 Not Available [facility] 3 22:28:26 Notes:Some problems listed i n Documents: #[id number], #[id number], #[id number], #[id number] could not be added to this patient's chart. Please review these documents and add these problems to the patient's chart manually as needed. Problem Notes None recorded. Procedures Surgical History Date Name Laterality Status Provider Name and Address Organization Details Recorded Time 07/23/19 24 A1C level 8.0 to 9.0 completed Christi Barrios APRN [address], [place], [address], [place] - [facility] 08/29/2023 11:47:21 01/23/20 23 Advance Care Planning cancelled Kiran Escalona [place] - [facility] 01/19/2023 13:31:56 01/23/20 23 Functional Status Assessed cancelled Kiran Valentinr [place] [facility] 01/19/2023 13:31:56 01/04/20 23 A1C level 6.9 and below completed Christi Barrios APRN [address], [place], [address], [place] - [facility] 01/03/2023 21:57:07 09/05/19 23 cardiac catheterization completed Yesi Larry [place] - [facility] 09/07/2022 15:53:46 08/10/19 23 Medication Reconcilliation completed Tanisha Josepht [place] - [facility] 08/09/2022 13:14:51 12/21/19 22 A1C level 7.0 to 7.9 completed Christi Barrios APRN [address], [place], [address], [place] - [facility] 01/30/2022 20:44:46 11/04/19 20 Systolic B/P less than 130 mm Hg completed Araceli Cavazoscell [place] - [facility] 11/04/2019 09:34:43 11/04/19 20 Diastolic B/P less than 80 mm Hg completed Aracelielian [place]rich [place] - [facility] 11/04/2019 09:34:48 08/01/19 17 Advance Care Planning completed Bessy Alexander [place] [facility] 07/31/2016 12:53:13 Cholecystectomy, laparoscopic completed [place]ela Reza [place] [facility] 02/15/2016 19:46:05 Stent, coated/cov w/del sys completed [place]ela [place] [facility] 01/03/2023 15:19:10 CABG completed [place] [facility] 02/15/2016 19:46:27 Tubal Ligation [place] [facility] 02/15/2016 19:46:41 Cardiac Cath completed Yesi Larry [place] - [facility] 01/15/2024 10:52:22 Cardiac Surgery completed Yesi Larry [facility] 01/15/2024 10:52:22 Adnexal surgery completed Yesi [facility]IGUE[facility] 01/15/2024 10:52:22 Imaging Results None recorded. Procedure Notes None recorded. Medical Equipment None Reported. Allergies No known drug allergies Medications Name Sig Start Date Stop Date Status Note LastModified by Organization Details LastModified Time Prescript ion - Renewal 05/09 completed [facility] Not Available Not Available Not Available [...] y Disease with Bronchos pasms - (08.4960 ) Not Available Not Available Not Available Toprol [...] Recorded on: 03/23/19 11 3:57PM;U ser: ilya Est. Completarcenio on: 06/22/19 11 Not Available Not Available [...] nued on: 12/18/19 13 11:23AM; User: cherri EstLakshmi Matos on: 10/14/19 11 Not Available Not [...] completed On a 7 day trial from [facility] per [facility] 09/13/22 Not Available Not Available Not Available [...] Completi on: 05/23/19 10;Indic ation: Cough - (16.3022 00);Prin josé miguel: 05/12/19 10 Not Available [...] nued on: 02/12/20 13 1:08PM;U ser: neuss;Chelle Matos on: 04/17/19 14 Not Available Not Available Not Available Cipro 500 mg tablet take 1 tablet (500 mg) by oral route 2 times per day for 10 days 08/19 completed Cipro 500 mg oral tablet;R ecorded Status: Recorded on: 04/25/19 12 5:23PM;D iscontin ued Status: Disconti nued on: 08/20/19 13 11:46AM; User: Adriano Matos on: 05/05/19 12;Print ed: 04/25/19 12 Not [...] on: 08/20/19 13 11:44AM; User: dayna aparicio;Est. Completi on: 03/17/20 12;Print [...] 11/12 completed Baby Aspirin 81 mg oral tablet,ward poncewable; Recorded Status: Recorded on: 03/31/19 12 5:32PM;D [...] INHALATI ON ROUTE NEEDED FOR 30 DAYS. 2024 active Not Available Not Available Not Avai lable albuterol (refill) 90 mcg/actua tion aerosol inhaler [...] Disconti nued on: 07/29/19 15 12:17PM; User: tyrone; Est. Completi on: 01/13/20 12;Indic ation: diabetes - (-5);Evie nted: 01/19/20 11 Not Available Not Available Not Available Glucomete r-M test qid 07/28 completed glucomet er 250.02;R ecorded Status: Recorded on: 08/23/19 11 4:54PM;D iscontin ued Status: Disconti nued on: 07/29/19 15 12:17PM; User: tyrone; Est. Completi on: 09/22/19 11;Indic ation: diabetes - [...] Allergy 205.5 mcg (0.15 %) nasal spray [place] 1 spray twice a day by intranas al route as directed . 2023 active Not Available Not Available Not Avai lable Vitals Date Recorded Body height Body mass index (BMI) Body weight Heart rate Oxygen saturation Oxygen saturation in Arterial blood by Pulse oximetry Respiratory rate Systolic And Diastolic Provider Name and Address Organization Details Last Updated DateTime 151.13 cm 35.2 kg/m2 08462.8 5 g 74 /min 98 % 98 % 18 /min 126/80 mm[Hg] Yesi Larry [place] - [facility] 02/12/202 5 08:49:22 Date Recorded Body height Body mass index (BMI) Body weight Body temperature Heart rate Oxygen saturation Oxygen saturation in Arterial blood by Pulse oximetry Respiratory rate Systolic And Diastolic Provider Name and Address Organization Details Last Updated DateTime 5 151.13 cm 32.6 kg/m2 02079.8 5 g 98.4 [degF] 97 /min 93 % 93 % 18 /min 110/64 mm[Hg] Tana Joseph [facility] 5 10:22:20 Date Recorded Body height Body mass index (BMI) Body weight Heart rate Oxygen saturation Oxygen saturation in Arterial blood by Pulse oximetry Respiratory rate Systolic And Diastolic Provider Name and Address Organization Details Last Updated DateTime 4 151.13 cm 38.7 kg/m2 81794.5 1 g 76 /min 91 % 91 % 18 /min 118/72 mm[Hg] Yesi Larry [facility] 4 09:11:24 Date Recorded Body height Body mass index (BMI) Body weight Heart rate Oxygen saturation Oxygen saturation in Arterial blood by Pulse oximetry Respiratory rate Systolic And Diastolic Provider Name and Address Organization Details Last Updated DateTime 4 151.13 cm 37.5 kg/m2 48590.9 6 g 71 /min 97 % 97 % 18 /min 122/80 mm[Hg] Yesi Larry [facility] 4 10:58:27 Date Recorded Body height Body mass index (BMI) Body weight Heart rate Oxygen saturation Oxygen saturation in Arterial blood by Pulse oximetry Respiratory rate Systolic And Diastolic Provider Name and Address Organization Details Last Updated DateTime 4 151.13 cm 36.5 kg/m2 48368 g 78 /min 93 % 93 % 18 /min 124/80 mm[Hg] Yesi Larry [facility] 4 10:40:51 Social History Question Answer Notes LastModified by Organizat ion Details LastModified Time Tobacco Smoking Status Former Smoker Yesi cloud [facility] 01/15/2024 10:52:22 Do You Have An Advance Directive? No Information not available 07/31/2016 Are You Blind Or Do You Have Difficulty Seeing? No [email or web address] Information not available 07/31/2016 What Is Your Level Of Caffeine Consumption? Heavy Information not available 11/04/2019 How Much Tobacco Do You Chew? None Information not available 11/04/2019 Are You Deaf Or Do You Have Serious Difficulty Hearing? No [email or web address] Information not available 07/31/2016 What Type Of Diet Are You Following? REGULAR Information not available 07/31/2016 Which Illicit Or Recreational Drugs Have You Used? Never [email or web address] Information not available 02/15/2016 What Is The Highest Grade Or Level Of School You Have Completed Or The Highest Degree You Have Received? [id number] Information not available 01/15/2024 When Did You Quit Smoking? 1-5yearssinc elastcigaret te Has Went Back To Smoking [email or web address] Information not available 05/23/2023 Hard Of Hearing Or Deaf In One Or Both Ears? No [email or web address] Information not available 07/31/2016 Single Or Multi-level Home/work? Single Level Home [email or web address] Information not available 07/31/2016 Legally Blind In One Or Both Eyes? No [email or web address] Information not available 02/15/2016 Live Alone Or With Others? With Others Information not available 02/15/2016 Marital Status Informat ion not available 07/31/2016 What Was The Date Of Your Most Recent Tobacco Screening? 06/17/2024 Information not available 06/17/2024 How Many Children Do You Have? 4 Information not available 01/15/2024 What Is Your Current Pack Years? 30ormorepack years [email or web address] Information not available 12/20/2021 Do You Use Protection Against STDs? No Information not available 01/15/2024 What Is Your Relationship Status? Domestic Partner Information not available 01/15/2024 Do You Use Your Seat Belt Or Car Seat Routinely? No Information not available 01/15/2024 Seat Belts Used Routinely Yes [email or web address] Information not available 07/31/2016 Are You Sexually Active? Yes Information not available 01/15/2024 Smoke Alarm In Home Yes [email or web address] Information not available 02/15/2016 At What Age Did You Start Smoking Tobacco? 11 [email or web address] Information not available 12/20/2021 Are You Passively Exposed To Smoke? Yes Information not available 01/15/2024 How Much Tobacco Do You Smoke? No [email or web address] Information not available 01/03/2023 Do You Use Sunscreen Routinely? Yes [email or web address] Information not available 07/31/2016 Has Tobacco Cessation Counseling Been Provided? Yes [email or web address] Information not available 07/31/2016 On What Date Was Tobacco Cessation Counseling Provided? 06/17/2024 Information not available 06/17/2024 How Many Years Have You Smoked Tobacco? 55 Information not available 12/20/2021 Do You Have Difficulty Walking Or Climbing Stairs? No [email or web address] Information not available 07/31/2016 Sex: Female Functional Status Question Answer Note LastModified by Organizat ion Details LastModified Time Do you or have you ever used smokeless tobacco? Never used smokeless tobacco Information not available 11/04/2019 Are you currently employed? No Information not available 02/15/2016 Urinary incontinence assessment performed? Yes [email or web address] Information not available 07/31/2016 Are you able to care for yourself? Yes [email or web address] Information not available 02/15/2016 Do you have difficulty dressing or bathing? No Information not available 07/31/2016 Do you or have you ever used e-cigarettes or vape? Never used electronic cigarettes Information not available 11/04/2019 What is your exercise level? Occasional [email or web address] Information not available 02/15/2016 Do you use any illicit or recreational drugs? No Information not available 04/01/2021 Do you or have you ever used any other forms of tobacco or nicotine? No Information not available 04/01/2021 What is your level of alcohol consumption? Occasional Information not available 11/04/2019 Are you able to walk? YESWOREST [email or web address] Information not available 07/31/2016 Do you have difficulty doing errands alone? No [email or web address] Information not available 07/31/2016 What is your occupation? retired Information not available 05/11/2020 Mental Status Question Answer Note LastModified by Organizat ion Details LastModified Time Do you feel stressed (tense, restless, nervous, or anxious, or unable to sleep at night)? [id number] Information not available 01/15/2024 Do you have difficulty concentrating, remembering or making decisions? No Information no t available 07/31/2016 Family History [...] available 01/15/2024 10:52:21 Medical History Condition Response Diabetes Y Vision or Eye Problems Y Hospitalizations Y Heart Disease Y Headaches Y Thyroid Problems Y Hypertension Y Gynecological History Statement/Question Response [...] pneumococcal polysaccharide PPV23 017 completed Not Available [facility] 04/05/2019 03:54:29 Tdap 017 completed Not Available [facility] 04/05/2019 03:54:30 Influenza, high-dose, quadrivalent, PF 020 completed Evita [place] - [facility] 03/03/2020 18:12:29 Influenza, high-dose, quadrivalent, PF 021 completed Evita [place] - [facility] 12/15/2020 11:15:26 Pneumococcal conjugate PCV 13 021 completed Evita [place], [place] - [facility] 12/15/2020 11:16:42 Pneumococcal conjugate PCV 13 012 completed Not Available [facility] 01/26/2023 22:28:28 influenza, unspecified formulation 010 completed Not Available [facility] 01/26/2023 22:28:28 influenza, unspecified formulation 012 completed Not Available [facility] 01/26/2023 22:28:28 influenza, unspecified formulation 013 completed Not Available [facility] 01/26/2023 22:28:28 influenza, unspecified formulation 014 completed Not Available [facility] 01/26/2023 22:28:28 influenza, unspecified formulation 015 completed Not Available [facility] 01/26/2023 22:28:28 influenza, unspecified formulation 012 completed Not Available [facility] 01/26/2023 22:28:27 Influenza, high-dose, quadrivalent, PF 022 completed Christi Barrios, [employer] [address], [place], [address], [place] [facility] 01/30/2022 20:40:07 Influenza, split virus, quadrivalent, preservative 017 cancelled patient objection Not Available [facility] 04/05/2019 03:54:47 Influenza, high-dose, quadrivalent, PF 023 completed Christi Barrios, [employer] [address], [place], [address], [place] [facility] 01/03/2023 18:20:18 Influenza, high-dose, trivalent, PF 024 completed Tana Cardenas, [employer] [address], [place], [address], [place] [facility] 03/10/2024 13:06:29 SARS-COV-2 (COVID-19) vaccine, UNSPECIFIED 021 completed Not Available [facility] 01/26/2023 22:28:27 pneumococcal polysaccharide PPV23 009 completed Not Available [facility] 01/26/2023 22:28:27 Influenza, split virus, trivalent, PF 009 completed [facility] 01/26/2023 22:28:28 COVID-19, mRNA, LNP-S, PF, 100 mcg/0.5mL dose or 50 mcg/0.25mL dose 022 completed Not Available [facility] 01/26/2023 22:28:27 COVID-19, mRNA, LNP-S, bivalent, PF, 50 mcg/0.5 mL or 25mcg/0.25 mL dose 022 completed Not Available [facility] 01/26/2023 22:28:27 COVID-19, mRNA, LNP-S, PF, 100 mcg/0.5mL dose or 50 mcg/0.25mL dose 021 completed Not Available [facility] 01/26/2023 22:28:27 pneumococcal polysaccharide PPV23 012 completed Not Available [facility] 01/26/2023 22:28:27 Past Encounters Encounter ID Performer Location Encounter Start Date Encounter Closed Date Diagnosis/Indication Diagnosis SNOMED-CT Code Diagnosis ICD10 Code Diagnosis Note [id number] Estiven No MD [facility] [address] [place] [address] [place] [address] 02/22/2016 13:45:17 02/22/2016 15:11:56 Type 2 diabetes mellitus 37758234 E11.9 Diabetes mellitus 578486 09 E11.9 Chronic ob structive pulmonary disease 20274388 J44.9 Aortic valve stenosis 60 386042 I35.0 Hypothyroidism 75284233 E03.9 Tobacco user 103655321 Z 72.0 Coronary arteriosclerosis 46696567 I25.10 Stented co ronary artery 889408914 Z95.5 Influenza vaccine needed 9145461523 106 Z23 Morbid obesity 517052965 E66.01 Allergic rhinitis 620281 04 J30.89 [id number] Estiven No MD [facility] [address] [place], [place] [address] [place] [address] 06/28/2016 17:14:11 06/28/2016 20:39:41 Stented coronary artery 495899004 Z95.5 Congestive heart failure 46020180 I50.9 Chronic ob structive pulmonary disease 75883789 J44.9 Diabetes mellitus 702379 09 E11.9 Renewal of prescription 199841500 Z76.0 Tobacco user 301603664 Z 72.0 Chronic diarrhea 9149668 09 K52.9 Acquired hypothyroidism 831086240 E03.9 Diarrhea 25248223 R19.7 [id number] Estiven No MD [facility] [address] [place], [place] [address] [place] [address] 07/12/2016 15:29:16 07/12/2016 18:26:13 Congestive heart failure 13350626 I50.9 Chronic ob structive pulmonary disease 57799186 J44.9 Nicotine dependence 5629 4008 F17.200 Screening for malignant neoplasm of colon 680461210 Z12.11 Acquired hypothyroidism 158808038 E03.9 [id number] Shona Burton APRN [facility] [address] [place], [place] [address] [place] [address] 07/31/2016 12:49:03 07/31/2016 13:57:55 General examination of patient 749523760 Z00.00 Body mass index 40+ - severely obese 743896197 Z68.42 Nicotine dependence 5629 4008 F17.200 Screening mammography 24 058710 Z12.31 Diabetes mellitus 583136 09 E11.9 Viral screening 23141488 4 Z11.59 At [facility] risk for falls 030546341 Z91.81 Vaccination required 170 394788 Z28.3 Chronic ob structive pulmonary disease 79795720 J44.9 [id number] Estiven No MD [address] [place] [address] 09/22/2016 08:11:12 09/22/2016 10:03:53 Chronic obstructive pulmonary disease 07248513 J44.9 Dyspnea 029006914 R06.02 Type 2 rena betes mellitus without complication 171780182 E11.9 Abdominal pain 89043393 R10.9 Morbid obesity 249999919 E66.01 Acute sinusitis 62649525 J01.90 Edema of l ower extremity 782884127 R60.0 [id number] Estiven No MD [address] [place] [address] 02/07/2017 08:55:06 02/07/2017 10:30:42 Acquired hypothyroidism 521183347 E03.9 Heart murmur 66341271 R0 1.1 Chronic ob structive pulmonary disease 69911931 J44.9 Mixed hyperlipidemia 267 413576 E78.2 Essential hypertension 48335072 I10 Body mass index 40+ - severely obese 123606212 Z68.41 Administra tion of influenza vaccine 24564509 Z23 Type 2 rena betes mellitus without complication 233830090 E11.9 Environmental allergy 42 0294825 T78.49XD Renewal of prescription 131846908 Z76.0 Acute bila teral otitis media 854882804 H66.93 [id number] Estiven No MD [address] [place] [address] 05/09/2017 09:49:05 05/09/2017 10:43:14 Acquired hypothyroidism 252083400 E03.9 Chronic ob structive pulmonary disease 64774567 J44.9 Mixed hyperlipidemia 267 568697 E78.2 Congestive heart failure 22331328 I50.9 Essential hypertension 56729542 I10 Diabetes mellitus 345218 09 E11.9 Aortic valve stenosis 60 888348 I35.0 Body mass index 40+ - severely obese 808725172 Z68.41 [id number] Estiven No MD [address] [place] [address] 08/08/2017 09:14:38 08/08/2017 10:57:33 Acquired hypothyroidism 409367553 E03.9 Heart murmur 08250740 R0 1.1 Stented co ronary artery 898313122 Z95.5 Chronic ob structive pulmonary disease 03969085 J44.9 Morbid obesity 203270374 E66.01 Mixed hyperlipidemia 267 301865 E78.2 Congestive heart failure 13640420 I50.9 Coronary arteriosclerosis 94229988 I25.10 Essential hypertension 97391848 I10 Aortic valve stenosis 60 769997 I35.0 Diabetes mellitus 516371 09 E11.9 Body mass index 30+ - obesity 903772274 Z68.37 Type 2 rena betes mellitus without complication 235056609 E11.9 Asthma 409686618 J45.90 9 Environmental allergy 42 0722152 T78.49XD Gastroesop hageal reflux disease 705276195 K21.9 [id number] Neha Schilling MD [address] [place] [address] 11/04/2019 09:02:09 11/04/2019 11:06:00 Chronic obstructive pulmonary disease 21058031 J44.9 Mixed hyperlipidemia 267 829076 E78.2 Diabetes mellitus 221723 09 E11.21 Chronic ki dney disease 235774298 N18.9 Acquired hypothyroidism 606732441 E03.9 History of coronary artery bypass grafting 742853194 Z95.1 Congestive heart failure 40061871 I50.9 Coronary arteriosclerosis 44120265 I25.10 Essential hypertension 49259897 I10 Heart murmur 00895340 R0 1.1 Gastroesop hageal reflux disease 533358925 K21.9 Chronic diarrhea 5323742 09 K52.9 Peripheral venous insufficiency 54866200 I87.2 Allergic rhinitis 485396 04 J30.9 [id number] Neha Schilling MD [address] [place] [address] 01/13/2020 18:27:35 01/13/2020 19:00:01 Chronic obstructive pulmonary disease 16007718 J44.9 Allergic rhinitis 287120 04 J30.9 Acquired hypothyroidism 716589125 E03.9 Coronary arteriosclerosis 53469847 I25.10 Diabetes mellitus 887282 09 E11.21 Mixed hyperlipidemia 267 211794 E78.2 Essential hypertension 30792973 I10 Asthma 250613253 J45.90 9 Gastroesop hageal reflux disease without esophagitis 083620092 K21.9 [id number] Neha Schilling MD [address] [place] [address] 02/04/2020 09:32:15 02/04/2020 13:16:07 Administration of influenza vaccine 01844212 Z23 [id number] Neha Schilling MD [address] [place] [address] 03/23/2020 16:54:17 03/23/2020 17:56:46 Diabetes mellitus 00334642 E11.21 Chronic ob structive pulmonary disease 83775612 J44.9 Acute exac erbation of chronic obstructive pulmonary disease 246336277 J44.1 Acquired hypothyroidism 729685274 E03.9 Asthma 899485317 J45.90 9 Gastroesop hageal reflux disease 395969639 K21.9 Mixed hyperlipidemia 267 410230 E78.2 History of coronary artery bypass grafting 458377637 Z95.1 Stented co ronary artery 069841617 Z95.5 Congestive heart failure 10560788 I50.9 Coronary arteriosclerosis 44378180 I25.10 Essential hypertension 64815197 I10 Allergic rhinitis 085244 04 J30.9 Chronic ki dney disease 056505000 N18.9 Heart murmur 37907458 R0 1.1 [id number] Neha Schilling MD [address] [place] [address] 06/21/2020 12:34:51 06/21/2020 13:56:17 Body mass index 40+ - severely obese 182001256 Z68.42 Type 2 rena betes mellitus 39003302 E11.21 Nicotine d ependence with current use 586828197 F17.200 Mammogram declined 53525 5004 Z53.20 Colonoscopy declined 858 0949740 64977 Z53.20 Acute exac erbation of chronic obstructive pulmonary disease 952804510 J44.1 and rash on left arm Acquired hypothyroidism 754030602 E03.9 Chronic ob structive pulmonary disease 68646055 J44.9 Asthma 942576912 J45.90 9 [id number] Neha Schilling MD [address] [place] [address] 09/21/2020 11:42:08 09/21/2020 16:22:49 Type 2 diabetes mellitus 96186601 E11.21 Peripheral edema 4136782 00 R60.9 Acquired hypothyroidism 197037984 E03.9 Mixed hyperlipidemia 267 957208 E78.2 Hypertensive disorder 38 476899 I10 [id number] Neha Schilling MD [address] [place] [address] 12/15/2020 09:50:17 12/15/2020 11:27:01 Administration of influenza vaccine 76543498 Z23 Type 2 rena betes mellitus 33869070 E11.21 Screening mammography 24 395452 Z12.31 Essential hypertension 12914302 I10 Infection of skin and/or subcutaneous tissue 32922909 L08.9 Administra tion of pneumococcal vaccine 42763214 Z23 [id number] Christi Barrios [facility] [address] [place] [address] [place] [address] 04/01/2021 14:13:42 04/01/2021 16:22:44 Chronic obstructive pulmonary disease 57888886 J44.9 Type 2 rena betes mellitus 74283916 E11.21 Congestive heart failure 84206046 I50.9 Acquired hypothyroidism 606883512 E03.9 Acute bact erial bronchitis 085348450 J20.9 Heavy ciga rette smoker (20-39 cigs/day) 204503921 Z72.0 Coronary arteriosclerosis 39809944 I25.10 Hypokalemia 70775227 E87 .6 Mixed hyperlipidemia 267 162882 E78.2 Gastroesop hageal reflux disease 056400112 K21.9 Morbid obesity 056217987 E66.01 [id number] Chrystal Welch[address] [place] [address] 09/06/2021 13:43:04 09/06/2021 14:50:20 Chronic obstructive pulmonary disease 42935230 J44.9 Acute exac erbation of chronic obstructive pulmonary disease 223493854 J44.1 Type 2 rena betes mellitus 23152819 E11.65 Heavy ciga rette smoker (20-39 cigs/day) 191720649 Z72.0 [id number] Christi Barrios[address] [place] [address] 12/20/2021 13:21:30 12/20/2021 15:15:38 Screening mammography 77940471 Z12.31 Screening for malignant neoplasm of colon 767747717 Z12.11 Body mass index 40+ - severely obese 634387745 Z68.42 Morbid obesity 344925336 E66.01 Chronic ob structive pulmonary disease 90934775 J44.9 Diabetes mellitus 717515 09 E11.21 Acquired hypothyroidism 854562015 E03.9 Mixed hyperlipidemia 267 955808 E78.2 Allergic rhinitis 332840 04 J30.9 Acute exac erbation of chronic obstructive pulmonary disease 355913309 J44.1 Influenza vaccine needed 0662912162 106 Z23 Heavy ciga rette smoker (20-39 cigs/day) 573871832 Z72.0 [id number] Christi Barrios [address] [place] [address] 02/27/2022 12:51:25 02/27/2022 15:00:27 Chronic obstructive pulmonary disease 88836719 J44.9 Type 2 rena betes mellitus 38504991 E11.21 Respirator y tract congestion 321244470 R09.89 Acute bact erial sinusitis 92277623 J01.90 [id number] Christi Barrios [address] [place] [address] 04/05/2022 15:28:16 04/05/2022 17:33:58 Acquired hypothyroidism 134274411 E03.9 Mixed hyperlipidemia 267 124977 E78.2 Essential hypertension 93000928 I10 Type 2 rena betes mellitus 20375721 E11.21 Acute bact erial sinusitis 50319656 J01.90 Body mass index 40+ - severely obese 962219696 Z68.42 Left Achil les tendinitis 1273566085 14459 M76.62 [id number] Christi Barrios [address] [place] [address] 08/09/2022 13:00:25 08/09/2022 13:57:19 Chronic obstructive pulmonary disease 52242578 J44.9 Type 2 rena betes mellitus 51983751 E11.21 Essential hypertension 42633817 I10 controlled Renewal of prescription 419251044 Z76.0 Gastroesop hageal reflux disease 367507073 K21.9 Hospital i npatient stay within past 30 days 4817211228 106 Z76.89 Acute non- ST segment elevation myocardial infarction 819885150 I21.4 Aortic valve stenosis 60 875509 I35.0 Congestive heart failure 19008013 I50.9 [id number] Chrystal Welch [address] [place] [address] 09/01/2022 10:43:24 09/01/2022 12:23:56 Dyspnea 440897165 R06.00 Chest x-ray ordered. Results discussed with patient at time of office visit. Encouraged patient to notify cardiology of results of chest x-ray. Patient verbalized understand ing. Congestive heart failure 49963097 I50.9 Patient reports she is scheduled to f/u with her cardiologi st, Dr. Landers, on 09/04/22. Encouraged patient to attend cardiology appointmen t as scheduled. Cough 69211782 R05.9 Body mass index 40+ - severely obese 032947670 Z68.41 Morbid obesity 757415666 E66.01 Ex-smoker 8197250 Z87.89 1 [id number] Christi Barrios [facility] [address] [place] 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 [address] 05/23/2023 15:50:09 05/23/2023 17:20:15 Chronic obstructive pulmonary disease 12227620 J44.9 Type 2 rena betes mellitus 98831897 E11.21 stable, controlled Acute bact erial sinusitis 33101442 J01.90 Acute exac erbation of chronic obstructive pulmonary disease 358764690 J44.1 Cellulitis of lower leg 025226774 L03.116 Heart murmur 51231973 R0 1.1 Cigarette smoker 1682739 7 F17.170 [id number] Christi Barrios [address] [place] [address] 07/23/2023 15:24:04 07/23/2023 17:21:25 History of coronary artery bypass grafting 878445394 Z95.1 Type 2 rena betes mellitus 34942423 E11.21 Chronic ob structive pulmonary disease 73676290 J44.9 Acute bact erial sinusitis 01563083 J01.90 Cellulitis of lower leg 391102876 L03.116 Heart murmur 34515718 R0 1.1 Cigarette smoker 3853864 7 F17.799 [id number] Tana Cardenas [address] [place] [address] 09/03/2023 10:18:36 09/03/2023 11:12:24 Acquired hypothyroidism 745404056 E03.9 Chronic ob structive pulmonary disease 05910481 J44.9 Mixed hyperlipidemia 267 444734 E78.2 Type 2 rena betes mellitus 66607766 E11.21 Essential hypertension 98494958 I10 Nicotine dependence 5629 4008 F17.200 Body mass index 40+ - severely obese 380200088 Z68.41 Morbid obesity 009268405 E66.01 [id number] Tana Cardenas [address] [place] [address] 11/05/2023 08:57:31 11/05/2023 10:24:29 Acquired hypothyroidism 161332729 E03.9 Gastroesop hageal reflux disease 527564885 K21.9 Mixed hyperlipidemia 267 750440 E78.2 Essential hypertension 29991508 I10 Type 2 rena betes mellitus 22138576 E11.21 Nicotine dependence 5629 4008 F17.200 Body mass index 30+ - obesity 491595626 Z68.38 Obesity 199985108 E66.9 [id number] Tana Cardenas [address] [place] [address] 01/15/2024 10:08:29 01/15/2024 12:26:22 Type 2 diabetes mellitus 91937529 E11.21 Body mass index 30+ - obesity 297179868 Z68.37 Obesity 557521121 E66.9 Gastroesop hageal reflux disease 815522761 K21.9 Bilateral cramp of muscle of lower limbs 5930123089 3060800 R25.2 Acute sinusitis 95889457 J01.90 [id number] Tana Cardenas [address] [place] [address] 03/10/2024 10:18:07 03/10/2024 12:03:27 Essential hypertension 51736780 I10 Type 2 rena betes mellitus 09283251 E11.21 Chronic ki dney disease 491333036 N18.9 Hypokalemia 09631232 E87 .6 Vitamin D deficiency 347 94633 E55.9 Peripheral edema 7296488 00 R60.9 Gastroesop hageal reflux disease 323358269 K21.9 Acquired hypothyroidism 535698958 E03.9 Chronic ob structive pulmonary disease 42634525 J44.9 Influenza vaccine needed 0920133368 106 Z23 Mammogram declined 87877 5004 Z53.20 Body mass index 30+ - obesity 117882757 Z68.36 Obesity 143012537 E66.9 Nicotine dependence 5629 4008 F17.174 [id number] Tana Cardenas [address] [place] [address] 04/30/2024 08:16:00 04/30/2024 09:22:11 Body mass index 30+ - obesity 155419433 Z68.35 Obesity 247797574 E66.9 Nicotine dependence 5629 4008 F17.200 Type 2 rena betes mellitus 02105781 E11.21 intolerant to Mounjaro - diarrhea Diarrhea 06679745 R19.7 [id number] Tana Cardenas [address] [place] [address] 06/17/2024 10:09:30 06/17/2024 11:46:20 Acquired hypothyroidism 026668684 E03.9 Chronic ob structive pulmonary disease 84612940 J44.9 Gastroesop hageal reflux disease 607455117 K21.9 Mixed hyperlipidemia 267 882039 E78.2 Type 2 rena betes mellitus 32971709 E11.21 intolerant to Mounjaro - diarrhea Vitamin D deficiency 347 31843 E55.9 Allergic rhinitis 334804 04 J30.9 Health Concerns Section Related Observation LastModified by Organization Detai ls LastModified Time None Recorded Concern Status LastModified by Organization Details LastModified Time None Recorded Advance Directives Directive N: Payers Insurance Date Sequence Insurance Name Policy Number Policy Low Covered Member ID Low Member ID Guarantor Name 04/27/2021 [place] [facility] [place] (MEDICAID) Sunita Trent [id number] Sunita Trent 06/25/2021 1 [place] Sunita Trent [id number] Sunita Trent 06/18/2024 [place] [facility] [place]ILLING (MEDICAID) DANIELLA Trent [id number] Sunita Trent 06/17/2024 2 [facility] (MEDICAID HMO) Sunita Trent [id number] Sunita Trent 04/01/2021 [employer] [place] [facility] (MEDICARE) Sunita Trent [id number] Sunita Trent 04/13/2016 2 UNSPECIFIED REMIT PAYOR Sunita Trent 06/19/2024 [facility] - DUAL ELIGIBLE (MEDICARE REPLACEMENT/AD VANTAGE - HMO) DANIELLA Trent [id number] Sunita Trent 06/17/2024 1 [facility] DANIELLA Trent [id number] Sunita Trent 04/01/2021 1 [facility] (MEDICARE REPLACEMENT/AD VANTAGE - HMO) DANIELLA Trent [id number] Sunita Trent 04/28/2016 1 UNSPECIFIED REMIT PAYOR Sunita Trent 05/16/2016 2 UNSPECIFIED REMIT PAYOR Sunita Trent 12/07/2021 [place] [facility] [place] Sunita M Twan [id number] Sunita Tina Twan 12/07/2021 1 [facility] (MEDICAID HMO) Sunita Trent [id number] Sunita Trent 04/01/2021 2 [place] [facility] - FFS/TRADITIONA L Sunita Trent [id number] Sunita Trent Notes Date Note Type Note Provider Name and Address Organization Details Recorded Time 4 text/html Presents for follow up DM, HTN, HLD, ASFeeling wellStates she has been [facility] following [facility] last yearNo chest pain, shortness of breath, dizziness, lightheadedness, syncope, palpitations or edema.No fever, chills or cough.Smoking 1 ppdDenies alcohol and illicit drug usageCompliant with medications Tana Cardenas APRN [address], [place], [address], [facility] 11/05/2023 18:06:46 4 text/html Presents [...] symptoms Tana Cardenas APRN [address], [place], [address], [facility] 01/15/2024 15:03:33 4 text/html Presents for follow up regarding hypothyroidism, COPD, CHF, DM, HTN, HLDFeeling wellTolerating mounjaroNo chest pain, shortness of breath, dizziness, lightheadedness, syncope, palpitations or edema.No fever or chillsDoes endorse cough non productive - attributes to smokeCompliant with medicationsSmoking 1-1.5 ppdDenies alcohol and illicit drug usage Tana Cardenas APRN [address], [place], [address], [facility] 03/10/2024 13:06:46 5 text/html Presents for issues diarrheaHas been occurring intermittently since starting Mounjaro but has recently worsenedNo chest pain, shortness of breath, dizziness, lightheadedness, syncope, palpitations or edema. No fever, chills or cough.No hematochezia, hematuria, melenaCompliant with medicationsSmoking 1 ppdDenies alcohol and illicit drug usage. Tana Cardenas APRN [address], [place], [address], [facility] 04/30/2024 10:48:27 5 text/html Patient in for check up and lab work. Patient is fasting. Presents for follow up regarding DM, HTN, HLDFeeling wellNo chest pain, shortness of breath, dizziness, lightheadedness, syncope, palpitations or edema. No fever, chills or cough.Compliant with medicationsSmoking 1 ppdDenies alcohol and illicit drug usage. Tana Cardenas APRN [address], [place], [address], [facility] 06/17/2024 15:07:43 OBGyn Episode No OBEpisode recorded.
--- OUTSIDE RECORDS SUMMARY | 2024-09-16 10:24 | XMS_ITS | Clinical Summary ---
Author Organization [facility] ([place], [place], [place], [place]) Address [address] [place] [address] Care Team Providers Care Wiring Technician Name Role Phone Unavailable Primary Care Provider [...] Problem Noted Date Diagnosed Date CAD in [place] artery 08/04/2022 Asthma 08/04/2022 CHF (congestive heart [...] Date Sammy rded Speak language other than Vietnamese at home Not on file 03/30/2023 Want [...] 1955 Sigmoidoscopy 1955 Diabetic Eye Exam 08/09/1965 Depression Screening (12+) 1967 Hepatitis C [...] A1C 8.8 % 08/05/2022 12:00 PM EDT [facility] Comment: Hemoglobin A1C levels are related to mean glucose during the preceding 2-3 months. Less than 7% demonstrates glycemic control in diabetic patients. Hemoglobin AlC % Suggested Diagnosis > or = 6.5 Diabetic 5.7 - 6.4 Prediabetic <5.7 Non-diabetic eAVG Glucose 205.86 mg/dL 08/05/2022 12:00 PM EDT [facility] Blood Venipuncture / Unknown 08/04/2022 8:23 PM EDT 08/04/2022 8:29 PM EDT us William Lau PA-C LAB BLOOD ORDERABLES Final Re sult [facility] [address] [phone] from Last 3 Months or Most Recently Relevant to [place] [address] [facility] DUAL COMPLETE MCR ADV [facility] MEDICARE ADVANTAGE Advance Directives For more information, please contact: [phone] * Full Code (Latest Code Status on File) Date Activated Date Inactivated Comments 08/04/2022 6:56 PM 08/09/2022 12:06 AM
--- OUTSIDE RECORDS SUMMARY | 2024-09-16 10:24 | XMS_ITS | Clinical Summary ---
Author Organization [facility] Address [address] [address] Phone Care Team Providers Care Level Vial Setter Name Role Phone Unavailable Primary Care Provider [...] Active fluticasone propionate (FLONASE) 50 mcg/actuation Nasl Gregory, Suspension 2 Sprays by Nasal route daily. [...] (10/06/2022): Added automatically from request for surgery [id number] Surgical History Surgery Date Site/Laterality Comments CARDIAC CATHETERIZATION CARDIAC SURGERY stents x4 CHOLECYSTECTOMY TUBAL LIGATION DENTAL SURGERY full teeth extracted AORTIC VALVE REPLACEMENT 10/19/2022 N/A Transcatheter aortic valve replacement with echocardiogram and [place]; Surgeon: Alfred Greenberg MD; Location: [facility]; Service: [facility] Medical devices from this surgery are in the Medical Devices section. Medical History Medical History Date Comments Asthma COPD (chronic obstructive pulmonary disease) (HC C) Pulmonary emphysema (HCC) Shortness of breath Sleep apnea can not wear Cpa p Pneumonia 2021 Bronchitis, chronic (HCC) Oxygen dependent 2-3 L continuou sly Hyperlipidemia Hypertension OR (myocardial infarction) ([facility]) 12/13/1998 Heart murmur CAD (coronary artery disease) [...] Last Done Comments Wellness Exam Medicare 08/09/1958 Kidney Health: uACR 08/09/1965 Diabetic Eye Exam 08/09/1973 Hepatitis C Screening 08/09/1973 Breast Cancer Screening 1995 Cologuard 08/09/2000 Colon Cancer Screening 08/09/2000 Colonoscopy 08/09/2000 FIT 08/09/2000 Sigmoidoscopy 08/09/2000 Virtual Colonography 08/09/2000 Zoster (1 of 2) 08/09/2005 RSV or 60+ (1 - Risk 60-74 years 1-dose series) 2015 Bone Density Screening 08/09/2020 Hemoglobin A1c 04/18/2023 10/16/2022, 08/04/2022 Lipids 08/05/2023 08/04/2022 Kidney Health: eGFR 10/21/2023 10/20/2022, 10/19/2022, 10/16/2022 COVID-19 Vaccine ( season) 2023 02/22/2022, 10/12/2021, 01/26/2021, Additional history exists Influenza Vaccine (#1) 2024 , 12/20/2021, 12/15/2020, Additional history exists Pneumococcal Vaccine [...] this topic Medical Devices Implanted Type Area Cash Applications Clerk Device Identifier Shelf Expiration Date Model / Serial / Lot Cardiac Stents [place] 3 Ultra Transcatheter Heart Valve (26mm) - [id number] Implanted:Qty: 1 on 10/19/2022 by Alfred Greenberg MD at [facility] N/A: Heart [employer] [id number] 06/11/2025 [id number] / [id number] / Procedures Procedure Name Priority Date/Time Associated Diagnosis Comments BASIC METABOLIC PANEL Early AM 10/20/2022 6:48 AM EDT HEMOGLOBIN A1C Routine 10/16/2022 10:23 AM EDT from Last 3 Months or Most Recently Relevant to Health Maintenance Results * (ABNORMAL) BASIC METABOLIC PANEL (10/20/2022 6:48 AM EDT) Sodium 137 136 - 145 mmol/L 10/20/2022 8:04 AM EDT [facility] Potassium 4.0 3.5 - 5.0 mmol/L 10/20/2022 8:04 AM EDT [facility] Chloride 95(L) 98 - 107 mmol/L 10/20/2022 8:04 AM EDT [facility] Total CO2 34(H) 22 - 29 mmol/L 10/20/2022 8:04 AM EDT [facility] Anion Gap 8 7 - 16 mmol/L 10/20/2022 8:04 AM EDT [facility] Calcium 8.9 8.8 - 10.4 mg/dL 10/20/2022 8:04 AM EDT [facility] Glucose Lvl 202(H) 82 - 100 mg/dL 10/20/2022 8:04 AM EDT [facility] BUN 29(H) 8 - 23 mg/dL 10/20/2022 8:04 AM EDT [facility] Creatinine 1.02 0.51 - 1.30 mg/dL 10/20/2022 8:04 AM EDT [facility] eGFR (CKD-EPIcr 2020) 60 >=60 mL/min/1.7 3 m2 10/20/2022 8:04 AM EDT [facility] Comment:Estimated GFR was ca lculated using the CKD-EPIcr (2020) equation refit without race. The equation is recommended by the National Kidney Foundation - [place] [employer] of Nephrology Task Force. Blood VENOUS BLOOD / Unknown Venipuncture / Unknown 10/20/2022 6:48 AM EDT 10/20/2022 7:05 AM EDT us Alfred Greenberg MD CHEMISTRY ORDERABLES Final Resul t [address] , [address] [place] [id number] [facility] [address] [place], [place] [id number] * (ABNORMAL) HEMOGLOBIN A1C (10/16/2022 10:23 AM EDT) Hgb A1C 6.9(H) 4.2 - 5.6 % 10/16/2022 11:19 AM EDT [facility] [employer], [facility] Est. Avg Glucose 151 mg/dL 10/16/2022 11:19 AM EDT [facility] Blood VENOUS BLOOD / Unknown Venipuncture / Unknown 10/16/2022 10:23 AM EDT 10/16/2022 10:29 AM EDT Narrative [facility]REF[facility]ED [email or web address] - 10/16/2022 11:19 AM EDT REFERENCE RANGE: Normal: 4.0-5.6% Pre-diabetes: 5.7-6.4% Provisional diagnosis of diabetes: >6.4% Hgb F>10% and anything which shortens red cell survival, such as hemolytic anemia, or unstable hemoglobin variants such as HbSS, HbSC, or HbCC, will lower the HbA1c value associated with a given level of glycemic control. Neena Concepcion APRN CHEMISTRY ORDERABLES Fin al Result [email or web address] [address] [facility] , [place] [address] from Last 3 Months or Most Recently Relevant to Health Maintenance Insurance DUAL COMPLETE HMO [place] [facility] [place] [address] D[place] COMPLETE HMO [place] [facility] [place] [address] Advance Directives For more information, please contact: [phone] Documents on File Type Date Recorded Patient Data Warehouse Analyst Expl anation Power of Chief Nurse 10/19/2022 9:00 AM * Full Code (Latest Code Status on File) Date Activated Date Inactivated Comments 10/19/2022 3:07 PM 10/20/2022 5:12 PM
--- NOTE | 2024-09-16 11:15 | CA_ITS ---
FINAL REPORT TECHNIQUE: extremity venous duplex was performed with augmentation and compression. CLINICAL HISTORY: chronic left leg edema with hardened skin of the ankle FINDINGS: Proper flow is seen throughout the deep venous system. There is no evidence of deep venous thrombosis. IMPRESSION: No left lower extremity deep venous thrombosis. Reviewed, Interpreted and Dictated by Sergei Shetty MD Transcribed by Haley Ardon Authenticated and [facility]
== END 2024-09-16 23:59 | disposition home or self-care (01) ==
LOC: RT 10:22
PROVIDERS: PCP Family Medicine; Visit Provider Family Medicine
DX: R60.0 Localized edema (principal)
CPT/HCPCS: 93971

== ENCOUNTER 2024-11-18 16:00 | Outpatient (CLI) | payer MEDICARE, OTHER, SELFPAY ==
--- OUTSIDE RECORDS SUMMARY | 2024-09-24 16:13 | XMS_ITS | Encounter Summary ---
Author Organization 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 hard to wake up but a/o when awake. LWK approx 1500; phenergan 25mg en route * Auth/Cert/Inpt (Routine) Specialty Diagnoses / Procedures Referred By Contac t Referred To Contact Diagnoses Left-sided weakness Referral ID Status Reason Start Date Expiration Date Visits Re quested Visits Authorized [id number] 1 1 Encounter Details Date Type Department Care Team (Latest Contact Info) Description 09/24/2024 4:13 PM EDT - 10/02/2024 3:34 PM EDT Hospital Encounter [facility] [address] [address] [place] [address] Feli Harper MD [address] [place] [address] Troy Leary S, DO [address] [place] [address] Left-sided weakness (Primary Dx) Discharge Disposition: [facility] Facility Social History Tobacco Use Types Packs/Day Years Used Date Smoking Tobacco: Former Cigarettes Q uit: 1976 Smokeless Tobacco: Never Alcohol Use Standard Drinks/Week Comments Never 0 (1 standard drink = 0.6 oz pur e alcohol) [facility] Utilities Answer Date Recorded In the past 12 months has [employer], gas, oil, or water company threatened to shut off services in your home? No 09/25/2024 Overall Financial Resource Strain (CARDIA) Answe r Date Recorded How hard is it for you to pa y for the very basics like food, housing, medical care, and heating? Not hard at all 09/25/2024 [facility] [place] [facility] - Occupational Stress Questionnaire Answer Date Recorded Do you feel stress - tense, restless, nervous, or anxious, or unable to sleep at night because your mind is troubled all the time - these days? Patient unable to answer 09/25/2024 Exercise Vital Sign Answer Date Recorde d On average, how many days pe r week do you engage in moderate to strenuous exercise (like a brisk walk)? 0 days 09/25/2024 On average, how many minutes do you engage in exercise at this level? 0 min 09/25/2024 Hunger Vital Sign Answer Date Recorded Within the past 12 months, y ou worried that your food would run out before you got the money to buy more. Never true 09/26/19 25 Within the past 12 months, t he food you bought just didn't last and you didn't have money to get more. Never true 09/25/2024 [facility] IP Transportation Answer D ate Recorded In the past 12 months, has l ack of reliable transportation kept you from medical appointments, meetings, work or from getting things needed for daily living? No 09/25/2024 Comments No Sex and Gender Information Value Date Recorded Sex Assigned at Not on file Legal Sex Female 9:07 AM EDT Gender Identity Not on file Sexual Orientation Not on file documented as of this encounter Last Filed Vital Signs Vital Sign Reading Time Taken Comments Blood Pressure 104/66 10/02/2024 12:00 PM EDT Pulse 69 10/02/2024 1:18 PM EDT Temperature 36.2 C (97.2 F) 10/02/2024 12:00 PM EDT Respiratory Rate 16 10/02/2024 12:00 PM EDT Oxygen Saturation 95% 10/02/2024 12:00 PM EDT Inhaled Oxygen Concentration - - Weight 77.3 kg (170 lb 6.7 oz) 09/24/2024 11:12 PM EDT Height 152.4 cm (5') 09/24/2024 11:12 PM EDT Body Mass Index 33.28 09/24/2024 11:12 PM EDT documented in this encounter Functional Status * Alcohol Screening Score Answer Date of Assessment Author 0 09/24/2024 11:00 PM EDT Lila Guerra RN * Drug Screening Score Answer Date of Assessment Author 0 09/24/2024 11:00 PM EDT Lila Guerra RN * Question Answer Date of Assessment Author How often do you have a drin k containing alcohol? 0 09/24/2024 11:00 PM EDT Lila Guerra R N How many drinks containing a lcohol do you have on a typical day when you are drinking? 0 09/24/2024 11:00 PM EDT Lila Guerra R N How often do you have six or more drinks on one occasion? 0 09/24/2024 11:00 PM EDT Theresa Guerra RN AUDIT-C to Determine Rows 4-10 0 09/24/2024 11:00 PM EDT Lila Guerra RN * Suicide Severity Rating Answer Date of Assessment Author No Risk 09/24/2024 4:19 PM EDT Carly Briggs RN * [place] Suicide Severity Rating Scale (Q shift for moderate and high) Question Answer Date of Assessment Author 1. In the past month, have y ou wished you were or wished you could go to sleep and not wake up? 0 09/24/2024 4:19 PM EDT Carly Briggs RN 2. In the past month, have y ou actually had any thoughts of killing yourself? (If no, skip to question 6) 0 09/24/2024 4:19 PM EDT Carly Briggs RN 6. Have you ever done anythi ng, started to do anything, or prepared to do anything to end your life? 0 09/24/2024 4:19 PM EDT Carly Briggs RN documented as of this encounter Discharge Summaries * Vicenta Bell APRN - 10/02/2024 1:44 PM EDT Images from the original note were not included. [facility] Discharge Summary Patient Name: Sunita Trent : 1955 Admit Date: 09/24/2024 Discharge Date: Admitting Physician: Troy Leary DO Discharging Physician: Vicenta Bell APRN Reason for Hospitalization: Active Hospital Problems Acute respiratory failure with hypoxemia (HCC) HFrEF (heart failure with reduced ejection fraction) (HCC) S/P CABG (coronary artery bypass graft) Acute systolic heart failure (HCC) Acute arterial ischemic stroke, vertebrobasilar, brainstem, right (HCC) Type 2 myocardial infarction (HCC) Chronic diastolic heart failure (HCC) *Left-sided weakness Chronic kidney disease Acquired hypothyroidism Arteriosclerosis of coronary artery Chronic obstructive pulmonary disease (HCC) Morbid obesity (HCC) Brief Hospital Summary: 69 y.o. female admitted with left-sided weakness due to CVA. Has R ICA obstructive lesion. Seen by neurology. On ASA and statin. Hemiparesis symptoms improving. Has new dysphagia and recommended for pureed diet. Also treated for aspiration PNA and will complete augmentin after discharge. Diuresed with IV lasix. Can resume home bumex and follow up OP after rehab. Labs and imaging follow-up needed: [facility], 30 day monitor Consultants: Treatment Team: Consulting Physician: Neville Gutierrez MD Discharge Exam: Vitals: 10/02/24 1318 BP: Pulse: 69 Resp: Temp: SpO2: CONSTITUTIONAL: Alert and oriented x 3. NAD. CARDIOVASCULAR: normal rate and regular rhythm. No murmur heard. PULMONARY/CHEST: CTA bilat.. No W/R/R. ABDOMINAL: soft, non-tender; normal BS. MUSCULOSKELETAL: no atrophy or effusions. No edema. NEURO: left weakness PSYCHIATRIC: normal mood and affect. Not suicidal/homicidal. Correct Full Discharge Med List: Medication List START taking these medications amoxicillin-clavulanate 875-125 mg Tab Dose: 875 mg Qty: 3 Tablet Refills: 0 Commonly known as: AUGMENTIN 1 Tablet, Oral, EVERY 12 HOURS SCHEDULED aspirin 325 mg Tab Dose: 325 mg Qty: 30 Tablet Refills: 0 325 mg, Oral, DAILY WITH MEAL Replaces: aspirin 81 mg Tbec losartan 25 mg Tab Dose: 25 mg Qty: 30 Tablet Refills: 0 Commonly known as: COZAAR 25 mg, Oral, DAILY nebivoloL 2.5 mg Tab Dose: 2.5 mg Qty: 30 Tablet Refills: 0 Commonly known as: BYSTOLIC 2.5 mg, Oral, DAILY CONTINUE taking these medications * albuterol 2.5 mg /3 mL (0.083 %) Nebu Dose: 2.5 mg Refills: 0 Commonly known as: PROVENTIL * albuterol 90 mcg/actuation Hfaa Dose: 2 Puff Refills: 0 Commonly known as: PROVENTIL HFA;VENTOLIN HFA bumetanide 2 mg Tab Dose: 2 mg Refills: 0 Commonly known as: BUMEX empagliflozin 10 mg Tab Dose: 10 mg Refills: 0 Commonly known as: JARDIANCE fluticasone propionate 50 mcg/actuation Spsn Dose: 2 [place] Refills: 0 Commonly known as: FLONASE LEVOthyroxine 150 mcg Tab Dose: 300 mcg Refills: 0 Commonly known as: SYNTHROID metFORMIN 1,000 mg Tab Dose: 1,000 mg Refills: 0 Commonly known as: GLUCOPHAGE montelukast 10 mg Tab Dose: 10 mg Refills: 0 Commonly known as: SINGULAIR Oxygen and Equipment Dose: 1 Device Refills: 0 pantoprazole 40 mg Tbec Dose: 40 mg Qty: 30 Tablet Refills: 2 Commonly known as: PROTONIX 40 mg, Oral, DAILY pioglitazone 15 mg Tab Dose: 15 mg Refills: 0 Commonly known as: ACTOS rosuvastatin 40 mg Tab Dose: 40 mg Refills: 0 Commonly known as: CRESTOR * This list has 2 medication(s) that are the same as other medications prescribed for you. Read thedirections carefully, and ask your doctor or other care provider to review them with you. STOP taking these medications aspirin 81 mg Tbec Replaced by: aspirin 325 mg Tab cephALEXin 500 mg Cap Commonly known as: KEFLEX clopidogreL 75 mg Tab Commonly known as: PLAVIX Combivent Respimat 20-100 mcg/actuation Mist Generic drug: ipratropium-albuterol lisinopriL 5 mg Tab Commonly known as: PRINIVIL;ZESTril nitroGLYCERIN 0.4 mg Subl Commonly known as: NITROSTAT torsemide 100 mg Tab Commonly known as: DEMADEX Trulicity 1.5 mg/0.5 mL Pnij Generic drug: dulaglutide ASK your doctor about these medications spironolactone 25 mg Tab Dose: 25 mg Qty: 60 Tablet Refills: 11 Commonly known as: ALDACTONE 25 mg, Oral, 2 TIMES DAILY Where to Get Your Medications These medications were sent to [facility] [place] [address] [phone] - [phone] [address], [facility] [address] amoxicillin-clavulanate 875-125 mg Tab aspirin 325 mg Tab losartan 25 mg Tab nebivoloL 2.5 mg Tab Condition at Discharge: good Disposition: SNF Follow-up: [facility] [address] [facility] [address] Vicenta Bell APRN 10/02/2024 Cosigned by Moy Izquierdo MD at 10/02/2024 5:50 PM EDT Associated attestation - Moy Izquierdo MD - 10/02/2024 5:50 PM EDT Patient was not seen. Note was reviewed and cosigned per hospital policy. Moy Izquierdo MD documented in this encounter Discharge Instructions * Discharge Instr - Diet* Margi Munoz RD,LD - 09/29/2024 11:35 AM EDT Consume three balanced meals per day with consitency per speech therapy. High protein supplements to support healing & recovery. documented in this encounter Medications at Time of Discharge aspirin 325 mg Oral Tablet Take 1 Tablet by mouth daily (with breakfast). 30 Tablet 10/01/2024 bumetanide (BUMEX) 2 mg Oral Tablet Take 2 mg by mouth daily. empagliflozin (JARDIANCE) 10 mg Oral Tablet Take 10 mg by mouth daily. fluticasone propionate (FLONASE) 50 mcg/actuation Nasl [place], Suspension 2 Sprays by Nasal route daily. LEVOthyroxine (SYNTHROID) 150 mcg Oral Tablet Take 300 mcg by mouth daily. losartan (COZAAR) 25 mg Oral Tablet Take 1 Tablet by mouth daily. 30 Tablet 10/01/2024 metFORMIN (GLUCOPHAGE) 1,000 mg Oral Tablet Take 1,000 mg by mouth 2 times daily (with meals). montelukast (SINGULAIR) 10 mg Oral Tablet Take 10 mg by mouth daily. nebivoloL (BYSTOLIC) 2.5 mg Oral Tablet Take 1 Tablet by mouth daily. 30 Tablet 10/01/2024 pantoprazole (PROTONIX) 40 mg Oral Tablet, Delayed Release (E.C.) Take 1 Tablet by mouth daily. 30 Tablet 2 10/21/2022 rosuvastatin (CRESTOR) 40 mg Oral Tablet Take 40 mg by mouth nightly. albuterol (PROVENTIL HFA;VENTOLIN HFA) 90 mcg/actuation Inhl HFA Aerosol Inhaler Inhale 2 Puffs into the lungs every 6 hours as needed. albuterol (PROVENTIL) 2.5 mg /3 mL (0.083 %) Inhl Solution for Nebulization Take 2.5 mg by nebulization every 6 hours as needed. Oxygen and Equipment MISCELLANEOU 1 Device by MISCELLANEOUS route once. 2-3 L continuously pioglitazone (ACTOS) 15 mg Oral Tablet Take 15 mg by mouth daily. spironolactone (ALDACTONE) 25 mg Oral TabletIndications :SOB (shortness of breath) Take 1 Tablet by mouth 2 times daily. 60 Tablet 11 10/30/2022 amoxicillin-clavu lanate (AUGMENTIN) 875-125 mg Oral Tablet Take 1 Tablet by mouth every 12 hours for 3 doses. 3 Tablet 09/30/2024 10/03/19 25 documented as of this encounter Ordered Prescriptions Prescription Sig Dispense Quantity Refills Last Filled Start Date End Date nebivoloL (BYSTOLIC) 2.5 mg Oral Tablet Take 1 Tablet by mouth daily. 30 Tablet 10/01/2024 losartan (COZAAR) 25 mg Oral Tablet Take 1 Tablet by mouth daily. 30 Tablet 10/01/2024 aspirin 325 mg Oral Tablet Take 1 Tablet by mouth daily (with breakfast). 30 Tablet 10/01/2024 amoxicillin-clavul anate (AUGMENTIN) 875-125 mg Oral Tablet Take 1 Tablet by mouth every 12 hours for 3 doses. 3 Tablet 09/30/2024 10/02/2024 documented in this encounter Discharge Disposition Disposition Code Departure Means Destination Comment s [facility] Facility [facility] documented in this encounter Progress Notes * Bella Setih - 10/02/2024 2:55 PM EDT Images from the original note were not included. 10/02/24 1400 Reason for Visit Date of visit 10/02/24 Visited With Patient Visited By Manager Sustainability Reason for Visit Spiritual, emotional or social support Patient Assessment Patient Communication Patient unable to hold conversation Patient Appears Confused;Tired Patient Taoist at Registration None Spiritual Strengths and Coping Resources None identified Spiritual and Emotional Concerns None identified Patient Spiritual Wellbeing Unable to assess Outcomes Expressed Outcomes Unable to assess Care Plan Plan for Follow-Up Manager Sustainability(s) remains available as needed Rev. Dr. Bella Sethi M.Div, D.Min Manager Sustainability, Pastoral and Spiritual Care For non-urgent requests, please place a Pastoral Care consult in [facility]. For all urgent matters, please send an urgent [facility] Secure Chat to the Pastoral Care group at your location. Between 11pm and 7am, please use On-Call Finder to send an [facility] Secure Chat to the on-call planishing press operator. Pastoral Care office phone numbers: EDG/COV/GRT [phone], CELINA [phone], FTT [phone], DBN [phone] * Mirtha Nguyen RN - 10/02/2024 11:36 AM EDT 10/02/24 CC Final note Pt discharging today to [facility]. Pt transporting via [facility] at 1500. All are aware and in agreement. Mesage left with LOURDESMayra Washington to make him aware of time. No further needs at this time. CC signing off. 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 Yes Note Type Treatment/Progress Diet Recommendations Pureed PU4;Extremely Thick EX4 Liquids Liquid Presentation Teaspoon only MBS Strategies/Maneuvers Chin tuck;Effortful swallow;Multiple swallows;One sip/ bite at a time;Slowrate;Upright positioning 90 degrees Additional Recommendations Monitor diet tolerance;Advance diet at bedside per BOAT ENGINES INSTALLER;Strict oral care;Pt/caregiver education (oral care completed this day) Medication administration Crushed in puree Assistance/Supervision Assistance with set up & positioning;Cue patient for swallowing strategies 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 High frequency, high intensity multi-disciplinary therapy for 15 hours per week (pt with potential DC to SNF today; per RN was supposed to DC yesterday however delayed d/t O2 needs) Communication strategies Cue patient to speak loud/over enunciate;Cue patient to speak slowly;Eliminate distractions Hospital Course admitted with left sided weakness 09/24/24; with new CVA; MBS completed 09/26/24 with rec: puree with moderately thick liquids by teaspoon; 09/30/24 downgraded liquids to extremely thick consistency given overt s/s aspiration/airway penetration with moderately thick this day Recent Imaging Chest XR CHEST AP PORTABLE, 09/26/2024 9:26 AM CLINICAL HISTORY: - SOB COMPARISON: 10/16/2022. PROCEDURE COMMENTS: AP portable technique. FINDINGS: Stable radiographic appearance of the heart and pulmonary vascular structures. Diffuse bilateral scattered airspace opacities. Developing inflammatory lung process should be considered. No pleural effusions. Impression: Bilateral diffuse scattered airspace opacities. No pleural effusions. Recent Imaging Head MRI BRAIN WITHOUT CONTRAST, 09/24/2024 9:16 PM CLINICAL HISTORY: -L sided weakness. COMPARISON: None. PROCEDURE COMMENTS: Multiplanar multiecho MR imaging of the brain including standard spin echo and diffusion sequences. FINDINGS: There are multifocal areas of punctate restricteddiffusion in the posterior fossa involving both RIGHT and LEFT cerebellum. The most prominent area of involvement is in the superior and medial RIGHT cerebellum extending to the cerebellar vermis butthere are punctate foci of restricted diffusion in the LEFT cerebellum as well. On the ADC map these show low signal and on the FLAIR sequence these areas are very difficult to appreciate. No compression of the fourth ventricle. Ventricles normal in size. Atrophy and small vessel ischemic white matter change is present Included portions of the paranasal sinuses, mastoids, and orbits unremarkable.Impression: Multifocal posterior fossa acute appearing infarcts most pronounced in the superior RIGHT cerebellum Respiratory status Yes Nasal Cannula (LPM) 1 Speech Therapy Personal Protective Equipment Gloves Others Present/Assisting RN in room during sesstion to give IV meds; dietary in room at start; ST educated dietitian on current status from previous session wtih ST including downgrade to expremely thick Pt/family/RN concerns pt anxious to DC to SNF; reports days are long and noone to talk to Subjective Agreeable to ST;Pleasant Motor Speech Goals & Performance GOAL: Patient will complete volitional oral movements with Maximum;Verbal cues;Visual cues;Tactile cues;100% accuracy PERFORMANCE: Patient completed volitional oral movements with Goal met (pt educted on tongue lateralization exerecise for increased ROM with use of green swab) GOAL: Patient will produce monosyllabic words with Maximum;Verbal cues;Visual cues;Tactile cues;100% accuracy PERFORMANCE: Patient produced monosyllabic words with Did not address GOAL: Patient will produce polysyllabic words with Maximum;Verbal cues;Visual cues;Tactile cues;100% accuracy PERFORMANCE: Patient produced polysyllabic words with Did not address GOAL: Patient will produce phrases with Maximum;Verbal cues;Visual cues;Tactile cues;100% accuracy PERFORMANCE: Patient produced phrases with Maximum;Verbal cues;Tactile cues (pt with extensive education regarding slowed speech/over exaggeration during articulation; pt withmax reminders for use during conversation. educated on use of tapping/PACE to aid in slowed speech,this improved intell during conversation when used) Cognitive-Communication Goals & Performance GOAL: Patient will demonstrate use of internal/external memory strategies with Moderate;Verbal cues;Visual cues;100% accuracy PERFORMANCE: Patient demonstrated use of internal/external memory strategies with (pt reminded of tent card to use for cues to comp strats for meals; pt independently recalled written cues on wipe off board during session) GOAL: Patient will demonstrate delayed recall of functional information to increase functional integration into ADL's with Moderate;Verbal cues;Visual cues;100% accuracy PERFORMANCE: Patient demonstrated delayed recall of functional information to increase functional integration into ADL's with Moderate;Verbal cues;Visual cues (pt with min-mod cues for recall of use of compensatory strategies during PO intake; pt with independent verbal recall of compensatory strategies to be used during intake prior to PO trials) Clinical Swallow Eval Goals & Performance GOAL: Patient/caregiver will understand education regarding swallowing, diet recommendations and treatment with Minimal;Verbal cues;90% accuracy PERFORMANCE: Patient/caregiver understands education regarding swallowing, diet recommendations andtreatment with Maximum;Verbal cues (re-educated on results of MBS, continued risk of aspiration, liquid downgrade given overt s/s aspiration) GOAL: Patient will tolerate recommended diet without observed clinical signs of aspiration Pureed PU4 (extremely thick) PERFORMANCE: Patient tolerated recommended diet without observed clinical signs of aspiration Did not demonstrate overt s/s of aspiration;Pureed PU4;Demonstrated overt s/s of aspiration (extremely thick; no overt s/s noted with cup of puree; pt wtih reports globus/soft cookie stickingat level of pyriform with need for extra swallow. continue puree and extremelyl thick liquids) GOAL: Patient will progress to advanced diet Soft & Bite-Sized SB6;Moderately Thick M03 Liquids PERFORMANCE: Patient progressed to advanced diet Diet not advanced (per RN pt with drop in O2 stats yesterday; pt would benefit from continued stabilization of toleration of current diet at this time in conjunction with increased independence/education re: compensatory strategies to aid in toleration) Instrumental Swallowing Goals & Performance GOAL: Patient will use compensatory strategies to improve swallow safety and efficiency with Minimal;Verbal cues;Visual cues;Chin tuck;Multiple swallows;One sip/ bite at a time PERFORMANCE: Patient used compensatory strategies to improve swallow safety and efficiency with Moderate;Verbal cues;Chin tuck;Effortful swallow;Multiple swallows GOAL: Patient will complete swallowing exercises to improve Laryngeal vestibule closure;Minimal;Verbal cues PERFORMANCE: Patient completed swallowing exercises Did not address GOAL: Patient/caregiver will demonstrate understanding of results, recommendations of the instrumental study with Minimal;Verbal cues;Visual cues;90% accuracy PERFORMANCE: Patient/caregiver demonstrated understanding of results, recommendations of the instrumental study with Minimal;Verbal cues;90% accuracy (pt verbalizes understanding and in agreement with current diet despite dislike of puree) GOAL: Patient/caregiver will demonstrate understanding of risks of aspiration and risks associated with aspiration with Minimal;Verbal cues;Visual cues;90% accuracy PERFORMANCE: Patient/caregiver demonstrated understanding of risks of aspiration and risks associated with aspiration with Moderate;Visual cues Assessment Assessment Progressing towards goals Pertinent Diagnosis CVA Speech Therapy Related Diagnosis R13.11 Dysphagia oral phase;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 Nutrition Malnutrition Reassessment Evidence Supported Diagnosis: Mild protein-calorie malnutrition Indicators: Acute Illness Indicators: < or equal to 50% energy intake compared to estimated energy needs for> or equal to 5 days Nutrition Prescription: Kcals: 8593-9536 kcal (20-25 kcal/kg) Protein (g): 54-68 grams (1.2-1.5 gm/kg IBW) Plan/Interventions: Meals and Snacks: Puree 4, Extremely Thick Liquid 4 Medical Food Supplements: Glucerna Therapeutic, Magic Cup Medical Food/Supplement Freq: BID & 1x daily Feeding Assistance: Feeding Position, Meal Set Up, Menu Selection Assistance, Mouth Care Nutrition Education: Importance of nutrition to healing and recovery, Oriented to Current Diet Order, Supplements Collaboration And Referral Of Nutrition Care: Collaboration with other providers (Speech Therapist) Nutrition Discharge Instructions: Consume three balanced meals per day with consitency per speech therapy. High protein supplements to support healing & recovery. Sunita Trent is a 69 y.o. female patient. Admit Diagnosis: Left-sided weakness [R53.1] Subjective: Patient reports she is doing ok, doesn't like her diet order. Discussed importance of appropriate diet texture & working with ST for safe oral intake. Patient expressed understanding. Eating 50% of documented meals & ONS. Provided encouragement & reinforced importance of adequate nutrition for healing & recovery. patient expressed understanding. ST in the work with patient this am. Anthropometric Measurements: Height: 5' (152.4 cm) Weight: 170 lb 6.7 oz (77.3 kg) BMI (Calculated): 33.28 BMI Assessment: 30-34.9 Obesity Grade l IBW +/- 10%: 100 lb (45.4 kg) % IBW: 170 Last available weight in EMR 09/24, updated weight ordered. Food/Nutrition Related History: Dietary Orders Ordered Pureed 4 Extremely Thick DIET EFFECTIVE NOW 09/30/24 1110 GLUCERNA Therapeutic oral supplement 1 'box' Oral BID with Meals 1 'box' at 10/02/24 0900 Magic Cup Dessert oral supplement 1 Each Oral Daily 1 Each at 09/30/24 1300 Food Insecurity Within the past 12 months, you worried that your food would run out before you got the money to buymore.: Never true Within the past 12 months, the food you bought just didn't last and you didn't have money to get more.: Never true % Avg Meals Consumed: 50 % Supplement Acceptance: accepting some Level of Assistance: Set Up/Assist Chewing Difficulty: Yes Swallowing Difficulty: Yes (ST following) Nutrition Focused Physical Findings: I/O last 3 completed shifts: In: 730 [P.O.:730] Out: 1400 [Urine:1400] Abdomen: Abdominal/GI When was last BM? (Date): 10/01/24 Stool Assessment: Stool Occurrence: 1 Stool Appearance: Type 5 [place] Stool Chart Stool Color: Brown Stool Amount: Small Biochemical Data/Medical Tests: Pertinent Meds: novolog, lipitor Pertinent Labs: glucose 138, Na 146, CO2 31, Ca 8.7 Clinical Course: Clinical Course: Presented with L sided weakness and drowsiness. MRI brain showed multifocal posterior fossa infarctions. Bilateral CA US shows R ICA obstructive lesion. Neurology following. Speech therapy: Recommend Pureed PU4;Extremely Thick EX4 Liquids at this time. PT rec continued therapy. Hada planned d/c to [facility] which was cancelled d/t increased O2 needs. * Nadeen Landin, PT - 10/01/2024 4:02 PM EDT 10/01/24 1602 PT Subjective Note Type Treatment/Progress Patient Room/Unit 3715 PT Subjective Comments #1 Pt agreed to work with therapy. Wants to be up to chair. Reported being tired at conclusion of this session. Discharge Information This progress note will serve as the discharge summary if no further therapy is provided prior to the patient being discharged from the hospital. Diagnostic Testing 10/01/2024 Influenza A&B, RSV, COVID-19: not detected. Pain Screening PT/OT Patient Currently in Pain Denies Cognition Orientation Impaired Disoriented to Time;Situation Arousal Impaired Arousal Impairment Delayed responses to stimuli Safety Awareness Impaired Safety Awareness Impairment Minimal Impairments: Needs up to 25% input/direction from therapist in order to identify safety issues and maintain safety. Affect/Ability to cope Impaired Affect/Ability to cope impairment Distracted Command Following Impaired Command following impairment Minimal Impairments: Needs up to 25% input/direction from therapist inorder to follow single step commands. Memory Impaired Memory impairment Poor short term memory;Decreased recall of recent events;Decreased recall of precautions Communication Impaired Verbal processing dysarthric and difficult to understand at times. Pt is delayed but cooperative. Precautions Therapy Precautions Yes Precaution Info Given Yes;To use call light to request assistance with all mobility Other precautions fall risk, left side weakness Observation Presentation Patient resting in bed Observation IV;Telemetry;Bed alarm;Chair alarm;Oxygen - nasal cannula;External urinary catheter Vitals O2@3L/min via nasal canula. O2 sats 94-99% this session. HR in the 70s. Bed Mobility Rolling Minimal assistance Supine to Sit Moderate assistance;With cues;With bed rails;Head of bed slightly elevated Transfers Sit to Stand With 2 people;Stedy;Minimal assistance;With verbal cues Stand to Sit With 2 people;Minimal assistance;With verbal cues;Stedy Bed to/from chair With 2 people;Stedy Additional Comments Static standing in Stedy: min assist x 2 with verbal cues for midline posture, howard hips extension,back extension (more upright posture) and to avoid eyes downcast toward floor. Gait Gait Not performed;Non-ambulatory at this time Functional Status Score (FSS-ICU) Is the patient currently in ICU? No PT/OT Mobility Documentation PT/OT Mobility Score 4 AM PAC: How much help from another person does the patient currently need... turning from your back to your side while in a flat bed without using bedrails? 3 moving from lying on your back to sitting on the side of a flat bed without using bedrails? 3 moving to and from a bed to a chair? 1 standing up from a chair using your arms (e.g. wheelchair, or bedside chair)? 3 need to walk in hospital room? 1 climbing 3-5 steps with a railing? 1 AM PAC: BASIC MOBILITY SCORING AM PAC Moblity Raw Score 12 AM PAC Mobility CMS 0-100% Functional Percentage 61.94 AM PAC Mobility CMS G Code Modifier CL Balance Sitting Balance 2/5 supports self independently with both UEs Standing Balance 1+/5>50% (minimal assistance) Additional comments Sitting balance: min assist and frequent verbal cues for midline positioning, howard shoulder retraction, increased trunk extension. Min assist to maintain left hand positioning on arm of chair. Performed howard weight shifting with verbal cues and min assist. Verbal cues to facilitate increased weightbearing through pt's left UE/hand on armrest of chair. Exercise Exercise Yes Seated Seated LAQ's 10 AROM left, 20 AROM right. Seated Hip Flex/Marching 10 AROM left with verbal cues Seated DF/PF 20 AROM right, AAROM left in order to achieve full DF range. Education Education To use call light to request assistance with all mobility;Patient/Family Education;Role of Therapy;Safety with mobility;Cues for proper technique;Discharge planning;Up with assistance only;Precautions;Safe and proper posture/positioning;Safe and proper technique with transfers;Energy conservation;Elevation of extremity;Educated on benefits of mobility, upright positioning, and getting out of bed Patient Safety Patient Safety Patient left in chair with needs in reach;Nursing notified of status;Chair/personal alarm activated;Lift pad left in chair Assessment Assessment (Improved left quads activation/use/control during functional mobility and ther ex. Improved sitting balance and response to verbal cues. Tolerated well but fatigued at conclusion of this session. O2sats remained in the 90s on 3L/min O2.) Prognosis Good;With continued PT s/p acute discharge Progress Progressing toward goals Rationale for Skilled Therapy Fall Risk;Balance Deficits;Not safe with independent transfers;Not safe ambulating independently;Not safe ambulating with assist;Able to make measurable improvements;Requires multi-disciplinary team;Decreased endurance and tolerance to activity;Needs intensive therapy Plan Treatment/Interventions Continue with current plan of care PT Frequency 6-7x/week Recommendation PT Recommendation High frequency, high intensity multi-disciplinary therapy for 15 hours per week. Time In / Time Out 1521/1602 IP PT Treatment Minutes 41 (Gait, NMR, TA) The total time spent caring for this patient included but was not limited to hands-on treatment;medical record review;communication and education with patient and/or family/caregiver;assessment of the patient's progress since the last session;clinical judgement necessary for treatment planning for next session;communication with nursing and/or care coordination/social work regarding patient status and discharge planning * Araceli Montano, OT - 10/01/2024 3:19 PM EDT 10/01/24 1519 OT Subjective Note Type Treatment/Progress Patient Room/Unit 3715 OT Subjective Comments #1 Pt reports feeling a little better. Clinical Course DC was planned for this am, but pt had increased O2 requirements. Testing for flu, RSV, and COVID were negative. Precautions Therapy Precautions Yes Precaution Info Given Yes;To use call light to request assistance with all mobility Other precautions L side weakness Cognition Orientation Impaired Disoriented to Time;Situation Arousal Impaired Arousal Impairment Delayed responses to stimuli Safety Awareness Impaired Safety Awareness Impairment Minimal Impairments: Needs up to 25% input/direction from therapist in order to identify safety issues and maintain safety. Affect/Ability to cope Impaired Affect/Ability to cope impairment Distracted Command Following Impaired Command following impairment Minimal Impairments: Needs up to 25% input/direction from therapist inorder to follow single step commands. Memory Impaired Memory impairment Decreased recall of recent events;Decreased recall of precautions Pain Screening PT/OT Patient Currently in Pain No Observation Presentation Patient resting in bed Observation IV;Telemetry;Bed alarm;Chair alarm;Oxygen - nasal cannula;External urinary catheter Vitals VSS on 3L O2 Bed Mobility Rolling Minimal assistance Supine to Sit Moderate assistance Transfers Sit to Stand Minimal assistance;With 2 people;Stedy Stand to Sit Minimal assistance;With 2 people;Stedy Bed to/from chair Stedy Balance Sitting Balance 2/5 supports self independently with both UEs Standing Balance 1+/5>50% (minimal assistance) ADL Interventions Where Assessed Edge of bed;Chair;Supine, bed Grooming Assistance Minimal;Moderate;Hair care Additional Comments Pt needs physical support for L shoulder to reach for brushing hair Interventions Balance Training Worked in sitting and standing balance with weight shifts, and ADLs. Worked on pt improving awareness of her balance and her abiltiy to self correct is improving. . Memory/Strategy Training (Cognitive) Short term memory orientation Visual/Perceptual Training Cues to attend to L side, fewer cues to keep eyes open. Upper Extremity Exercise Pushing up on bed and chair for balance support with APRIL. Worked on targeted reaching with APRIL and encouraged pt to work on this on her own. AM PAC: How much help from another person does the patient currently need... putting on and taking off regular lower body clothing? 1 bathing (including washing, rinsing, drying)? 2 toileting, which includes using toilet, bedpan or urinal? 1 putting on and taking off regular upper body clothing? 2 taking care of personal grooming such as brushing teeth? 2 eating meals? 3 AM PAC DAILY ACTIVITY SCORING Daily Activity Raw Score 11 AM PAC Daily Activity CMS 0-100% Functional Percentage 70.42 AM PAC Daily Activity CMS G Code Modifier CL Education Education To use call light to request assistance with all mobility;Patient/Family Education;Role of Therapy;Safety with mobility;Cues for proper technique;Discharge planning;Up with assistance only;Precautions Patient Safety Patient left in chair with needs in reach;Chair/personal alarm activated;Nursing notified of status Assessment Progress Progressing toward goals Rationale for Skilled Therapy Fall Risk;Balance Deficits;Needs verbal/tactile cues for ADL's;Needs physical cues for ADL's Recommendation OT Recommendation High frequency, high intensity multi-disciplinary therapy for 15 hours per week. Time In / Time Out [id number] IP OT Individual Treatment Minutes 48 The total time spent caring for this patient included but was not limited to medical record review;hands-on treatment;communication and education with patient and/or family/caregiver;assessment of the patient's progress since the last session;clinical judgement necessary for treatment planning for next session;communication with nursing and/or care coordination/social work regarding patient status and discharge planning * Vicenta Bell, PULP TESTER - 10/01/2024 1:22 PM EDT PROGRESS NOTE Assessment/Plan: Acute CVA -MRI brain showed multifocal posterior fossa infarctions -Bilateral CA US showed R ICA obstructive lesion -neurological deficits improving, continue to monitor -Per neurology recs will continue ASA and Lipitor for now -Telemetry while admitted -ST recommending pureed diet, pt tolerating now -PT/OT working with pt CAD with NSTEMI -Troponins 87>>269 this admission -EKG nondiagnostic on admission -Continue home cardioprotective medications as appropriate -Echo shows abnormal LV segmental wall motion -Per cardiology will need eventual [facility] (planning to do this as outpatient now) Decompensated HFrEF -Echo this admission revealed LVEF of 35-40% -Monitor I/Os while admitted -CXR this admission showed pulmonary edema -S/p IV Lasix this admission and diuresed well > resumed -Cardiology signed off now Aspiration Pneumonia - d/c unasyn and started augmentin -Monitor for fevers (afebrile overnight on 10/01) -Aspiration precautions Acute Hypoxic Respiratory Failure - 3L today - Repeat CXR shows persistent vascular congestion - IV lasix for now - Viral screen negative - PRN inhaled bronchodilators Essential HTN -Continue to monitor BP (soft as of 10/01) -Lisinopril Hypernatremia -Na improving at 146. Check tomorrow. -Encourage free water intake - IV lasix on board again -Monitor closely for further improvement CKD -Continue to monitor renal function while admitted (remains stable as of 09/29) -Avoid nephrotoxic agents -Renally dose medications as indicated T2DM -Hold Metformin while admitted -Hgb A1c 7.2% -Glucose well controlled currently -Continue Insulin per protocol on 09/30 GERD -Continue Protonix Morbid Obesity -Body mass index is 33.9 kg/m??. -Recommend proper diet and exercise on DC FEN: PUREED 4 PT Recommendation: High frequency, high intensity multi-disciplinary therapy for 15 hours per week. Dispo: Delay discharge another 24 hours for further diuresis VTE Prophylaxis: Active Hospital Problems Diagnosis *Left-sided weakness Acute respiratory failure with hypoxemia (HCC) HFrEF (heart failure with reduced ejection fraction) ([facility]) S/P CABG (coronary artery bypass graft) Acute systolic heart failure (HCC) Acute arterial ischemic stroke, vertebrobasilar, brainstem, right (HCC) Type 2 myocardial infarction (HCC) Chronic diastolic heart failure (HCC) Chronic kidney disease Acquired hypothyroidism Arteriosclerosis of coronary artery Chronic obstructive pulmonary disease (HCC) Morbid obesity (HCC) Subjective: Denies SOB but on O2 again. No cough. No fevers. No aspiration events. Objective: BP 102/54 (BP Location: Right arm, Patient Position: Semi Fowlers) Pulse 69 Temp 98.3 ??F (36.8??C) (Oral) Resp 18 Ht 5' (1.524 m) Wt 170 lb 6.7 oz (77.3 kg) SpO2 95% BMI 33.28 kg/m?? I/O last 3 completed shifts: In: 1434 [P.O.:1434] Out: - Weight: 170 lb 6.7 oz (77.3 kg) Constitutional: Alert and oriented to person, place, and time. No distress. Cardiovascular: Normal rate and regular rhythm. Exam reveals no friction rub. No murmur heard. Pulmonary/Chest: Effort normal and breath sounds diminished with crackles. No respiratory distress.There are no wheezes. Abdominal: Soft. Bowel sounds are normal. No distension. There is no tenderness. There is no rebound and no guarding. Musculoskeletal: trace edema. Neurological: left side weakness Skin: Skin is warm and dry. No erythema. Labs: Laboratory data and diagnostic testing personally reviewed 10/01/24. Findings are detailed above. Imaging: I have personally reviewed all new imaging as of 10/01/24. Findings are detailed above. Vicenta Bell DNP, PULP TESTER, AGACNP-BC 10/01/2024 1:22 PM * Nadeen Landin, PT - 10/01/2024 11:05 AM EDT 10/01/24 1105 PT Subjective Note Type Follow Up Treatment Attempt Patient Room/Unit 371 Therapy delay reason Nursing advised to not provide therapy at this time;Increased oxygen requirements Clinical Course PT spoke to pt's nurse: discharge was planned for this morning but pt had low O2 sats and currently is on 4L/min O2. COVID-19 test results pending. Nurse advised PT to hold therapy f/u for now. Therapy to f/u and continue as appropriate this afternoon. Update given to OT. * Bernie Taylor MSW - 09/30/2024 3:37 PM EDT 09/30/24 1533 Discharge Planning Evaluation Actual Discharge Plan 09/30/24 SW final. Pt with active dc orders in in anticipation of AM discharge. SW confirmed with Abiola at [facility] that bed will be available tomorrow morning. SW requested ambulance transport from [facility], [facility] transport set up for 0900AM tomorrow 10/01/24. Notified Abiola of transport time. SW met with pt and at bedside, post acute signed, faxed to HIM, and placed in pt chart. Pharmacy updated in [place]. Pt and updated on transport time, denied further needs or concerns. SW available if needs arise. Final Note Referral to SEP Care Management (SEP patients only) No Discharge Round Completed Yes Post Acute Facility [facility] Post Acute Form Assign to [employer] No Post Acute Form Completed Yes Care Coordination Discharge Ready? Yes Discharge to SNF Post Acute Provider [facility] DME at Discharge None DME Assign to [employer] No DME completed by [employer] No Confirmed Discharge Transportation Plan? Yes [facility] Completed Not Applicable Patient Aware and Agrees with DC Plan Yes Primary Caregiver/Legal Decision Maker aware and agree with Discharge Plan Yes Name of Family member notified Amy Lanier Family Member Notified Relationship to Patient Legal Next of Kin Does family and/or caregiver verbalize readiness, willingness, and ability to provide or support patient's self-management activities as appropriate? Yes, patient's primary caregiver reports no concerns regarding discharge plan MD Aware of Plan Yes RN Notified of Plan Yes Community Resources Additional Resources Transportation Resources * Neena Huizar NA - 09/30/2024 3:31 PM EDT Followed up with patient re: request for transportation assistance. Scheduled with: [facility] for Date / Time: 10/01/24 @ 0900 Trip #: [id number]. Patient and RN aware of tentative plan. * Bella Sethi - 09/30/2024 3:06 PM EDT Images from the original note were not included. 09/30/24 1500 Reason for Visit Date of visit 09/30/24 Visited With Patient asleep Visited By Manager Sustainability Reason for Visit Hospitality visit Patient Assessment Patient Taoist at Registration None Care Plan Plan for Follow-Up Manager Sustainability(s) remains available as needed Rev. Rudi Crooks M.DivMin Manager Sustainability, Pastoral and Spiritual Care For non-urgent requests, please place a Pastoral Care consult in [facility]. For all urgent matters, please send an urgent [facility] Secure Chat to the Pastoral Care group at your location. Between 11pm and 7am, please use On-Call Finder to send an [facility] Secure Chat to the on-call planishing press operator. Pastoral Care office phone numbers: EDG/COV/GRT [phone], CELINA [phone], FTT [phone], DBN [phone] * Vicenta Bell APRN - 09/30/2024 2:57 PM EDT PROGRESS NOTE Assessment/Plan Acute CVA -MRI brain showed multifocal posterior fossa infarctions -Bilateral CA US showed R ICA obstructive lesion -neurological deficits improving, continue to monitor -Per neurology recs will continue ASA and Lipitor for now -Telemetry while admitted -ST recommending pureed diet, pt tolerating now -PT/OT working with pt CAD with NSTEMI -Troponins 87>>269 this admission -EKG nondiagnostic on admission -Continue home cardioprotective medications as appropriate -Echo shows abnormal LV segmental wall motion -Per cardiology will need eventual [facility] (planning to do this as outpatient now) Decompensated HFrEF -Echo this admission revealed LVEF of 35-40% -Monitor I/Os while admitted -CXR this admission showed pulmonary edema -S/p IV Lasix this admission and diuresed well -Cardiology signed off now Aspiration Pneumonia - d/c unasyn and start augmentin -Monitor for fevers (afebrile overnight on 09/30) -Aspiration precautions Acute Hypoxic Respiratory Failure -Improving but remains on 5 L NC now, attempt to wean as tolerated -Address acute pulmonary issues above -PRN inhaled bronchodilators Essential HTN -Continue to monitor BP (remains normotensive as of 09/28) -Resume Lisinopril now Hypernatremia -Na improving at 150 today -Encourage free water intake -S/p IV Lasix -Monitor closely for further improvement CKD -Continue to monitor renal function while admitted (remains stable as of 09/29) -Avoid nephrotoxic agents -Renally dose medications as indicated T2DM -Hold Metformin while admitted -Hgb A1c 7.2% -Glucose well controlled currently -Continue Insulin per protocol on 09/30 GERD -Continue Protonix Morbid Obesity -Body mass index is 33.9 kg/m??. -Recommend proper diet and exercise on DC FEN: PUREED 4 PT Recommendation: High frequency, high intensity multi-disciplinary therapy for 15 hours per week. Dispo: Pending precert VTE Prophylaxis: SCDs Active Hospital Problems Diagnosis *Left-sided weakness Acute respiratory failure with hypoxemia (HCC) HFrEF (heart failure with reduced ejection fraction) (HCC) S/P CABG (coronary artery bypass graft) Acute systolic heart failure (HCC) Acute arterial ischemic stroke, vertebrobasilar, brainstem, right (HCC) Type 2 myocardial infarction (HCC) Chronic diastolic heart failure (HCC) Chronic kidney disease Acquired hypothyroidism Arteriosclerosis of coronary artery Chronic obstructive pulmonary disease (HCC) Morbid obesity (HCC) Subjective: Up in chair. Still has some left sided weakness and now requires thickened liquids. No headaches, visual changes, speech changes. Family visiting. All questions answered. Objective: BP 110/71 (BP Location: Right arm, Patient Position: Semi Fowlers) Pulse 72 Temp 97.3 ??F (36.3??C) (Oral) Resp 16 Ht 5' (1.524 m) Wt 170 lb 6.7 oz (77.3 kg) SpO2 93% BMI 33.28 kg/m?? I/O last 3 completed shifts: In: 634.5 [P.O.:237; IV Piggyback:397.5] Out: 350 [Urine:350] Weight: 170 lb 6.7 oz (77.3 kg) Constitutional: Alert and oriented to person, place, and time. No distress. Cardiovascular: Normal rate and regular rhythm. Exam reveals no friction rub. No murmur heard. Pulmonary/Chest: Effort normal and breath sounds normal. No respiratory distress. There are no wheezes. Abdominal: Soft. Bowel sounds are normal. No distension. There is no tenderness. There is no rebound and no guarding. Musculoskeletal: No edema. Neurological: Left sided weakness. Sensation intact. Skin: Skin is warm and dry. No erythema. Labs: Laboratory data and diagnostic testing personally reviewed 09/30/24. Findings are detailed above. Imaging: I have personally reviewed all new imaging as of 09/30/24. Findings are detailed above. Vicenta Bell DNP, ISAAC, AGACNP-BC 09/30/2024 2:57 PM * Nadeen Landin, PT - 09/30/2024 12:02 PM EDT 09/30/24 1202 PT Subjective Note Type Treatment/Progress Patient Room/Unit [id number] PT Subjective Comments #1 Nurse OK'd therapy working with pt:pt's lunch has been ordered. Pt agreedto work with therapy. She wants to stand and wants to be up to chair. Discharge Information This progress note will serve as the discharge summary if no further therapy is provided prior to the patient being discharged from the hospital. Pain Screening PT/OT Patient Currently in Pain Denies Cognition Orientation Impaired Disoriented to Time;Situation Arousal Impaired Arousal Impairment Delayed responses to stimuli Safety Awareness Impaired Safety Awareness Impairment Minimal Impairments: Needs up to 25% input/direction from therapist in order to identify safety issues and maintain safety. Affect/Ability to cope Impaired Affect/Ability to cope impairment Distracted Command Following Impaired Command following impairment Minimal Impairments: Needs up to 25% input/direction from therapist inorder to follow single step commands. Memory Impaired Memory impairment Poor short term memory;Decreased recall of recent events;Decreased recall of precautions Communication Impaired Verbal processing Some delays and pt is dysarthric. Precautions Therapy Precautions Yes Precaution Info Given Yes;To use call light to request assistance with all mobility Other precautions fall risk, left side weakness Additional Comments Diet: pureed with extremely thick liquids by teaspoon only. No straws. Observation Presentation Patient resting in bed Observation IV;Telemetry;Bed alarm;Chair alarm;External urinary catheter Vitals room air O2 sats 90-93% this session. Bed Mobility Rolling Minimal assistance;With cues;With bed rails;Head of bed slightly elevated Supine to Sit With 2 people;Moderate assistance;With cues;With bed rails;Head of bed slightly elevated Transfers Sit to Stand With 2 people;Stedy;Moderate assistance;Minimal assistance;With verbal cues Stand to Sit With 2 people;Stedy;Minimal assistance;With verbal cues Bed to/from chair With 2 people;Stedy;Dependent Additional Comments Static standing in Stedy with min assist x 2:frequent verbal and tactile cues/facilitation to encourage midline and more upright posture. Pt tends to lean/push left. Gait Gait Not performed;Non-ambulatory at this time Functional Status Score (FSS-ICU) Is the patient currently in ICU? No PT/OT Mobility Documentation PT/OT Mobility Score 4 AM PAC: How much help from another person does the patient currently need... turning from your back to your side while in a flat bed without using bedrails? 3 moving from lying on your back to sitting on the side of a flat bed without using bedrails? 3 moving to and from a bed to a chair? 1 standing up from a chair using your arms (e.g. wheelchair, or bedside chair)? 2 need to walk in hospital room? 1 climbing 3-5 steps with a railing? 1 AM PAC: BASIC MOBILITY SCORING AM PAC Moblity Raw Score 11 AM PAC Mobility CMS 0-100% Functional Percentage 66.76 AM PAC Mobility CMS G Code Modifier CL Balance Sitting Balance 1+/5 supports self with >50% effort using UE, requires therapist assistance Standing Balance 1+/5>50% (minimal assistance) Exercise Exercise Yes Seated Seated LAQ's 20 AROM right, 10 AAROM left Seated DF/PF 20 AROM right, 10 AAROM left Education Education To use call light to request assistance with all mobility;Patient/Family Education;Role of Therapy;Safety with mobility;Cues for proper technique;Up with assistance only;Precautions;Safe and proper posture/positioning;Safe and proper technique with transfers;Energy conservation;Educated on benefits of mobility, upright positioning, and getting out of bed Patient Safety Patient Safety Patient left in chair with needs in reach;Nursing notified of status;Chair/personal alarm activated;Lift pad left in chair Assessment Assessment (Pt tolerated standing and tansfers well, did well with Stedy and assistance of 2 people.) Prognosis Good;With continued PT s/p acute discharge Progress Progressing toward goals Rationale for Skilled Therapy Fall Risk;Balance Deficits;Not safe with independent transfers;Not safe ambulating independently;Requires multi- disciplinary team;Able to make measurable improvements;Decreased endurance and tolerance to activity;Needs intensive therapy Plan Treatment/Interventions Continue with current plan of care Additional Comments Stedy for transfers with therapy, Maximove with nursing for transfers. Recommendation PT Recommendation High frequency, high intensity multi-disciplinary therapy for 15 hours per week. Time In / Time Out 1116/1202 IP PT Treatment Minutes 46 (Ther ex, TA, NMR) The total time spent caring for this patient included but was not limited to medical record review;hands-on treatment;communication and education with patient and/or family/caregiver;assessment of the patient's progress since the last session;clinical judgement necessary for treatment planning for next session;communication with nursing and/or care coordination/social work regarding patient status and discharge planning * Juliet Carlisle MA [facility]-BOAT ENGINES INSTALLER - 09/30/2024 11:22 AM EDT 09/30/24 1110 Speech Pathology Treatment Note Patient Seen Today? Yes Note Type Treatment/Progress Diet Recommendations Pureed PU4;Extremely Thick EX4 Liquids Liquid Presentation Teaspoon only MBS Strategies/Maneuvers Chin tuck;Multiple swallows;One sip/ bite at a time;Slow rate;Small bites/sips;Upright positioning 90 degrees Additional Recommendations Monitor diet tolerance;Smaller, more frequent meals d/t endurance;Decrease distractions;Strict oral care;Pt/caregiver education Medication administration Crushed in puree Assistance/Supervision Assistance with set up & positioning;Cue patient for swallowing strategies;Needs constant supervision during self-eating 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 High frequency, high intensity multi-disciplinary therapy for 15 hours per week Communication strategies Ask yes/no questions;Cue patient to speak slowly;Eliminate distractions Hospital Course admitted with left sided weakness 09/24/24; with new CVA; MBS completed 09/26/24 with rec: puree with moderately thick liquids by mayco; 09/30/24 downgraded liquids to extremely thick consistency given overt s/s aspiration/airway penetration with moderately thick this day Recent Imaging Chest XR CHEST AP PORTABLE, 09/26/2024 9:26 AM CLINICAL HISTORY: - SOB COMPARISON: 10/16/2022. PROCEDURE COMMENTS: AP portable technique. FINDINGS: Stable radiographic appearance of the heart and pulmonary vascular structures. Diffuse bilateral scattered airspace opacities. Developing inflammatory lung process should be considered. No pleural effusions. Impression: Bilateral diffuse scattered airspace opacities. No pleural effusions. Recent Imaging Head MRI BRAIN WITHOUT CONTRAST, 09/24/2024 9:16 PM CLINICAL HISTORY: -L sided weakness. COMPARISON: None. PROCEDURE COMMENTS: Multiplanar multiecho MR imaging of the brain including standard spin echo and diffusion sequences. FINDINGS: There are multifocal areas of punctate restricteddiffusion in the posterior fossa involving both RIGHT and LEFT cerebellum. The most prominent area of involvement is in the superior and medial RIGHT cerebellum extending to the cerebellar vermis butthere are punctate foci of restricted diffusion in the LEFT cerebellum as well. On the ADC map these show low signal and on the FLAIR sequence these areas are very difficult to appreciate. No compression of the fourth ventricle. Ventricles normal in size. Atrophy and small vessel ischemic white matter change is present Included portions of the paranasal sinuses, mastoids, and orbits unremarkable.Impression: Multifocal posterior fossa acute appearing infarcts most pronounced in the superior RIGHT cerebellum Respiratory status Yes Nasal Cannula (LPM) 1 Speech Therapy Personal Protective Equipment Gown Pt/family/RN concerns pt reports she does not like the pureed food Subjective Agreeable to ST;Awake/Alert;Pleasant Clinical Swallow Eval Goals & Performance GOAL: Patient/caregiver will understand education regarding swallowing, diet recommendations and treatment with Minimal;Verbal cues;90% accuracy PERFORMANCE: Patient/caregiver understands education regarding swallowing, diet recommendations andtreatment with Maximum;Verbal cues;Visual cues (pt with extensive education re: continued risks for aspiration given continued coughing during intake with liquids at moderately thick level. discussed downgrade for increased safety at this time) GOAL: Patient will progress to advanced diet Soft & Bite-Sized SB6;Moderately Thick M03 Liquids PERFORMANCE: Patient progressed to advanced diet Diet not advanced (liquids downgraded to extremely thick this day) Instrumental Swallowing Goals & Performance GOAL: Patient will use compensatory strategies to improve swallow safety and efficiency with Minimal;Verbal cues;Visual cues;Chin tuck;Multiple swallows;One sip/ bite at a time PERFORMANCE: Patient used compensatory strategies to improve swallow safety and efficiency with Moderate;Verbal cues;Visual cues;80% accuracy (re-educated re: rec: compensatory strategies; written on cue card/pt able to read from card however suspect some left neglect. written on wipe off board; once educated pt with min-mod cues for use during PO trials) GOAL: Patient will complete swallowing exercises to improve Laryngeal vestibule closure;Minimal;Verbal cues PERFORMANCE: Patient completed swallowing exercises Did not address GOAL: Patient/caregiver will demonstrate understanding of results, recommendations of the instrumental study with Minimal;Verbal cues;Visual cues;90% accuracy PERFORMANCE: Patient/caregiver demonstrated understanding of results, recommendations of the instrumental study with Moderate;Verbal cues (re-educated re: risk of aspiration noted on recent MBS and reason for compensatory strategies/consistencies above for increased safety during PO) GOAL: Patient/caregiver will demonstrate understanding of risks of aspiration and risks associated with aspiration with Minimal;Verbal cues;Visual cues;90% accuracy PERFORMANCE: Patient/caregiver demonstrated understanding of risks of aspiration and risks associated with aspiration with Moderate;Verbal cues (pt expressed understanding; suspect will need further education given extent of dysphagia and changes in liquid consitencies; RN/PAPETERIE TABLE ASSEMBLER educated on liquid change and strategies rec:) Assessment Assessment Slow progress Pertinent Diagnosis CVA Speech Therapy Related Diagnosis R13.12 Dysphagia oropharyngeal phase Frequency/Follow up 3-5x/wk Time In 1044 Time Out 1115 Discharge Information Note to serve as discharge summary if no further treatment provided before being discharged from the hospital * Araceli Montano OT - 09/30/2024 11:17 AM EDT 09/30/24 1117 OT Subjective Note Type Treatment/Progress Patient Room/Unit 3715 OT Subjective Comments #1 Pt happy to be up in the chair. Others Present/Assisting Spouse in at end of tx. Precautions Therapy Precautions Yes Precaution Info Given Yes;To use call light to request assistance with all mobility Cognition Arousal Normal Safety Awareness Impaired Safety Awareness Impairment Minimal Impairments: Needs up to 25% input/direction from therapist in order to identify safety issues and maintain safety. Affect/Ability to cope Impaired Affect/Ability to cope impairment Distracted Command Following Impaired Command following impairment Minimal Impairments: Needs up to 25% input/direction from therapist inorder to follow single step commands. Pain Screening PT/OT Patient Currently in Pain No Observation Presentation Patient resting in bed Observation Telemetry;Bed alarm;Chair alarm;External urinary catheter Vitals VSS on RA (O2 90-93%). Bed Mobility Rolling Minimal assistance;With cues Supine to Sit Moderate assistance;With 2 people;With cues Transfers Sit to Stand Minimal assistance;Moderate assistance;With 2 people;With verbal cues;Stedy Stand to Sit Minimal assistance;Moderate assistance;With 2 people;With verbal cues;Stedy Bed to/from chair Stedy Balance Sitting Balance 1+/5 supports self with >50% effort using UE, requires therapist assistance Standing Balance 1/5 performs 25-50% (moderate assistance) ADL Interventions Where Assessed Edge of bed;Chair;Supine, bed Feeding Assistance Minimal Grooming Assistance Minimal;Moderate;Hair care;Washing hands;Washing face LE Dressing Assistance Total;Don/doff L sock;Don/doff R sock Toileting Total;External catheter Interventions Balance Training Worked on sitting and standing posture with verbal and physical cues to avoid leaning L, and stand/sit tall. Upper Extremity Exercise Noted subluxation of L shoulder (1/2 to 1 finger sublux). LImited AROM of L shoulder due to pt's lunch arriving. AM PAC: How much help from another person does the patient currently need... putting on and taking off regular lower body clothing? 1 bathing (including washing, rinsing, drying)? 2 toileting, which includes using toilet, bedpan or urinal? 1 putting on and taking off regular upper body clothing? 2 taking care of personal grooming such as brushing teeth? 2 eating meals? 3 AM PAC DAILY ACTIVITY SCORING Daily Activity Raw Score 11 AM PAC Daily Activity CMS 0-100% Functional Percentage 70.42 AM PAC Daily Activity CMS G Code Modifier CL Education Education To use call light to request assistance with all mobility;Patient/Family Education;Role of Therapy;Safety with mobility;Cues for proper technique;Discharge planning;Up with assistance only;Precautions Patient Safety Patient left in chair with needs in reach;Chair/personal alarm activated;Nursing notified of status;Lift pad left in chair Assessment Progress Slow progress, decreased activity tolerance Rationale for Skilled Therapy Fall Risk;Balance Deficits;Needs verbal/tactile cues for ADL's;Needs physical cues for ADL's Recommendation OT Recommendation High frequency, high intensity multi-disciplinary therapy for 15 hours per week. Time In / Time Out 6011-8213 IP OT Individual Treatment Minutes 45 The total time spent caring for this patient included but was not limited to medical record review;hands-on treatment;communication and education with patient and/or family/caregiver;assessment of the patient's progress since the last session;clinical judgement necessary for treatment planning for next session;communication with nursing and/or care coordination/social work regarding patient status and discharge planning * Bernie Taylor MSW - 09/30/2024 10:07 AM EDT 09/30/24 MICKEY update. SW received voicemail from Abiola at [facility] stating they are able to accept. MICKEY called Abiola ([phone]), requested precert start. Pt [place] likely [place]. SW following. ADDENDUM: Precert approved, pt can transfer as early as tomorrow if medically ready. * Margi Munoz RD,MIN - 09/29/2024 11:[address] [facility] Nutrition Malnutrition Reassessment Evidence Supported Diagnosis: Mild protein-calorie malnutrition Indicators: Acute Illness Indicators: < or equal to 50% energy intake compared to estimated energy needs for> or equal to 5 days Nutrition Prescription: Kcals: 9963-8515 kcal (20-25 kcal/kg) Protein (g): 54-68 grams (1.2-1.5 gm/kg IBW) Plan/Interventions: Meals and Snacks: Puree 4, Moderately Thick Liquid 3 Medical Food Supplements: Glucerna Therapeutic, Magic Cup Medical Food/Supplement Freq: BID & 1x daily Feeding Assistance: Feeding Position, Meal Set Up, Menu Selection Assistance, Mouth Care Nutrition Education: Importance of nutrition to healing and recovery, Oriented to Current Diet Order, Supplements Nutrition Discharge Instructions: Consume three balanced meals per day with consitency per speech therapy. High protein supplements to support healing & recovery. Sunita Trent is a 69 y.o. female patient. Admit Diagnosis: Left-sided weakness [R53.1] Subjective: Subjective Comment: History still difficult to obtain from patient today, severe dysarthria. Discussed patients current diet order per speech, patient did express understanding of altered diet texture for saftey. Patient agreeable to have ONS added to supplement PO. No family present during visit today. Anthropometric Measurements: Height: 5' (152.4 cm) Weight: 169 lb 12.1 oz (77 kg) BMI (Calculated): 33.15 BMI Assessment: 30-34.9 Obesity Grade l IBW +/- 10%: 100 lb (45.4 kg) % IBW: 170 Food/Nutrition Related History: Dietary Orders Ordered Pureed 4 Moderately Thick DIET EFFECTIVE NOW 09/28/24 1219 GLUCERNA Therapeutic oral supplement 1 'box' Oral BID with Meals Magic Cup Dessert oral supplement 1 Each Oral Daily Food Insecurity Within the past 12 months, you worried that your food would run out before you got the money to buymore.: Never true Within the past 12 months, the food you bought just didn't last and you didn't have money to get more.: Never true % Avg Meals Consumed: 38 % (2 meals documented from 7/13.) Supplement Acceptance: has not had previously Chewing Difficulty: Yes Swallowing Difficulty: Yes (ST following) Energy Intake: < or equal to 50% energy intake compared to estimated need for > or equal to 5days Nutrition Focused Physical Findings: Functional Status: Suboptimal (some decline) (Mobility level 2. PT recommending high frequency, high intensity multi-disciplinary therapy for 15 hours per week.) LDAs- Active NG/OG/NJ,Wound,Pressure Injury,or Drain Drain Duration External Urinary Catheter Female Purewick 5 days I/O last 3 completed shifts: In: 240 [P.O.:240] Out: 350 [Urine:350] Abdomen: Abdominal/GI When was last BM? (Date): 09/29/24 Stool Assessment: Stool Occurrence: 1 Stool Appearance: Unable to assess Stool Color: Brown Stool Amount: Small Biochemical Data/Medical Tests: Pertinent Meds: novolog, lipitor Pertinent Labs: Glucose 177, Na 150, Cl 112, BUN 41 Clinical Course: Clinical Course: Presented with L sided weakness and drowsiness. MRI brain showed multifocal posterior fossa infarctions. Bilateral CA US shows R ICA obstructive lesion. Neurology following. Speech therapy: Recommend puree with mod thick liquids, Rx crushed in puree. Chin tuck and swallowing cues. PT rec continued therapy. * Bernie Taylor MSW - 09/29/2024 11:09 AM EDT 09/29/24 SW update. Pt now alert and oriented. MICKEY met with pt at bedside, discussed PT recommendation for acute rehab, and provided Repisodic list. Pt agreeable to referral to [facility] as it is slightly closer to home. Pt will likely need ambulance transport at [place]. SW following. ADDENDUM: Per Amisha at [facility], they are able to accept and will start precert. SECOND UPDATE: MICKEY notified by RN that pt is present and would like to discuss placement. SWmet with pt and her at bedside. Pt requesting referrals to [facility], [facility], and [facility] (in that order of preference) instead of [facility] d/t distance from home. Discussed acute rehab level of care. Pt stating it would be too difficult to transport. SW sent referrals via [employer]. MICKEY following. * Francine Araceli Sylwia, PT - 09/29/2024 11:02 AM EDT 09/29/24 1102 PT Subjective Note Type Treatment/Progress Patient Room/Unit 3715 PT Subjective Comments #1 Pt supine in bed upon arrival of PT. Agreeable Others Present/Assisting Sin Montano OT Discharge Information This progress note will serve as the discharge summary if no further therapy is provided prior to the patient being discharged from the hospital. Pain Screening PT/OT Patient Currently in Pain Denies Cognition Orientation Impaired Disoriented to Time;Situation Arousal Normal Safety Awareness Impaired Safety Awareness Impairment Minimal Impairments: Needs up to 25% input/direction from therapist in order to identify safety issues and maintain safety. Affect/Ability to cope Impaired Affect/Ability to cope impairment Distracted Command Following Impaired Command following impairment Minimal Impairments: Needs up to 25% input/direction from therapist inorder to follow single step commands. Memory Impaired Memory impairment Poor short term memory;Decreased recall of recent events;Decreased recall of precautions Communication Impaired Additional comments dysarthric and difficult to understand Precautions Therapy Precautions Yes Precaution Info Given Yes;To use call light to request assistance with all mobility Other precautions fall risk Observation Presentation Patient resting in bed Observation IV;Oxygen - nasal cannula;Telemetry;Bed alarm;Chair alarm;External urinary catheter Vitals VSS on supplemental O2 Bed Mobility Rolling Moderate assistance;With cues;With bed rails;Head of bed slightly elevated Additional Comments incontinent of small BM upon arrival of therapy. Dependent for pericare/ changing linens. Maximove to recliner chair Transfers Bed to/from chair Dependent;With 2 people;Maxi Move;With verbal cues Gait Gait Non-ambulatory at this time Functional Status Score (FSS-ICU) Is the patient currently in ICU? No PT/OT Mobility Documentation PT/OT Mobility Score 3 AM PAC: How much help from another person does the patient currently need... turning from your back to your side while in a flat bed without using bedrails? 3 moving from lying on your back to sitting on the side of a flat bed without using bedrails? 3 moving to and from a bed to a chair? 1 standing up from a chair using your arms (e.g. wheelchair, or bedside chair)? 1 need to walk in hospital room? 1 climbing 3-5 steps with a railing? 1 AM PAC: BASIC MOBILITY SCORING AM PAC Moblity Raw Score 10 AM PAC Mobility CMS 0-100% Functional Percentage 71.92 AM PAC Mobility CMS G Code Modifier CL Balance Sitting Balance 1/5 supports self with 25-50% effort using UE, requires therapist assistance (L lateral lean) Standing Balance Not tested Exercise Exercise Yes Supine Supine Ankle Pumps B X 10 Supine Quad Sets B X 10 Supine Heelslides B X 5 Supine SLR's B X 10 AAROM Education Education Patient/Family Education;To use call light to request assistance with all mobility;Role of Therapy;Safety with mobility;Cues for proper technique;Discharge planning;Up with assistance only;Precautions;Safe and proper technique with transfers;Safe and proper posture/positioning;Educated on benefits of mobility, upright positioning, and getting out of bed Patient Safety Patient Safety Patient left in chair with needs in reach;Nursing notified of status;Chair/personal alarm activated Assessment Assessment Decreased gait;Decreased functional mobility;Decreased balance;Decreased RightLower Extremity strength;Decreased Left Lower Extremity strength;Decreased activity tolerance ;Decreased safety judgement ;Decreased endurance;Decreased self-care transfers;Decreased high-level ADLs;Decreased co ordination Prognosis Good;Fair;With continued PT s/p acute discharge Progress Progressing toward goals Rationale for Skilled Therapy Fall Risk;Balance Deficits;Not safe with independent transfers;Not safe ambulating with assist;Decreased endurance and tolerance to activity;Able to make measurable improvements;Requires multi- disciplinary team;Requires physical assistance with ADLs;Needs intensive therapy Goals Will Perform Sit to Stand With moderate assist;With assist of 2;New goal;To improve functional mobility Will Transfer Bed/Chair With moderate assist;With assist of 2;New goal;To improve functional mobility Will Stand 3-5 min;With moderate assist;New goal;To improve functional mobility Goal Formulation With patient Time for Goal Achievement/Duration of Treatment Cont all goals x 14 tx days Plan Treatment/Interventions Continue with current plan of care Additional Comments Consider stedy trial Recommendation PT Recommendation High frequency, high intensity multi-disciplinary therapy for 15 hours per week. Time In / Time Out 1022/1102 IP PT Treatment Minutes 40 (23 TA, 17 NM) The total time spent caring for this patient included but was not limited to medical record review;hands-on treatment;communication and education with patient and/or family/caregiver;assessment of the patient's progress since the last session;clinical judgement necessary for treatment planning for next session;communication with nursing and/or care coordination/social work regarding patient status and discharge planning * Carie George, CCC-BOAT ENGINES INSTALLER - 09/29/2024 10:25 AM EDT 09/29/24 1008 Speech Pathology Treatment Note Patient Seen Today? Yes Note Type Treatment/Progress Diet Recommendations Pureed PU4;Moderately Thick MO3 Liquids Liquid Presentation Teaspoon only MBS Strategies/Maneuvers Chin tuck;Multiple swallows;One sip/ bite at a time;Slow rate;Upright positioning 90 degrees Additional Recommendations Monitor diet tolerance;Advance diet at bedside per BOAT ENGINES INSTALLER;Strict oral care;Pt/caregiver education;Decrease distractions Medication administration Crushed in puree Assistance/Supervision Needs constant supervision during self-eating;Cue patient for swallowing strategies 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 High frequency, high intensity multi-disciplinary therapy for 15 hours per week Communication strategies Ask yes/no questions;Cue patient to speak loud/over enunciate;Use communication board;Provide glasses Recent Imaging Chest XR CHEST AP PORTABLE, 09/26/2024 9:26 AM CLINICAL HISTORY: - SOB COMPARISON: 10/16/2022. PROCEDURE COMMENTS: AP portable technique. FINDINGS: Stable radiographic appearance of the heart and pulmonary vascular structures. Diffuse bilateral scattered airspace opacities. Developing inflammatory lung process should be considered. No pleural effusions. Impression: Bilateral diffuse scattered airspace opacities. No pleural effusions. Recent Imaging Head MRI BRAIN WITHOUT CONTRAST, 09/24/2024 9:16 PM CLINICAL HISTORY: -L sided weakness. COMPARISON: None. PROCEDURE COMMENTS: Multiplanar multiecho MR imaging of the brain including standard spin echo and diffusion sequences. FINDINGS: There are multifocal areas of punctate restricteddiffusion in the posterior fossa involving both RIGHT and LEFT cerebellum. The most prominent area of involvement is in the superior and medial RIGHT cerebellum extending to the cerebellar vermis butthere are punctate foci of restricted diffusion in the LEFT cerebellum as well. On the ADC map these show low signal and on the FLAIR sequence these areas are very difficult to appreciate. No compression of the fourth ventricle. Ventricles normal in size. Atrophy and small vessel ischemic white matter change is present Included portions of the paranasal sinuses, mastoids, and orbits unremarkable.Impression: Multifocal posterior fossa acute appearing infarcts most pronounced in the superior RIGHT cerebellum Nasal Cannula (LPM) 5 Speech Therapy Personal Protective Equipment Gloves Others Present/Assisting RN at beginning Pt/family/RN concerns none reported Subjective Awake/Alert;Agreeable to ST Motor Speech Goals & Performance GOAL: Patient will complete volitional oral movements with Maximum;Verbal cues;Visual cues;Tactile cues;100% accuracy PERFORMANCE: Patient completed volitional oral movements with Maximum;Verbal cues;Visual cues;Tactile cues;80% accuracy (Intelligibility negatively impacted by dry lips/tongue. Increased accuracy after oral care completed and mouth moisturizer applied. Noted difficulty with alveolar consonants. 90% accuracy with bilabials with consistent cueing) GOAL: Patient will produce monosyllabic words with Maximum;Verbal cues;Visual cues;Tactile cues;100% accuracy PERFORMANCE: Patient produced monosyllabic words with Maximum;Verbal cues;Visual cues;Tactile cues GOAL: Patient will produce polysyllabic words with Maximum;Verbal cues;Visual cues;Tactile cues;100% accuracy PERFORMANCE: Patient produced polysyllabic words with Maximum;Verbal cues;Visual cues;Tactile cues (Requires consistent cueing to increase volume and articulate each individual speech sound) GOAL: Patient will produce phrases with Maximum;Verbal cues;Visual cues;Tactile cues;100% accuracy PERFORMANCE: Patient produced phrases with Maximum;Verbal cues;Visual cues;Tactile cues (Able to repeat swallow strategies in two word phrases with max cueing and slowed rate) Cognitive-Communication Goals & Performance GOAL: Patient will demonstrate use of internal/external memory strategies with Moderate;Verbal cues;Visual cues;100% accuracy PERFORMANCE: Patient demonstrated use of internal/external memory strategies with (Pt educated in auditory rehearsal, visualization, and chunking strategies. Will benefit from continued re-education and practice) GOAL: Patient will demonstrate delayed recall of functional information to increase functional integration into ADL's with Moderate;Verbal cues;Visual cues;100% accuracy PERFORMANCE: Patient demonstrated delayed recall of functional information to increase functional integration into ADL's with (0/3 independent. 3/3 with mod-max verbal/visual cueing) Clinical Swallow Eval Goals & Performance GOAL: Patient will progress to advanced diet Easy To Chew EC7;Thin liquids PERFORMANCE: Patient progressed to advanced diet Diet not advanced (Pt full from AM meal- limited trials of puree consistency for swallow exercises only this date. Nos/s noted.) Instrumental Swallowing Goals & Performance GOAL: Patient will use compensatory strategies to improve swallow safety and efficiency with Minimal;Verbal cues;Visual cues;Chin tuck;Multiple swallows;One sip/ bite at a time PERFORMANCE: Patient used compensatory strategies to improve swallow safety and efficiency with Moderate;Maximum;Verbal cues;Visual cues GOAL: Patient will complete swallowing exercises to improve Laryngeal vestibule closure;Minimal;Verbal cues PERFORMANCE: Patient completed swallowing exercises Effortful swallow;x5 (with and without puree) GOAL: Patient/caregiver will demonstrate understanding of results, recommendations of the instrumental study with Minimal;Verbal cues;Visual cues;90% accuracy PERFORMANCE: Patient/caregiver demonstrated understanding of results, recommendations of the instrumental study with (No independent recall. Attentive to education and nodded in understanding.) GOAL: Patient/caregiver will demonstrate understanding of risks of aspiration and risks associated with aspiration with Minimal;Verbal cues;Visual cues;90% accuracy PERFORMANCE: Patient/caregiver demonstrated understanding of risks of aspiration and risks associated with aspiration with (see above) Assessment Assessment Progressing towards goals Pertinent Diagnosis left-sided weakness Speech Therapy Related Diagnosis R13.12 Dysphagia oropharyngeal phase;R47.1 Dysarthria;R41.841 Cognitive communication deficit Frequency/Follow up 3-5x/wk Time In 0949 Time Out 1004 Discharge Information Note to serve as discharge summary if no further treatment provided before being discharged from the hospital * Araceli Montano OT - 09/29/2024 10:22 AM EDT 09/29/24 1022 OT Subjective Note Type Treatment/Progress Patient Room/Unit 3715 OT Subjective Comments #1 Pt expressed some fear about getting up in the chair with the lift. Precautions Therapy Precautions Yes Precaution Info Given Yes;To use call light to request assistance with all mobility Cognition Orientation Impaired Disoriented to Time;Situation Arousal Impaired Arousal Impairment Delayed responses to stimuli Safety Awareness Impaired Safety Awareness Impairment Minimal Impairments: Needs up to 25% input/direction from therapist in order to identify safety issues and maintain safety. Affect/Ability to cope Impaired Affect/Ability to cope impairment Distracted Command Following Impaired Command following impairment Minimal Impairments: Needs up to 25% input/direction from therapist inorder to follow single step commands. Memory Impaired Memory impairment Poor short term memory;Decreased recall of recent events;Decreased recall of prior level of function;Decreased recall of precautions Communication Impaired Verbal processing Some delays and pt is dysarthric. Pain Screening PT/OT Patient Currently in Pain No Observation Presentation Patient resting in bed Observation IV;Telemetry;Bed alarm;Chair alarm;Oxygen - nasal cannula;External urinary catheter Vitals VSS on O2 Bed Mobility Rolling Moderate assistance;With cues Transfers Bed to/from chair Dependent;Maxi Move;With 2 people Balance Sitting Balance 1/5 supports self with 25-50% effort using UE, requires therapist assistance Standing Balance Not tested ADL Interventions Where Assessed Chair;Supine, bed Grooming Assistance Maximal;Hair care LE Dressing Assistance Total Toileting Total;External catheter Interventions Balance Training Pt leaning to the L side in the chair and required lateral support. Visual/Perceptual Training Pt often has her eyes closed and needs cues to attend to the L UE and toall tasks. Upper Extremity Exercise AROM and some resistive ex with LUE, all joints. AM PAC: How much help from another person does the patient currently need... putting on and taking off regular lower body clothing? 2 bathing (including washing, rinsing, drying)? 2 toileting, which includes using toilet, bedpan or urinal? 1 putting on and taking off regular upper body clothing? 2 taking care of personal grooming such as brushing teeth? 2 eating meals? 2 AM PAC DAILY ACTIVITY SCORING Daily Activity Raw Score 11 AM PAC Daily Activity CMS 0-100% Functional Percentage 70.42 AM [facility] Daily Activity [facility] G Code Modifier CL Education Education To use call light to request assistance with all mobility;Patient/Family Education;Role of Therapy;Safety with mobility;Cues for proper technique;Discharge planning;Up with assistance only;Precautions Patient Safety Patient left in chair with needs in reach;Chair/personal alarm activated;Nursing notified of status Assessment Progress Progressing toward goals Rationale for Skilled Therapy Fall Risk;Balance Deficits;Needs physical cues for ADL's;Needs verbal/tactile cues for ADL's ADL Goals Pt Will Perform Eating Minimal assistance Pt Will Perform Upper Body Grooming Minimal assistance Pt Will Perform Upper Body Bathing Minimal assistance Pt Will Perform Lower Body Bathing Moderate assistance Pt Will Perform UE Dressing Moderate assistance Pt Will Perform LE Dressing Moderate assistance Pt Will Perform Toileting Moderate assistance Recommendation OT Recommendation High frequency, high intensity multi-disciplinary therapy for 15 hours per week. Time In / Time Out [id number] IP OT Individual Treatment Minutes 39 The total time spent caring for this patient included but was not limited to medical record review;hands-on treatment;communication and education with patient and/or family/caregiver;assessment of the patient's progress since the last session;clinical judgement necessary for treatment planning for next session;communication with nursing and/or care coordination/social work regarding patient status and discharge planning * Troy Leary DO - 09/29/2024 9:33 AM EDT PROGRESS NOTE Handoff Completed:Yes/No: Yes Disposition Perspective - Medically ready for discharge: No Anticipated ready for discharge timeframe?: 2 Ready for discharge when / if?: respiratory status improves, sodium normalizes, placement Admitted on 09/24/2024: with: acute CVA and NSTEMI in setting of CAD. Her neurological deficits are improving and she is now tolerating pureed diet. She developed fluid overload and aspiration pneumonia with hypoxic resp failure during admission so she was diuresed and treated with abx. Respiratory status is improving. Echo showed newly reduced LVEF so ischemic workup will be needed soon. Estimated Date of Discharge: 10/01/2024 Assessment/Plan: Acute CVA -MRI brain showed multifocal posterior fossa infarctions -Bilateral CA US showed R ICA obstructive lesion -neurological deficits improving, continue to monitor -Per neurology recs will continue ASA and Lipitor for now -Telemetry while admitted -ST recommending pureed diet, pt tolerating now -PT/OT working with pt CAD with NSTEMI -Troponins 87>>269 this admission -EKG nondiagnostic on admission -Continue home cardioprotective medications as appropriate -Echo shows abnormal LV segmental wall motion -Per cardiology will need eventual [facility] (planning to do this as outpatient now) Decompensated HFrEF -Echo this admission revealed LVEF of 35-40% -Monitor I/Os while admitted -CXR this admission showed pulmonary edema -S/p IV Lasix this admission and diuresed well -Cardiology signed off now Aspiration Pneumonia -Continue Unasyn for now, can switch to Augmentin soon -Monitor for fevers (afebrile overnight on 09/29) -Aspiration precautions Acute Hypoxic Respiratory Failure -Improving but remains on 5 L NC now, attempt to wean as tolerated -Address acute pulmonary issues above -PRN inhaled bronchodilators Essential HTN -Continue to monitor BP (remains normotensive as of 09/28) -Resume Lisinopril now Hypernatremia -Na improving at 150 today -Encourage free water intake -S/p IV Lasix -Monitor closely for further improvement CKD -Continue to monitor renal function while admitted (remains stable as of 09/29) -Avoid nephrotoxic agents -Renally dose medications as indicated T2DM -Hold Metformin while admitted -Hgb A1c 7.2% -Glucose well controlled currently -Continue Insulin per protocol on 09/29 GERD -Continue Protonix Morbid Obesity -Body mass index is 33.9 kg/m??. -Recommend proper diet and exercise on DC Dispo: Pt to remain hospitalized today, continue management above. VTE Prophylaxis: Active Hospital Problems Diagnosis *Left-sided weakness Acute respiratory failure with hypoxemia (HCC) HFrEF (heart failure with reduced ejection fraction) (HCC) S/P CABG (coronary artery bypass graft) Acute systolic heart failure (HCC) Acute arterial ischemic stroke, vertebrobasilar, brainstem, right (HCC) Type 2 myocardial infarction (HCC) Chronic diastolic heart failure (HCC) Chronic kidney disease Acquired hypothyroidism Arteriosclerosis of coronary artery Chronic obstructive pulmonary disease (HCC) Morbid obesity (HCC) Subjective: Patient seen and evaluated at bedside this morning. No acute overnight events. The pt denies CP, n/v, SOB during my exam today. Objective: BP 107/61 (BP Location: Right arm) Pulse 82 Temp 98.1 ??F (36.7 ??C) (Oral) Resp 16 Ht 5' (1.524 m) Wt 170 lb 6.7 oz (77.3 kg) SpO2 96% BMI 33.28 kg/m?? I/O last 3 completed shifts: In: 240 [P.O.:240] Out: 350 [Urine:350] Weight: 170 lb 6.7 oz (77.3 kg) Constitutional: Alert and oriented to person, place. No acute distress. HEENT: Neck is supple, no pharyngeal erythema Cardiovascular: Normal rate and regular rhythm. Exam reveals no murmurs Pulmonary/Chest: Effort normal and breath sounds normal. No respiratory distress. Abdominal: Soft. No distension. There is no tenderness. There is no rebound and no guarding. Psychiatric: Flat affect, cooperative with examination Neurological: Moving all extremities but favors her right side, speech remains slurred Skin: Skin is warm and dry. No erythema. Labs: Laboratory data and diagnostic testing reviewed 09/29/24. Troy Leary DO 09/29/2024 9:33 AM * Beau Lazaro MD - 09/29/2024 7:20 AM EDT FOLLOWUP NOTE Name: Sunita Trent, Age: 69 y.o., : 1955 PCP: Estiven No MD, , CSN: [id number] Subjective: S:Patient is a 69 y.o. female who presents for elevated troponin in the setting of stroke. Patient does not report any chest pain shortness of breath nausea vomiting or new focal neurologic problems Objective: Physical Exam: Vital Blood Pressure: 127/68 Temp: 97.3 ??F (36.3 ??C) Signs Pulse: 69 Resp: 16 SpO2: 95 % General: The patient appears in no apparent distress. HEENT: patient is normocephalic and atraumatic. The eyes are anicteric eyelids and conjunctiva werenormal. Neck: Supple no JVD. Skin: Warm and dry Heart:: Regular rate and rhythm no S3 or S4 heard. No murmurs rubs. PMI diffuse Lungs: A few rhonchi otherwise clear Back: no significant kyphosis Abdomen: Positive bowel sounds soft nontender. Extremities: no cyanosis clubbing or edema Neuro: Patient alert. Mood: Flat Motor tone: Moving all extremities. Weakness on the left side upper extremity greater than lower Pulses: Radial 2+ posterior tibialis 1+ Assessment & Plan Labs, medicines and telemetry reviewed 1. Recent stroke. Neuro signed off. M cot at discharge. 2. Heart failure with reduced ejection fraction. EF of 35 to 40%. Ischemic evaluation in the future. Watch for now. 3. Elevated troponins in the setting of stroke. History of CABG. And stents. Again plan ischemic evaluation in future 4. Aortic stenosis status post TAVR 2022 5. COPD. On O2. 6. Diabetes mellitus CBC Chem-7 reviewed by me. Patient stable from heart standpoint. Will sign off. Please call further questions. Placed M cot atdischarge. Have patient follow-up with us 1 to 2 weeks after discharge. Okay to rehab 24HR INTAKE/OUTPUT: Intake/Output Summary (Last 24 hours) at 09/29/2024 07 Last data filed at 09/28/20243 Gross per 24 hour Intake 240 ml Output 350 ml Net -110 ml Vitals: Patient Vitals for the past 24 hrs: BP Temp Temp src Pulse Resp SpO2 09/29/24 0549 -- -- -- 69 -- -- 09/29/24 0430 127/68 97.3 ??F (36.3 ??C) Oral 81 16 95 % 09/29/24 0329 -- -- -- 67 -- -- 09/29/24 0124 -- -- -- 79 -- -- 09/29/24 0030 112/59 98.1 ??F (36.7 ??C) Oral 78 16 97 % 09/28/24 2312 -- -- -- 82 -- -- 09/28/24 2257 -- -- -- -- 16 -- 09/28/24 2030 99/58 98.7 ??F (37.1 ??C) Axillary 81 16 99 % 09/28/24 1915 -- -- -- 81 16 96 % 09/28/24 1711 -- -- -- 78 -- -- 09/28/24 1630 102/71 98.4 ??F (36.9 ??C) Axillary 84 16 96 % 09/28/24 1319 -- -- -- 89 -- -- 09/28/24 1230 108/69 97.7 ??F (36.5 ??C) Oral 83 16 94 % 09/28/24 1118 -- -- -- 81 -- -- 09/28/24 0830 131/78 98 ??F (36.7 ??C) Oral 89 18 98 % .ipvital Lab Results Component Value Date WBC 11.0 (H) 09/28/2024 HGB 13.4 09/28/2024 HCT 44.3 09/28/2024 MCV 86.4 09/28/2024 PLT 179 09/28/2024 Lab Results Component Value Date CREATININE 0.67 09/28/2024 BUN 41 (H) 09/28/2024 NA 153 (H) 09/28/2024 K 4.0 09/28/2024 CL 112 (H) 09/28/2024 CO2 26 09/28/2024 @LASTCHEM@ Lab Results Component Value Date CHOLESTEROL 180 09/26/2024 CHOLESTEROL 185 09/25/2024 Lab Results Component Value Date HDL 54 09/26/2024 HDL 55 09/25/2024 Lab Results Component Value Date LDLCALC 111 (H) 09/26/2024 LDLCALC 109 (H) 09/25/2024 Lab Results Component Value Date TRIG 83 09/26/2024 TRIG 117 09/25/2024 No results found for: CHOLHDL No results found. Past Medical History: Diagnosis Date Arthritis Asthma Bladder problem Bronchitis, chronic (HCC) CAD (coronary artery disease) CHF (congestive heart failure) ([facility]) Chronic kidney disease COPD (chronic obstructive pulmonary disease) (HCC) Diabetes mellitus (HCC) Headache migraines Heart murmur Heartburn Hyperlipidemia Hypertension IA (myocardial infarction) ([facility]) 12/13/1998 Motion sickness Oxygen dependent 2-3 L continuously Pneumonia 2021 Pulmonary emphysema ([facility]) Shortness of breath Sleep apnea can not wear Cpap Thyroid disease Past Surgical History: Procedure Laterality Date AORTIC VALVE REPLACEMENT N/A 10/19/2022 Transcatheter aortic valve replacement with echocardiogram and [place]; Surgeon: Alfred Greenberg MD;Location: [facility]; Service: Open Heart CARDIAC CATHETERIZATION CARDIAC SURGERY stents x4 CHOLECYSTECTOMY DENTAL SURGERY full teeth extracted TUBAL LIGATION Family History Problem Relation Age of Onset Kidney Disease Mother Cancer Mother breast, throat Diabetes Father Heart Disease Father Unknown Sister Heart Disease Brother COPD Brother Seizures Daughter Anesth Problems Neg Hx Social History Tobacco Use Smoking status: Former Current packs/day: 0.00 Types: Cigarettes Quit date: 1976 Years since quittin.5 Smokeless tobacco: Never Substance Use Topics Alcohol use: Never No current facility-administered medications on file prior to encounter. Current Outpatient Medications on File Prior to Encounter Medication Sig Dispense Refill bumetanide (BUMEX) 2 mg Oral Tablet Take 2 mg by mouth daily. cephALEXin (KEFLEX) 500 mg Oral Capsule Take 500 mg by mouth every 6 hours. clopidogreL (PLAVIX) 75 mg Oral Tablet Take 75 mg by mouth daily. empagliflozin (JARDIANCE) 10 mg Oral Tablet Take 10 mg by mouth daily. fluticasone propionate (FLONASE) 50 mcg/actuation Nasl [place], Suspension 2 Sprays by Nasal route daily. LEVOthyroxine (SYNTHROID) 150 mcg Oral Tablet Take 300 mcg by mouth daily. lisinopriL (PRINIVIL;ZESTRIL) 5 mg Oral Tablet Take 5 mg by mouth daily. metFORMIN (GLUCOPHAGE) 1,000 mg Oral Tablet Take 1,000 mg by mouth 2 times daily (with meals). montelukast (SINGULAIR) 10 mg Oral Tablet Take 10 mg by mouth daily. pantoprazole (PROTONIX) 40 mg Oral Tablet, Delayed Release (E.C.) Take 1 Tablet by mouth daily. 30 Tablet 2 rosuvastatin (CRESTOR) 40 mg Oral Tablet Take 40 mg by mouth nightly. albuterol (PROVENTIL HFA;VENTOLIN HFA) 90 mcg/actuation Inhl HFA Aerosol Inhaler Inhale 2 Puffs into the lungs every 6 hours as needed. albuterol (PROVENTIL) 2.5 mg /3 mL (0.083 %) Inhl Solution for Nebulization Take 2.5 mg by nebulization every 6 hours as needed. aspirin 81 mg Oral Tablet, Delayed Release (E.C.) Take 81 mg by mouth daily. (Patient not taking: Reported on 10/23/2023) COMBIVENT RESPIMAT 20-100 mcg/actuation Inhl Mist Inhale 1 Puff into the lungs every 6 hours as needed. (Patient not taking: Reported on 09/24/2024) nitroGLYCERIN (NITROSTAT) 0.4 mg SL Tablet, Sublingual Place 0.4 mg under the tongue once. (Patientnot taking: Reported on 09/24/2024) Oxygen and Equipment MISCELLANEOU 1 Device by MISCELLANEOUS route once. 2-3 L continuously pioglitazone (ACTOS) 15 mg Oral Tablet Take 15 mg by mouth daily. spironolactone (ALDACTONE) 25 mg Oral Tablet Take 1 Tablet by mouth 2 times daily. (Patient not taking: Reported on 10/23/2023) 60 Tablet 11 torsemide (DEMADEX) 100 mg Oral Tablet Take 50 mg by mouth daily. (Patient not taking: Reported on 10/23/2023) TRULICITY 1.5 mg/0.5 mL SubQ Pen Injector once a week. (Patient not taking: Reported on 09/24/2024) Scheduled Meds: ampicillin-sulbactam (UNASYN) IVPB (Orderable) 1.5 g Intravenous 4 times per day aspirin 325 mg Oral Daily WM Or aspirin 300 mg Rectal Daily WM atorvastatin 40 mg Oral Nightly Insulin Calculator (UX DEVELOPER DESIGNER) - FSBS and Carb Intake Input 1 Each MISCELLANEOUS QID PC And insulin aspart (NovoLOG) - Carb Ratio PATIENT-SPECIFIC - Correction Factor PATIENT-SPECIFIC 0-40 Units Subcutaneous QID PC losartan 25 mg Oral Daily nebivoloL 2.5 mg Oral Daily sodium chloride 0.9% Intravenous 2 times per day Continuous Infusions: PRN Meds:acetaminophen OR acetaminophen, albuterol OR albuterol, dextrose, glucagon ANDsterile water, ondansetron OR ondansetron, sodium chloride 0.9%, sodium chloride 0.9% Allergies Allergen Reactions Adhesive Rash * Alisha Davis, OT - 09/28/2024 3:47 PM EDT 09/28/24 1112 OT Subjective Note Type Treatment/Progress Patient Room/Unit 6855 Others Present/Assisting PT, family (daughter, MELYSSA, spouse, others) Discharge Information This progress note will serve as the discharge summary if no further therapy is provided prior to the patient being discharged from the hospital. Precautions Additional Comments pureed with thick liquids Cognition Orientation (NFA; oriented to self) Arousal Normal Safety Awareness Impaired Safety Awareness Impairment Minimal Impairments: Needs up to 25% input/direction from therapist in order to identify safety issues and maintain safety. (impulsive; easily distracted) Affect/Ability to cope Impaired Affect/Ability to cope impairment Distracted;Other (comment) (very engaged and actively participates with ocnversation) Command Following Impaired Command following impairment Minimal Impairments: Needs up to 25% input/direction from therapist inorder to follow multi-step commands. 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; pt is humorous and smiles/laughs easily Pain Screening PT/OT Patient Currently in Pain No Additional Comments no c/o pain; pt did request therapist to scratch back Observation Presentation Patient resting in bed Observation IV;Oxygen - nasal cannula;Continuous pulse ox;External urinary catheter UE Assessment LUE Additional Comments 1 finger subluxation noted on L shoulder; [employer] notified of need for pillow under LUE for support and joint protection ADL Interventions Where Assessed Supine, bed;Edge of bed Feeding Assistance Moderate (beverage management) Grooming Assistance Maximal;Hair care LE Dressing Assistance Maximal;Don/doff L sock;Don/doff R sock Toileting Total;External catheter (incontinent of small BM EOB; pericare completed once pt supine) Bed Mobility Rolling Moderate assistance;With bed rails;With cues Supine to Sit With cues;Head of bed elevated;With bed rails;Moderate assistance (pt self initiated) Sit to Supine Maximum assistance;With 2 people;With cues Additional Comments pt sat EOB for ~30 minutes Balance Sitting Balance 1/5 supports self with 25-50% effort using UE, requires therapist assistance (Min - Max static sitting balance; L sided lean; with progression of time and fatigue pt observed pushing towards L side; Max A with dynamic sitting balance, especially with use of R UE AROM) Standing Balance Not tested Interventions Visual/Perceptual Training pt appropriately verbalized number of fingers at midline 5/5; pt did require cuing at times to attend to therapist with visual tracking NDT Treatment weight bearing through LUE with approximated shoulder, elbow flexed supported on pillows; R UE AAROM with reaching all planes, crossing midline; weight shifting towards R side and weight bearing through R UE to assist with sitting balance; forward bends with B elbows supported on pillows for scapula squeezes and raises AM PAC: How much help from another person does the patient currently need... putting on and taking off regular lower body clothing? 2 bathing (including washing, rinsing, drying)? 2 toileting, which includes using toilet, bedpan or urinal? 1 putting on and taking off regular upper body clothing? 2 taking care of personal grooming such as brushing teeth? 2 eating meals? 2 AM PAC DAILY ACTIVITY SCORING Daily Activity Raw Score 11 AM PAC Daily Activity CMS 0-100% Functional Percentage 70.42 AM PAC Daily Activity CMS G Code Modifier CL Education Education Safety with mobility;Cues for proper technique Patient Safety Patient in bed with needs in reach;Other (comment) (family present upon OT's exit) Assessment Prognosis Good;With continued OT s/p acute discharge Recommendation OT Recommendation High frequency, high intensity multi-disciplinary therapy for 15 hours per week. Time In / Time Out [id number] IP OT Individual Treatment Minutes 53 * Era Ashley DO - 09/28/2024 3:46 PM EDT Heart & Vascular Progress Note PATIENT: Sunita Trent 3 Cardiology following for: NSTEMI, New CM Subjective: no acute events overnight Objective: Vitals: 09/28/24 1319 BP: 108/69 Pulse: 89 Resp: 16 Temp: 97.7 SpO2: 94 I/O 24 hours: Intake/Output Summary (Last 24 hours) at 09/28/2024 1546 Last data filed at 09/28/2024 0951 Gross per 24 hour Intake 398.72 ml Output 300 ml Net 98.72 ml Physical Exam: Per Dr. Ashley Medication: ampicillin-sulbactam (UNASYN) IVPB (Orderable) 1.5 g Intravenous 4 times per day aspirin 325 mg Oral Daily WM Or aspirin 300 mg Rectal Daily WM atorvastatin 40 mg Oral Nightly Insulin Calculator (UX DEVELOPER DESIGNER) - FSBS and Carb Intake Input 1 Each MISCELLANEOUS QID PC And insulin aspart (NovoLOG) - Carb Ratio PATIENT-SPECIFIC - Correction Factor PATIENT-SPECIFIC 0-40 Units Subcutaneous QID PC losartan 25 mg Oral Daily nebivoloL 2.5 mg Oral Daily sodium chloride 0.9% Intravenous 2 times per day Labs & Studies: All pertinent labs & radiologic studies for the past 24 hours have been reviewed Telemetry: SR PVCs Assessment/Plan: CVA -neuro s/o - tele stable - MCOT at DC - D/w Neuro, not requesting AMRITA HFrEF, new -echo EF 35-40%, + RWMA's, nl RVSP, stable TAVR, Sev MR - eventual ischemic eval - GDMT: losartan, bystolic - receiving lasix 20 mg IV BID- will stop Elevated trop in setting of CVA Hx CAD s/p CABG w subsequent 4 stents -Trop 87, 177, 255, 269, 262 -Asymptomatic, EKG w NSSTTWA -no hep w fresh CVA -ASA, statin - eventual ischemic eval S/P aortic valve replacement TAVR 2022 - TTE this admission noted COPD with O2 dependence -Defer to primary/pulm CKD - Knowledge Management Advisor WNL DM - A1c 7.2 09/2024 HLD - statin - LDL 111 09/2024 Sleep apnea Further input from Dr Ashley. Joanie Zhang APRN, Heart and Vascular 09/28/2024 Disposition Perspective - Medically Ready for Discharge: No Anticipated Discharge: 1-2 days Discharge when / if: pending improvement Attending Addendum: Unable to acquire much history. A&P: # CVA # HFrEF, LVEF 35-40% # CAD s/p CABG and PCI's # Suspect type II NSTEMI due to above # s/p TAVR in 2022 # Mod-severe MS # COPD on chronic oxygen # CKD, DM, HLD, NORBERT - No clear cardiac complaints. - hs-troponin 87, 177, 269, 262. - ECG with NSSTT changes. - NSR, PVC's on telemetry - Volume status improved. - TTE reviewed. - LVEF drop, likely from CVA. - Assess MVD as OP once recovered from CVA. - Transition to home PO diuretic today. - Ischemic eval as OP after recovery from CVA. - Needs MCOT upon D/C. - Continue bASA and statin. - Will follow. Era Ashley, DO FACC * Nancy Ryan - 09/28/2024 2:08 PM EDT 09/28/24 1400 Reason for Visit Date of visit 09/28/24 Visited With Patient and family/visitors Visited By Manager Sustainability Reason for Visit Hospitality visit Patient Assessment Patient Appears Confused Patient Taoist at Registration None Family Assessment Spiritual Strengths and Coping Resources None identified Spiritual and Emotional Concerns None identified Interventions with Patient Relationship Building Interventions Cultivated a relationship of care and support Interventions with Family Relationship Building Interventions [facility] Outcomes Expressed Outcomes Unable to assess Care Plan Plan for Follow-Up Manager Sustainability(s) remains available as needed Patient was hard to understand and not clear at times. Daughter understood her and relayed to me what she was saying. * Evelyn Cortez, PT - 09/28/2024 11:17 AM EDT 09/28/24 1117 PT Subjective Note Type Treatment/Progress Patient Room/Unit 3715 PT Subjective Comments #1 patient in bed, she is awake and alert, verbalization increased as session progressed, she is jovial and joking throughout session Discharge Information This progress note will serve as the discharge summary if no further therapy is provided prior to the patient being discharged from the hospital. Pain Screening PT/OT Patient Currently in Pain No Cognition Orientation Impaired Disoriented to Time;Situation Arousal Normal Safety Awareness Impaired Safety Awareness Impairment Minimal Impairments: Needs up to 25% input/direction from therapist in order to identify safety issues and maintain safety. Affect/Ability to cope Impaired Affect/Ability to cope impairment Distracted Command Following Impaired Command following impairment Minimal Impairments: Needs up to 25% input/direction from therapist inorder to follow single step commands. Memory Impaired Memory impairment Poor short term memory;Decreased recall of recent events;Decreased recall of precautions Communication Impaired Additional comments dysarthric and difficult to understand Precautions Therapy Precautions Yes Precaution Info Given Yes;To use call light to request assistance with all mobility Other precautions fall risk Additional Comments pureed with moderately thick liquids Observation Presentation Patient resting in bed Observation IV;Oxygen - nasal cannula;Continuous pulse ox;External urinary catheter Vitals VSS on 2L O2 pnc Bed Mobility Supine to Sit With cues;Head of bed slightly elevated;Moderate assistance Sit to Supine Maximum assistance;With 2 people Transfers Sit to Stand Unable to assess (comment) (not appropriate at this time due to poor trunk and head control) Functional Status Score (FSS-ICU) Is the patient currently in ICU? No PT/OT Mobility Documentation PT/OT Mobility Score 3 AM PAC: How much help from another person does the patient currently need... turning from your back to your side while in a flat bed without using bedrails? 3 moving from lying on your back to sitting on the side of a flat bed without using bedrails? 3 moving to and from a bed to a chair? 1 standing up from a chair using your arms (e.g. wheelchair, or bedside chair)? 1 need to walk in hospital room? 1 climbing 3-5 steps with a railing? 1 AM PAC: BASIC MOBILITY SCORING AM PAC Moblity Raw Score 10 AM PAC Mobility CMS 0-100% Functional Percentage 71.92 AM PAC Mobility CMS G Code Modifier CL Balance Sitting Balance 1/5 supports self with 25-50% effort using UE, requires therapist assistance;Static;Dynamic Additional comments sitting balance fluctuated throughout session, requiring min to max assist, requires verbal and tactile cues for midline orientation, significant L sided lean noted, with progression as session progressed and fatigue, dynamic sitting balance tasks with max assist including reaching all planes including across midline, weight bearing on L forearm, and cues to push self upright,forward bends with B elbows supported on pillows for scapula squeezes and shoulder shrugs Education Education To use call light to request assistance with all mobility;Patient/Family Education;Role of Therapy;Safety with mobility;Cues for proper technique;Discharge planning;Up with assistance only;Precautions;Safe and proper technique with transfers;Safe and proper technique with gait pattern Patient Safety Patient Safety Patient in bed with needs in reach;Nursing notified of status;Bed alarm activated Assessment Assessment Decreased gait;Decreased functional mobility;Decreased balance;Decreased RightLower Extremity strength;Decreased Left Lower Extremity strength;Decreased activity tolerance ;Decreased safety judgement ;Decreased endurance;Decreased self-care transfers;Decreased high-level ADLs;Decreased co ordination Prognosis Fair;With continued PT s/p acute discharge Progress Progressing toward goals Rationale for Skilled Therapy Fall Risk;Balance Deficits;Not safe with independent transfers;Not safe ambulating independently Plan Treatment/Interventions Continue with current plan of care Recommendation PT Recommendation High frequency, high intensity multi-disciplinary therapy for 15 hours per week. Time In / Time Out [id number] IP PT Treatment Minutes 47 (15 NMR, 32 TA) The total time spent caring for this patient included but was not limited to medical record review;hands-on treatment;communication and education with patient and/or family/caregiver;clinical judgement necessary for treatment planning for next session;communication with nursing and/or care coordinat ion/social work regarding patient status and discharge planning * Troy Leary DO - 09/28/2024 9:52 AM EDT PROGRESS NOTE Assessment/Plan: Acute CVA -MRI brain showed multifocal posterior fossa infarctions -Bilateral CA US showed R ICA obstructive lesion -Continue neuro checks while admitted (sxs improving today) -Per neurology recs will continue ASA and Lipitor today -Telemetry while admitted -ST recommending pureed diet now -PT/OT CAD with NSTEMI -Troponins 87>>269 this admission -EKG nondiagnostic on admission -Continue home cardioprotective medications as appropriate -Echo shows abnormal LV segmental wall motion -Per cardiology will need eventual [facility] Decompensated HFrEF -Echo this admission revealed LVEF of 35-40% -Monitor I/Os while admitted -CXR this admission showed pulmonary edema -Continue IV Lasix for now -Cardiology following Possible Aspiration Pneumonia -Continue Unasyn today for suspected aspiration pneumonia -Monitor for fevers (afebrile overnight) -Aspiration precautions Acute Hypoxic Respiratory Failure -Improving, now on 5 L NC -Address acute pulmonary issues above -PRN inhaled bronchodilators Essential HTN -Continue to monitor BP (remains normotensive as of 09/28) -Resume Lisinopril now Hypernatremia -Na increased to 153 this morning -Encourage free water intake -On IV Lasix -Monitor closely for improvement CKD -Continue to monitor renal function while admitted (remains stable as of 09/28) -Avoid nephrotoxic agents -Renally dose medications as indicated T2DM -Hold Metformin while admitted -Hgb A1c 7.2% -Glucose well controlled currently -Continue Insulin per protocol on 09/28 GERD -Continue Protonix Morbid Obesity -Body mass index is 33.9 kg/m??. -Recommend proper diet and exercise on DC Dispo: Pt to remain hospitalized today, continue management above. VTE Prophylaxis: Active Hospital Problems Diagnosis *Left-sided weakness Acute respiratory failure with hypoxemia (HCC) HFrEF (heart failure with reduced ejection fraction) (HCC) S/P CABG (coronary artery bypass graft) Acute systolic heart failure (HCC) Acute arterial ischemic stroke, vertebrobasilar, brainstem, right (HCC) Type 2 myocardial infarction (HCC) Chronic diastolic heart failure (HCC) Chronic kidney disease Acquired hypothyroidism Arteriosclerosis of coronary artery Chronic obstructive pulmonary disease (HCC) Morbid obesity (HCC) Subjective: Patient seen and evaluated at bedside along with RN this morning. The pt is off NIPPV now. She is more interactive today. She currently denies CP, n/v, SOB, abdominal pain. Objective: BP 131/78 (BP Location: Right arm, Patient Position: Semi Fowlers) Pulse 89 Temp 98 ??F (36.7 ??C) (Oral) Resp 18 Ht 5' (1.524 m) Wt 170 lb 6.7 oz (77.3 kg) SpO2 98% BMI 33.28 kg/m?? I/O last 3 completed shifts: In: 158.7 [IV Piggyback:158.7] Out: 300 [Urine:300] Weight: 170 lb 6.7 oz (77.3 kg) Constitutional: Alert and oriented to person, place. No acute distress. HEENT: neck is supple, no pharyngeal erythema Cardiovascular: Normal rate and regular rhythm. Exam reveals no murmurs Pulmonary/Chest: Effort normal and breath sounds normal. No respiratory distress. Abdominal: Soft. No distension. There is no tenderness. There is no rebound and no guarding. Psychiatric: Flat affect, cooperative with examination Neurological: Moving all extremities, speech is still slurred Skin: Skin is warm and dry. No erythema. Labs: Laboratory data and diagnostic testing reviewed 09/28/24. Troy Leary DO 09/28/2024 9:52 AM * Abrahan Adkins MD - 09/27/2024 2:55 PM EDT Heart & Vascular Progress Note PATIENT: Suntia Trent 2 Cardiology following for: NSTEMI, new CM Subjective: Denies chest pain/dyspnea Wants to eat Objective: Vitals: 09/27/24 1217 BP: 121/71 Pulse: 92 Resp: 18 Temp: 97.4 ??F (36.3 ??C) SpO2: 96% I/O 24 hours: Intake/Output Summary (Last 24 hours) at 09/27/2024 1455 Last data filed at 09/26/2024 2222 Gross per 24 hour Intake 96.97 ml Output -- Net 96.97 ml Physical Exam: Per Dr. Adkins Medication: ampicillin-sulbactam (UNASYN) IVPB (Orderable) 1.5 g Intravenous 4 times per day aspirin 300 mg Rectal Daily atorvastatin 40 mg Oral Nightly fUROsemide 20 mg Intravenous BID Diuretic Insulin Calculator (UX DEVELOPER DESIGNER) - FSBS and Carb Intake Input 1 Each MISCELLANEOUS QID PC And insulin aspart (NovoLOG) - Carb Ratio PATIENT-SPECIFIC - Correction Factor PATIENT-SPECIFIC 0-40 Units Subcutaneous QID PC losartan 25 mg Oral Daily sodium chloride 0.9% Intravenous 2 times per day Labs & Studies: All pertinent labs & radiologic studies for the past 24 hours have been reviewed Telemetry: SR Assessment/Plan: CVA -neuro s/o - tele stable - MCOT at DC HFrEF, new -echo EF 35-40%, + RWMA's, nl RVSP, stable TAVR, Sev MR - eventual ischemic eval - GDMT: losartan, add bystolic - receiving lasix 20 mg IV BID (bumex 2 mg PO daily ORDER MANAGEMENT SPECIALIST) Elevated trop in setting of CVA Hx CAD s/p CABG w subsequent 4 stents -Trop 87, 177, 255, 269, 262 -Asymptomatic, EKG w NSSTTWA -no hep w fresh CVA -ASA, statin - eventual ischemic eval S/P aortic valve replacement TAVR 2022 - TTE this admission noted COPD with O2 dependence -Defer to primary/pulm CKD - Knowledge Management Advisor WNL DM - A1c 7.2 09/2024 HLD - statin - LDL 111 09/2024 Sleep apnea Further input from Dr Adkins. Joanie Wilder ISAAC Zhang, Heart and Vascular 09/27/2024 Disposition Perspective - Medically Ready for Discharge: No Anticipated Discharge: 1-2 days Discharge when / if: pending improvement Pt was seen in conjunction with a mid-level provider. Pt has no chest pain, mild sob Head atraumatic. Neck supple, no JVD CVS-s1,s2 rrr. RS- + rhonchi. Abd soft Ext no edema. Alert Weak and frail Plan: CVA Per Neurology On DAPT New CM Diuresis. Add Bystolic ASHD S/p CABG Med Rx a this time. ABn troponins Isch eval in the near future COPD Tobacco abuse Dyslipidemia Statins TAVR Echo noted MS Med Rx at this time Pt weak, frail, high risk D/w at bedside. I personally performed medical decision making in its entirety. Abrahan Adkins MD, [facility] * Evelyn Cortez, PT - 09/27/2024 11:10 AM EDT 09/27/24 1110 PT Subjective Note Type Follow Up Treatment Attempt;Hold Patient Room/Unit 3715 PT Subjective Comments #1 attempted PT at this time, discussed with Dr. Leary, patient with respiratory decompensation last night, requiring support of bipMD angi requests hold PT this date due to respiratory status * Troy Leary DO - 09/27/2024 10:19 AM EDT PROGRESS NOTE Assessment/Plan: Acute CVA -MRI brain showed multifocal posterior fossa infarctions -Bilateral CA US showed R ICA obstructive lesion -Continue neuro checks while admitted -Per neurology recs will continue ASA and Lipitor when safe to do so -Telemetry while admitted -ST, OT, PT working with pt CAD with NSTEMI -Troponins 87>>269 on admission -EKG nondiagnostic -Continue home cardioprotective medications as appropriate -Echo shows abnormal LV segmental wall motion -Cardiology following, will need eventual [facility] Decompensated HFrEF -Echo this admission revealed LVEF of 35-40% -Monitor I/Os while admitted -CXR yesterday appeared to show pulmonary edema -Continue IV Lasix today Possible Aspiration Pneumonia -On Unasyn for suspected aspiration pneumonia -Monitor for fevers -Strict NPO for now Acute Hypoxic Respiratory Failure -Placed on Bipap overnight for respiratory distress, attempt to wean off now -Address acute pulmonary issues above -PRN inhaled bronchodilators Essential HTN -Continue to monitor BP (remains normotensive as of 09/27) -On Lisinopril chronically Hypernatremia -Na 151 this morning -On IV Lasix -Monitor closely for improvement CKD -Continue to monitor renal function while admitted (remains stable today) -Avoid nephrotoxic agents -Renally dose medications as indicated T2DM -Hold Metformin while admitted -Hgb A1c 7.2% -Glucose well controlled now -Continue Insulin per protocol GERD -Continue Protonix Morbid Obesity -Body mass index is 33.9 kg/m??. -Recommend proper diet and exercise on DC Dispo: Pt to remain hospitalized today, continue management above. Anticipate 3-4 more days of admission. VTE Prophylaxis: Active Hospital Problems Diagnosis *Left-sided weakness Acute systolic heart failure (HCC) Acute arterial ischemic stroke, vertebrobasilar, brainstem, right (HCC) Type 2 myocardial infarction (HCC) Chronic diastolic heart failure (HCC) Chronic kidney disease Acquired hypothyroidism Coronary artery disease involving [place] coronary artery of [place] heart without angina pectoris Chronic obstructive pulmonary disease (HCC) Morbid obesity (HCC) Subjective: Patient seen and evaluated at bedside this morning. The pt was placed on Bipap overnight for respiratory distress. During my exam she denies CP, n/v, abdominal pain. She says her breathing is improving. Objective: BP 116/66 (BP Location: Right arm, Patient Position: Semi Fowlers) Pulse 82 Temp 97.6 ??F (36.4??C) (Axillary) Resp (!) 22 Ht 5' (1.524 m) Wt 170 lb 6.7 oz (77.3 kg) SpO2 99% BMI 33.28kg/m?? I/O last 3 completed shifts: In: 97 [IV Piggyback:97] Out: - Weight: 170 lb 6.7 oz (77.3 kg) Constitutional: Alert and oriented to person. No acute distress. HEENT: neck is supple, no pharyngeal erythema Cardiovascular: Normal rate and regular rhythm. Exam reveals no murmurs Pulmonary/Chest: There are no wheezes bilaterally, moving air well with Bipap Abdominal: Soft. No distension. There is no tenderness. There is no rebound and no guarding. Psychiatric: Normal affect, cooperative with examination Neurological: Moving all extremities, speech is slurred Skin: Skin is warm and dry. 1+ pitting edema of bilateral LEs Labs: Laboratory data and diagnostic testing reviewed 09/27/24. Troy Leary DO 09/27/2024 10:19 AM * Evelyn Triplett RRT - 09/27/2024 1:18 AM EDT 09/27/24 0108 Non-Invasive Vent Ventilator Adult $ NIV Daily Charge NIV Initial Day (Adult) Vent ID [id number] NIV Comment patient placed on bipap Bipap Q4 Yes Non-Invasive Vent Settings/Alarms $Pt/NIV Assessment Service Code Completed Denture Removal Yes Mode BiPap IPAP 18 cmH20 EPAP 6 cmH2O Set Rate NIV (BPM) 16 Spont Rate NIV (BPM) 24 br/min Spont TV (mL) 455 mL Total Ve 9.6 liters FiO2 (%) 40 % PIP NIV 19 cm H2O Insp Time (sec) 1 sec Rise Time (sec) 3 Humidity No Mask Leak 21 mL Alarm High Pressure 40 cm H2O Alarm Low Pressure 8 cm H2O Alarm High RR 40 br/min Low RR Alarm 8 br/min Low Ve 4 L/min Alarm Apnea (secs) 20 secs Delivery Device Mask Type Full mask Mask Size Medium O2 Cushions O2 Device Cushions In Place O2 Device Cushion Location Nose Oxygen Therapy/Pulse Ox O2 Device Bipap SpO2 95 % Respiratory Assessment $ Assess charge row Completed Assessment Type Assess Only Pulse 104 Resp (!) 24 Level of Consciousness Alert;Confused Respiratory Pattern Unlabored Breath Sounds Breath Sounds Bilateral Crackles;Diminished JET MECHANIC $ JET MECHANIC Charge Row Initial Day * Mirtha Nguyen RN - 09/26/2024 3:49 PM EDT 09/26/24 Update Attempted to meet with pt in the room. Pt confused. call placed to her POA to discuss PT recs and discharge plan. Message left for return call. List left in the room. Will need to discuss with [place] when he calls back. Pt will need precert when facility chosen and we have an acceptance. Pt will need ambulance transport at discharge. SW to follow for discharge. * Neville Gutierrez MD - 09/26/2024 2:18 PM EDT Neurology Progress Note Admit date: 09/24/2024 Admitting diagnosis: Left-sided weakness [R53.1] Today's date: 09/26/2024 Current length of stay: 1 day(s) Impression and Recommendations Sunita Trent is a 69 y.o. female with a history of Asthma, CAD, HF, COPD, DM2, TAVR, HTN, HLD whom I am seeing in neurologic consultation at the request of Troy Leary DO for evaluation of Stroke. Acute Ischemic Stroke, Right Midbrain and Bilateral Cerebellar She initially presented with left sided weakness and numbness. She presented quickly to ED, but wasrapidly improving and did not receive TNK. Unfortunately she then declined. Her initial CTA was nondiagnostic, repeat showed a R SCA embolism. Her MRI showed a moderate sized midbrain stroke and multifocal small cerebellar stroke, but repeat head CT showed progression of R cerebellar stroke. This is a severe stroke, with severe dysarthria and moderate left sided hemiparesis from midbrain stroke as well as significant right sided ataxia from right cerebellar stroke. ECHO with multiple abnormalities. Afib is on the differential Recommendations: -Continue Aspirin 325 mg PO or 300 mg HI daily -Continue Atorvastatin 40 mg daily -30 day CV event monitor on discharge. Neurology will sign off at this time. Please do not hesitate to contact me if something changes. Thank you for involving me in the patient's care. Neville Gutierrez MD Neurology 2:18 PM 09/26/24 Interval History No acute events overnight. Physical Examination: Vitals: 09/26/24 1308 BP: Pulse: 102 Resp: Temp: SpO2: Body mass index is 33.28 kg/m??. General: This is a pleasant cooperative female in NAD. HEENT: No bruising, erythema, or conjunctival injection. Cardiovascular: Normal rate, regular rhythm. Resp: Normal respiratory rate and effort. Abd: Soft, NT, ND Ext: No cyanosis, clubbing, edema. Mental Status: Awake, appears mildly drowsy, follows commands but is severely dysarthric. Cranial Nerves: II: Blinks to threat bl III, IV, : PERRL, right eye does not adduct and has limited movement when abducting and moving vertically. Left eye has full ROM V: Facial sensations symmetric to light touch VII: Mild left lower facial droop. VIII: Hearing grossly intact. Motor: 2/5 strength left arm and leg, at least 4+/5 strength right arm and leg. Coordination: Moderate ataxia on FTN in right arm. I have personally reviewed the following new results: -Repeat HCT yesterday showed possible R occipital hemorrhage, 2nd repeat HCT did not show that. -Repeat CTA with R SCA thrombus -ECHO with low EF, MS, LA dilation. -LDL 111. Prior pertinent results: -Initial HCT no acute changes -CTA H/N nondiagnostic in neck, no LVO in head -MRI with midbrain and cerebellar strokes -A1c 7.2 Neurology Disposition- Will Sign off?: Yes (work up complete) Timeframe for follow-up?: TBD by Primary OP Neurologist or Neurology office F/U Provider Name?: Me or other Neuro To Be Arranged by?: By my office * Rupa Tobias OT - 09/26/2024 1:13 PM EDT 09/26/24 0901 OT Subjective Note Type Chart Review;Evaluation Patient Room/Unit 3719 OT Subjective Comments #1 Pt supine, agreeable. Bed level only d/t elevated troponins and pending cardiology Others Present/Assisting Suzanne PT, Omkar, PT student Discharge Information Evaluation to serve as discharge summary if no further treatment provided before the facility discharge Admitting Diagnosis CVA Past Med Hx Arthritis Asthma Bladder problem Bronchitis, chronic (HCC) CAD (coronary artery disease) CHF (congestive heart failure) (HCC) Chronic kidney disease COPD (chronic obstructive pulmonary disease) ([facility]) Diabetes mellitus (HCC) Headache migraines Heart murmur Heartburn Hyperlipidemia Hypertension IA (myocardial infarction) ([facility]) 12/13/1998 Motion sickness Oxygen dependent 2-3 L continuously Pneumonia 2021 Pulmonary emphysema ([facility]) Shortness of breath Sleep apnea can not wear Cpap Thyroid disease Diagnostic Testing MRI Brain 09/24 Multifocal posterior fossa acute appearing infarcts most pronounced in the superior RIGHT cerebellum ; Echo EF 35-40%; CT head 09/25 1. Tiny punctate focus of hyperdensity in the right occipital lobe, not seen on the prior exam and suspicious for a tiny focus of hemorrhage versus artifact. Recommend short interval follow-up imaging to assess to assess resolution. 2. Redemonstrated small areas of low attenuation involving the right superior cerebellum, right dorsal midbrain, and left cerebellar hemisphere compatible with the acute infarcts as seen on the prior MRI. 3. Unchanged curvilinear hyperdensity on the right lateral margin of the sergey, compatible with calcification/thrombus in the right superior cerebellar artery. Clinical Course Troponins trending upward since admission Precautions Therapy Precautions Yes Precaution Info Given Yes;To use call light to request assistance with all mobility Other precautions fall risk, NPO Additional Comments pt demos ability to push call light button on repeated attempts Home Living/Prior Function Type of Home House Home Layout One level Level of Assistance Independent with ADLs ;Independent with functional transfers;Independent with homemaking;Ambulatory in home;Ambulatory in the community Lives With Spouse Fall History No falls in the last three months Driving Yes Cognition Disoriented to Situation Arousal Normal Safety Awareness Impaired Safety Awareness Impairment Minimal Impairments: Needs up to 25% input/direction from therapist in order to identify safety issues and maintain safety. Affect/Ability to cope Impaired Affect/Ability to cope impairment Distracted Command Following Impaired Command following impairment Minimal Impairments: Needs up to 25% input/direction from therapist inorder to follow single step commands. Communication Impaired Additional comments dysarthria noted, possible expressive aphasia Pain Screening PT/OT Patient Currently in Pain Denies Observation Posture 5', 170# Observation IV;Oxygen - nasal cannula Vitals 2L 95% , HR 105-125 UE Assessment LUE Assessment X LUE Additional Comments focal weakness, inconsistent ability to raise/hold L UE against gravity RUE Assessment X RUE Additional Comments grossly 3+/5 Hand Function Hand Dominance Left Gross Grasp Functional Coordination Impaired Additional Comments dysmetria noted bilaterally Coord/Sensation Assessed Impaired Gross Motor Coordination Partial deficits in the RUE;Partial deficits in the LUE;Partial deficits in the LLE Perception Perception Impaired Inattention/Neglect Cues to attend right visual field Initiation Cues to initiate tasks Coordination Impaired;Trunk;Upper Extremity;Lower Extremity ADL Interventions Grooming Assistance Maximal LE Dressing Assistance Total Transfers Additional Comments defer 2* to labored breathing at rest, troponins also elevated OT Gait Vitals 2L 95% ; HR up to 125 Balance Sitting Balance Not tested PT/OT Mobility Documentation PT/OT Mobility Score 3 Activity Tolerance Endurance Limits participation and activity Vision OT Vision Comment pt with limited tracking, mostly stares straight ahead Exercise Additional Comments Long sit in bed x 4 min with BUE assist on elevated lower bedrails Functional Status Score (FSS-ICU) Is the patient currently in ICU? No AM PAC: How much help from another person does the patient currently need... putting on and taking off regular lower body clothing? 1 bathing (including washing, rinsing, drying)? 2 toileting, which includes using toilet, bedpan or urinal? 1 putting on and taking off regular upper body clothing? 2 taking care of personal grooming such as brushing teeth? 2 eating meals? 1 AM PAC DAILY ACTIVITY SCORING Daily Activity Raw Score 9 AM PAC Daily Activity CMS 0-100% Functional Percentage 79.59 AM PAC Daily Activity CMS G Code Modifier CL Education Education To use call light to request assistance with all mobility;Patient/Family Education;Role of Therapy;Safety with mobility;Cues for proper technique;Discharge planning;Up with assistance only;Safe and proper technique with transfers;Educated on benefits of mobility, upright positioning, and getting out of bed Patient Safety Patient in bed with needs in reach;Chair/personal alarm activated;Nursing notified of status Assessment Assessment Decreased ADL status;Decreased UE strength;Decreased UE ROM;Decreased Safe judgement during ADL;Decreased cognition;Decreased endurance;Decreased fine motor control;Decreased self-care transfers;Decreased Coordination Prognosis Fair;Good Rationale for Skilled Therapy Fall Risk;Balance Deficits;Not safe with independent transfers;Not safe ambulating independently;Needs verbal/tactile cues for ADL's;Requires physical assistance with ADLs;Requires multi- disciplinary team;Able to make measurable improvements;Decreased endurance and tolerance to activity;Needs intensive therapy Additional Comments L focal weakness, decreased visual tracking to right without cues; labored breathing Goals Patient and/or Family Goal Go home Goals Yes Goal Formulation Patient unable to participate in goal setting Time for Goal Achievement/Duration of Treatment 2 weeks by 10/10 ADL Goals Pt Will Perform LE Dressing Minimal assistance Pt Will Perform Toileting Minimal assistance Functional Transfer Goals Pt Will Perform All Functional Transfers Minimal assistance Arm Goals Pt Will Perform AROM B UE;15 reps;With good activity tolerance Plan Treatment Interventions ADL retraining;Functional transfer training;UE strengthening/ROM;Endurance training;Patient/Family training;Equipment eval/education;Fine motor coordination activities;Neuro muscular reeducation;Compensatory technique education;Co-treatment with Physical Therapy OT Frequency 3-5x/wk Recommendation OT Recommendation High frequency, high intensity multi-disciplinary therapy for 15 hours per week. Time In / Time Out 0330-7012 IP OT Evaluation Minutes 10 IP OT Individual Treatment Minutes 26 The total time spent caring for this patient included but was not limited to medical record review;hands-on treatment;communication and education with patient and/or family/caregiver;physician contact in the presence of the patient;clinical judgement necessary for treatment planning for next session ;communication with nursing and/or care coordination/social work regarding patient status and discharge planning * Timur Parr MD - 09/26/2024 11:02 AM EDT Heart & Vascular Progress Note PATIENT: Sunita Trent Primary Batch Blender: Dr. Greenberg She has been in the hospital for LOS: 1 day Patient presents to the hospital for: Chief Complaint Patient presents with Cerebrovascular Accident Left sided weakness, difficulty walking, and slurred speech. hard to wake up but a/o when awake. LWK approx 1500; phenergan 25mg en route Cardiology following for: NSTEMI, new CMP Subjective: More SOB today. Diff to understand due to CVA. Echo w low EF and new WMA's. Objective: 09/26/2024 Last BP: BP: 145/89 Last pulse: Pulse: 105 Last resp: Resp: 16 Last temp: Temp: 99.4 ??F (37.4 ??C) Last spO2: SpO2: 93 % I/O 24 hours: -563 I/O since Admission: -518 Telemetry: SR Exam: Pt in mild resp distress. Lymph/Neck supple, no enlarged nodes or masses CVS - S1, S2 RRR, no edema RS - No rales, no rhonchi, few crackles GI/Abd - soft, NT, +BS Neuro- Alert and oriented Psych- Mood and affect appropriate Skin warm, dry, no rashes Medication: aspirin 300 mg Rectal Daily atorvastatin 40 mg Oral Nightly fUROsemide 20 mg Intravenous BID Diuretic Insulin Calculator (UX DEVELOPER DESIGNER) - FSBS and Carb Intake Input 1 Each MISCELLANEOUS QID PC And insulin aspart (NovoLOG) - Carb Ratio PATIENT-SPECIFIC - Correction Factor PATIENT-SPECIFIC 0-40 Units Subcutaneous QID PC losartan 25 mg Oral Daily acetaminophen OR acetaminophen, albuterol OR albuterol, dextrose, glucagon AND sterile water, ondansetron OR ondansetron, sodium chloride 0.9%, sodium chloride 0.9% Labs & Studies: All pertinent labs & radiologic studies for the past 24 hours have been reviewed Assessment & Plan: CVA -per neuro -tele stable -echo EF 35-40%, + RWMA's, nl RVSP, stable TAVR, Sev MR NSTEMI- likely type 1 -Trop 87, 177, 255, 269, 262 -Asymptomatic, EKG w NSSTTWA -Echo EF 35-40%, + RWMA's, nl RVSP, stable TAVR, Sev MR -no hep w fresh CVA -ASA, statin -will need eventual angio when cleared by neuro perspective CAD s/p CABG w subsequent 4 stents -Cont ORDER MANAGEMENT SPECIALIST plavix, crestor, ASA Hx HFpEF -environmental field services technician lisinopril, spironolactone, jardiance, crestor, bumex S/P aortic valve replacement TAVR 2022 - environmental field services technician lisinopril, spironolactone, jardiance, crestor, bumex COPD with O2 dependence -Defer to primary/pulm CKD -Defer to primary/Nephro DM -Defer to primary Sleep apnea -Defer to primary Plan: New CMP w elev trop. Some signes of CHF Start lasix 20 IV bid Start losartan 25 EKG SR Will need eventual angio once cleared by neuro w fresh CVA Further input from Dr Parr. Medically ready for discharge?: No Anticipated Discharge: > 3 days Discharge when / if: improved, yaima Rich APRN Attending Batch Blender Attestation: I have seen and examined the patient. I have discussed with the nurse practitioner and agree with his/her findings as documented in their note with my additions below: 69 year old female with history of CAD, TAVR, HFpEF, HTN, HLD, DM, CKD, COPD, asthma, migraines whoinitially presented to the hospital on 09/24/24 with left sided weakness. Cardiology consulted on 09/25/24 for troponin elevation. Here initially with left sided weakness with onset 1.5 hours prior to arrival. Symptoms improved inthe ED. On my initial assessment patient history difficult to obtain from patient due to dysarthria. and friend are present who provide history. Was cleaning the fridge and got dizzy and weakon left side. eventually called 911. Also with difficulty speaking. Prior to this she had been doing fine. Was recently treated for C. diff. Otherwise active doing gardening, taking care of her aldrich and doing housework. Breathing has been fine. No shortness of breath or chest pain. Chronic mild edema that is currently better than usual. No palpitations. Initial troponins 87, 177, 255, 269, 262. Initial Cr 0.63, Na 138, K 3.9, WBC 7.9, Hgb 13.5, Plt 202. Initial BP 169/97. ECG sinus tachycardia with LBBB and PVCs. MRI brain 09/24/24 with multifocal posterior fossa acute infarct, most pronounced in superior right cerebellum. Carotid dopplers 09/25/24 with 60-79% right ICA stenosis, 40-59% left ICA stenosis. CTA head/neck 09/24/24 with ICA stenosis, no intracranial LVO. CT head 09/24/[address] head 09/25/24 with some concern for possible hemorrhagic transformation but repeat CT head 09/25/24 without hemorrhage. Repeat CTA head/neck 09/25/24 with possible pulmonary hypertension and irregular ill-defined intraluminal low-attenuation in the regio n of the left carotid bifurcation, which is indeterminate but could represent irregular intraluminal thrombus or carotid web versus streak artifact from dense calcifications. TTE here 09/25/24 with LVEF 35-40%, moderate LV dilation, mild LVH with moderately thick basal septum, RWMA (akinesis of the mid-apical septal and mid to apical inferior; hypokinesis of the apical lateral and apical myocardium), DD, normal RV function, PASP 36, TAVR mean gradient 13, no AI, moderate MAC, progressive to severe MS (mean gradient 8), mild MR, mild PI, moderate LAE. History of s/p TAVR 10/2022, MS, CAD, CABG 1998, HFpEF. Reported CABG and then multiple PCIs, butno prior cath or ischemic evaluation on file. Per office note 09/2022 she had a PCI to the LAD and ramus and OM around 08/2022. Subsequent TAVR here 10/2022. TTE 10/2023 with LVEF 60-65%, severe LVH, indeterminate diastology, reduced RV function, mild LAE, TAVR peak gradient 19, vmax 2.2, no AI, mild MR, moderate MS. Home cardiac related meds include bumex, plavix, jardiance, lisinopril, crestor. Today significant other and daughter are present. Still with dysarthria. She does endorse shortnessof breath and edema. Denies chest pain. On exam RRR with 1-2/6 systolic murmur at the USB and LSB, no JVD, lungs diminished anteriorly, no edema. Blood pressure 145/89. Cr 0.59, Na 145, K 4.2, LDL 111, WBC 13.1, Hgb 13.6, Plt 176. Telemetry sinus with frequent PACs but no afib. Current cardiac related meds include asa, lipitor. Impression is here with acute stroke with left sided weakness that improved in ED. Then with recurrent symptoms and ongoing dysarthria. MRI with multifocal posterior fossa acute infarct, most pronounced in superior right cerebellum with carotid dopplers showing 60-79% right ICA stenosis, 40-59% left ICA stenosis. No intracranial LVO on CTA head/neck. Some concern for hemorrhagic transformation onhead CT 09/25/[address] head 09/25/24 without hemorrhage. Echo here with reduced EF 35-40% with RWMA, moderate to severe MS. Frequent PACs on telemetry but no afib thus far. Troponins elevated without ischemic symptoms and overall picture more consistent wity type 2 IA related to stroke and some CHF but lower suspicion for ACS. Plan: - Start IV lasix 20 bid. - Start losartan 25mg daily. - Additional GDMT as tolerated. Probably BB next. - Stroke recommendations per neurology. - Will need cath when clear from neurology perspective but not urgent at this time. Will follow along. Please call with any questions. Timur Parr MD [facility] Heart and Vascular * Suzanne Fermin, PT - 09/26/2024 10:20 AM EDT 09/26/24 0838 PT Subjective Note Type Evaluation Patient Room/Unit 3715 PT Subjective Comments #1 Pt in bed, awake and agreeable. Discharge Information Evaluation to serve as discharge summary if no further treatment provided before the facility discharge Admitting Diagnosis Admitted with L sided weakness . Symptoms resolved in ER so TNK was not given. Symptoms progressed during admission. Dx B cerebellar and midbrain CVA CT head reapeat imaging showed additional R occipital lobe inovolvment Past Med Hx Arthritis Asthma Bladder problem Bronchitis, chronic (HCC) CAD (coronary artery disease) CHF (congestive heart failure) (HCC) Chronic kidney disease COPD (chronic obstructive pulmonary disease) (HCC) Diabetes mellitus (HCC) Headache migraines Heart murmur Heartburn Hyperlipidemia Hypertension IA (myocardial infarction) ([facility]) 12/13/1998 Motion sickness Oxygen dependent 2-3 L continuously Pneumonia 2021 Pulmonary emphysema (HCC) Shortness of breath Sleep apnea can not wear Cpap Thyroid disease Diagnostic Testing MRI Brain 09/24 Multifocal posterior fossa acute appearing infarcts most pronounced in the superior RIGHT cerebellum ; Echo EF 35-40%; CT head 09/25 1. Tiny punctate focus of hyperdensity in the right occipital lobe, not seen on the prior exam and suspicious for a tiny focus of hemorrhage versus artifact. Recommend short interval follow-up imaging to assess to assess resolution. 2. Redemonstrated small areas of low attenuation involving the right superior cerebellum, right dorsal midbrain, and left cerebellar hemisphere compatible with the acute infarcts as seen on the prior MRI. 3. Unchanged curvilinear hyperdensity on the right lateral margin of the sergey, compatible with calcification/thrombus in the right superior cerebellar artery. Clinical Course Troponins trending upward since admission Pain Screening PT/OT Patient Currently in Pain Denies Cognition Orientation Impaired Disoriented to Situation Arousal Normal Safety Awareness Impaired Safety Awareness Impairment Minimal Impairments: Needs up to 25% input/direction from therapist in order to identify safety issues and maintain safety. Affect/Ability to cope Impaired Affect/Ability to cope impairment Distracted Command Following Impaired Command following impairment Minimal Impairments: Needs up to 25% input/direction from therapist inorder to follow multi-step commands. Communication Impaired Additional comments dysarthria prominent, possible expressive aphasia Precautions Precaution Info Given Yes;To use call light to request assistance with all mobility Additional Comments fall risk, NPO Home Living/Prior Function Type of Home House Home Layout One level Level of Assistance Independent with ADLs ;Independent with homemaking;Independent with functional transfers;Ambulatory in the community Lives With Spouse Fall History No falls in the last three months Coord/Sensation Assessed Impaired Gross Motor Coordination Partial deficits in the RUE;Partial deficits in the LUE;Partial deficits in the LLE Additional Comments Primary focal L side coordination Perception Perception Impaired Inattention/Neglect Cues to attend right visual field Initiation Cues to initiate tasks Coordination Impaired;Trunk;Upper Extremity;Lower Extremity Observation Presentation Patient resting in bed Observation IV;Oxygen - nasal cannula;Telemetry Vitals 2L 95% , HR 105-125 UE Assessment LUE Assessment X LUE Additional Comments focal weakness; grossly 3-/5. Pt is left hand dominant. RUE Assessment X RUE Additional Comments grossly 3+/5 LE Assessment LLE Assessment X RLE Assessment X Strength RLE R Hip Flexion 3+/5 R Knee Flexion 3+/5 R Knee Extension 4-/5 R Ankle Dorsiflexion 4+/5 R Ankle Plantar Flexion 4+/5 Strength LLE L Hip Flexion 2-/5 L Knee Flexion 2-/5 L Knee Extension 2-/5 L Ankle Dorsiflexion 4+/5 L Ankle Plantar Flexion 4+/5 Bed Mobility Rolling Minimal assistance Additional Comments defer full bed moblity assessment due to observed labored breathing and elevated troponins. Pt is able to long sit in bed with min to mod assist Transfers Sit to Stand Unable to assess (comment) Gait Gait NILDA Vitals 2L 95% ; HR up to 125 PT/OT Mobility Documentation PT/OT Mobility Score 3 AM PAC: How much help from another person does the patient currently need... turning from your back to your side while in a flat bed without using bedrails? 3 moving from lying on your back to sitting on the side of a flat bed without using bedrails? 3 moving to and from a bed to a chair? 1 standing up from a chair using your arms (e.g. wheelchair, or bedside chair)? 1 need to walk in hospital room? 1 climbing 3-5 steps with a railing? 1 AM PAC: BASIC MOBILITY SCORING AM PAC Moblity Raw Score 10 AM PAC Mobility CMS 0-100% Functional Percentage 71.92 AM PAC Mobility CMS G Code Modifier CL Balance Sitting Balance Not tested Exercise Additional Comments Long sit in bed x 4 min with BUE assist on elevated lower bedrails Education Education To use call light to request assistance with all mobility;Patient/Family Education;Role of Therapy;Safety with mobility;Cues for proper technique;Discharge planning;Up with assistance only;Safe and proper posture/positioning Patient Safety Patient Safety Patient in bed with needs in reach;Nursing notified of status;Chair/personal alarm activated Assessment Assessment Decreased gait;Decreased functional mobility;Decreased balance;Decreased RightLower Extremity strength;Decreased Left Lower Extremity strength;Decreased Left Upper Extremity strength;Decreased activity tolerance ;Decreased trunk strength;Decreased safety judgement ;Decreased cognition;Dec reased endurance Prognosis Fair;Ongoing PT assessment needed;With continued PT s/p acute discharge Rationale for Skilled Therapy Fall Risk;Balance Deficits;Decreased endurance and tolerance to activity;Able to make measurable improvements;Not safe ambulating with assist;Not safe with caregiver transferring patient Additional Comments L focal weakness, decreased visual tracking to right without cues; labored breathing Goals Patient and/or Family Goal to get better PT GOALS (Yes/No) Yes Add Goals Will Perform Roll With contact guard assistance Will Perform Supine To Sit With moderate assist Will Achieve Sitting Balance 1/5 supports self with 25-50% effort using UE, requires therapist assistance Will Sit Edge of Bed 3-5 min;With moderate assist Goal Formulation With patient Time for Goal Achievement/Duration of Treatment 10/10/24 Plan Treatment/Interventions Bed mobility;Gait training;Balance training;Neuromuscular re-education;Functional transfer training;UE strengthening/ROM;LE strengthening/ROM;Increase activity tolerance ;Endurance training PT Frequency 6-7x/week;Needs a physical therapist to see Recommendation PT Recommendation High frequency, high intensity multi-disciplinary therapy for 15 hours per week. Time In / Time Out IP PT Evaluation Minutes 10 IP PT Treatment Minutes 27 * Troy Leary DO - 09/26/2024 8:34 AM EDT PROGRESS NOTE Assessment/Plan: Acute CVA -CT head and CTA head/neck nondiagnostic -MRI brain showed multifocal posterior fossa infarctions -Bilateral CA US showed R ICA obstructive lesion -Neuro checks while admitted -Neurology following, plan to continue with ASA and Lipitor for now -Telemetry -ST, OT, PT working with pt CAD with NSTEMI -Troponins 87>>269 on admission -EKG nondiagnostic -Continue home cardioprotective medications as appropriate -Echo shows abnormal LV segmental wall motion -Cardiology following Chronic HFrEF -Echo this admission revealed LVEF of 35-40% -Monitor I/Os while admitted -Check CXR today and administer IV Diuretics today if indicated Essential HTN -Continue to monitor BP (remains normotensive today) -On Lisinopril chronically CKD -Continue to monitor renal function while admitted (remains stable) -Avoid nephrotoxic agents -Renally dose medications as indicated T2DM -Hold Metformin while admitted -Hgb A1c 7.2% -Continue Insulin per protocol GERD -Continue Protonix Morbid Obesity -Body mass index is 33.9 kg/m??. -Recommend proper diet and exercise on DC Dispo: Pt to remain hospitalized today, continue management above. VTE Prophylaxis: Active Hospital Problems Diagnosis *Left-sided weakness Acute arterial ischemic stroke, vertebrobasilar, brainstem, right (HCC) Type 2 myocardial infarction (HCC) Chronic diastolic heart failure (HCC) Chronic kidney disease Acquired hypothyroidism Coronary artery disease involving [place] coronary artery of [place] heart without angina pectoris Chronic obstructive pulmonary disease (HCC) Morbid obesity (HCC) Subjective: Patient seen and evaluated at bedside this morning. The pt has been placed on 2 L NC for mild hypoxia. She currently complains of SOB. She denies CP, n/v, abdominal pain. Objective: BP 127/65 Pulse 98 Temp 98 ??F (36.7 ??C) (Axillary) Resp 20 Ht 5' (1.524 m) Wt 170 lb 6.7 oz (77.3 kg) SpO2 92% BMI 33.28 kg/m?? I/O last 3 completed shifts: In: 36.9 [I.V.:36.9] Out: 600 [Urine:600] Weight: 170 lb 6.7 oz (77.3 kg) Constitutional: Alert and oriented to person. No acute distress. HEENT: neck is supple, no pharyngeal erythema Cardiovascular: Normal rate and regular rhythm. Exam reveals no murmurs Pulmonary/Chest: Increased WOB with decreased air movement. There are no wheezes bilaterally Abdominal: Soft. No distension. There is no tenderness. There is no rebound and no guarding. Psychiatric: Normal affect, cooperative with examination Neurological: Moving all extremities, speech is slurred Skin: Skin is warm and dry. 1+ pitting edema Labs: Laboratory data and diagnostic testing reviewed 09/26/24. Troy Leary DO 09/26/2024 8:34 AM * Bernie Taylor MSW - 09/25/2024 3:09 PM EDT 09/25/24 SW initial. SW attempted to meet with pt x2, pt out of room but family was present. SW completed SDOH screen per family present (nephew's and ex- ). SW lives at home with her boyfriend of 21 years. Pt completes ADLs independently at baseline, family denies use of HHC or DME. Confirmed PCP Dr. No and use of [facility], where she receives scripts without issue. Pt family states they or pt's daughter [place]. SW following. * Suzanne Fermin, PT - 09/25/2024 1:25 PM EDT 09/25/24 1324 PT Subjective Note Type Evaluation Attempt Patient Room/Unit 3715 PT Subjective Comments #1 Neuro indicates repeat scan to rule out VA dissection. Will defer PT evalat this time and follow up when pt cleared for mobility. Therapy delay reason Await test results * Margi Munoz RD,LD - 09/25/2024 12:[address] [facility] Nutrition Initial Assessment Nutrition Prescription: Kcals: [id number] kcal (20-25 kcal/kg) Protein (g): 54-68 grams (1.2-1.5 gm/kg IBW) Plan/Interventions: Meals and Snacks: NPO Medical Food Supplements: (Can consider pending diet and intake) Feeding Assistance: Menu Selection Assistance Nutrition Education: Importance of nutrition to healing and recovery, Oriented to Current Diet Order, Supplements Sunita Trent is a 69 y.o. female patient. Admit Diagnosis: Left-sided weakness [R53.1] Reason For Assessment: Admission nutrition screen Subjective: Subjective Comment: Patient seen with family at bedside this afternoon. Reports unintentional weight loss from being on [place]. Reports weight down from 247# over about 7 months. Limited recent weighty history per EMR. Aphasia noted throughout visit and some history difficult to obtain. 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 Will follow up for fruther interview to determine patients recent intake as able. Anthropometric Measurements: Height: 5' (152.4 cm) Weight: 170 lb 6.7 oz (77.3 kg) BMI (Calculated): 33.28 BMI Assessment: 30-34.9 Obesity Grade l IBW +/- 10%: 100 lb (45.4 kg) % IBW: 170 Weight History Intervals: 12 Month 12 Month--Wt History (lb): 201 lb (91.2 kg) (10/23/23) 12 Month--Wt Change (lb): 31 12 Month--% Wt Change: 15.42 % 12 Month--Wt Gain or Loss: Loss 12 Month--Wt Loss Significance: Not significant Food/Nutrition Related History: Dietary Orders Ordered NPO: Strict DIET EFFECTIVE NOW 09/25/24 0316 Supplement Acceptance: has not had previously Tube Feeding?: No TPN?: No Food Allergies: NKFA Level of Assistance: Independent Nutrition Focused Physical Findings: Physical Exam?: Yes Subcutaneous Fat Loss--Orbital: Well-nourished Subcutaneous Fat Loss--Buccal (Cheek): Well-nourished Subcutaneous Fat Loss--Triceps: Mild Subcutaneous Fat Loss--Thoracic/Lumbar: Unable to assess Muscle Loss--Temporalis : Mild Muscle Loss--Clavicle Pectoralis/Trapezius: Well-nourished Muscle Loss--Clavicle and Acromion (Shoulder): Well-nourished Muscle Loss--Scapula: Mild Muscle Loss--Interosseous: Well-nourished Muscle Loss--Patellar: Well-nourished Muscle Loss--Quadricep: Mild Muscle Loss--Gastrocnemius (Calf): Well-nourished Functional Status: Suboptimal (some decline) (Mobility level 6. PT ordered.) LDAs- Active NG/OG/NJ,Wound,Pressure Injury,or Drain Drain Duration External Urinary Catheter Female Purewick 1 day I/O last 3 completed shifts: In: 44.3 [I.V.:44.3] Out: - Biochemical Data/Medical Tests: Pertinent Meds: lipitor, novolog Pertinent Labs: glucose 151, Cl 109 Pertinent Medical History: COPD, pulm emphysema, sleep apnea, HLD, HTN, CHF, CKD, DM Clinical Course: Clinical Course: Presented with L sided weakness and drowsiness. MRI brain showed multifocal posterior fossa infarctions. Bilateral CA US shows R ICA obstructive lesion. Neurology following. * Rupa Tobias OT - 09/25/2024 11:27 AM EDT 09/25/24 1021 OT Subjective Note Type Chart Review;Evaluation Attempt Patient Room/Unit 3715 OT Subjective Comments #1 re-attempted eval, pt off floor at echo Therapy delay reason Unavailable due to tests/procedures * Mirian Learyeedebbie Vail DO - 09/25/2024 10:36 AM EDT PROGRESS NOTE Assessment/Plan: Acute CVA -CT head and CTA head/neck nondiagnostic -MRI brain showed multifocal posterior fossa infarctions -Bilateral CA US shows R ICA obstructive lesion -Neuro checks -Neurology consulted, appreciate input -Echo with bubble study -Telemetry -ST, OT, PT CAD with Elevated Troponin -Troponins 87>177 overnight -EKG nondiagnostic -Continue home cardioprotective medications as appropriate -Echo as above -Cardiology consulted Chronic HFpEF -Monitor I/Os while admitted -Continue home PO Diuretics when safe to take PO medications Essential HTN -Continue to monitor BP (normotensive currently) -On Lisinopril chronically CKD -Continue to monitor renal function while admitted -Avoid nephrotoxic agents -Renally dose medications as indicated T2DM -Hold Metformin while admitted -Hgb A1c 7.2% -Insulin per protocol GERD -Continue Protonix Morbid Obesity -Body mass index is 33.9 kg/m??. -Recommend proper diet and exercise on DC Dispo: Pt to remain hospitalized today, continue management above. VTE Prophylaxis: Qualifying Pharmacologic Prophylaxis heparin 25,000 units in 250 mL 0.45% NaCl CONTINUOUS Active Hospital Problems Diagnosis *Left-sided weakness Chronic kidney disease Acquired hypothyroidism Arteriosclerosis of coronary artery Chronic obstructive pulmonary disease (HCC) Morbid obesity (HCC) Subjective: Patient seen and evaluated at bedside this morning. The pt currently denies CP, n/v, SOB, abdominalpain. VSS overnight. Objective: BP 121/75 (BP Location: Right arm, Patient Position: Fowlers) Pulse 85 Temp 98.6 ??F (37 ??C) (Oral) Resp 16 Ht 5' (1.524 m) Wt 170 lb 6.7 oz (77.3 kg) SpO2 93% BMI 33.28 kg/m?? I/O last 3 completed shifts: In: 44.3 [I.V.:44.3] Out: - Weight: 170 lb 6.7 oz (77.3 kg) Constitutional: Well developed, adequently nourished, very drowsy Eyes: conjunctiva normal, sclera clear HEENT: Atraumatic,mouth moist Respiratory: No respiratory distress, normal breath sounds, no wheezing Cardiovascular: Normal rate, normal rhythm, no murmurs GI: Soft, nondistended, nontender no mass, no rebound, no guarding Musculoskeletal: No edema, no tenderness, no deformities. Neurologic: Alert & oriented, moving all 4 limbs LUE weakness appears to be improving today, speech is slurred, no obvious facial asymmetry Psychiatric: Speech and behavior appropriate Labs: Laboratory data and diagnostic testing reviewed 09/25/24. Troy Leary DO 09/25/2024 10:36 AM * Suzanne Fermin, PT - 09/25/2024 10:20 AM EDT 09/25/24 1020 PT Subjective Note Type Evaluation Attempt Patient Room/Unit 3715 PT Subjective Comments #1 Off floor at echo Therapy delay reason Unavailable due to tests/procedures * Juliet Carlisle MA CCC-BOAT ENGINES INSTALLER - 09/25/2024 10:17 AM EDT Attempted CSE; pt out of room for procedure. Will attempt at later time * Rupa Tobias OT - 09/25/2024 9:23 AM EDT 09/25/24 0801 OT Subjective Note Type Chart Review;Evaluation Attempt Patient Room/Unit 3715 OT Subjective Comments #1 Pt off floor in vascular Therapy delay reason Unavailable due to tests/procedures * Suzanne Fermin PT - 09/25/2024 8:00 AM EDT 09/25/24 0800 PT Subjective Note Type Evaluation Attempt Patient Room/Unit 3715 PT Subjective Comments #1 Pt in Vascular Therapy delay reason Unavailable due to tests/procedures * Andrew Cárdenas RP - 09/25/2024 4:51 AM EDT Pharmacy Evening/Night Follow-up: Heparin Recent Labs 09/24/24 1635 09/25/24 0414 HEPARINLEVEL -- 0.23 L PTT 32.7 -- Heparin is subtherapeutic at current infusion rate. Will increase heparin infusion rate to 1050 units/hr. Will follow pertinent lab parameters in 6 hours and adjust for goal (anti-Xa 0.3 - 0.7 unit/mL). Andrew Muñoz RP * Jatinder Sutton [facility] - 09/24/2024 9:10 PM EDT S: Sunita Trent is a(n) 69 y.o. female with diagnosis of TIA and elevated troponin. Allergies: Adhesive. PMH significant for CAD. Pharmacy consulted for management of heparin pharmacotherapy. Bleeding signs/symptoms noted: none. O: Anticoagulation therapy received prior to consult: aspirin 81 mg daily, clopidogrel 75 mg daily Most Recent Labs: Recent Labs 09/24/24 1635 WBC 7.9 HGB 13.5 HCT 41.2 PLT 202 Recent Labs 09/24/24 1635 INR 0.98 PTT 32.7 Recent Labs 09/24/24 1635 09/24/24 1747 09/24/241927 HSCTNT -- 87* 177* BUN 20 -- -- CREATININE 0.63 -- -- Weight: 173 lb 9 oz (78.7 kg) Recent Labs 09/24/24 17409/24/241927 HSCTNT 87* 177* A/P: Physician orders and progress notes reviewed. Will initiate therapy per low dose protocol, adjusted for none / not indicated. Will bolus 4500 units (~ 60 units/kg) and initiate infusion at 900 units/hour (~ 12 units/kg/hr). Pharmacy will follow pertinent lab parameters in 6 hours and adjust for goal (anti-Xa 0.3 - 0.7 unit/mL). Jatidner Sutton RPH * Tracey Sheth RN - 09/24/2024 7:41 PM EDT into room to see patient, attempt to awake but patient is very drowsy. full assessment needed. documented in this encounter H&P Notes * Troy Leary DO - 09/24/2024 6:32 PM EDT Images from the original note were not included. [facility] History and Physical Name: Sunita Trent : 1955 AGE: 69 y.o. PCP: Estiven No MD Admitting Physician: Troy Leary DO Date of Admit: 09/24/2024 Admission Diagnosis: Left-sided weakness Chief Complaint: Chief Complaint Patient presents with Cerebrovascular Accident Left sided weakness, difficulty walking, and slurred speech. hard to wake up but a/o when awake. LWK approx 1500; phenergan 25mg en route History of Present Illness: Pt is a 69 yo F who presents with a chief complaint of L sided weakness and drowsiness. She is verydrowsy but awakens to give some history. Rest of history is obtained from report. The pt developed sudden left sided weakness about one hour prior to coming to the ER today. The pt denies numbness/tingling, CP, SOB, abdominal pain, or difficulty speaking. She does endorse a headache today but cannot characterize it further. EMS was called and she was given Phenergan en route to the hospital for some nausea. In the ER her vitals were stable. Labwork was unrevealing. CT head and CTA head/neck were also unrevealing. She is being admitted for further workup. Past Medical History: Diagnosis Date Arthritis Asthma Bladder problem Bronchitis, chronic (HCC) CAD (coronary artery disease) CHF (congestive heart failure) ([facility]) Chronic kidney disease COPD (chronic obstructive pulmonary disease) ([facility]) Diabetes mellitus ([facility]) Headache migraines Heart murmur Heartburn Hyperlipidemia Hypertension IA (myocardial infarction) ([facility]) 12/13/1998 Motion sickness Oxygen dependent 2-3 L continuously Pneumonia 2021 Pulmonary emphysema ([facility]) Shortness of breath Sleep apnea can not wear Cpap Thyroid disease Past Surgical History: Procedure Laterality Date AORTIC VALVE REPLACEMENT N/A 10/19/2022 Transcatheter aortic valve replacement with echocardiogram and [place]; Surgeon: Alfred Greenberg MD;Location: [facility]; Service: Open Heart CARDIAC CATHETERIZATION CARDIAC SURGERY stents x4 CHOLECYSTECTOMY DENTAL SURGERY full teeth extracted TUBAL LIGATION Prior to Admission medications Medication Sig Start Date End Date Last Dose Authorizing Provider albuterol (PROVENTIL HFA;VENTOLIN HFA) 90 mcg/actuation Inhl HFA Aerosol Inhaler Inhale 2 Puffs into the lungs every 6 hours as needed. Provider, Historical albuterol (PROVENTIL) 2.5 mg /3 mL (0.083 %) Inhl Solution for Nebulization Take 2.5 mg by nebulization every 6 hours as needed. Provider, Historical aspirin 81 mg Oral Tablet, Delayed Release (E.C.) Take 81 mg by mouth daily. Patient not taking: Reported on 10/23/2023 Provider, Historical bumetanide (BUMEX) 2 mg Oral Tablet Take 2 mg by mouth daily. Provider, Historical cephALEXin (KEFLEX) 500 mg Oral Capsule Take 500 mg by mouth every 6 hours. Provider, Historical clopidogreL (PLAVIX) 75 mg Oral Tablet Take 75 mg by mouth daily. Provider, Historical COMBIVENT RESPIMAT 20-100 mcg/actuation Inhl Mist Inhale 1 Puff into the lungs every 6 hours as needed. Provider, Historical empagliflozin (JARDIANCE) 10 mg Oral Tablet Take 10 mg by mouth daily. Provider, Historical fluticasone propionate (FLONASE) 50 mcg/actuation Nasl [place], Suspension 2 Sprays by Nasal route daily. Provider, Historical LEVOthyroxine (SYNTHROID) 150 mcg Oral Tablet Take 300 mcg by mouth daily. Provider, Historical lisinopriL (PRINIVIL;ZESTRIL) 5 mg Oral Tablet Take 5 mg by mouth daily. Provider, Historical metFORMIN (GLUCOPHAGE) 1,000 mg Oral Tablet Take 1,000 mg by mouth 2 times daily (with meals). Provider, Historical montelukast (SINGULAIR) 10 mg Oral Tablet Take 10 mg by mouth daily. Provider, Historical nitroGLYCERIN (NITROSTAT) 0.4 mg SL Tablet, Sublingual Place 0.4 mg under the tongue once. Provider, Historical Oxygen and Equipment MISCELLANEOU 1 Device by MISCELLANEOUS route once. 2-3 L continuously Provider, Historical pantoprazole (PROTONIX) 40 mg Oral Tablet, Delayed Release (E.C.) Take 1 Tablet by mouth daily. 10/21/22 Mj Bell APRN pioglitazone (ACTOS) 15 mg Oral Tablet Take 15 mg by mouth daily. Provider, Historical rosuvastatin (CRESTOR) 40 mg Oral Tablet Take 40 mg by mouth nightly. Provider, Historical spironolactone (ALDACTONE) 25 mg Oral Tablet Take 1 Tablet by mouth 2 times daily. Patient not taking: Reported on 10/23/2023 10/30/22 Neena Concepcion APRN torsemide (DEMADEX) 100 mg Oral Tablet Take 50 mg by mouth daily. Patient not taking: Reported on 10/23/2023 Provider, Historical TRULICITY 1.5 mg/0.5 mL SubQ Pen Injector once a week. Provider, Historical Allergies Allergen Reactions Adhesive Rash Social History Socioeconomic History Marital status: Spouse name: None Number of children: None Years of education: None Highest education level: None Tobacco Use Smoking status: Former Current packs/day: 0.00 Types: Cigarettes Quit date: 1976 Years since quittin.5 Smokeless tobacco: Never Vaping Use Vaping status: Never Used Substance and Sexual Activity Alcohol use: Never Drug use: Never Social Drivers of Health Received from [facility] ([place], [place], [place], [place]) Food Insecurity Received from [facility] ([place], [place], [place], [place]) Family and Community Support Received from [facility] ([place], [place], [place], [place]) Housing Stability Family History Problem Relation Age of Onset Kidney Disease Mother Cancer Mother breast, throat Diabetes Father Heart Disease Father Unknown Sister Heart Disease Brother COPD Brother Seizures Daughter Anesth Problems Neg Hx Travel Screening Question Response Have you been in contact with someone who was sick? No / Unsure Do you have any of the following new or worsening symptoms? None of these Have you traveled internationally or domestically in the last month? No Travel History Travel since 08/25/24 No documented travel since 08/25/24 Review of Systems: Other than what is listed in the HPI above, a complete 12 point ROS is negative OBJECTIVE: Physical Exam: Last Documented Values Flowsheet Row Most Recent Value Temperature 98 ??F (36.7 ??C) Heart Rate 89 Respirations 20 Oxygen Level 92 % Blood Pressure 146/78 Weight 173 lb 9 oz (78.7 kg) Weight: 173 lb 9 oz (78.7 kg) Constitutional: Well developed, adequently nourished, very drowsy Eyes: bilateral pupils are pinpoint, conjunctiva normal, sclera clear HEENT: Atraumatic,mouth moist Respiratory: No respiratory distress, normal breath sounds, no wheezing Cardiovascular: Normal rate, normal rhythm, no murmurs GI: Soft, nondistended, nontender no mass, no rebound, no guarding Musculoskeletal: No edema, no tenderness, no deformities. Neurologic: Alert & oriented, moving all 4 limbs but there is LUE pronator drift, no obvious facial asymmetry Psychiatric: Speech and behavior appropriate Labs: CBC: Lab Results Component Value Date WBC 7.9 09/24/2024 RBC 5.08 09/24/2024 HGB 13.5 09/24/2024 HCT 41.2 09/24/2024 MCV 81.1 09/24/2024 MCHC 32.8 09/24/2024 RDW 15.2 (H) 09/24/2024 MPV 10.9 09/24/2024 BMP: Lab Results Component Value Date NA 138 09/24/2024 K 3.9 09/24/2024 CL 101 09/24/2024 CO2 25 09/24/2024 BUN 20 09/24/2024 CREATININE 0.63 09/24/2024 CALCIUM 8.9 09/24/2024 GLU 147 (H) 09/24/2024 Hepatic: No results found for: ALKPHOS , ALT , AST , PROT , LABBILI , BILIDIR , IBILI , LABALBU No results found for: AMYLASE , LIPASE U/A:No results found for: SPECGRAV , UAPROTEIN , BLOODU , NITRITE , LEUKOCYTESUR , WBCUA , RBCUA Coagulation: Lab Results Component Value Date INR 0.98 09/24/2024 Cardiac markers: No results found for: CKMB , MYOGLOBIN ABGs:No results found for: PH , PCO2 , PO2 , HCO3 , TCO2 , BASEEXCESS , O2SAT , INSPIREDO2 , SPECIMENTYPE Radiology: CT ANGIOGRAM HEAD AND NECK STROKE PROTOCOL Result Date: 09/24/2024 CTA HEAD AND NECK WITH CONTRAST, STROKE PROTOCOL, 09/24/2024 4:32 PM CLINICAL HISTORY: -stroke protocol. COMPARISON: None. PROCEDURE COMMENTS: Isovue 370 IV contrast given as recorded in EPIC. Subsequently, multi-detector helical scanning performed and multiplanar reconstructions generated per protocol. Review included 3D MIP reconstructions. FINDINGS: CTA NECK: ARCH: No aneurysm. The arch is not well opacified. RIGHT CAROTID SYSTEM: Right common carotid artery and proximal IVC is not well opacified. This limits evaluation for carotid stenosis. Atherosclerotic plaque near circumferentially at the right ICA origin is present. Repeat study to assess for ICA stenosis warranted. Distal to the origin, there is acceptable opacification of the mid to distal ICA which otherwise appears widely patent along its course. LEFT CAROTID SYSTEM: The left common and proximal internal carotid artery is notwell opacified. There is extensive calcification at the origin of the left ICA, however poor vessel opacification limits evaluation of the degree of stenosis. Again repeat study to assess for ICA stenosis is warranted. Distal to the origin, there is acceptable opacification of the ICA which appearsotherwise patent along its course. VERTEBRAL ARTERIES: Limited evaluation proximally. Distally the vessels are patent, no aneurysm or occlusion. CTA HEAD: The intracranial arteries all well opacified. There is no flow limiting stenosis, LVO, or aneurysm. OTHER: Lung apices appear clear. No neck mass is identified. No acute osseous abnormality. 1. Limited evaluation of the proximal carotid arteries and proximal vertebral arteries due to poor opacification. Potentially significant bilateral proximal ICA stenosis. Repeat study to assess for ICA stenosis is warranted. 2. Intracranial arteries are diagnostically evaluated. No intracranial large vessel occlusion or aneurysm. 3. This scan was analyzed using ContaCT ( LVO), using - based computer-aided triage to detect the presence of a suspected large vessel occlusion (LVO). - Note: Radiology results need to be interpreted within a comprehensive clinical context. If you have questions about the radiology report, please contact the office of the ordering clinician. NASCET criteria used for estimates of stenosis. This scan was analyzed using Viz ContaCT (Viz LVO), using AI-based computer-aided triage to detect the presence of a suspected large vessel occlusion (LVO). EK EKG 12 LEAD Result Date: 09/24/2024 NOTICE: Preliminary tracing available for review; Final Interpretation by physician to follow. 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 Stroke symptoms. COMPARISON: None. PROCEDURE COMMENTS: Stroke protocol head CT. Multiplanar MIPS. Dose 1 : CT DLP Total : 1604.47 mGycm DLP Spiral Max : 891.65 mGycm Maximum CTDI Vol : 47.28 mGy FINDINGS: Normal ventricles. No evidence of acute stroke, mass, or hemorrhage. No fracture or extra-axial collection. No hyperdense vessel segments. ASPECTS SCORE: 10. Included portions of the paranasal sinuses, mastoids, and orbits unremarkable. No acute intracranial abnormality. Direct communication performed per protocol by report author. Notification type: Telephone call center operations manager notified: FELI HARPER Approximate time of notification: 09/24/2024 4:37 PM. Code STROKE Results for orders placed during the hospital encounter of 09/24/24 EK EKG 12 LEAD (Preliminary) This result has not been signed. Information might be incomplete. Narrative NOTICE: Preliminary tracing available for review; Final Interpretation by physician to follow. Impression 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 Admission Assessment and Plan: L Sided Weakness -CT head and CTA head/neck nondiagnostic -MRI brain ordered -check VBG, UDS, UA -Neuro checks during admission -Telemetry CAD -Denies CP currently -Troponin mildly elevated at 87, no baseline to compare with -Trend troponins -EKG nondiagnostic -Continue home cardioprotective medications Chronic HFpEF -Monitor I/Os while admitted -Continue home PO Diuretics Essential HTN -Monitor BP for now -On Lisinopril chronically CKD -Continue to monitor renal function -Avoid nephrotoxic agents -Renally dose medications as indicated T2DM -Hold Metformin while admitted -Check Hgb A1c -Insulin per protocol GERD -Continue Protonix Morbid Obesity -Body mass index is 33.9 kg/m??. -Recommend proper diet and exercise on DC DVT Prophylaxis -SCDs Troy Leary DO 09/24/2024 6:32 PM documented in this encounter Consult Notes * Neville Gutierrez MD - 09/25/2024 11:46 AM EDTAssociated Order(s): IP CONSULT TO NEUROLOGY Neurology Consult Note Admit date: 09/24/2024 Admitting diagnosis: Left-sided weakness [R53.1] Today's date: 09/25/2024 Current length of stay: 0 day(s) Impression and Recommendations Sunita Trent is a 69 y.o. female with a history of Asthma, CAD, HF, COPD, DM2, TAVR, HTN, HLD whom I am seeing in neurologic consultation at the request of for evaluation of Stroke. Acute Ischemic Stroke, Right Midbrain and Bilateral Cerebellar She initially presented with left sided weakness and numbness. She presented quickly to ED, but wasrapidly improving and did not receive TNK. Unfortunately she has declined again. Her CTA was non diagnostic. Her MRI showed a moderate sized midbrain stroke and multifocal small cerebellar stroke. Carotid US showed bl carotid stenosis, not severe, but also L vert bunny sign. We need to repeat a CTA to rule out vertebral dissection. NIHSS is now 13. Recommendations: -Start Aspirin 325 mg daily -Start Atorvastatin 40 mg daily -CTA H/N now -Repeat CTH given change in exam. -ECHO pending -LDL pending -30 day CV event monitor on discharge. Neville Gutierrez MD Neurology 11:46 AM 09/25/24 Thank you for allowing me to participate in the care of Sunita Trent. Please do no hesitate tocontact me with any further questions or concerns. HPI: This is a 69 y.o. female with a history of Asthma, CAD, HF, COPD, DM2, TAVR, HTN, HLD whom I am seeing in neurologic consultation at the request of for evaluation of Stroke. She developed left sided weakness, numbness, and dysarthria yesterday. She presented to the ED within an hour. Her symptoms improved significantly so she was not given TNK. HCT showed no acute abnormality. CTA H/N was poorly timed, was able to demonstrate no intracranial LVO. MRI showed small cerebellar infarcts, did not call a moderately sided right midbrain infarct. Past Medical History: Diagnosis Date Arthritis Asthma Bladder problem Bronchitis, chronic (HCC) CAD (coronary artery disease) CHF (congestive heart failure) ([facility]) Chronic kidney disease COPD (chronic obstructive pulmonary disease) [facility] [facility] Diabetes mellitus ([facility]) Headache migraines Heart murmur Heartburn Hyperlipidemia Hypertension IA (myocardial infarction) ([facility]) 12/13/1998 Motion sickness Oxygen dependent 2-3 L continuously Pneumonia 2021 Pulmonary emphysema (HCC) Shortness of breath Sleep apnea can not wear Cpap Thyroid disease Active Hospital Problems Diagnosis *Left-sided weakness Chronic kidney disease Acquired hypothyroidism Arteriosclerosis of coronary artery Chronic obstructive pulmonary disease (HCC) Morbid obesity (HCC) No current facility-administered medications on file prior to encounter. Current Outpatient Medications on File Prior to Encounter Medication Sig Dispense Refill bumetanide (BUMEX) 2 mg Oral Tablet Take 2 mg by mouth daily. cephALEXin (KEFLEX) 500 mg Oral Capsule Take 500 mg by mouth every 6 hours. clopidogreL (PLAVIX) 75 mg Oral Tablet Take 75 mg by mouth daily. empagliflozin (JARDIANCE) 10 mg Oral Tablet Take 10 mg by mouth daily. fluticasone propionate (FLONASE) 50 mcg/actuation Nasl [place], Suspension 2 Sprays by Nasal route daily. LEVOthyroxine (SYNTHROID) 150 mcg Oral Tablet Take 300 mcg by mouth daily. lisinopriL (PRINIVIL;ZESTRIL) 5 mg Oral Tablet Take 5 mg by mouth daily. metFORMIN (GLUCOPHAGE) 1,000 mg Oral Tablet Take 1,000 mg by mouth 2 times daily (with meals). montelukast (SINGULAIR) 10 mg Oral Tablet Take 10 mg by mouth daily. pantoprazole (PROTONIX) 40 mg Oral Tablet, Delayed Release (E.C.) Take 1 Tablet by mouth daily. 30 Tablet 2 rosuvastatin (CRESTOR) 40 mg Oral Tablet Take 40 mg by mouth nightly. albuterol (PROVENTIL HFA;VENTOLIN HFA) 90 mcg/actuation Inhl HFA Aerosol Inhaler Inhale 2 Puffs into the lungs every 6 hours as needed. albuterol (PROVENTIL) 2.5 mg /3 mL (0.083 %) Inhl Solution for Nebulization Take 2.5 mg by nebulization every 6 hours as needed. aspirin 81 mg Oral Tablet, Delayed Release (E.C.) Take 81 mg by mouth daily. (Patient not taking: Reported on 10/23/2023) COMBIVENT RESPIMAT 20-100 mcg/actuation Inhl Mist Inhale 1 Puff into the lungs every 6 hours as needed. (Patient not taking: Reported on 09/24/2024) nitroGLYCERIN (NITROSTAT) 0.4 mg SL Tablet, Sublingual Place 0.4 mg under the tongue once. (Patientnot taking: Reported on 09/24/2024) Oxygen and Equipment MISCELLANEOU 1 Device by MISCELLANEOUS route once. 2-3 L continuously pioglitazone (ACTOS) 15 mg Oral Tablet Take 15 mg by mouth daily. spironolactone (ALDACTONE) 25 mg Oral Tablet Take 1 Tablet by mouth 2 times daily. (Patient not taking: Reported on 10/23/2023) 60 Tablet 11 torsemide (DEMADEX) 100 mg Oral Tablet Take 50 mg by mouth daily. (Patient not taking: Reported on 10/23/2023) TRULICITY 1.5 mg/0.5 mL SubQ Pen Injector once a week. (Patient not taking: Reported on 09/24/2024) Allergies Allergen Reactions Adhesive Rash Physical Examination: Patient Vitals for the past 24 hrs: BP Temp Temp src Pulse Resp SpO2 Height Weight 09/25/24 0826 121/75 98.6 ??F (37 ??C) Oral 85 16 93 % -- -- 09/25/24 0515 -- -- -- 87 -- -- -- -- 09/25/24 0351 -- -- -- 94 -- -- -- -- 09/25/24 0312 141/78 97.9 ??F (36.6 ??C) Oral 92 16 94 % -- -- 09/25/24 0154 -- -- -- 85 -- -- -- -- 09/24/24 2312 126/70 98 ??F (36.7 ??C) Oral 85 18 98 % 5' (1.524 m) 170 lb 6.7 oz (77.3 kg) 09/24/242229 -- -- -- 93 (!) 22 -- -- -- 09/24/24 2220 144/86 -- -- 92 18 -- -- -- General: This is a pleasant cooperative female in [facility]. HEENT: No bruising, erythema, or conjunctival injection. Cardiovascular: Normal rate, regular rhythm. Resp: Normal respiratory rate and effort. Abd: Soft, NT, ND Ext: No cyanosis, clubbing, edema. Mental Status: Awake but drowsy, very dysarthric and speech is incomprehensible. She does follow commands. Cranial Nerves: II: Blinks to threat bl III, IV, : Her right eye has very little movement, it does no abduct to the left, it does move somewhat to the right when looking right but incompletely, has some vertical movement. ROM appears full in left eye. V: Facial sensations symmetric to light touch VII: Mild left lower facial droop VIII: Hearing grossly intact. IX, X: Palate raises midline, no uvula deviation. XI: Shoulder shrug symmetric. XII: Tongue protrudes somewhat right. Severe dysarthria Motor: 5/5 strength in right arm and both legs, left arm 4+ strength. Sensory: Sensation to light touch intact in the bilateral upper and lower extremities. Coordination: Mild to moderate ataxia on FTN on the right, moderate on the left. NIHSS I-A. Level of Consciousness: 1 I-B. Month and Age: 2 I-C. Blink Eyes/Squeeze Hands: 0 II. Horizontal Eye Movements: 2 III. Visual Ho: 0 IV. Facial Palsy: 1 V-A. Left Arm: 1 V-B. Right Arm: 0 -A. Left Le -B. Right Le VII. Limb Ataxia: 2 VIII. Sensation: 1 IX. Language: 0 X. Dysarthria: 3 XI. Extinction/Neglect: 0 Total: 13 I have personally reviewed the following pertinent results: -HCT no acute changes -CTA H/N nondiagnostic in neck, no LVO in head -MRI with midbrain and cerebellar strokes -A1c 7.2 * Timur Parr MD - 09/25/2024 10:15 AM EDTAssociated Order(s): IP CONSULT TO CARDIOLOGY Heart & Vascular Consult Note PATIENT: Sunita Trent PCP: Estiven No MD Primary Batch Blender: Dr. Greenberg Reason for consult: Elevated troponin History provided by: Patient and chart History limited by: Continued slurred speech HPI: 69 year old current smoker PMH: Elevated Troponin CAD s/p CAB w subsequent 4 stents CHF HFpEF IA 1998 S/P TAVR 2022 COPD with O2 dependence CKD DM Sleep apnea Patient admitted for CVA after presenting to ED 7/9/25 for left side weakness, slurred speech and gait disturbance one hour prior to calling 911 d/t concern for stroke. EMS gave phenergan 25mg en route, CTA head/neck and CT unremarkable, patient physical symptoms resolved rapidly without use of TNK, speech remains slurred. Patient reports significant improvement in weakness, denies CP, SOB, AGUILAR, orthopnea. Cards consulted for elev trop. Denies CP or SOB. ED Course: Troponin 87 >> 177 EKG: SR HR 84 WITH FIRST DEGREE AV BLOCK LEFT AXIS DEVIATION LEFT BUNDLE BRANCH BLOCK CT Angio Head/Neck: 1. Limited evaluation of the proximal carotid arteries and proximal vertebral arteries due to poor opacification. Potentially significant bilateral proximal ICA stenosis. Repeat study to assess for ICA stenosis is warranted. 2. Intracranial arteries are diagnostically evaluated. No intracranial large vessel occlusion or aneurysm. CT Head: No acute intracranial abnormality Family History- Family History Problem Relation Age of Onset Kidney Disease Mother Cancer Mother breast, throat Diabetes Father Heart Disease Father Unknown Sister Heart Disease Brother COPD Brother Seizures Daughter Anesth Problems Neg Hx Social History- Social History Tobacco Use Smoking status: Former Current packs/day: 0.00 Types: Cigarettes Quit date: 1976 Years since quittin.5 Smokeless tobacco: Never Substance Use Topics Alcohol use: Never Past Medical History Past Medical History: Diagnosis Date Arthritis Asthma Bladder problem Bronchitis, chronic (HCC) CAD (coronary artery disease) CHF (congestive heart failure) (HCC) Chronic kidney disease COPD (chronic obstructive pulmonary disease) (HCC) Diabetes mellitus (HCC) Headache migraines Heart murmur Heartburn Hyperlipidemia Hypertension IA (myocardial infarction) ([facility]) 12/13/1998 Motion sickness Oxygen dependent 2-3 L continuously Pneumonia 2021 Pulmonary emphysema ([facility]) Shortness of breath Sleep apnea can not wear Cpap Thyroid disease Medication Insulin Calculator (UX DEVELOPER DESIGNER) - FSBS and Carb Intake Input 1 Each MISCELLANEOUS QID PC And insulin aspart (NovoLOG) - Carb Ratio PATIENT-SPECIFIC - Correction Factor PATIENT-SPECIFIC 0-40 Units Subcutaneous QID PC heparin (porcine) Stopped (09/25/24 0624) acetaminophen OR acetaminophen, dextrose, glucagon AND sterile water, ondansetron OR ondansetron, sodium chloride 0.9%, sodium chloride 0.9%, sodium chloride 0.9%, sodium chloride 0.9% Past Surgical History Past Surgical History: Procedure Laterality Date AORTIC VALVE REPLACEMENT N/A 10/19/2022 Transcatheter aortic valve replacement with echocardiogram and [place]; Surgeon: Alfred Greenberg MD;Location: ED MAIN OR; Service: Open Heart CARDIAC CATHETERIZATION CARDIAC SURGERY stents x4 CHOLECYSTECTOMY DENTAL SURGERY full teeth extracted TUBAL LIGATION Allergy Allergies Allergen Reactions Adhesive Rash Family History Family History Problem Relation Age of Onset Kidney Disease Mother Cancer Mother breast, throat Diabetes Father Heart Disease Father Unknown Sister Heart Disease Brother COPD Brother Seizures Daughter Anesth Problems Neg Hx Social History Social History Tobacco Use Smoking status: Former Current packs/day: 0.00 Types: Cigarettes Quit date: 1976 Years since quittin.5 Smokeless tobacco: Never Substance Use Topics Alcohol use: Never Review of Systems No headache, no LOC, no fever, no chills, no cough, no nausea, no vomiting, no diarrhea, no burningmicturation, no seizures, all other symptoms negative and reviewed by me. Objective: Telemetry: NSR 09/25/2024 Last BP: BP: 121/75 Last pulse: Pulse: 85 Last resp: Resp: 16 Last temp: Temp: 98.6 ??F (37 ??C) Last SpO2: SpO2: 93 % Exam: Elderly obese patient resting in bed with visiting, pt in no distress. Lymph/Neck supple, no enlarged nodes or masses CVS - S1, S2 RRR, no edema, murmur or gallop RS - No rales, no rhonchi GI/Abd - soft, NT, +BS, obese Neuro- Alert and oriented Psych- Mood and affect appropriate Skin warm, dry, no rashes Diagnostic tests Pertinent laboratory test have been reviewed The most recent cardiovascular imaging studies availabe in [facility] EMR were reviewed at time of consultation Assessment & Plan Active Hospital Problems Diagnosis *Left-sided weakness Chronic kidney disease Acquired hypothyroidism Arteriosclerosis of coronary artery Chronic obstructive pulmonary disease (HCC) Morbid obesity (HCC) Plan: CVA -per neuro -tele stable -echo pending Elevated Troponin -Trop 87-177 -Asymptomatic, EKG w NSSTTWA -Echo pending -Likely due to stroke -Repeat troponin CAD s/p CABG w subsequent 4 stents -Cont ORDER MANAGEMENT SPECIALIST plavix, crestor, ASA CHF HFpEF -Continue environmental field services technician lisinopril, spironolactone, jardiance, crestor, bumex S/P aortic valve replacement TAVR 2022 -Continue environmental field services technician lisinopril, spironolactone, jardiance, crestor, bumex COPD with O2 dependence -Defer to primary/pulm CKD -Defer to primary/Nephro DM -Defer to primary Sleep apnea -Defer to primary Further input from Dr. Parr Cardiology Disposition Perspective - Medically Ready for Discharge: No Anticipated Discharge: 1-2 days Discharge when / if: troponin stable Thank you for the consult. We will follow with you. Neena Cordero APRN Student Addendum: Adm for weakness, slurred speech. bMRI w + CVA Cards consulted for elev trop likely from CVA. Denies CP or worse SOB. Hx CABG w stents x4 S/p TAVR COPD- still smokes CKD w baseline Cr nl DM Recheck trop Check echo If echo stable then no additional w/u Amy Rich APRN Attending Batch Blender Attestation: I have seen and examined the patient. I have discussed with the nurse practitioner and agree with his/her findings as documented in their note with my additions below: 69 year old female with history of CAD, TAVR, HFpEF, HTN, HLD, DM, CKD, COPD, asthma, migraines whoinitially presented to the hospital on 09/24/24 with left sided weakness. Cardiology consulted on 09/25/24 for troponin elevation. Here initially with left sided weakness with onset 1.5 hours prior to arrival. Symptoms improved inthe ED. On my initial assessment patient history difficult to obtain from patient due to dysarthria. and friend are present who provide history. Was cleaning the fridge and got dizzy and weakon left side. eventually called 911. Also with difficulty speaking. Prior to this she had been doing fine. Was recently treated for C. diff. Otherwise active doing gardening, taking care of her aldrich and doing housework. Breathing has been fine. No shortness of breath or chest pain. Chronic mild edema that is currently better than usual. No palpitations. Initial troponins 87, 177. Initial Cr 0.63, Na 138, K 3.9, WBC 7.9, Hgb 13.5, Plt 202. Initial BP 169/97. ECG sinus tachycardia with LBBB and PVCs. MRI brain 09/24/24 with multifocal posterior fossa acute infarct, most pronounced in superior right cerebellum. Carotid dopplers 09/25/24 with 60-79% right ICA stenosis, 40-59% left ICA stenosis. CTA head/neck 09/24/24 with ICA stenosis, no intracranial LVO. CT head 09/24/24 unremarkable. History of s/p TAVR 10/2022, MS, CAD, CABG 1998, HFpEF. Reported CABG and then multiple PCIs, butno prior cath or ischemic evaluation on file. Per office note 09/2022 she had a PCI to the LAD and ramus and OM around 08/2022. Subsequent TAVR here 10/2022. TTE 10/2023 with LVEF 60-65%, severe LVH, indeterminate diastology, reduced RV function, mild LAE, TAVR peak gradient 19, vmax 2.2, no AI, mild MR, moderate MS. Home cardiac related meds include bumex, plavix, jardiance, lisinopril, crestor. On exam RRR with 1-2/6 systolic murmur at the USB and LSB, no JVD, clear lungs, no edema. Blood pressure 121/75. Cr 0.54, Na 145, K 3.9, WBC 10.9, Hgb 13.6, Plt 189. Telemetry sinus with occasional PVCs. Current cardiac related meds include heparin gtt. Impression is here with acute stroke with left sided weakness that improved in ED. Then with recurrent symptoms and ongoing dysarthria. MRI with multifocal posterior fossa acute infarct, most pronounced in superior right cerebellum with carotid dopplers showing 60-79% right ICA stenosis, 40-59% left ICA stenosis. No intracranial LVO on CTA head/neck. No arrhythmias on telemetry. Troponins elevated without ischemic symptoms and overall picture more consistent wity type 2 IA related to stroke andnot ACS. Euvolemic. Plan: - Check additional troponin. - Check echocardiogram. - If additional troponin and echocardiogram are unremarkable, will defer further cardiac work-up atthis time as she is being treated for acute stroke. Fine to stop heparin gtt from cardiac perspective at this time. - Stroke recommendations per neurology. - Will see if we can get some of her outside cardiac records from the past year. Will follow along. Please call with any questions. Timur Parr MD [facility] Heart and Vascular documented in this encounter ED Notes * Mike Church RN - 09/24/2024 4:45 PM EDT Rn at bedside getting pt cleaned up and changed. * Angelica Mary - 09/24/2024 4:18 PM EDT Stroke team called * Feli Harper MD - 09/24/2024 4:13 PM EDT Chief Complaint Patient presents with Cerebrovascular Accident Left sided weakness, difficulty walking, and slurred speech. hard to wake up but a/o when awake. LWK approx 1500; phenergan 25mg en route 69-year-old white female with past medical history significant for asthma, CAD, CHF, COPD, diabetesmellitus, migraine headaches, status post TAVR, arrives per EMS after she developed the sudden onset of left-sided weakness with difficulty walking approximately an hour and a half prior to arrival. She states she was in her usual state of health prior to the onset of her symptoms. On arrival to the ED, she denies any complaints of pain. She denies headache, visual disturbance, difficulty swallowing, chest pain, shortness of breath, vertigo, syncope. She offers no other acute symptoms, and no other problems, concerns, precipitating factors were identified Fingerstick blood sugar was 181 mg/dL per EMS Past medical history--CAD, CHF, COPD, diabetes mellitus, migraine headaches, status post TAVR, hypertension, hyperlipidemia Social history--prior history of smoking, denies alcohol use Cerebrovascular Accident Associated symptoms: no abdominal pain, no chest pain, no diarrhea, no fever, no headaches, no nausea, no rash, no shortness of breath and no vomiting Patient History Allergies Allergen Reactions Adhesive Rash Home Medications: Prior to Admission medications Medication Sig Start Date End Date Last Dose Authorizing Provider albuterol (PROVENTIL HFA;VENTOLIN HFA) 90 mcg/actuation Inhl HFA Aerosol Inhaler Inhale 2 Puffs into the lungs every 6 hours as needed. Provider, Historical albuterol (PROVENTIL) 2.5 mg /3 mL (0.083 %) Inhl Solution for Nebulization Take 2.5 mg by nebulization every 6 hours as needed. Provider, Historical aspirin 81 mg Oral Tablet, Delayed Release (E.C.) Take 81 mg by mouth daily. Patient not taking: Reported on 10/23/2023 Provider, Historical bumetanide (BUMEX) 2 mg Oral Tablet Take 2 mg by mouth daily. Provider, Historical cephALEXin (KEFLEX) 500 mg Oral Capsule Take 500 mg by mouth every 6 hours. Provider, Historical clopidogreL (PLAVIX) 75 mg Oral Tablet Take 75 mg by mouth daily. Provider, Historical COMBIVENT RESPIMAT 20-100 mcg/actuation Inhl Mist Inhale 1 Puff into the lungs every 6 hours as needed. Provider, Historical empagliflozin (JARDIANCE) 10 mg Oral Tablet Take 10 mg by mouth daily. Provider, Historical fluticasone propionate (FLONASE) 50 mcg/actuation Nasl [place], Suspension 2 Sprays by Nasal route daily. Provider, Historical LEVOthyroxine (SYNTHROID) 150 mcg Oral Tablet Take 300 mcg by mouth daily. Provider, Historical lisinopriL (PRINIVIL;ZESTRIL) 5 mg Oral Tablet Take 5 mg by mouth daily. Provider, Historical metFORMIN (GLUCOPHAGE) 1,000 mg Oral Tablet Take 1,000 mg by mouth 2 times daily (with meals). Provider, Historical montelukast (SINGULAIR) 10 mg Oral Tablet Take 10 mg by mouth daily. Provider, Historical nitroGLYCERIN (NITROSTAT) 0.4 mg SL Tablet, Sublingual Place 0.4 mg under the tongue once. Provider, Historical Oxygen and Equipment MISCELLANEOU 1 Device by MISCELLANEOUS route once. 2-3 L continuously Provider, Historical pantoprazole (PROTONIX) 40 mg Oral Tablet, Delayed Release (E.C.) Take 1 Tablet by mouth daily. 10/21/22 Mj Bell APRN pioglitazone (ACTOS) 15 mg Oral Tablet Take 15 mg by mouth daily. Provider, Historical rosuvastatin (CRESTOR) 40 mg Oral Tablet Take 40 mg by mouth nightly. Provider, Historical spironolactone (ALDACTONE) 25 mg Oral Tablet Take 1 Tablet by mouth 2 times daily. Patient not taking: Reported on 10/23/2023 10/30/22 Neena Concepcion APRN torsemide (DEMADEX) 100 mg Oral Tablet Take 50 mg by mouth daily. Patient not taking: Reported on 10/23/2023 Provider, Historical TRULICITY 1.5 mg/0.5 mL SubQ Pen Injector once a week. Provider, Historical Past Medical History: Past Medical History: Diagnosis Date Arthritis Asthma Bladder problem Bronchitis, chronic (HCC) CAD (coronary artery disease) CHF (congestive heart failure) ([facility]) Chronic kidney disease COPD (chronic obstructive pulmonary disease) ([facility]) Diabetes mellitus ([facility]) Headache migraines Heart murmur Heartburn Hyperlipidemia Hypertension IA (myocardial infarction) ([facility]) 12/13/1998 Motion sickness Oxygen dependent 2-3 L continuously Pneumonia 2021 Pulmonary emphysema ([facility]) Shortness of breath Sleep apnea can not wear Cpap Thyroid disease Social History: reports that she quit smoking about 48 years ago. Her smoking use included cigarettes. She has never used smokeless tobacco. She reports that she does not drink alcohol and does not use drugs. E-Cigarettes (such as Vapes or Juul) E-Cigarette Use Never User Family History: Family History Problem Relation Age of Onset Kidney Disease Mother Cancer Mother breast, throat Diabetes Father Heart Disease Father Unknown Sister Heart Disease Brother COPD Brother Seizures Daughter Anesth Problems Neg Hx Surgical History: Past Surgical History: Procedure Laterality Date AORTIC VALVE REPLACEMENT N/A 10/19/2022 Transcatheter aortic valve replacement with echocardiogram and [place]; Surgeon: Alfred Greenberg MD;Location: [facility] MAIN OR; Service: Open Heart CARDIAC CATHETERIZATION CARDIAC SURGERY stents x4 CHOLECYSTECTOMY DENTAL SURGERY full teeth extracted TUBAL LIGATION Review of Systems Review of Systems Constitutional: Negative for chills, diaphoresis and fever. HENT: Negative. Eyes: Negative. Respiratory: Negative for shortness of breath. Cardiovascular: Negative for chest pain and palpitations. Gastrointestinal: Negative for abdominal pain, diarrhea, nausea and vomiting. Genitourinary: Negative for flank pain. Musculoskeletal: Negative for back pain and neck pain. Skin: Negative for rash. Neurological: Positive for weakness. Negative for dizziness, syncope and headaches. Psychiatric/Behavioral: Negative for confusion. All other systems reviewed and are negative. Physical Exam Pulse 87, resp. rate (!) 25, weight 173 lb 9 oz (78.7 kg), SpO2 91%. Physical Exam Vitals and nursing note reviewed. Constitutional: General: She is not in acute distress. Appearance: She is well-developed. Comments: Overweight but otherwise well-developed elderly white female in no apparent distress HENT: Head: Normocephalic and atraumatic. Right Ear: Tympanic membrane normal. Left Ear: Tympanic membrane normal. Mouth/Throat: Mouth: Mucous membranes are moist. Pharynx: Oropharynx is clear. Eyes: Extraocular Movements: Extraocular movements intact. Conjunctiva/sclera: Conjunctivae normal. Pupils: Pupils are equal, round, and reactive to light. Neck: Vascular: No carotid bruit. Cardiovascular: Rate and Rhythm: Normal rate and regular rhythm. Pulses: Normal pulses. Heart sounds: Normal heart sounds. Pulmonary: Effort: Pulmonary effort is normal. Breath sounds: Normal breath sounds. Abdominal: General: Bowel sounds are normal. Palpations: Abdomen is soft. Tenderness: There is no abdominal tenderness. Comments: Large, soft, nontender Musculoskeletal: General: No tenderness. Cervical back: Normal range of motion and neck supple. Skin: General: Skin is warm and dry. Capillary Refill: Capillary refill takes less than 2 seconds. Neurological: Mental Status: She is alert. Comments: Patient is awake, alert, oriented to person/place/time. Responds appropriate to simple questions and commands. Patient is a dentulous, but there appears to be a slight decrease in the left nasolabial fold. No sensory deficits. Patient has 4/5 strength to the left upper extremity with 3/5 strength to the left lower extremity. Psychiatric: Mood and Affect: Mood normal. Procedures EK EKG 12 LEAD ED Interpretation by Feli Harper MD (09/24 1653) EKG shows sinus rhythm at 85 bpm. First-degree AV block. Normal axis. Nonspecific IVCD with no evidence of acute injury or ischemia. Frequent unifocal PVCs Radiology/EKG/Labs: Results for orders placed or performed during the hospital encounter of 09/24/24 CT HEAD STROKE PROTOCOL Narrative CT HEAD STROKE PROTOCOL 09/24/2024 4:31 PM CLINICAL HISTORY: -Stroke protocol. Stroke symptoms. COMPARISON: None. PROCEDURE COMMENTS: Stroke protocol head CT. Multiplanar MIPS. Dose 1 : CT DLP Total : 1604.47 mGycm DLP Spiral Max : 891.65 mGycm Maximum CTDI Vol : 47.28 mGy FINDINGS: Normal ventricles. No evidence of acute stroke, mass, or hemorrhage. No fracture or extra-axial collection. No hyperdense vessel segments. ASPECTS SCORE: 10. Included portions of the paranasal sinuses, mastoids, and orbits unremarkable. Impression No acute intracranial abnormality. Direct communication performed per protocol by report author. Notification type: Telephone call center operations manager notified: FELI HARPER Approximate time of notification: 09/24/2024 4:[address] ANGIOGRAM HEAD AND NECK STROKE PROTOCOL Narrative CTA HEAD AND NECK WITH CONTRAST, STROKE PROTOCOL, 09/24/2024 4:32 PM CLINICAL HISTORY: -stroke protocol. COMPARISON: None. PROCEDURE COMMENTS: Isovue 370 IV contrast given as recorded in EPIC. Subsequently, multi-detector helical scanning performed and multiplanar reconstructions generated per protocol. Review included 3D MIP reconstructions. FINDINGS: CTA NECK: ARCH: No aneurysm. The arch is not well opacified. RIGHT CAROTID SYSTEM: Right common carotid artery and proximal IVC is not well opacified. This limits evaluation for carotid stenosis. Atherosclerotic plaque near circumferentially at the right ICA origin is present. Repeat study to assess for ICA stenosis warranted. Distal to the origin, there is acceptable opacification of the mid to distal ICA which otherwise appears widely patent along its course. LEFT CAROTID SYSTEM: The left common and proximal internal carotid artery is not well opacified. There is extensive calcification at the origin of the left ICA, however poor vessel opacification limits evaluation of the degree of stenosis. Again repeat study to assess for ICA stenosis is warranted. Distal to the origin, there is acceptable opacification of the ICA which appears otherwise patent along its course. VERTEBRAL ARTERIES: Limited evaluation proximally. Distally the vessels are patent, no aneurysm or occlusion. CTA HEAD: The intracranial arteries all well opacified. There is no flow limiting stenosis, LVO, or aneurysm. OTHER: Lung apices appear clear. No neck mass is identified. No acute osseous abnormality. Impression 1. Limited evaluation of the proximal carotid arteries and proximal vertebral arteries due to poor opacification. Potentially significant bilateral proximal ICA stenosis. Repeat study to assess for ICA stenosis is warranted. 2. Intracranial arteries are diagnostically evaluated. No intracranial large vessel occlusion or aneurysm. 3. This scan was analyzed using ContaCT ( LVO), using -based computer-aided triage to detect the presence of a suspected large vessel occlusion (LVO). - Note: Radiology results need to be interpreted within a comprehensive clinical context. If you have questions about the radiology report, please contact the office of the ordering clinician. NASCET criteria used for estimates of stenosis. This scan was analyzed using Viz ContaCT (Viz LVO), using AI-based computer-aided triage to detect the presence of a suspected large vessel occlusion (LVO). CBC Result Value Ref Range WBC 7.9 3.7 - 10.3 x10(3)/mcL RBC 5.08 3.90 - 5.20 x10(6)/mcL Hgb 13.5 11.2 - 15.7 g/dL Hct 41.2 34.0 - 45.0 % MCV 81.1 80.0 - 100.0 fL MCH 26.6 26.0 - 34.0 pg MCHC 32.8 30.7 - 35.5 g/dL RDW 15.2 (H) <=14.9 % Platelet 202 155 - 369 x10(3)/mcL MPV 10.9 8.8 - 12.5 fL TROPONIN-T HIGH SENSITIVITY BASELINE W/ REFLEX Result Value Ref Range kw-yVcpaxbae-C 87 (H) <14 ng/L Narrative Ingestion of mindy doses of biotin (>5 mg/day) taken within 8 hours of drawing blood sample can interfere with this immunoassay test. BASIC METABOLIC PANEL Result Value Ref Range Sodium 138 136 - 145 mmol/L Potassium Chloride 101 98 - 107 mmol/L Total CO2 25 22 - 29 mmol/L Anion Gap 12 7 - 16 mmol/L Calcium 8.9 8.8 - 10.4 mg/dL Glucose Lvl 147 (H) 70 - 99 mg/dL BUN 20 8 - 23 mg/dL Creatinine 0.63 0.51 - 1.30 mg/dL eGFR (CKD-EPIcr 2020) 95 >=60 mL/min/1.73 m2 PT / INR Result Value Ref Range PT 11.3 10.5 - 13.6 second(s) INR 0.98 0.91 - 1.18 (ratio) PARTIAL THROMBOPLASTIN TIME Result Value Ref Range PTT 32.7 25.7 - 36.8 second(s) UA W/REFLEX TO CULTURE Specimen: Urine Narrative The following orders were created for panel order UA W/REFLEX TO CULTURE. Procedure Abnormality Status --------- ------ URINALYSIS REFLEX[[id number]] EXTRA SCHULZ URINE CX[[id number]] Please view results for these tests on the individual orders. POTASSIUM REPEAT Result Value Ref Range Potassium 3.9 3.5 - 5.0 mmol/L GLUCOSE METER POC Result Value Ref Range Glucose Meter POC 167 (H) 70 - 100 mg/dL Sample Type Capillary Patient Status Non-Critical Patient EK EKG 12 LEAD Narrative NOTICE: Preliminary tracing available for review; Final Interpretation by physician to follow. 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1955 Requested By: FELI Nunez Order Number: [id number] Reading MD: Measurements Intervals [place] Rate: 85 P: 74 HI: 232 QRS: 76 QRSD: 122 T: 10 QT: 390 QTc: 465 Interpretive Statements SINUS RHYTHM WITH FIRST DEGREE AV BLOCK WITH FREQUENT VENTRICULAR PREMATURE COMPLEXES LEFT ATRIAL ENLARGEMENT [-0.15mV P WAVE IN V1/V2] ANTEROSEPTAL MYOCARDIAL INFARCTION [40+ ms Q WAVE IN V1-V4], OF INDETERMINATE AGE ED Course: Appropriate laboratory and radiology studies reviewed ED Course as of 09/24/241636 Feli Harper's Documentation SunSep 24, 2024 1636 Upon reassessment of the patient, it was determined that she had been given IV Phenergan per EMS prior to arrival. On repeat neurologic testing at 1636 hrs., the patient has symmetrical 4+/5 strength to her bilateral lower extremities. She can hold both legs off the bed individually for a count of 10. 4+ strength to the left upper extremity with mild apraxia with the left hand. No discernible facial droop at this time Patient was seen immediately upon her arrival secondary to concern for possible CVA. On initial exam, she had left-sided weakness and following her initial evaluation I did discuss the case with the physician on-call for the stroke team. Based on her left arm and left leg weakness, initial plans were to initiate treatment with TNK. However, shortly thereafter upon my reassessment of the patient, she had equal symmetrical strength of her lower extremities with only mild weakness/apraxia of the left upper extremity. No obvious facial droop. Based on his rapid improvement in her symptoms, I did not feel that it was appropriate to administer TNK. Stroke team physician also agrees with this diego e in plan. Diagnostic studies as noted above. Patient presents with a sudden onset of left-sided weakness that has been improving since she has been in the ED. She was somewhat drowsy at times, whichI feel is likely secondary to the IV Phenergan that was administered per EMS. I explained to the patient and her that the concern for possible CVA versus TIA remains and I recommended admission to the hospital for additional diagnostic studies and restratification. Both agree with this planof care. Case was discussed with the hospitalist who agrees to admit the patient to TCU ED Clinical Impression: #1 left-sided weakness 2. TIA versus CVA Critical Care time Critical care was administered to the patient for 40 minutes. This time excludes procedure time. MDM Medical Decision Making Amount and/or Complexity of Data Reviewed Labs: ordered. Independent interpretation of EKG History obtained by patient, EMS, patient's Care of patient discussed with nursing team and nursing documentation reviewed I reviewed diagnosis and treatment plan with the patient/family No relevant social determinants of health that may affect care were identified I reviewed the EMR for recent diagnostic studies and provider notes I prescribed appropriate medications/treatment for suspected diagnosis and reviewed precautions of using such medications [facility] report reviewed as indicated Condition at Discharge/Transfer from Department: Stable This chart was completed using voice recognition technology and may contain unintended errors Feli Harper MD 09/24/247 documented in this encounter Miscellaneous Notes * Query Response Document - Vicenta Bell APRN - 10/02/2024 3:[address] [facility] Manual Queries PATIENT: SUNITA TRENT : 1955 ADMIT DATE: 09/24/2024 8:13 PM DISCH DATE: 10/02/2024 7:34 PM NOTE: The following manual queries assigned to Vicenta Bell APRN on 10/11/2024 7:13 AM. QUERY TEXT: CDI Query To view the encounter for this patient, click the patient's name highlighted in blue. The purpose of this query is to clarify the significance of clinical indicators noted in the record. Admitted with stroke on 09/24 Treatment included: Glucerna Therapeutic, Magic Cup, monitoring Please indicate or specify any significant condition treated, monitored, or evaluated: The patient's clinical indicators include: 09/29 Nutrition Malnutrition Reassessment Evidence Supported Diagnosis: Mild protein-calorie malnutrition Indicators: Acute Illness Indicators: < or equal to 50% energy intake compared to estimated energy needs for> or equal to 5 days PLEASE ALSO DOCUMENT DIAGNOSIS IN PROVIDER NOTES AND D/C SUMMARY This electronic query and response is a permanent part of the medical record. Please do not update the Problem List as your response. The Problem List is dynamic and is not a permanent part of this Date of Service. An unanswered query is considered a non-response. Thank you for your assistance. (For questions or assistance please contact Sony Rojas, CDI Car Repairer Helper [phone]) Query created by: Nicky Beck on 09/29/2024 5:00 PM * Query Response Document - Troy Leary DO - 10/02/2024 3:[address] [facility]I / [facility] Coding Query Documentation PATIENT: SUNITA TRENT : 1955 ADMIT DATE: 09/24/2024 4:13 PM DISCH DATE: 10/02/2024 3:34 PM RESPONDING PROVIDER #: [id number] PROVIDER QUERY RESPONSE TEXT: NSTEMI type I is an accurate clinical diagnosis CDI / HIM Coding QUERY TEXT: Retrospective Query The purpose of this query is to clarify the accuracy of conflicting documented diagnoses. To view the encounter for this patient. click the patient's name highlighted in blue. Admitted with new stroke, newly diagnosed systolic CHF, and elevated troponins Treatment included: ECHO, cardiology consult, continuation of cardioprotective medications (ASA/statins), Plan for [facility] as outpatient Please indicate or document any accurate clinical diagnosis/diagnoses: The patient's clinical indicators include: -LABS: Troponins 87 (09/24/24) >>269 (09/25/24) this admission -ECHO 09/25/24: Left ventricular function is moderately reduced with an estimated ejection fraction of 35-40% -EKG nondiagnostic on admission Attending Progress Notes: 09.25.24 - CAD with elevated troponins .02.10 - 10.01.24 - CAD with NSTEMI Heart & Vascular Progress Notes 09.26.24 - Likely NSTEMI type I Discharge Summary: Type 2 myocardial infarction (HCC) PLEASE ALSO DOCUMENT DIAGNOSIS IN NOTES AND/ OR D/C SUMMARY? ? This electronic query and response are a permanent part of the medical record. Please do not updatethe Problem List as your response. The Problem List is dynamic and is not a permanent part of this Date of Service.? An unanswered query is considered a non-response.? ? Thank you for your assistance.? (For any questions, please contact Bong Angela Era @ [phone]) Options provided: -- NSTEMI type I is an accurate clinical diagnosis -- NSTEMI type II is an accurate clinical diagnosis -- Other - I will add my own diagnosis -- Disagree - Not applicable / Not valid Query created by: Cherie Lynn on 10/09/2024 7:50 AM Electronically signed by: Troy Leary DO 10/11/2024 10:34 AM * Plan of Care - Marley Vásquez CCC-BOAT ENGINES INSTALLER - 09/27/2024 11:57 AM EDT Cognitive/Communication Evaluation Speech Pathology Cognitive/Communication Evaluation completed. Impression: Pt assessed informally this date through conversation and direct question and answer. Pt with severe dysarthria. Speech was mostly unintelligible even in a quiet environment. Pt's dominant hand affected and she was unable to write legibly with non-dominant hand. Pt had better success using alphabet board to spell but still needed max verbal and tactile cues to successfully use it. Short term memory was 67% for recall of information after 5 minutes. She was oriented to self, situation, and general location. Attention was WNL. Problem solving and language were not able to be fully assessed due to such severe dysarthria. Deficits identified have the potential to negatively impact safety, independence, socialization, and the ability to communicate needs/wants if not addressed in speech therapy. Recommendations: Communication Strategies: Ask yes/no questions, Cue patient to speak loud/over enunciate, Use communication board, Provide glasses ST POC: 3-5x/wk Cognitive/Communication rehab, Dysphagia management 09/27/24 1151 Communication/Cognitive Evaluation (CCE) Patient Seen Today? Yes Note Type Evaluation Time In 1128 Time Out 1151 Admitting Diagnosis left sided weakness/CVA Speech Therapy Related Diagnosis R47.1 Dysarthria Date of onset 09/24/24 Pertinent and Past Medical History ashtma, COPD, pulmonary emphysema, SOP, PNA, chronic broncitis, O2 dependent, HTN, IA, CAD, CHF, heartburn, DM, thyroid disease Recent Imaging Chest XR CHEST AP PORTABLE, 09/26/2024 9:26 AM CLINICAL HISTORY: - SOB COMPARISON: 10/16/2022. PROCEDURE COMMENTS: AP portable technique. FINDINGS: Stable radiographic appearance of the heart and pulmonary vascular structures. Diffuse bilateral scattered airspace opacities. Developing inflammatory lung process should be considered. No pleural effusions. Impression: Bilateral diffuse scattered airspace opacities. No pleural effusions. Recent Imaging Head MRI BRAIN WITHOUT CONTRAST, 09/24/2024 9:16 PM CLINICAL HISTORY: -L sided weakness. COMPARISON: None. PROCEDURE COMMENTS: Multiplanar multiecho MR imaging of the brain including standard spin echo and diffusion sequences. FINDINGS: There are multifocal areas of punctate restricteddiffusion in the posterior fossa involving both RIGHT and LEFT cerebellum. The most prominent area of involvement is in the superior and medial RIGHT cerebellum extending to the cerebellar vermis butthere are punctate foci of restricted diffusion in the LEFT cerebellum as well. On the ADC map these show low signal and on the FLAIR sequence these areas are very difficult to appreciate. No compression of the fourth ventricle. Ventricles normal in size. Atrophy and small vessel ischemic white matter change is present Included portions of the paranasal sinuses, mastoids, and orbits unremarkable.Impression: Multifocal posterior fossa acute appearing infarcts most pronounced in the superior RIGHT cerebellum Speech Therapy Personal Protective Equipment Gloves Pain Scale 0-10 No non-verbal indicators of pain present Assistive Devices Glasses Dentition Edentulous Behavior/Alertness Awake/Alert;Attentive;Cooperative;Follows commands;Pleasant Prior level of function Independent with ADLs Cognition Arousal/Alertness Appropriate responses to stimuli Attention Span WFL Memory Decreased short term memory Orientation Level Oriented to person;Oriented to place;Oriented to situation Divergent Naming 4-7 - Severe Processing Speed WFL Awareness of Errors Awareness of some problems or major limitations Social Language Pragmatics No impairment Intonation WFL Response Length WFL Topic Initiation WFL Topic Maintenance WFL Turn Taking WFL Receptive Language Yes/No Questions WFL One Step Basic Commands WFL Conversation WFL Expressive Language Primary Mode of Expression Verbal Social Greeting WFL Automatic speech tasks WNL Repetition No impairment Dysarthria Breath Support Adequate for speech Phonation Quality Breathy Phonation Duration WNL Loudness WNL Articulation Errors with bilabials;Errors with alveolars;Errors with velars;Errors with sibilants;Errors with affricates;Errors with glides;Errors with s-blends;Errors with l blends Intelligibility Words Severe Intelligibility Sentences Severe Intelligibility Conversation Severe Prosody WFL Results/Recommendations Dysarthria Severe Results discussed with Patient Patient and/or Family Goal To talk to her , [place] Patient/Family Education Completed Yes Communication strategies Ask yes/no questions;Cue patient to speak loud/over enunciate;Use communication board;Provide glasses 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 High frequency, high intensity multi-disciplinary therapy for 15 hours per week Frequency/Follow up 3-5x/wk Treatment Interventions Cognitive/Communication rehab;Dysphagia management Time for Goal Achievement/Duration of Treatment 2 weeks Motor Speech Goals & Performance GOAL: Patient will complete volitional oral movements with Maximum;Verbal cues;Visual cues;Tactile cues;100% accuracy PERFORMANCE: Patient completed volitional oral movements with To be addressed GOAL: Patient will produce monosyllabic words with Maximum;Verbal cues;Visual cues;Tactile cues;100% accuracy PERFORMANCE: Patient produced monosyllabic words with To be addressed GOAL: Patient will produce polysyllabic words with Maximum;Verbal cues;Visual cues;Tactile cues;100% accuracy PERFORMANCE: Patient produced polysyllabic words with To be addressed GOAL: Patient will produce phrases with Maximum;Verbal cues;Visual cues;Tactile cues;100% accuracy PERFORMANCE: Patient produced phrases with To be addressed Cognitive-Communication Goals & Performance GOAL: Patient will demonstrate use of internal/external memory strategies with Moderate;Verbal cues;Visual cues;100% accuracy PERFORMANCE: Patient demonstrated use of internal/external memory strategies with To be addressed GOAL: Patient will demonstrate delayed recall of functional information to increase functional integration into ADL's with Moderate;Verbal cues;Visual cues;100% accuracy PERFORMANCE: Patient demonstrated delayed recall of functional information to increase functional integration into ADL's with To be addressed This note is to serve as discharge summary if no further Speech services are provided before being discharged from the hospital. * Plan of Care - Juliet Carlisle MA CCC-BOAT ENGINES INSTALLER - 09/26/2024 12:45 PM EDT Modified Barium Swallow (MBS) Speech Pathology MBS completed. Pt awake and alert; severely decreased intelligibility of speech; follows directives; impulsive with intake. Impression: Patient presents with moderate oropharyngeal dysphagia in the setting of new CVA. Oral phase was significant for preswallow spillage of thin liquids and piecemeal/oral residue with soft solids. Pharyngeal phase was significant for incomplete laryngeal vestibule closure , delayed swallow initiation , and reduced BOT retraction complicated by delayed laryngeal vestibule closure resulting in observed laryngeal penetration and overt aspiration of thin liquids occurring during the swallow; cough was elicited but was weak and ineffective in clearing aspiration. Pt with laryngeal penetration with mildly thick which did not fully clear laryngeal vestibule despite cued cough and re-swallow and laryngeal penetration of moderately thick liquids via teaspoon which did not fully clear laryngeal vestibule despite cued cough. The aforementioned deficits also result in trace to mild base oftongue residue. Chin tuck was effective in eliminating laryngeal penetration with moderately thick l iquids by teaspoon only; was not effective in preventing laryngeal penetration/aspiration with thinand mildly thick liqudis; spontaneous extra swallow was effective in eliminating pharyngeal residue. Esophageal screen was significant for esophageal retention with backflow that remains below the PES . Recommending puree with moderately thick liquids. Patient was educated on results and recommendations. Pt demonstrated understanding. Patient is at an increased risk of aspiration. Will continue to follow to address compensatory strategies and therapeutic exercises as listed below to improve swallow safety and efficiency. Recommendations: Pureed PU4, Moderately Thick MO3 Liquids Teaspoon only Medication administration: Crushed in puree Assistance/Supervision: Needs constant supervision during self-eating, Cue patient for swallowing strategies Monitor diet tolerance, Advance diet at bedside per BOAT ENGINES INSTALLER, Strict oral care, Pt/caregiver education, Decrease distractions Chin tuck, Multiple swallows, One sip/ bite at a time, Slow rate, Upright positioning [address] POC: Complete CCE 09/26/24 1225 Modified Barium Swallow (MBS) Patient Seen Today? Yes Note Type Evaluation Time In 919 Time Out 937 Admitting Diagnosis left sided weakness/CVA Speech Therapy Related Diagnosis R13.12 Dysphagia oropharyngeal phase Date of onset 09/24/24 Pertinent and Past Medical History ashtma, COPD, pulmonary emphysema, SOP, PNA, chronic broncitis, O2 dependent, HTN, IA, CAD, CHF, heartburn, DM, thyroid disease Recent Imaging Chest XR CHEST AP PORTABLE, 09/26/2024 9:26 AM CLINICAL HISTORY: - SOB COMPARISON: 10/16/2022. PROCEDURE COMMENTS: AP portable technique. FINDINGS: Stable radiographic appearance of the heart and pulmonary vascular structures. Diffuse bilateral scattered airspace opacities. Developing inflammatory lung process should be considered. No pleural effusions. Impression: Bilateral diffuse scattered airspace opacities. No pleural effusions. Recent Imaging Head MRI BRAIN WITHOUT CONTRAST, 09/24/2024 9:16 PM CLINICAL HISTORY: -L sided weakness. COMPARISON: None. PROCEDURE COMMENTS: Multiplanar multiecho MR imaging of the brain including standard spin echo and diffusion sequences. FINDINGS: There are multifocal areas of punctate restricteddiffusion in the posterior fossa involving both RIGHT and LEFT cerebellum. The most prominent area of involvement is in the superior and medial RIGHT cerebellum extending to the cerebellar vermis butthere are punctate foci of restricted diffusion in the LEFT cerebellum as well. On the ADC map these show low signal and on the FLAIR sequence these areas are very difficult to appreciate. No compression of the fourth ventricle. Ventricles normal in size. Atrophy and small vessel ischemic white matter change is present Included portions of the paranasal sinuses, mastoids, and orbits unremarkable.Impression: Multifocal posterior fossa acute appearing infarcts most pronounced in the superior RIGHT cerebellum Pain Scale 0-10 0 Behavior/Alertness Awake/Alert;Attentive;Cooperative;Follows commands;Impulsive;Pleasant Prior level of function Independent with ADLs Speech/Language Evidence of cognitive impairment;Evidence of dysarthria Dentition Edentulous Pertinent allergies None per chart review Current Diet NPO Diet prior to admit Regular;Thin Liquids Preferred Mode of Liquid Presentation Cup & Straw Previous MBS none Previous FEES none Secretion Management WFL Oral And Cranial Nerve Assessment CN VII Facial Facial droop L Respiratory Respiratory status Yes Nasal Cannula (LPM) 2 History of Intubation w/ this admit No MBS Consistencies Presented MBS Consistencies Assessed Yes Thin Teaspoon;Assisted Feeding Mildly Thick MT2 Teaspoon;Straw;Single sips;Assisted Feeding Moderately Thick MO3 Assisted Feeding;Teaspoon Pureed PU4 Assisted Feeding Minced & Moist MM5 Assisted Feeding Soft & Bite-Sized SB6 Assisted Feeding Easy To Chew EC7 Fed self Oral Phase Impaired preparation/mastication yes Impaired preparation/mastication Soft Solid Slow prolonged chewing/mashing Piecemeal of bolus Easy To Chew EC7;Extremely Thick EX4 Oral Residue yes Oral Residue Thin Residue collection on oral structures Oral Residue Mildly Thick MT2 Residue collection on oral structures Oral Residue Moderately Thick MO3 Residue collection on oral structures Oral Residue Pureed PU4 Trace residue lining oral structures Oral Residue Minced & Moist MM5 Trace residue lining oral structures Oral Residue Easy To Chew EC7 Residue collection on oral structures Oral phase results Impaired Pharyngeal Phase Initiation of pharyngeal swallow yes Initiation of swallow Thin Pyriform sinus;Delayed Initiation of swallow Mildly Thick MT2 Pyriform sinus;Delayed Initiation of swallow Moderately Thick MO3 Delayed;Pyriform sinus Initiation of swallow Pureed PU4 Laryngeal surface of epiglottis Initiation of swallow Minced & Moist MM5 Vallecula Initiation of swallow Soft & Bite-Sized SB6 Vallecula Initiation of swallow Easy To Chew EC7 Vallecula Reduced laryngeal vestibule closure Thin;Mildly Thick MT2;Moderately Thick MO3 Reduced tongue base retraction All consistencies assessed Pharyngeal phase results Impaired Post Swallow Residue Pharyngeal Residue Yes Pharyngeal residue Thin Base of Tongue;Trace;Able to clear residue Pharyngeal residue Mildly Thick MT2 Base of Tongue;Mild;Trace;Able to clear residue Pharyngeal residue Moderately Thick MO3 Base of Tongue;Mild;Able to clear residue Pharyngeal residue Pureed PU4 Trace;Base of Tongue;Able to clear residue Rosenbek Pen/Asp Scale Thin assessed Yes Thin Teaspoon Material enters airway below TVFs and is NOT ejected depite effort Mildly Thick MT2 assessed Yes Mildly Thick Straw Material enters airway above TVFs and is NOT ejected;Material enters airway to TVFs and is NOT ejected Moderately Thick MO3 assessed Yes Moderately Thick Teaspoon Material enters airway above TVFs and is NOT ejected Compensatory Strategies/ Maneuvers Effective chin tuck position;multiple swallows;bolus presentation style Not Effective 3 second prep;cued throat clear/cough Esophageal Esophageal Stage Viewed Proximal;Mid;Distal Esophageal Results Esophageal retention Results/ Recommendations MBS Impression Moderate;Oropharyngeal dysphagia Diet Recommendations Pureed PU4;Moderately Thick MO3 Liquids Liquid Presentation Teaspoon only MBS Strategies/Maneuvers Chin tuck;Multiple swallows;One sip/ bite at a time;Slow rate;Upright positioning 90 degrees Additional Recommendations Monitor diet tolerance;Advance diet at bedside per BOAT ENG[employer]ES INSTALLER;Strict oral care;Pt/caregiver education;Decrease distractions Assistance/Supervision Needs constant supervision during self-eating;Cue patient for swallowing strategies Medication administration Crushed in puree Results discussed with Patient;Nursing Patient and/or Family Goal to have some water Patient/Family Education Completed Yes 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 High frequency, high intensity multi-disciplinary therapy for 15 hours per week Frequency/Follow up Complete CCE Treatment Interventions Dysphagia management Instrumental Swallowing Goals & Performance GOAL: Patient will use compensatory strategies to improve swallow safety and efficiency with Minimal;Verbal cues;Visual cues;Chin tuck;Multiple swallows;One sip/ bite at a time PERFORMANCE: Patient used compensatory strategies to improve swallow safety and efficiency with To be addressed GOAL: Patient will complete swallowing exercises to improve Laryngeal vestibule closure;Minimal;Verbal cues PERFORMANCE: Patient completed swallowing exercises To be addressed;Effortful swallow;x10;Minimal GOAL: Patient will progress to advanced diet Easy To Chew EC7;Thin liquids PERFORMANCE: Patient progressed to advanced diet To be addressed GOAL: Patient/caregiver will demonstrate understanding of results, recommendations of the instrumental study with Minimal;Verbal cues;Visual cues;90% accuracy PERFORMANCE: Patient/caregiver demonstrated understanding of results, recommendations of the instrumental study with To be addressed GOAL: Patient/caregiver will demonstrate understanding of risks of aspiration and risks associated with aspiration with Minimal;Verbal cues;Visual cues;90% accuracy PERFORMANCE: Patient/caregiver demonstrated understanding of risks of aspiration and risks associated with aspiration with To be addressed Additional References: Dynamic Imaging Grade of Swallowing Toxicity (DIGEST) Efficiency Grade: Safety Grade 0 PAS 1-2 all 1 PAS 3-4 any; 5-8 single or trace 2 PAS 5-6 intermittent/chronic; 7-8 int' &not gross 3 PAS 7-8 chronic, not gross OR gross, not chronic 4 PAS 7-8; chronic & gross 0 (Residue <10%) 0 1 2 3 3 1 (Residue 10-49%) 1 1 2 3 3 2 (Residue >50% solids) 1 2 2 3 3 3 (Residue >50% non-solids; or >90% some) 2 2 3 3 4 4 (Residue >90% all) 3 3 3 4 4 Overall DIGEST Score: 0=Normal Swallowing 1= Mild/Early Dysphagia 2= Moderate Dysphagia 3=Severe Dysphagia 4= Life Threatening Dysphagia Frequency/pattern of PAS If max PAS >=3, PAS 3-4, 5-6 or 7-8 occurred: Amount of PAS If max PAS >=5, amount of bolus on or below TVF based on worst performance on any single bolus: *Single event *Single + (max PAS 7-8 only) *Intermittent (on multiple but < 50% of trials on a single consistency) *Chronic (majority [>=50%] of thin liquid trials and/or on >1 consistency *Trace (resembles faint coating, droplets or trickle of bolus on/below TVF) *Neither trace nor gross *Gross (>25% of bolus volume) Ref: Dynamic Imaging Grade of Swallowing Toxicity (DIGEST) outcome [17]. https://doi.org/10.1371/jounral.pone.4165632.g002 This note is to serve as discharge summary if no further Speech services are provided before being discharged from the hospital. * Critical Result Value - Ana Grider RN - 09/25/2024 7:52 PM EDT Sunita Twan [id number], 1955 09/25/2024 Test Name/Result: new baseline trop 262 Time: 1952 Caller/Exchange Floor Manager: Hafsa arshad R/V Time: 1956 On chart for review-Reason not called: Critical Value improving from 269 to 262 * Critical Result Value - Aditya Augustin RN - 09/25/2024 5:11 PM EDT Sunita Trent [id number], 1955 09/25/2024 Test Name/Result: Troponin 269 Delta 14 Time: 1700 Caller/Exchange Floor Manager: Hafsa Danielle/Aditya AR/V Action Taken: Communicated with provider via Secure Chat Time: 1712 Notified Physician/Physician Designee: Haley Hernandez NPR/V * Critical Result Value - Rommel Neff RN - 09/25/2024 2:32 PM EDT Sunita Trent [id number], 1955 09/25/2024 Test Name/Result: Troponin/ 255 Time: 1432 Caller/Exchange Floor Manager: Hafsa Danielle/ Rommel Stoner RN R/V Action Taken: Communicated with provider via Secure Chat Time: 1432 Notified Physician/Physician Designee: [place] 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 Pt admitted with left sided weakness; per MRI pt with CVA. Pt awake/alert; dysarthria of speech noted with decreased speech intelligibility. Pt on O2 2L, appears with WOB. Per PMH pt on cronic O2, however pt/family deny use of baseline O2. Pt impulsive t/o exam. Pt/family report MD gave sips of thin liquids earlier this day which resulted in cough/anterior loss of bolus. Impression: Patient demonstrated Patient presents with increased risk of oropharyngeal dysphagia secondary to CVA. Cranial nerve and laryngeal function exam concerning for impairment of CNV (reduced labial/facial sensation on L, reduced mastication), CNVII (L facial droop), CNX (dysarthria, weak volitional cough), CNXII (tongue deviation to L). Clinical signs of aspiration observed with ice chips and thin liquids; immediate/significant cough following intake of thin liquids, small sip by straw and delayed cough following ice chip trial 1/2. No s/s were noted with puree. Pt with anterior loss of thin liquids. Patient/family/RN were educated on results and recommendations; they expressed understanding. Recommend NPO and obtain MBS. A MBS is warranted to further evaluate pharyngeal swallow function, trial compensatory strategies and to determine specific targets for treatment. Recommendations: NPO, Non-oral hydration Medication administration: Non-oral Assistance/Supervision: Referrals: ST POC: Complete MBS (needs CCE eval) 09/25/24 1331 Clinical Swallow Evaluation (CSE) Patient Seen Today? Yes Note Type Evaluation Time In 1305 Time Out 1324 Admitting Diagnosis left sided weakness (with CVA) Speech Therapy Related Diagnosis R13.10 Dysphagia unspecified Date of onset 09/24/24 Pertinent and Past Medical History ashtma, COPD, pulmonary emphysema, SOP, PNA, chronic broncitis, O2 dependent, HTN, IA, CAD, CHF, heartburn, DM, thyroid disease Recent Imaging Chest none this admit Recent Imaging Head MRI BRAIN WITHOUT CONTRAST, 09/24/2024 9:16 PM CLINICAL HISTORY: -L sided weakness. COMPARISON: None. PROCEDURE COMMENTS: Multiplanar multiecho MR imaging of the brain including standard spin echo and diffusion sequences. FINDINGS: There are multifocal areas of punctate restricteddiffusion in the posterior fossa involving both RIGHT and LEFT cerebellum. The most prominent area of involvement is in the superior and medial RIGHT cerebellum extending to the cerebellar vermis butthere are punctate foci of restricted diffusion in the LEFT cerebellum as well. On the ADC map these show low signal and on the FLAIR sequence these areas are very difficult to appreciate. No compression of the fourth ventricle. Ventricles normal in size. Atrophy and small vessel ischemic white matter change is present Included portions of the paranasal sinuses, mastoids, and orbits unremarkable.Impression: Multifocal posterior fossa acute appearing infarcts most pronounced in the superior RIGHT cerebellum Others Present/Assisting family/RN assisted to upright in bed Pain Scale 0-10 0 Assistive Devices Glasses Behavior/Alertness Awake/Alert;Attentive;Cooperative;Confused;Follows commands;Pleasant;Impulsive Prior level of function (family reports pt driving prior to CVA; reports pt lives with boyfriend) Speech/Language Evidence of cognitive impairment;Evidence of dysarthria Patient Positioning Upright in bed Dentition Edentulous (pt does not wear dentures for intake baseline) Pertinent allergies None per chart review Current Diet NPO Diet prior to admit Regular;Thin Liquids Preferred Mode of Liquid Presentation Cup & Straw Baseline Vocal Quality Normal Volitional Cough Weak Secretion Managment WFL Oral And Cranial Nerve Assessment Oral Mucosa Patchy lingual plaque CN V Trigeminal Reduced facial sensation L CN VII Facial Facial droop L CN IX/X Glossopharyngeal/Vagus Intact velar elevation;Vocal quality WNL CN XII Hypoglossal Lingual deviation L Respiratory Respiratory status Yes (pt SOB; requesting inhaler following CSE) Nasal Cannula (LPM) 2 Consistencies Assessed Consistencies Assessed Yes Ice Chips Presentation Spoon Oral WFL Pharyngeal Immediate cough;Swallow elicited Thin Presentation Spoon;Straw;Single swallow Oral Anterior loss Pharyngeal Immediate cough Pureed PU4 Presentation Fed by Clinician Oral WFL Pharyngeal Multiple swallows Results/Recommendations Clincial Swallow Impression Suspect dysphagia;Recommend further assessment Diet Recommendations NPO;Non-oral hydration Additional Recommendations Strict oral care;Pt/caregiver education Medication administration Non-oral CSE Goals Clinical Swallow Eval Results discussed with Patient;Family/Significant other;Nursing Patient and/or Family Goal to get inhaler Patient/Family Education Completed Yes 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 High frequency, high intensity multi-disciplinary therapy for 15 hours per week Frequency/Follow up Complete MBS (needs CCE eval) Treatment Interventions Dysphagia management Clinical Swallow Eval Goals & Performance GOAL: Patient/caregiver will understand education regarding swallowing, diet recommendations and treatment with Minimal;Verbal cues;90% accuracy PERFORMANCE: Patient/caregiver understands education regarding swallowing, diet recommendations andtreatment with To be addressed GOAL: Patient will progress to advanced diet (pending MBS) PERFORMANCE: Patient progressed to advanced diet To be addressed This note is to serve as discharge summary if no further Speech services are provided before being discharged from the hospital. * Utilization Review Notes - Ariana Read RN - 09/25/2024 9:15 AM EDT CONT STAY REVIEW PT ADMITTED TO TCU ON 09/24 CHANGED TO INPT 09/25 FOR L SIDED WEAKNESS CVA. INPT ORDER IS ON THE CHART 09/24 MD NOTE L Sided Weakness -CT head and CTA head/neck nondiagnostic -MRI brain ordered -check VBG, UDS, UA -Neuro checks during admission -Telemetry CAD -Denies CP currently -Troponin mildly elevated at 87, no baseline to compare with -Trend troponins -EKG nondiagnostic -Continue home cardioprotective medications Chronic HFpEF -Monitor I/Os while admitted -Continue home PO Diuretics Essential HTN -Monitor BP for now -On Lisinopril chronically CKD -Continue to monitor renal function -Avoid nephrotoxic agents -Renally dose medications as indicated 09/24/24 1649 -- -- 83 16 -- -- -- -- 92 % -- -- -- -- -- -- -- MARION 09/24/24 1645 -- -- -- -- -- -- -- -- -- -- 2 lpm Nasal cannula -- -- -- -- MARION 09/24/24 1644 -- -- 93 28 Abnormal -- -- -- -- 89 % Abnormal -- -- -- -- -- -- -- MARION 09/24/24 1636 -- -- 84 23 Abnormal 163/101 Abnormal 120 -- -- 90 % 09/25/24 0826 98.6 ??F (37 ??C) -- 85 16 121/75 84 -- -- 93 % -- 1 lpm Nasal cannula TROP 87, 177 HEPARIN IV GTT, MRI BRAIN ECHO CONSULT NEURO CONSULT CARDIO CONSULT PT/OT/SPEECH SWALLOW EVAL US CAROTID * There is a right proximal internal carotid artery severely obstructive lesion noted, with an estimated 60-79% stenosis by EDV and ICA/CCA ratio criteria. A more significant stenosis cannot be excluded secondary to acoustic shadowing. * Antegrade flow visualized in the right vertebral artery. * There is a left proximal internal carotid artery moderately obstructive lesion noted, with an estimated high end 40-59% stenosis. A more significant stenosis cannot be excluded secondary to acoustic shadowing. * Abnormal, antegrade flow visualized in the left vertebral artery, demonstrating early systolic deceleration/ bunny sign. Unable to visualize any hemodynamically significant stenosis in the left subclavian artery, however, it cannot be ruled out secondary to abnormal vertebral artery flow. * Unable to obtain the bilateral brachial pressures secondary to patient responsiveness/ recent CVA. 09/24 MRI BRAIN Multifocal posterior fossa acute appearing infarcts most pronounced in the superior RIGHT cerebellum DC PLAN CC TO FOLLOW * Critical Result Value - Yuri Gutiérrez RN - 09/24/2024 7:54 PM EDT Test Name/ Result: 2 Hour Troponin 177 // Delta 90 Date/ Time: 09/24/20241953 Notified Physician/Physician Designee: Leroy MURRAY // William GRAY R/V * Utilization Review Notes - Chrystal Farley RN - 09/24/2024 6:22 PM EDT PATIENT ADMISSION OBS PT ADMITTED TO TCU ON 09/24 FOR L SIDED WEAKNESS CVA. ORDER IS ON THE CHART LABS TROPONIN 87 CT ANGIOGRAM HEAD AND NECK STROKE PROTOCOL Limited evaluation of the proximal carotid arteries and proximal vertebral arteries due to poor opacification. Potentially significant bilateral proximal ICA stenosis. Repeat study to assess for ICA stenosis is warranted. Intracranial arteries are diagnostically evaluated. No intracranial large vessel occlusion or aneurysm. This scan was analyzed using ContaCT ( LVO), using -based computer-aided triage to detect the presence of a suspected large vessel occlusion (LVO). PER ER MD NOTE Cerebrovascular Accident Left sided weakness, difficulty walking, and slurred speech. hard to wake up but a/o when awake. LWK approx 1500; phenergan 25mg en route Positive for weakness No sensory deficits. Patient has 4/5 strength to the left upper extremity with 3/5 strength to the left lower extremity. ED Clinical Impression: #1 left-sided weakness 2. TIA versus CVA DC PLAN CC TO FOLLOW documented in this encounter Plan of Treatment Not on file documented as of this encounter Procedures Procedure Name Priority Date/Time Associated Diagnosis Comments SCANNED EKG 10/09/2024 10:09 AM EDT EV EVENT MONITOR Routine 10/02/2024 2:26 PM EDT GLUCOSE METER POC Routine 10/02/2024 12:22 PM EDT GLUCOSE METER POC Routine 10/02/2024 8:40 AM EDT ECG AND WAVEFORMS - TELEMETRY Routine 10/02/2024 7:35 AM EDT EXTRA TUBES PANEL Routine 10/02/2024 6:08 AM EDT EXTRA LAVENDER Routine 10/02/2024 6:08 AM EDT BASIC METABOLIC PANEL Early AM 10/02/2024 6:08 AM EDT GLUCOSE METER POC Routine 10/01/2024 7:54 PM EDT ECG AND WAVEFORMS - TELEMETRY Routine 10/01/2024 7:27 PM EDT GLUCOSE METER POC Routine 10/01/2024 5:04 PM EDT GLUCOSE METER POC Routine 10/01/2024 1:25 PM EDT [id number] Routine 10/01/2024 11:08 AM EDT XR CHEST AP PORTABLE ABHISHEK 10/01/2024 9:15 AM EDT GLUCOSE METER POC Routine 10/01/2024 8:25 AM EDT ECG AND WAVEFORMS - TELEMETRY Routine 10/01/2024 7:33 AM EDT GLUCOSE METER POC Routine 09/30/2024 9:02 PM EDT ECG AND WAVEFORMS - TELEMETRY Routine 09/30/2024 8:18 PM EDT GLUCOSE METER POC Routine 09/30/2024 5:10 PM EDT GLUCOSE METER POC Routine 09/30/2024 2:51 PM EDT GLUCOSE METER POC Routine 09/30/2024 11:54 AM EDT GLUCOSE METER POC Routine 09/30/2024 8:24 AM EDT ECG AND WAVEFORMS - TELEMETRY Routine 09/30/2024 7:32 AM EDT CBC Early AM 09/30/2024 6:08 AM EDT BASIC METABOLIC PANEL Early AM 09/30/2024 6:08 AM EDT GLUCOSE METER POC Routine 09/29/2024 8:18 PM EDT ECG AND WAVEFORMS - TELEMETRY Routine 09/29/2024 7:24 PM EDT GLUCOSE METER POC Routine 09/29/2024 5:16 PM EDT GLUCOSE METER POC Routine 09/29/2024 1:46 PM EDT GLUCOSE METER POC Routine 09/29/2024 12:53 PM EDT GLUCOSE METER POC Routine 09/29/2024 8:16 AM EDT ECG AND WAVEFORMS - TELEMETRY Routine 09/29/2024 7:25 AM EDT CBC Early AM 09/29/2024 6:32 AM EDT BASIC METABOLIC PANEL Early AM 09/29/2024 6:32 AM EDT GLUCOSE METER POC Routine 09/28/2024 8:32 PM EDT ECG AND WAVEFORMS - TELEMETRY Routine 09/28/2024 7:41 PM EDT GLUCOSE METER POC Routine 09/28/2024 5:32 PM EDT ECG AND WAVEFORMS - TELEMETRY Routine 09/28/2024 1:16 PM EDT GLUCOSE METER POC Routine 09/28/2024 12:40 PM EDT GLUCOSE METER POC Routine 09/28/2024 8:58 AM EDT ECG AND WAVEFORMS - TELEMETRY Routine 09/28/2024 7:00 AM EDT CBC Early AM 09/28/2024 6:49 AM EDT BASIC METABOLIC PANEL Early AM 09/28/2024 6:49 AM EDT GLUCOSE METER POC Routine 09/27/2024 8:34 PM EDT ECG AND WAVEFORMS - TELEMETRY Routine 09/27/2024 7:20 PM EDT GLUCOSE METER POC Routine 09/27/2024 6:16 PM EDT GLUCOSE METER POC Routine 09/27/2024 12:13 PM EDT GLUCOSE METER POC Routine 09/27/2024 10:51 AM EDT GLUCOSE METER POC Routine 09/27/2024 9:01 AM EDT ECG AND WAVEFORMS - TELEMETRY Routine 09/27/2024 7:00 AM EDT CBC Early AM 09/27/2024 5:57 AM EDT BASIC METABOLIC PANEL Early AM 09/27/2024 5:57 AM EDT EK EKG 12 LEAD STAT 09/27/2024 12:32 AM EDT ECG AND WAVEFORMS - TELEMETRY Routine 09/26/2024 10:45 PM EDT GLUCOSE METER POC Routine 09/26/2024 8:43 PM EDT ECG AND WAVEFORMS - TELEMETRY Routine 09/26/2024 7:10 PM EDT GLUCOSE METER POC Routine 09/26/2024 4:14 PM EDT STAPHYLOCOCCUS AUREUS SCREEN ABHISHEK 09/26/2024 12:18 PM EDT GLUCOSE METER POC Routine 09/26/2024 12:14 PM EDT EK EKG 12 LEAD STAT 09/26/2024 11:08 AM EDT FL MODIFIED BARIUM SWALLOW ABHISHEK 09/26/2024 9:45 AM EDT XR CHEST AP PORTABLE ABHISHEK 09/26/2024 9:26 AM EDT GLUCOSE METER POC Routine 09/26/2024 8:50 AM EDT ECG AND WAVEFORMS - TELEMETRY Routine 09/26/2024 7:49 AM EDT ECG AND WAVEFORMS - TELEMETRY Routine 09/26/2024 7:49 AM EDT CBC Early AM 09/26/2024 6:00 AM EDT LIPID SCREEN Early AM 09/26/2024 6:00 AM EDT BASIC METABOLIC PANEL Early AM 09/26/2024 6:00 AM EDT ECG AND WAVEFORMS - TELEMETRY Routine 09/25/2024 9:[address] HEAD WO CONTRAST ABHISHEK 09/25/2024 8:12 PM EDT ECG AND WAVEFORMS - TELEMETRY Routine 09/25/2024 7:37 PM EDT ECG AND WAVEFORMS - TELEMETRY Routine 09/25/2024 7:20 PM EDT TROPONIN-T HIGH SENSITIVITY BASELINE W/ REFLEX Timed 09/25/2024 6:01 PM EDT GLUCOSE METER POC Routine 09/25/2024 5:31 PM EDT TROPONIN-T HIGH SENSITIVITY 2HR Timed 09/25/2024 4:[address] ANGIOGRAM HEAD AND NECK W CONTRAST ABHISHEK 09/25/2024 2:[address] HEAD WO CONTRAST STAT 09/25/2024 2:50 PM EDT TROPONIN-T HIGH SENSITIVITY BASELINE W/ REFLEX STAT 09/25/2024 1:42 PM EDT GLUCOSE METER POC Routine 09/25/2024 12:54 PM EDT EC ECHOCARDIOGRAM 2D M MODE COMPLETE W CONTRAST ABHISHEK 09/25/2024 11:37 AM EDT SCANNED EKG 09/25/2024 9:59 AM EDT CBC ABHISHEK 09/25/2024 9:52 AM EDT LIPID SCREEN Routine 09/25/2024 9:52 AM EDT BASIC METABOLIC PANEL Early AM 09/25/2024 9:52 AM EDT ADMIT Routine 09/25/2024 9:24 AM EDT VA US CAROTID DUPLEX BILATERAL STAT 09/25/2024 9:12 AM EDT GLUCOSE METER POC Routine 09/25/2024 8:42 AM EDT IP CONSULT TO NUTRITION Routine 09/25/2024 8:03 AM EDT IP CONSULT TO NEUROLOGY Routine 09/25/2024 7:28 AM EDT Procedure Note - Neville Gutierrez MD - 09/25/2024 11:46 AM EDTThis note is in progress. Neurology Consult Note Admit date: 09/24/2024 Admitting diagnosis: Left-sided weakness [R53.1] Today's date: 09/25/2024 Current length of stay: 0 day(s) Impression and Recommendations Sunita Trent is a 69 y.o. female with a history of Asthma, CAD, HF,COPD, DM2, TAVR, HTN, HLD whom I am seeing in neurologic consultation atthe request of [place] for evaluation of Stroke. Acute Ischemic Stroke, Right Midbrain and Bilateral Cerebellar She initially presented with left sided weakness and numbness. Shepresented quickly to ED, but was rapidly improving and did not receiveTNK. Unfortunately she has declined again. Her CTA was non diagnostic.Her MRI showed a moderate sized midbrain stroke and multifocal smallcerebellar stroke. Carotid US showed bl carotid stenosis, not severe, butalso L vert bunny sign. We need to repeat a CTA to rule out vertebraldissection. NIHSS is now 13. Recommendations: -Start Aspirin 325 mg daily -Start Atorvastatin 40 mg daily -CTA H/N now -Repeat CTH given change in exam. -ECHO pending -LDL pending -30 day CV event monitor on discharge. Neville Gutierrez MD Neurology 11:46 AM 09/25/24 Thank you for allowing me to participate in the care of Sunita Trent.Please do no hesitate to contact me with any further questions orconcerns. HPI: This is a 69 y.o. female with a history of Asthma, CAD, HF, COPD,DM2, TAVR, HTN, HLD whom I am seeing in neurologic consultation at therequest of DO [place] for evaluation of Stroke. She developed left sided weakness, numbness, and dysarthria yesterday.She presented to the ED within an hour. Her symptoms improvedsignificantly so she was not given TNK. HCT showed no acute abnormality.CTA H/N was poorly timed, was able to demonstrate no intracranial LVO.MRI showed small cerebellar infarcts, did not call a moderately sidedright midbrain infarct. Past Medical History: Diagnosis Date Arthritis Asthma Bladder problem Bronchitis, chronic ([facility]) CAD (coronary artery disease) CHF (congestive heart failure) ([facility]) Chronic kidney disease COPD (chronic obstructive pulmonary disease) ([facility]) Diabetes mellitus ([facility]) Headache migraines Heart murmur Heartburn Hyperlipidemia Hypertension IA (myocardial infarction) ([facility]) 12/13/1998 Motion sickness Oxygen dependent 2-3 L continuously Pneumonia 2021 Pulmonary emphysema ([facility]) Shortness of breath Sleep apnea can not wear Cpap Thyroid disease Active Hospital Problems Diagnosis *Left-sided weakness Chronic kidney disease Acquired hypothyroidism Arteriosclerosis of coronary artery Chronic obstructive pulmonary disease ([facility]) Morbid obesity ([facility]) No current facility-administered medications on file prior to encounter. Current Outpatient Medications on File Prior to Encounter Medication Sig Dispense Refill bumetanide (BUMEX) 2 mg Oral Tablet Take 2 mg by mouth daily. cephALEXin (KEFLEX) 500 mg Oral Capsule Take 500 mg by mouth every 6hours. clopidogreL (PLAVIX) 75 mg Oral Tablet Take 75 mg by mouth daily. empagliflozin (JARDIANCE) 10 mg Oral Tablet Take 10 mg by mouth daily. fluticasone propionate (FLONASE) 50 mcg/actuation Nasl [place], Suspension2 Sprays by Nasal route daily. LEVOthyroxine (SYNTHROID) 150 mcg Oral Tablet Take 300 mcg by mouthdaily. lisinopriL (PRINIVIL;ZESTRIL) 5 mg Oral Tablet Take 5 mg by mouth daily. metFORMIN (GLUCOPHAGE) 1,000 mg Oral Tablet Take 1,000 mg by mouth 2times daily (with meals). montelukast (SINGULAIR) 10 mg Oral Tablet Take 10 mg by mouth daily. pantoprazole (PROTONIX) 40 mg Oral Tablet, Delayed Release (E.C.) Take 1Tablet by mouth daily. 30 Tablet 2 rosuvastatin (CRESTOR) 40 mg Oral Tablet Take 40 mg by mouth nightly. albuterol (PROVENTIL HFA;VENTOLIN HFA) 90 mcg/actuation Inhl HFA AerosolInhaler Inhale 2 Puffs into the lungs every 6 hours as needed. albuterol (PROVENTIL) 2.5 mg /3 mL (0.083 %) Inhl Solution forNebulization Take 2.5 mg by nebulization every 6 hours as needed. aspirin 81 mg Oral Tablet, Delayed Release (E.C.) Take 81 mg by mouthdaily. (Patient not taking: Reported on 10/23/2023) COMBIVENT RESPIMAT 20-100 mcg/actuation Inhl Mist Inhale 1 Puff into thelungs every 6 hours as needed. (Patient not taking: Reported on 09/24/2024) nitroGLYCERIN (NITROSTAT) 0.4 mg SL Tablet, Sublingual Place 0.4 mg underthe tongue once. (Patient not taking: Reported on 09/24/2024) Oxygen and Equipment MISCELLANEOU 1 Device by MISCELLANEOUS route once.2-3 L continuously pioglitazone (ACTOS) 15 mg Oral Tablet Take 15 mg by mouth daily. spironolactone (ALDACTONE) 25 mg Oral Tablet Take 1 Tablet by mouth 2times daily. (Patient not taking: Reported on 10/23/2023) 60 Tablet 11 torsemide (DEMADEX) 100 mg Oral Tablet Take 50 mg by mouth daily.(Patient not taking: Reported on 10/23/2023) TRULICITY 1.5 mg/0.5 mL SubQ Pen Injector once a week. (Patient nottaking: Reported on 09/24/2024) Allergies Allergen Reactions Adhesive Rash Physical Examination: Patient Vitals for the past 24 hrs: BP Temp Temp src Pulse Resp SpO2 Height Weight 09/25/24 0826 121/75 98.6 F (37 C) Oral 85 16 93 % -- -- 09/25/24 0515 -- -- -- 87 -- -- -- -- 09/25/24 0351 -- -- -- 94 -- -- -- -- 09/25/24 0312 141/78 97.9 F (36.6 C) Oral 92 16 94 % -- -- 09/25/24 0154 -- -- -- 85 -- -- -- -- 09/24/24 2312 126/70 98 F (36.7 C) Oral 85 18 98 % 5' (1.524 m) 170 lb6.7 oz (77.3 kg) 09/24/242229 -- -- -- 93 (!) 22 -- -- -- 09/24/24 2220 144/86 -- -- 92 18 -- -- -- General: This is a pleasant cooperative female in [facility]. HEENT: No bruising, erythema, or conjunctival injection. Cardiovascular: Normal rate, regular rhythm. Resp: Normal respiratory rate and effort. Abd: Soft, NT, ND Ext: No cyanosis, clubbing, edema. Mental Status: Awake but drowsy, very dysarthric and speech isincomprehensible. She does follow commands. Cranial Nerves: II: Blinks to threat bl III, IV, : Her right eye has very little movement, it does no abduct tothe left, it does move somewhat to the right when looking right butincompletely, has some vertical movement. ROM appears full in left eye. V: Facial sensations symmetric to light touch VII: Mild left lower facial droop VIII: Hearing grossly intact. IX, X: Palate raises midline, no uvula deviation. XI: Shoulder shrug symmetric. XII: Tongue protrudes somewhat right. Severe dysarthria Motor: 5/5 strength in right arm and both legs, left arm 4+ strength. Sensory: Sensation to light touch intact in the bilateral upper and lowerextremities. Coordination: Mild to moderate ataxia on FTN on the right, moderate onthe left. NIHSS I-A. Level of Consciousness: 1 I-B. Month and Age: 2 I-C. Blink Eyes/Squeeze Hands: 0 II. Horizontal Eye Movements: 2 III. Visual Ho: 0 IV. Facial Palsy: 1 V-A. Left Arm: 1 V-B. Right Arm: 0 -A. Left Le -B. Right Le VII. Limb Ataxia: 2 VIII. Sensation: 1 IX. Language: 0 X. Dysarthria: 3 XI. Extinction/Neglect: 0 Total: 13 I have personally reviewed the following pertinent results: -HCT no acute changes -CTA H/N nondiagnostic in neck, no LVO in head -MRI with midbrain and cerebellar strokes -A1c 7.2 ECG AND WAVEFORMS - TELEMETRY Routine 09/25/2024 7:28 AM EDT HEPARIN ANTI-XA, UNF Timed 09/25/2024 4:14 AM EDT CBC Early AM 09/25/2024 4:14 AM EDT IP CONSULT TO SOCIAL WORK Routine 09/25/2024 3:32 AM EDT ECG AND WAVEFORMS - TELEMETRY Routine 09/24/2024 11:24 PM EDT MRI BRAIN WO CONTRAST ABHISHEK 09/24/2024 9:16 PM EDT IP CONSULT TO PHARMACY Routine 09/24/2024 8:09 PM EDT IP CONSULT TO CARDIOLOGY Routine 09/24/2024 8:09 PM EDT Procedure Note - Timur Parr MD - 09/25/2024 10:15 AM EDTThis note is in progress. Heart & Vascular Consult Note PATIENT: Sunita Trent PCP: Estiven No MD Primary Batch Blender: Dr. Greenberg Reason for consult: Elevated troponin History provided by: Patient and chart History limited by: Continued slurred speech HPI: 69 year old current smoker PMH: Elevated Troponin CAD s/p CAB w subsequent 4 stents CHF HFpEF IA 1998 S/P TAVR 2022 COPD with O2 dependence CKD DM Sleep apnea Patient admitted for CVA after presenting to ED 09/24/24 for left sideweakness, slurred speech and gait disturbance one hour prior to d/t concern for stroke. EMS gave phenergan 25mg en route, CTA head/neck and CT unremarkable,patient physical symptoms resolved rapidly without use of TNK, speechremains slurred. Patient reports significant improvement in weakness, denies CP, SOB, AGUILAR,orthopnea. Cards consulted for elev trop. Denies CP or SOB. ED Course: Troponin 87 >> 177 EKG: SR HR 84 WITH FIRST DEGREE AV BLOCK LEFT AXIS DEVIATION LEFT BUNDLE BRANCH BLOCK CT Angio Head/Neck: 1. Limited evaluation of the proximal carotid arteries and proximalvertebral arteries due to poor opacification. Potentially significant bilateralproximal ICA stenosis. Repeat study to assess for ICA stenosis is warranted. 2. Intracranial arteries are diagnostically evaluated. No intracraniallarge vessel occlusion or aneurysm. CT Head: No acute intracranial abnormality Family History- Family History Problem Relation Age of Onset Kidney Disease Mother Cancer Mother breast, throat Diabetes Father Heart Disease Father Unknown Sister Heart Disease Brother COPD Brother Seizures Daughter Anesth Problems Neg Hx Social History- Social History Tobacco Use Smoking status: Former Current packs/day: 0.00 Types: Cigarettes Quit date: 1976 Years since quittin.5 Smokeless tobacco: Never Substance Use Topics Alcohol use: Never Past Medical History Past Medical History: Diagnosis Date Arthritis Asthma Bladder problem Bronchitis, chronic (HCC) CAD (coronary artery disease) CHF (congestive heart failure) (HCC) Chronic kidney disease COPD (chronic obstructive pulmonary disease) (HCC) Diabetes mellitus (HCC) Headache migraines Heart murmur Heartburn Hyperlipidemia Hypertension IA (myocardial infarction) ([facility]) 12/13/1998 Motion sickness Oxygen dependent 2-3 L continuously Pneumonia 2021 Pulmonary emphysema (HCC) Shortness of breath Sleep apnea can not wear Cpap Thyroid disease Medication Insulin Calculator (UX DEVELOPER DESIGNER) - FSBS and Carb Intake Input 1 EachMISCELLANEOUS QID PC And insulin aspart (NovoLOG) - Carb Ratio PATIENT-SPECIFIC - CorrectionFactor PATIENT-SPECIFIC 0-40 Units Subcutaneous QID PC heparin (porcine) Stopped (09/25/24 0624) acetaminophen OR acetaminophen, dextrose, glucagon AND sterilewater, ondansetron OR ondansetron, sodium chloride 0.9%, sodiumchloride 0.9%, sodium chloride 0.9%, sodium chloride 0.9% Past Surgical History Past Surgical History: Procedure Laterality Date AORTIC VALVE REPLACEMENT N/A 10/19/2022 Transcatheter aortic valve replacement with echocardiogram and [place];Surgeon: Alfred Greenberg MD; Location: [facility]; Service: Open Heart CARDIAC CATHETERIZATION CARDIAC SURGERY stents x4 CHOLECYSTECTOMY DENTAL SURGERY full teeth extracted TUBAL LIGATION Allergy Allergies Allergen Reactions Adhesive Rash Family History Family History Problem Relation Age of Onset Kidney Disease Mother Cancer Mother breast, throat Diabetes Father Heart Disease Father Unknown Sister Heart Disease Brother COPD Brother Seizures Daughter Anesth Problems Neg Hx Social History Social History Tobacco Use Smoking status: Former Current packs/day: 0.00 Types: Cigarettes Quit date: 1976 Years since quittin.5 Smokeless tobacco: Never Substance Use Topics Alcohol use: Never Review of Systems No headache, no LOC, no fever, no chills, no cough, no nausea, novomiting, no diarrhea, no burning micturation, no seizures, all othersymptoms negative and reviewed by me. Objective: Telemetry: NSR 09/25/2024 Last BP: BP: 121/75 Last pulse: Pulse: 85 Last resp: Resp: 16 Last temp: Temp: 98.6 F (37 C) Last SpO2: SpO2: 93 % Exam: Elderly obese patient resting in bed with visiting, pt in no distress. Lymph/Neck supple, no enlarged nodes or masses CVS - S1, S2 RRR, no edema, murmur or gallop RS - No rales, no rhonchi GI/Abd - soft, NT, +BS, obese Neuro- Alert and oriented Psych- Mood and affect appropriate Skin warm, dry, no rashes Diagnostic tests Pertinent laboratory test have been reviewed The most recent cardiovascular imaging studies availabe in [facility] EMR werereviewed at time of consultation Assessment & Plan Active Hospital Problems Diagnosis *Left-sided weakness Chronic kidney disease Acquired hypothyroidism Arteriosclerosis of coronary artery Chronic obstructive pulmonary disease (HCC) Morbid obesity (HCC) Plan: CVA -per neuro -tele stable -echo pending Elevated Troponin -Trop 87-177 -Asymptomatic, EKG w NSSTTWA -Echo pending -Likely due to stroke -Repeat troponin CAD s/p CABG w subsequent 4 stents -Cont ORDER MANAGEMENT SPECIALIST plavix, crestor, ASA CHF HFpEF -Continue environmental field services technician lisinopril, spironolactone, jardiance, crestor, bumex S/P aortic valve replacement TAVR 2022 -Continue environmental field services technician lisinopril, spironolactone, jardiance, crestor, bumex COPD with O2 dependence -Defer to primary/pulm CKD -Defer to primary/Nephro DM -Defer to primary Sleep apnea -Defer to primary Further input from Dr. Parr Cardiology Disposition Perspective - Medically Ready for Discharge: No Anticipated Discharge: 1-2 days Discharge when / if: troponin stable Thank you for the consult. We will follow with you. Neena Cordero APRN Student Addendum: Adm for weakness, slurred speech. bMRI w + CVA Cards consulted for elev trop likely from CVA. Denies CP or worse SOB. Hx CABG w stents x4 S/p TAVR COPD- still smokes CKD w baseline Cr nl DM Recheck trop Check echo If echo stable then no additional w/u Amy Rich APRN Attending Batch Blender Attestation: I have seen and examined the patient. I have discussed with the nursepractitioner and agree with his/her findings as documented in their notewith my additions below: 69 year old female with history of CAD, TAVR, HFpEF, HTN, HLD, DM, CKD,COPD, asthma, migraines who initially presented to the hospital on 09/24/24with left sided weakness. Cardiology consulted on 09/25/24 for troponinelevation. Here initially with left sided weakness with onset 1.5 hoursprior to arrival. Symptoms improved in the ED. On my initial assessmentpatient history difficult to obtain from patient due to dysarthria. and friend are present who provide history. Was cleaning thefridge and got dizzy and weak on left side. eventually [id number]. Also with difficulty speaking. Prior to this she had been doingfine. Was recently treated for C. diff. Otherwise active doinggardening, taking care of her aldrich and doing housework. Breathing hasbeen fine. No shortness of breath or chest pain. Chronic mild edema thatis currently better than usual. No palpitations. Initial troponins 87, 177. Initial Cr 0.63, Na 138, K 3.9,WBC 7.9, Hgb 13.5, Plt 202. Initial BP 169/97. ECG sinus tachycardiawith LBBB and PVCs. MRI brain 09/24/24 with multifocal posterior fossaacute infarct, most pronounced in superior right cerebellum. Carotiddopplers 09/25/24 with 60-79% right ICA stenosis, 40-59% left ICA stenosis.CTA head/neck 09/24/24 with ICA stenosis, no intracranial LVO. CT head09/24/24 unremarkable. History of s/p TAVR 10/2022, MS, CAD, CABG 1998, HFpEF.Reported CABG and then multiple PCIs, but no prior cath or ischemicevaluation on file. Per office note 09/2022 she had a PCI to the LAD andramus and OM around 08/2022. Subsequent TAVR here 10/2022. TTE 10/2023 withLVEF 60-65%, severe LVH, indeterminate diastology, reduced RV function,mild LAE, TAVR peak gradient 19, vmax 2.2, no AI, mild MR, moderate MS.Home cardiac related meds include bumex, plavix, jardiance, lisinopril,crestor. On exam RRR with 1-2/6 systolic murmur at the USB and LSB, noJVD, clear lungs, no edema. Blood pressure 121/75. Cr 0.54, Na 145, K3.9, WBC 10.9, Hgb 13.6, Plt 189. Telemetry sinus with occasional PVCs.Current cardiac related meds include heparin gtt. Impression is here with acute stroke with left sided weaknessthat improved in ED. Then with recurrent symptoms and ongoing dysarthria.MRI with multifocal posterior fossa acute infarct, most pronounced insuperior right cerebellum with carotid dopplers showing 60-79% right ICAstenosis, 40-59% left ICA stenosis. No intracranial LVO on CTA head/neck.No arrhythmias on telemetry. Troponins elevated without ischemicsymptoms and overall picture more consistent wity type 2 IA related tostroke and not ACS. Euvolemic. Plan: - Check additional troponin. - Check echocardiogram. - If additional troponin and echocardiogram are unremarkable, will deferfurther cardiac work-up at this time as she is being treated for acutestroke. Fine to stop heparin gtt from cardiac perspective at this time. - Stroke recommendations per neurology. - Will see if we can get some of her outside cardiac records from thest year. Will follow along. Please call with any questions. Timur Parr MD [facility] Heart and Vascular EK EKG 12 LEAD STAT 09/24/2024 7:56 PM EDT BLOOD GAS, VENOUS ABHISHEK 09/24/2024 7:28 PM EDT TROPONIN-T HIGH SENSITIVITY 2HR Timed 09/24/2024 7:28 PM EDT URINALYSIS REFLEX STAT 09/24/2024 6:56 PM EDT UA W/REFLEX TO CULTURE STAT 09/24/2024 6:56 PM EDT EXTRA SCHULZ URINE CX STAT 09/24/2024 6:56 PM EDT DRUGS OF ABUSE WITH REFLEX TO CONFIRMATION, URINE Routine 09/24/2024 6:56 PM EDT ADMIT Routine 09/24/2024 6:08 PM EDT TROPONIN-T HIGH SENSITIVITY BASELINE W/ REFLEX STAT 09/24/2024 5:47 PM EDT POTASSIUM REPEAT Routine 09/24/2024 5:47 PM EDT EXTRA LIGHT BLUE STAT 09/24/2024 4:35 PM EDT CBC STAT 09/24/2024 4:35 PM EDT PARTIAL THROMBOPLASTIN TIME STAT 09/24/2024 4:35 PM EDT PT / INR STAT 09/24/2024 4:35 PM EDT HEMOGLOBIN A1C Routine 09/24/2024 4:35 PM EDT BASIC METABOLIC PANEL STAT 09/24/2024 4:[address] ANGIOGRAM HEAD AND NECK STROKE PROTOCOL STAT 09/24/2024 4:[address] HEAD STROKE PROTOCOL STAT 09/24/2024 4:31 PM EDT IP CONSULT TO PHARMACY STAT 09/24/2024 4:28 PM EDT IP CONSULT TO PHARMACY STAT 09/24/2024 4:21 PM EDT EK EKG 12 LEAD STAT 09/24/2024 4:16 PM EDT GLUCOSE METER POC Routine 09/24/2024 4:16 PM EDT documented in this encounter Results * SCANNED EKG (10/09/2024 10:09 AM EDT) Anatomical Region Laterality Modality Other 10/09/2024 10:0 9 AM EDT us Unknown Provider IMG ECG ORDERABLES Final Result * EV EVENT MONITOR (10/02/2024 2:26 PM EDT) Anatomical Region Laterality Modality Holter/Event Mon itoring 11/03/2024 9:22 AM EDT Impressions 11/06/2024 4:05 PM EDT 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 Baseline sample showed Sinus Rhythm w/1st Degree AV Block/IVCD with a heart rate of 72.5 bpm. Predominantly sinus rhythm Occasional PVC's Episodes if short run NSVT Electronically Signed On 11-06-2024 16:05:24 EDT by Alfred Greenberg MD Narrative Procedure Note Alfred Greenberg MD - 11/06/2024 IMPRESSION 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 Baseline sample showed Sinus Rhythm w/1st Degree AV Block/IVCD with aheart rate of 72.5 bpm. Predominantly sinus rhythm Occasional PVC's Episodes if short run NSVT Electronically Signed On 11-06-2024 16:05:24 EDT by Alfred Greenberg MD Vicenta Bell APRN IMG HOLTER MONITOR LAWRENCE LOZANO Final Result * (ABNORMAL) GLUCOSE METER POC (10/02/2024 12:22 PM EDT) [facility] Glucose Meter POC 227(H) 70 - 100 mg/dL 10/02/2024 12:23 PM EDT [facility] Sample Type Capillary 10/02/2024 12:23 PM EDT [facility] Patient Status Non-Critical Patient 10/02/2024 12:23 PM EDT [facility] Blood BLOOD SPECIMEN / Unknown 10/02/2024 12:22 PM EDT 10/02/2024 12:23 PM EDT [facility] DO POINT OF CARE TEST ORDERABLES Final Result Performing Organization Address [facility] de Phone Number [facility] [address] [place] [address] * (ABNORMAL) GLUCOSE METER POC (10/02/2024 8:40 AM EDT) Glucose Meter POC 161(H) 70 - 100 mg/dL 10/02/2024 8:41 AM EDT [facility] Sample Type Capillary 10/02/2024 8:41 AM EDT [facility] Patient Status Non-Critical Patient 10/02/2024 8:41 AM EDT [facility] Blood BLOOD SPECIMEN / Unknown 10/02/2024 8:40 AM EDT 10/02/2024 8:41 AM EDT Yared GalvanSapphire DO POINT OF CARE TEST ORDERABLES Final Result Performing Organization Address [facility] de Phone Number [facility] [address] [place] [address] * ECG AND WAVEFORMS - TELEMETRY (10/02/2024 7:35 AM EDT) ECG INTERPRET NSR [facility] 10/02/2024 7:35 AM EDT Narrative [facility] - 10/02/2024 7:38 AM EDT ROUTINE/PVC'S/RACKING TECHNICIAN HI 0.24 QRS 0.12 RR 0.78 QT 0.38 QTc 0.43 See Clinical Report link for waveform capture us Unknown Provider POINT OF CARE CARDIOLOGY Final Result Performing Organization Address City/[facility]/ZIP Co de Phone Number [facility] [address] [place] [address] * EXTRA LAVENDER (10/02/2024 6:08 AM EDT) Blood VENOUS BLOOD / Unknown Venipuncture / Unknown 10/02/2024 6:08 AM EDT 10/02/2024 7:18 AM EDT S Sapphire DO HEMATOLOGY ORDERABLES Final R esult Performing Organization Address City/[facility]/ZIP Co de Phone Number [facility] [address] [place], [place] [id number] * (ABNORMAL) BASIC METABOLIC PANEL (10/02/2024 6:08 AM EDT) Sodium 146(H) 136 - 145 mmol/L 10/02/2024 7:29 AM EDT [facility] Potassium 4.1 3.5 - 5.0 mmol/L 10/02/2024 7:29 AM EDT [facility] Chloride 106 98 - 107 mmol/L 10/02/2024 7:29 AM EDT [facility] Total CO2 31(H) 22 - 29 mmol/L 10/02/2024 7:29 AM EDT [facility] Anion Gap 9 7 - 16 mmol/L 10/02/2024 7:29 AM EDT [facility] Calcium 8.7(L) 8.8 - 10.4 mg/dL 10/02/2024 7:29 AM EDT [facility] Glucose Lvl 138(H) 70 - 99 mg/dL 10/02/2024 7:29 AM EDT [facility] BUN 17 8 - 23 mg/dL 10/02/2024 7:29 AM EDT [facility] Creatinine 0.51 0.51 - 1.30 mg/dL 10/02/2024 7:29 AM EDT [facility] eGFR (CKD-EPIcr 2020) 100 >=60 mL/min/1.7 3 m2 10/02/2024 7:29 AM EDT [facility] Comment:Estimated GFR was ca lculated using the CKD-EPIcr (2020) equation refit without race. The equation is recommended by the National Kidney Foundation - [place] [employer] Nephrology Task Force. Blood VENOUS BLOOD / Unknown Venipuncture / Unknown 10/02/2024 6:08 AM EDT 10/02/2024 7:11 AM EDT Vicenta Bell PULP TESTER CHEMISTRY ORDERABLES Fi nal Result Performing Organization Address [facility] Co de Phone Number [facility] [address] [place] [address] * (ABNORMAL) GLUCOSE METER POC (10/01/2024 7:54 PM EDT) Glucose Meter POC 244(H) 70 - 100 mg/dL 10/01/2024 7:55 PM EDT [facility] Sample Type Capillary 10/01/2024 7:55 PM EDT [facility] Patient Status Non-Critical Patient 10/01/2024 7:55 PM EDT [facility] Blood BLOOD SPECIMEN / Unknown 10/01/2024 7:54 PM EDT 10/01/2024 7:55 PM EDT Troy S Sapphire DO POINT OF CARE TEST ORDERABLES Final Result Performing Organization Address [facility] de Phone Number [facility] [address] [place] [address] * ECG AND WAVEFORMS - TELEMETRY (10/01/2024 7:27 PM EDT) ECG INTERPRET First degree Sinus with IVCD [facility] 10/01/2024 7:27 PM EDT Narrative [facility] - 10/01/2024 7:29 PM EDT ROUTINE/1ST AVB/RACKING TECHNICIAN HI 0.24 QRS 0.12 RR 0.83 QT 0.38 QTc 0.42 See Clinical Report link for waveform capture us Unknown Provider POINT OF CARE CARDIOLOGY Final Result Performing Organization Address [facility] de Phone Number [facility] [address] [place], [place] [id number] * (ABNORMAL) GLUCOSE METER POC (10/01/2024 5:04 PM EDT) Glucose Meter POC 189(H) 70 - 100 mg/dL 10/01/2024 5:07 PM EDT [facility] Sample Type Capillary 10/01/2024 5:07 PM EDT [facility] Patient Status Non-Critical Patient 10/01/2024 5:07 PM EDT [facility] Blood BLOOD SPECIMEN / Unknown 10/01/2024 5:04 PM EDT 10/01/2024 5:07 PM EDT S Sapphire DO POINT OF CARE TEST ORDERABLES Final Result Performing Organization Address [facility] de Phone Number [facility] [address] [place] [address] * (ABNORMAL) GLUCOSE METER POC (10/01/2024 1:25 PM EDT) Glucose Meter POC 167(H) 70 - 100 mg/dL 10/01/2024 1:37 PM EDT [facility] Sample Type Capillary 10/01/2024 1:37 PM EDT [facility] Patient Status Non-Critical Patient 10/01/2024 1:37 PM EDT [facility] Blood BLOOD SPECIMEN / Unknown 10/01/2024 1:25 PM EDT 10/01/2024 1:37 PM EDT Troy S Sapphire DO POINT OF CARE TEST ORDERABLES Final Result Performing Organization Address [facility] Co de Phone Number [facility] [address] [place] [address] * [id number] (10/01/2024 11:08 AM EDT) CORONAVIRUS [id number] Not Detected Not Detected 10/01/2024 11:47 AM EDT [facility] Influenza A DNA Not Detected Not Detected 10/01/2024 11:47 AM EDT [facility] Influenza B DNA Not Detected Not Detected 10/01/2024 11:47 AM EDT [facility] RSV DNA Not Detected Not Detected 10/01/2024 11:47 AM EDT [facility] Swab BOTH ANTERIOR NARES / Unknown 10/01/2024 11:08 AM EDT 10/01/2024 11:25 AM EDT Narrative [facility] - 10/01/2024 11:47 AM EDT This test is performed using the Mely ed diamond system and is for use under the FDA s Emergency Use Authorization. Vicenta Bell APRN MICROBIOLOGY - GENERAL ORDERABLES Final Result [facility] [address] [place] [address] * XR CHEST AP PORTABLE (10/01/2024 9:15 AM EDT) Anatomical Region Laterality Modality Chest Radiographic Jessica ging 10/01/2024 9:15 AM EDT Impressions 10/01/2024 10:05 AM EDT Persistent vascular congestion, albeit improved compared to 09/26/2024. - Note: Radiology results need to be interpreted within a comprehensive clinical context. If you have questions about the radiology report, please contact the office of the ordering clinician. Narrative 10/01/2024 10:05 AM EDT XR CHEST AP PORTABLE, 10/01/2024 9:15 AM CLINICAL HISTORY: -Resp failure COMPARISON: 09/26/2024 PROCEDURE COMMENTS: AP portable technique. FINDINGS: Support devices: No visible support devices. Poststernotomy. Heart size enlarged. Persistent vascular congestion, albeit improved compared to 09/26/2024. Small left effusion suspected. No pneumothorax. Procedure Note Jesus Teague MD - 10/01/2024 XR CHEST AP PORTABLE, 10/01/2024 9:15 AM CLINICAL HISTORY: -Resp failure COMPARISON: 09/26/2024 PROCEDURE COMMENTS: AP portable technique. FINDINGS: Support devices: No visible support devices. Poststernotomy. Heart size enlarged. Persistent vascular congestion,albeit improved compared to 09/26/2024. Small left effusion suspected. Nopneumothorax. IMPRESSION: Persistent vascular congestion, albeit improved compared to 09/26/2024. - Note: Radiology results need to be interpreted within a comprehensiveclinical context. If you have questions about the radiology report, please contactthe office of the ordering clinician. Vicenta Bell APRN IMG DIAGNOSTIC IMAGING ORDERABLES Final Result * (ABNORMAL) GLUCOSE METER POC (10/01/2024 8:25 AM EDT) Glucose Meter POC 172(H) 70 - 100 mg/dL 10/01/2024 8:27 AM EDT [facility] Sample Type Capillary 10/01/2024 8:27 AM EDT [facility] Patient Status Non-Critical Patient 10/01/2024 8:27 AM EDT [facility] Blood BLOOD SPECIMEN / Unknown 10/01/2024 8:25 AM EDT 10/01/2024 8:27 AM EDT Sapphire DO POINT OF CARE TEST ORDERABLES Final Result [facility] [address] [place] [address] * ECG AND WAVEFORMS - TELEMETRY (10/01/2024 7:33 AM EDT) ECG INTERPRET NSR [facility] 10/01/2024 7:33 AM EDT Narrative [facility] - 10/01/2024 7:43 AM EDT ROUTINE/ST AVB/RACKING TECHNICIAN HI 0.24 QRS 0.12 RR 0.72 QT 0.34 QTc 0.40 See Clinical Report link for waveform capture us Unknown Provider POINT OF CARE CARDIOLOGY Final Result Performing Organization Address City/[facility]/ZIP Co de Phone Number [facility] [address] [place] [address] * (ABNORMAL) GLUCOSE METER POC (09/30/2024 9:02 PM EDT) Glucose Meter POC 198(H) 70 - 100 mg/dL 09/30/2024 9:04 PM EDT [facility] Sample Type Capillary 09/30/2024 9:04 PM EDT [facility] Patient Status Non-Critical Patient 09/30/2024 9:04 PM EDT [facility] Blood BLOOD SPECIMEN / Unknown 09/30/2024 9:02 PM EDT 09/30/2024 9:04 PM EDT us Troy S Sapphire DO POINT OF CARE TEST ORDERABLES Final Result Performing Organization Address City/[facility]/ZIP Co de Phone Number [facility] [address] [place] [address] * ECG AND WAVEFORMS - TELEMETRY (09/30/2024 8:18 PM EDT) [facility] ECG INTERPRET Sinus with IVCD [facility] 09/30/2024 8:18 PM EDT Narrative [facility] - 09/30/2024 8:20 PM EDT TW/ROUTINE/IVCD HI 0.17 QRS 0.15 RR 0.68 QT 0.41 See Clinical Report link for waveform capture us Unknown Provider POINT OF CARE CARDIOLOGY Final Result Performing Organization Address City/[facility]/ZIP Co de Phone Number [facility] [address] [place] [address] * (ABNORMAL) GLUCOSE METER POC (09/30/2024 5:10 PM EDT) Glucose Meter POC 189(H) 70 - 100 mg/dL 09/30/2024 5:14 PM EDT [facility] Sample Type Capillary 09/30/2024 5:14 PM EDT [facility] Patient Status Non-Critical Patient 09/30/2024 5:14 PM EDT [facility] Blood BLOOD SPECIMEN / Unknown 09/30/2024 5:10 PM EDT 09/30/2024 5:14 PM EDT [facility] POINT OF CARE TEST ORDERABLES Final Result Performing Organization Address [facility] de Phone Number [facility] [address] [place] [address] * (ABNORMAL) GLUCOSE METER POC (09/30/2024 2:51 PM EDT) Glucose Meter POC 174(H) 70 - 100 mg/dL 09/30/2024 2:52 PM EDT [facility] Sample Type Capillary 09/30/2024 2:52 PM EDT [facility] Patient Status Non-Critical Patient 09/30/2024 2:52 PM EDT [facility] Blood BLOOD SPECIMEN / Unknown 09/30/2024 2:51 PM EDT 09/30/2024 2:52 PM EDT [facility] DO POINT OF CARE TEST ORDERABLES Final Result Performing Organization Address [facility] de Phone Number [facility] [address] [place] [address] * (ABNORMAL) GLUCOSE METER POC (09/30/2024 11:54 AM EDT) Glucose Meter POC 185(H) 70 - 100 mg/dL 09/30/2024 11:55 AM EDT [facility] Sample Type Capillary 09/30/2024 11:55 AM EDT [facility] Patient Status Non-Critical Patient 09/30/2024 11:55 AM EDT [facility] Blood BLOOD SPECIMEN / Unknown 09/30/2024 11:54 AM EDT 09/30/2024 11:55 AM EDT Troy S Sapphire DO POINT OF CARE TEST ORDERABLES Final Result Performing Organization Address [facility] de Phone Number [facility] [address] [place] [address] * (ABNORMAL) GLUCOSE METER POC (09/30/2024 8:24 AM EDT) [facility] Glucose Meter POC 162(H) 70 - 100 mg/dL 09/30/2024 8:25 AM EDT [facility] Sample Type Capillary 09/30/2024 8:25 AM EDT [facility] Patient Status Non-Critical Patient 09/30/2024 8:25 AM EDT [facility] Blood BLOOD SPECIMEN / Unknown 09/30/2024 8:24 AM EDT 09/30/2024 8:25 AM EDT Troy S Sapphire DO POINT OF CARE TEST ORDERABLES Final Result Performing Organization Address [facility] de Phone Number [facility] [address] [place] [address] * ECG AND WAVEFORMS - TELEMETRY (09/30/2024 7:32 AM EDT) [facility] ECG INTERPRET First Degree Sinus Rhythm [facility] 09/30/2024 7:32 AM EDT Narrative [facility] - 09/30/2024 7:34 AM EDT SR-ROUTINE/PB HI 0.24 QRS 0.10 RR 0.94 QT 0.39 QTc 0.40 See Clinical Report link for waveform capture Unknown Provider POINT OF CARE CARDIOLOGY Final Result Performing Organization Address [facility] Co de Phone Number [facility] [address] [place] [address] * (ABNORMAL) BASIC METABOLIC PANEL (09/30/2024 6:08 AM EDT) Sodium 146(H) 136 - 145 mmol/L 09/30/2024 6:55 AM EDT [facility] Potassium 4.1 3.5 - 5.0 mmol/L 09/30/2024 6:55 AM EDT [facility] Chloride 108(H) 98 - 107 mmol/L 09/30/2024 6:55 AM EDT [facility] Total CO2 30(H) 22 - 29 mmol/L 09/30/2024 6:55 AM EDT [facility] Anion Gap 8 7 - 16 mmol/L 09/30/2024 6:55 AM EDT [facility] Calcium 8.9 8.8 - 10.4 mg/dL 09/30/2024 6:55 AM EDT [facility] Glucose Lvl 166(H) 70 - 99 mg/dL 09/30/2024 6:55 AM EDT [facility] BUN 36(H) 8 - 23 mg/dL 09/30/2024 6:55 AM EDT [facility] Creatinine 0.71 0.51 - 1.30 mg/dL 09/30/2024 6:55 AM EDT [facility] eGFR (CKD-EPIcr 2020) 92 >=60 mL/min/1.7 3 m2 09/30/2024 6:55 AM EDT [facility] Comment:Estimated GFR was ca lculated using the CKD-EPIcr (2020) equation refit without race. The equation is recommended by the [employer] - [place] [employer] Neph[employer] Task Force. Blood VENOUS BLOOD / Unknown Venipuncture / Unknown 09/30/2024 6:08 AM EDT 09/30/2024 6:30 AM EDT us Sapphire DO CHEMISTRY ORDERABLES Final Re sult [facility] [address] [place] [address] * (ABNORMAL) CBC (09/30/2024 6:08 AM EDT) [facility] WBC 9.3 3.7 - 10.3 x10(3)/mcL 09/30/2024 6:38 AM EDT [facility] RBC 4.68 3.90 - 5.20 x10(6)/mcL 09/30/2024 6:38 AM EDT [facility] Hgb 12.3 11.2 - 15.7 g/dL 09/30/2024 6:38 AM EDT [facility] Hct 39.9 34.0 - 45.0 % 09/30/2024 6:38 AM EDT [facility] MCV 85.3 80.0 - 100.0 fL 09/30/2024 6:38 AM EDT [facility] MCH 26.3 26.0 - 34.0 pg 09/30/2024 6:38 AM EDT [facility] MCHC 30.8 30.7 - 35.5 g/dL 09/30/2024 6:38 AM EDT [facility] RDW 14.9 <=14.9 % 09/30/2024 6:38 AM EDT [facility] Platelet 150(L) 155 - 369 x10(3)/mcL 09/30/2024 6:38 AM EDT [facility] MPV 10.7 8.8 - 12.5 fL 09/30/2024 6:38 AM EDT [facility] Blood VENOUS BLOOD / Unknown Venipuncture / Unknown 09/30/2024 6:08 AM EDT 09/30/2024 6:31 AM EDT us Sapphire DO HEMATOLOGY ORDERABLES Final R esult [facility] [address] [place] [address] * (ABNORMAL) GLUCOSE METER POC (09/29/2024 8:18 PM EDT) [facility] Glucose Meter POC 134(H) 70 - 100 mg/dL 09/29/2024 8:19 PM EDT [facility] Sample Type Capillary 09/29/2024 8:19 PM EDT [facility] Patient Status Non-Critical Patient 09/29/2024 8:19 PM EDT [facility] Blood BLOOD SPECIMEN / Unknown 09/29/2024 8:18 PM EDT 09/29/2024 8:19 PM EDT S Sapphire DO POINT OF CARE TEST ORDERABLES Final Result Performing Organization Address [facility] Co de Phone Number 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 Sample Type Capillary 09/29/2024 5:18 PM EDT [facility] Patient Status Non-Critical Patient 09/29/2024 5:18 PM EDT [facility] Blood BLOOD SPECIMEN / Unknown 09/29/2024 5:16 PM EDT 09/29/2024 5:18 PM EDT S Sapphire DO POINT OF CARE TEST ORDERABLES Final Result Performing Organization Address [facility] Co de Phone Number [facility] [address] [phone] * (ABNORMAL) GLUCOSE METER POC (09/29/2024 1:46 PM EDT) Glucose Meter POC 228(H) 70 - 100 mg/dL 09/29/2024 1:47 PM EDT [facility] Sample Type Capillary 09/29/2024 1:47 PM EDT [facility] Patient Status Non-Critical Patient 09/29/2024 1:47 PM EDT [facility] Blood BLOOD SPECIMEN / Unknown 09/29/2024 1:46 PM EDT 09/29/2024 1:47 PM EDT [facility] Sapphire DO POINT OF CARE TEST ORDERABLES Final Result Performing Organization Address City/[facility] Co de Phone Number [facility] [place] [address] [address] [place] [phone] * (ABNORMAL) GLUCOSE METER POC (09/29/2024 12:53 PM EDT) Glucose Meter POC 219(H) 70 - 100 mg/dL 09/29/2024 12:55 PM EDT [facility] Sample Type Capillary 09/29/2024 12:55 PM EDT [facility] Patient Status Non-Critical Patient 09/29/2024 12:55 PM EDT [facility] Blood BLOOD SPECIMEN / Unknown 09/29/2024 12:53 PM EDT 09/29/2024 12:55 PM EDT [facility] S Sapphire DO POINT OF CARE TEST ORDERABLES Final Result [facility] [address] [phone] * (ABNORMAL) GLUCOSE METER POC (09/29/2024 8:16 AM EDT) Glucose Meter POC 171(H) 70 - 100 mg/dL 09/29/2024 8:18 AM EDT [facility] Sample Type Capillary 09/29/2024 8:18 AM EDT [facility] Patient Status Non-Critical Patient 09/29/2024 8:18 AM EDT [facility] Blood BLOOD SPECIMEN / Unknown 09/29/2024 8:16 AM EDT 09/29/2024 8:18 AM EDT S Sapphire DO POINT OF CARE TEST ORDERABLES Final Result Performing Organization Address City/[facility]/ZIP Co de Phone Number [facility] [address] [place] [address] * ECG AND WAVEFORMS - TELEMETRY (09/29/2024 7:25 AM EDT) Pathologist [facility] ECG INTERPRET First Degree Sinus Rhythm [facility] 09/29/2024 7:25 AM EDT Narrative [facility] - 09/29/2024 7:27 AM EDT SR;IVCD-ROUTINE/PB HI 0.21 QRS 0.14 RR 0.72 QT 0.43 QTc 0.51 See Clinical Report link for waveform capture us Unknown Provider POINT OF CARE CARDIOLOGY Final Result Performing Organization Address City/[facility]/ZIP Co de Phone Number [facility] [address] [place], [place] [id number] * (ABNORMAL) BASIC METABOLIC PANEL (09/29/2024 6:32 AM EDT) Sodium 150(H) 136 - 145 mmol/L 09/29/2024 7:58 AM EDT [facility] Potassium 3.9 3.5 - 5.0 mmol/L 09/29/2024 7:58 AM EDT [facility] Chloride 112(H) 98 - 107 mmol/L 09/29/2024 7:58 AM EDT [facility] Total CO2 29 22 - 29 mmol/L 09/29/2024 7:58 AM EDT [facility] Anion Gap 9 7 - 16 mmol/L 09/29/2024 7:58 AM EDT [facility] Calcium 8.9 8.8 - 10.4 mg/dL 09/29/2024 7:58 AM EDT [facility] Glucose Lvl 177(H) 70 - 99 mg/dL 09/29/2024 7:58 AM EDT [facility] BUN 41(H) 8 - 23 mg/dL 09/29/2024 7:58 AM EDT [facility] Creatinine 0.67 0.51 - 1.30 mg/dL 09/29/2024 7:58 AM EDT [facility] eGFR (CKD-EPIcr 2020) 94 >=60 mL/min/1.7 3 m2 09/29/2024 7:58 AM EDT [facility] Comment:Estimated GFR was ca lculated using the CKD-EPIcr (2020) equation refit without race. The equation is recommended by the [employer] Kid[employer] - [place] [employer] Nephrology Task Force. Blood VENOUS BLOOD / Unknown Venipuncture / Unknown 09/29/2024 6:32 AM EDT 09/29/2024 7:25 AM EDT Sapphire DO CHEMISTRY ORDERABLES Final Re sult [facility] [address] [place] [address] * (ABNORMAL) CBC (09/29/2024 6:32 AM EDT) WBC 9.7 3.7 - 10.3 x10(3)/mcL 09/29/2024 7:35 AM EDT [facility] RBC 4.65 3.90 - 5.20 x10(6)/mcL 09/29/2024 7:35 AM EDT [facility] Hgb 12.2 11.2 - 15.7 g/dL 09/29/2024 7:35 AM EDT [facility] Hct 40.2 34.0 - 45.0 % 09/29/2024 7:35 AM EDT [facility] MCV 86.5 80.0 - 100.0 fL 09/29/2024 7:35 AM EDT [facility] MCH 26.2 26.0 - 34.0 pg 09/29/2024 7:[address] [facility] MCHC 30.3(L) 30.7 - 35.5 g/dL 09/29/2024 7:35 AM EDT [facility] RDW 15.4(H) <=14.9 % 09/29/2024 7:35 AM EDT [facility] Platelet 166 155 - 369 x10(3)/mcL 09/29/2024 7:35 AM EDT [facility] MPV 11.0 8.8 - 12.5 fL 09/29/2024 7:35 AM EDT [facility] Blood VENOUS BLOOD / Unknown Venipuncture / Unknown 09/29/2024 6:32 AM EDT 09/29/2024 7:25 AM EDT S Sapphire DO HEMATOLOGY ORDERABLES Final R esult Performing Organization Address City/[facility]/ZIP Co de Phone Number [facility] [address] [place] [address] * (ABNORMAL) GLUCOSE METER POC (09/28/2024 8:32 PM EDT) [employer] [facility] Glucose Meter POC 199(H) 70 - 100 mg/dL 09/28/2024 8:33 PM EDT [facility] Sample Type Capillary 09/28/2024 8:33 PM EDT [facility] Patient Status Non-Critical Patient 09/28/2024 8:33 PM EDT [facility] Blood BLOOD SPECIMEN / Unknown 09/28/2024 8:32 PM EDT 09/28/2024 8:33 PM EDT Troy S Sapphire DO POINT OF CARE TEST ORDERABLES Final Result Performing Organization Address [facility]/ZIP Co de Phone Number [facility] [address] [place] [address] * ECG AND WAVEFORMS - TELEMETRY (09/28/2024 7:41 PM EDT) ECG INTERPRET Sinus Rhythm w/ First Degree AVB [facility] Comment:+ IVCD 09/28/2024 7:41 PM EDT Narrative [facility] - 09/28/2024 7:47 PM EDT ROUTINE GG W/ 1 AVB See Clinical Report link for waveform capture us Unknown Provider POINT OF CARE CARDIOLOGY Final Result Performing Organization Address City/[facility] Co de Phone Number [facility] [address] [place] [address] * (ABNORMAL) GLUCOSE METER POC (09/28/2024 5:32 PM EDT) [facility] Glucose Meter POC 170(H) 70 - 100 mg/dL 09/28/2024 5:33 PM EDT [facility] Sample Type Capillary 09/28/2024 5:33 PM EDT [facility] Patient Status Non-Critical Patient 09/28/2024 5:33 PM EDT [facility] Blood BLOOD SPECIMEN / Unknown 09/28/2024 5:32 PM EDT 09/28/2024 5:33 PM EDT us S Sapphire DO POINT OF CARE TEST ORDERABLES Final Result Performing Organization Address City/[facility]/ZIP Co de Phone Number [facility] [address] [place] [address] * ECG AND WAVEFORMS - TELEMETRY (09/28/2024 1:16 PM EDT) ECG INTERPRET Sinus Rhythm w/ First Degree AVB [facility] 09/28/2024 1:16 PM EDT Narrative [facility] - 09/28/2024 1:18 PM EDT IVCD - ROUTINE - KB HI 0.22 QRS 0.13 RR 0.66 QT 0.42 QTc 0.51 See Clinical Report link for waveform capture us Unknown Provider POINT OF CARE CARDIOLOGY Final Result Performing Organization Address [facility]/ZIP Co de Phone Number [facility] [address] [place], [place] [id number] * (ABNORMAL) GLUCOSE METER POC (09/28/2024 12:40 PM EDT) Glucose Meter POC 199(H) 70 - 100 mg/dL 09/28/2024 12:43 PM EDT [facility] Sample Type Capillary 09/28/2024 12:43 PM EDT [facility] Patient Status Non-Critical Patient 09/28/2024 12:43 PM EDT [facility] Blood BLOOD SPECIMEN / Unknown 09/28/2024 12:40 PM EDT 09/28/2024 12:43 PM EDT Troy S Sapphire DO POINT OF CARE TEST ORDERABLES Final Result Performing Organization Address [facility] de Phone Number [facility] [address] [place] [address] * (ABNORMAL) GLUCOSE METER POC (09/28/2024 8:58 AM EDT) Glucose Meter POC 157(H) 70 - 100 mg/dL 09/28/2024 9:00 AM EDT [facility] Sample Type Capillary 09/28/2024 9:00 AM EDT [facility] Patient Status Non-Critical Patient 09/28/2024 9:00 AM EDT [facility] Blood BLOOD SPECIMEN / Unknown 09/28/2024 8:58 AM EDT 09/28/2024 9:00 AM EDT Troy S Sapphire DO POINT OF CARE TEST ORDERABLES Final Result Performing Organization Address [facility] Co de Phone Number [facility] [address] [place] [address] * ECG AND WAVEFORMS - TELEMETRY (09/28/2024 7:00 AM EDT) [facility] ECG INTERPRET Sinus with IVCD [facility] 09/28/2024 7:00 AM EDT Narrative [facility] - 09/28/2024 8:04 AM EDT IVCD - ROUTINE - KB HI 0.19 QRS 0.14 RR 0.67 QT 0.43 QTc 0.52 See Clinical Report link for waveform capture us Unknown Provider POINT OF CARE CARDIOLOGY Final Result [facility] [address] [place], [place] [id number] * (ABNORMAL) BASIC METABOLIC PANEL (09/28/2024 6:49 AM EDT) [facility] Sodium 153(H) 136 - 145 mmol/L 09/28/2024 8:33 AM EDT [facility] Potassium 4.0 3.5 - 5.0 mmol/L 09/28/2024 8:33 AM EDT [facility] Chloride 112(H) 98 - 107 mmol/L 09/28/2024 8:33 AM EDT [facility] Total CO2 26 22 - 29 mmol/L 09/28/2024 8:33 AM EDT [facility] Anion Gap 15 7 - 16 mmol/L 09/28/2024 8:33 AM EDT [facility] Calcium 9.4 8.8 - 10.4 mg/dL 09/28/2024 8:33 AM EDT [facility] Glucose Lvl 161(H) 70 - 99 mg/dL 09/28/2024 8:33 AM EDT [facility] BUN 41(H) 8 - 23 mg/dL 09/28/2024 8:33 AM EDT [facility] Creatinine 0.67 0.51 - 1.30 mg/dL 09/28/2024 8:33 AM EDT [facility] eGFR (CKD-EPIcr 2020) 94 >=60 mL/min/1.7 3 m2 09/28/2024 8:33 AM EDT [facility] Comment:Estimated GFR was ca lculated using the CKD-EPIcr (2020) equation refit without race. The equation is recommended by the [employer] - [place] [employer] Nephrology Task Force. Blood VENOUS BLOOD / Unknown Venipuncture / Unknown 09/28/2024 6:49 AM EDT 09/28/2024 8:03 AM EDT Sapphire DO CHEMISTRY ORDERABLES Final Re sult [facility] [address] [facility], [place] [id number] * (ABNORMAL) CBC (09/28/2024 6:49 AM EDT) WBC 11.0(H) 3.7 - 10.3 x10(3)/mcL 09/28/2024 8:06 AM EDT [facility] RBC 5.13 3.90 - 5.20 x10(6)/mcL 09/28/2024 8:06 AM EDT [facility] Hgb 13.4 11.2 - 15.7 g/dL 09/28/2024 8:06 AM EDT [facility] Hct 44.3 34.0 - 45.0 % 09/28/2024 8:06 AM EDT [facility] MCV 86.4 80.0 - 100.0 fL 09/28/2024 8:06 AM EDT [facility] MCH 26.1 26.0 - 34.0 pg 09/28/2024 8:06 AM EDT [facility] MCHC 30.2(L) 30.7 - 35.5 g/dL 09/28/2024 8:06 AM EDT [facility] RDW 15.5(H) <=14.9 % 09/28/2024 8:06 AM EDT [facility] Platelet 179 155 - 369 x10(3)/mcL 09/28/2024 8:06 AM EDT [facility] MPV 11.5 8.8 - 12.5 fL 09/28/2024 8:06 AM EDT [facility] Blood VENOUS BLOOD / Unknown Venipuncture / Unknown 09/28/2024 6:49 AM EDT 09/28/2024 8:02 AM EDT jwa DO HEMATOLOGY ORDERABLES Final R esult Performing Organization Address [facility] Co de Phone Number [facility] [address] [place] [address] * (ABNORMAL) GLUCOSE METER POC (09/27/2024 8:34 PM EDT) Glucose Meter POC 148(H) 70 - 100 mg/dL 09/27/2024 8:35 PM EDT [facility] Sample Type Capillary 09/27/2024 8:35 PM EDT [facility] Patient Status Non-Critical Patient 09/27/2024 8:35 PM EDT [facility] Blood BLOOD SPECIMEN / Unknown 09/27/2024 8:34 PM EDT 09/27/2024 8:35 PM EDT [place] DO POINT OF CARE TEST ORDERABLES Final Result Performing Organization Address [facility] de Phone Number [facility] [address] [place] [address] * ECG AND WAVEFORMS - TELEMETRY (09/27/2024 7:20 PM EDT) ECG INTERPRET First degree Sinus with IVCD [facility] 09/27/2024 7:20 PM EDT Narrative [facility] - 09/27/2024 8:03 PM EDT LENNY TALBOT W/ 1 AVB See Clinical Report link for waveform capture us Unknown Provider POINT OF CARE CARDIOLOGY Final Result Performing Organization Address City/[facility]/ZIP Co de Phone Number [facility] [address] [place] [address] * (ABNORMAL) GLUCOSE METER POC (09/27/2024 6:16 PM EDT) Glucose Meter POC 135(H) 70 - 100 mg/dL 09/27/2024 6:18 PM EDT [facility] Sample Type Capillary 09/27/2024 6:18 PM EDT [facility] Patient Status Non-Critical Patient 09/27/2024 6:18 PM EDT [facility] Blood BLOOD SPECIMEN / Unknown 09/27/2024 6:16 PM EDT 09/27/2024 6:18 PM EDT [facility] POINT OF CARE TEST ORDERABLES Final Result Performing Organization Address [facility]/ZIP Co de Phone Number [facility] [address] [place] [phone] * (ABNORMAL) GLUCOSE METER POC (09/27/2024 12:13 PM EDT) Glucose Meter POC 150(H) 70 - 100 mg/dL 09/27/2024 12:15 PM EDT [facility] Sample Type Capillary 09/27/2024 12:15 PM EDT [facility] Patient Status Non-Critical Patient 09/27/2024 12:15 PM EDT [facility] Blood BLOOD SPECIMEN / Unknown 09/27/2024 12:13 PM EDT 09/27/2024 12:15 PM EDT Troy S Sapphire DO POINT OF CARE TEST ORDERABLES Final Result Performing Organization Address [facility]/ZIP Co de Phone Number [facility] [address] [place] [address] * (ABNORMAL) GLUCOSE METER POC (09/27/2024 10:51 AM EDT) Glucose Meter POC 153(H) 70 - 100 mg/dL 09/27/2024 10:54 AM EDT [facility] Sample Type Capillary 09/27/2024 10:54 AM EDT [facility] Patient Status Non-Critical Patient 09/27/2024 10:54 AM EDT [facility] Blood BLOOD SPECIMEN / Unknown 09/27/2024 10:51 AM EDT 09/27/2024 10:54 AM EDT [facility] DO POINT OF CARE TEST ORDERABLES Final Result Performing Organization Address [facility] de Phone Number [facility] [address] [place] [address] * (ABNORMAL) GLUCOSE METER POC (09/27/2024 9:01 AM EDT) Glucose Meter POC 205(H) 70 - 100 mg/dL 09/27/2024 9:03 AM EDT [facility] Sample Type Capillary 09/27/2024 9:03 AM EDT [facility] Patient Status Non-Critical Patient 09/27/2024 9:03 AM EDT [facility] Blood BLOOD SPECIMEN / Unknown 09/27/2024 9:01 AM EDT 09/27/2024 9:03 AM EDT Troy S Sapphire DO POINT OF CARE TEST ORDERABLES Final Result Performing Organization Address [facility] de Phone Number [facility] [address] [place] [address] * ECG AND WAVEFORMS - TELEMETRY (09/27/2024 7:00 AM EDT) ECG INTERPRET Sinus with IVCD [facility] 09/27/2024 7:00 AM EDT Narrative [facility] - 09/27/2024 8:02 AM EDT ROUTINE/BF 1ST DEGREE AVB/IVCD HI 0.23 QRS 0.16 RR 0.67 QT 0.42 QTc 0.51 See Clinical Report link for waveform capture us Unknown Provider POINT OF CARE CARDIOLOGY Final Result [facility] [address] [place] [phone] * (ABNORMAL) CBC (09/27/2024 5:57 AM EDT) WBC 12.4(H) 3.7 - 10.3 x10(3)/mcL 09/27/2024 6:27 AM EDT [facility] RBC 5.20 3.90 - 5.20 x10(6)/mcL 09/27/2024 6:27 AM EDT [facility] Hgb 13.6 11.2 - 15.7 g/dL 09/27/2024 6:27 AM EDT [facility] Hct 44.0 34.0 - 45.0 % 09/27/2024 6:27 AM EDT [facility] MCV 84.6 80.0 - 100.0 fL 09/27/2024 6:27 AM EDT [facility] MCH 26.2 26.0 - 34.0 pg 09/27/2024 6:27 AM EDT [facility] MCHC 30.9 30.7 - 35.5 g/dL 09/27/2024 6:27 AM EDT [facility] RDW 15.4(H) <=14.9 % 09/27/2024 6:27 AM EDT [facility] Platelet 173 155 - 369 x10(3)/mcL 09/27/2024 6:27 AM EDT [facility] MPV 10.9 8.8 - 12.5 fL 09/27/2024 6:27 AM EDT [facility] Blood VENOUS BLOOD / Unknown Venipuncture / Unknown 09/27/2024 5:57 AM EDT 09/27/2024 6:22 AM EDT us S Sapphire DO HEMATOLOGY ORDERABLES Final R esult [facility] [address] [facility] [place] [address] * (ABNORMAL) BASIC METABOLIC PANEL (09/27/2024 5:57 AM EDT) Sodium 151(H) 136 - 145 mmol/L 09/27/2024 6:48 AM EDT [facility] Potassium 3.9 3.5 - 5.0 mmol/L 09/27/2024 6:48 AM EDT [facility] Chloride 111(H) 98 - 107 mmol/L 09/27/2024 6:48 AM EDT [facility] Total CO2 24 22 - 29 mmol/L 09/27/2024 6:48 AM EDT [facility] Anion Gap 16 7 - 16 mmol/L 09/27/2024 6:48 AM EDT [facility] Calcium 9.2 8.8 - 10.4 mg/dL 09/27/2024 6:48 AM EDT [facility] Glucose Lvl 211(H) 70 - 99 mg/dL 09/27/2024 6:48 AM EDT [facility] BUN 28(H) 8 - 23 mg/dL 09/27/2024 6:48 AM EDT [facility] Creatinine 0.77 0.51 - 1.30 mg/dL 09/27/2024 6:48 AM EDT [facility] eGFR (CKD-EPIcr 2020) 83 >=60 mL/min/1.7 3 m2 09/27/2024 6:48 AM EDT [facility] Comment:Estimated GFR was ca lculated using the CKD-EPIcr (2020) equation refit without race. The equation is recommended by the National Kidney [employer] - [place] [employer] of Nephrology Task Force. Blood VENOUS BLOOD / Unknown Venipuncture / Unknown 09/27/2024 5:57 AM EDT 09/27/2024 6:22 AM EDT us S Sapphire DO CHEMISTRY ORDERABLES Final Re sult [facility] [address] [place] [address] * EK EKG 12 LEAD (09/27/2024 12:32 AM EDT) Anatomical Region Laterality Modality Electrocardiogra phy 09/27/2024 12:4 1 AM EDT Impressions 09/27/2024 12: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 Electronically Signed On 09-27-2024 12:12:26 EDT by Abrahan Adkins MD Narrative Procedure Note Abrahan Adkins MD - 09/27/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 Electronically Signed On 09-27-2024 12:12:26 EDT by Abrahan Adkins MD us Robbin Tsang APRN IMG ECG ORDERABLES Final Resu lt * ECG AND WAVEFORMS - TELEMETRY (09/26/2024 10:45 PM EDT) ECG INTERPRET Sinus Tachycardia [facility] Comment:IVCD 09/26/2024 10:4 5 PM EDT Narrative [facility] - 09/26/2024 10:48 PM EDT IVCD QRS COMPLEX CHANGES BLK PAC EREN HI 0.20 QRS 0.14 See Clinical Report link for waveform capture us Unknown Provider POINT OF CARE CARDIOLOGY Final Result Performing Organization Address [facility] Co de Phone Number [facility] [address] [place] [address] * (ABNORMAL) GLUCOSE METER POC (09/26/2024 8:43 PM EDT) Glucose Meter POC 165(H) 70 - 100 mg/dL 09/26/2024 8:44 PM EDT [facility] Sample Type Capillary 09/26/2024 8:44 PM EDT [facility] Patient Status Non-Critical Patient 09/26/2024 8:44 PM EDT [facility] Blood BLOOD SPECIMEN / Unknown 09/26/2024 8:43 PM EDT 09/26/2024 8:44 PM EDT us Troy S Sapphire DO POINT OF CARE TEST ORDERABLES Final Result Performing Organization Address [facility] de Phone Number [facility] [address] [place] [address] * ECG AND WAVEFORMS - TELEMETRY (09/26/2024 7:10 PM EDT) ECG INTERPRET First degree Sinus with IVCD [facility] Comment:sinus tachy 09/26/2024 7:10 PM EDT Narrative [facility] - 09/26/2024 8:53 PM EDT 1ST DEGREE IVCD PAC BLOCKED PAC MF PVC'S HI 0.22 QRS 0.16 RR 0.54 QT 0.34 QTc 0.46 See Clinical Report link for waveform capture us Unknown Provider POINT OF CARE CARDIOLOGY Final Result Performing Organization Address [facility] Co de Phone Number [facility] [address] [place] [address] * (ABNORMAL) GLUCOSE METER POC (09/26/2024 4:14 PM EDT) [facility] Glucose Meter POC 164(H) 70 - 100 mg/dL 09/26/2024 4:15 PM EDT [facility] Sample Type Capillary 09/26/2024 4:15 PM EDT [facility] Patient Status Non-Critical Patient 09/26/2024 4:15 PM EDT [facility] Blood BLOOD SPECIMEN / Unknown 09/26/2024 4:14 PM EDT 09/26/2024 4:15 PM EDT Sapphire DO POINT OF CARE TEST ORDERABLES Final Result [facility] [address] [place] [address] * STAPHYLOCOCCUS AUREUS SCREEN (09/26/2024 12:18 PM EDT) [facility] Staph aureus PCR Not Detected Not Detected 09/27/2024 2:45 AM EDT [facility], [facility] MRSA PCR Not Detected Not Detected 09/27/2024 2:45 AM EDT [facility] [employer], [facility] Swab BOTH ANTERIOR NARES / Unknown 09/26/2024 12:18 PM EDT 09/26/2024 7:27 PM EDT [facility] [employer], [facility] - 09/27/2024 2:45 AM EDT Staphylococcus aureus target DNA sequence is not detected. This qualitative assay is intended for the detection of Staphylococcus aureus proprietary sequences for the staphylococcal protein A (spa) gene, the gene for methicillin resistance (mecA), and the staphylococcal cassette chromosome mec (SCCmec) inserted into the SA chromosomal attB site. This assay utilizes real time PCR on the [employer] GeneXpert Infinity, and its performance has been verified by the [facility]. A negative result does not rule out the presence of the Staphylococcus aureus or Methicillin resistant Staphylococcus aureus in concentrations below the limit of detection for the assay. This assay is FDA cleared to test on nares swabs collected on patients >21 years of age. Testing on patients < 21 years of age and on umbilicus sources is not FDA approved by this methodology, but has been developed and validated by the [facility] laboratory. Detailed methodology is available upon request. Troy Sapphire DO MICROBIOLOGY - GENERAL ORDERA BLES Final Result Performing Organization Address City/[facility]/ZIP Co de Phone Number [facility] [employer], [facility] [address] [facility], [address] [place] [phone] * (ABNORMAL) GLUCOSE METER POC (09/26/2024 12:14 PM EDT) [facility] Glucose Meter POC 189(H) 70 - 100 mg/dL 09/26/2024 12:16 PM EDT [facility] Sample Type Capillary 09/26/2024 12:16 PM EDT [facility] Patient Status Non-Critical Patient 09/26/2024 12:16 PM EDT [facility] Blood BLOOD SPECIMEN / Unknown 09/26/2024 12:14 PM EDT 09/26/2024 12:16 PM EDT [facility] POINT OF CARE TEST ORDERABLES Final Result Performing Organization Address City/[facility] de Phone Number [facility] [address] [place] [address] * EK EKG 12 LEAD (09/26/2024 11:08 AM EDT) Anatomical Region Laterality Modality Electrocardiogra phy 09/26/2024 11:1 5 AM EDT Impressions 09/26/2024 2:57 PM EDT [facility] Test Date: 2024-09-26 Pat Name: SUNITA TRENT Department: DEPID Room: E3715 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 No Radiologist in attendance. No charge from [facility]. Refer to Speech Pathology for further information. Sapphire DO IMG FLUOROSCOPY ORDERABLES Fi nal Result PACS * XR CHEST AP PORTABLE (09/26/2024 9:26 AM EDT) Anatomical Region Laterality Modality Chest Radiographic Jessica ging 09/26/2024 9:26 AM EDT Impressions 09/26/2024 11:31 AM EDT Bilateral diffuse scattered airspace opacities. No pleural effusions. - Note: Radiology results need to be interpreted within a comprehensive clinical context. If you have questions about the radiology report, please contact the office of the ordering clinician. Narrative 09/26/2024 11:31 AM EDT XR CHEST AP PORTABLE, 09/26/2024 9:26 AM CLINICAL HISTORY: -SOB COMPARISON: 10/16/2022. PROCEDURE COMMENTS: AP portable technique. FINDINGS: Stable radiographic appearance of the heart and pulmonary vascular structures. Diffuse bilateral scattered airspace opacities. Developing inflammatory lung process should be considered. No pleural effusions. Procedure Note Seamus Kumar, DO - 09/26/2024 XR CHEST AP PORTABLE, 09/26/2024 9:26 AM CLINICAL HISTORY: -SOB COMPARISON: 10/16/2022. PROCEDURE COMMENTS: AP portable technique. FINDINGS: Stable radiographic appearance of the heart and pulmonary vascularstructures. Diffuse bilateral scattered airspace opacities. Developing inflammatorylung process should be considered. No pleural effusions. IMPRESSION: Bilateral diffuse scattered airspace opacities. No pleural effusions. - Note: Radiology results need to be interpreted within a comprehensiveclinical context. If you have questions about the radiology report, please contactthe office of the ordering clinician. Troy Yared Leary DO IMG DIAGNOSTIC IMAGING ORDERA BLES Final Result * (ABNORMAL) GLUCOSE METER POC (09/26/2024 8:50 AM EDT) [facility] Glucose Meter POC 162(H) 70 - 100 mg/dL 09/26/2024 8:51 AM EDT [facility] Sample Type Capillary 09/26/2024 8:51 AM EDT [facility] Patient Status Non-Critical Patient 09/26/2024 8:51 AM EDT [facility] Blood BLOOD SPECIMEN / Unknown 09/26/2024 8:50 AM EDT 09/26/2024 8:51 AM EDT Troy Yared Leary DO POINT OF CARE TEST ORDERABLES Final Result 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 HI 0.19 QRS 0.15 RR 0.59 QT 0.34 QTc 0.44 See Clinical Report link for waveform capture us Unknown Provider POINT OF CARE CARDIOLOGY Final Result Performing Organization Address [facility]/ZIP Co de Phone Number [facility] [address] [place] [address] * ECG AND WAVEFORMS - TELEMETRY (09/26/2024 7:49 AM EDT) ECG INTERPRET Sinus Tachycardia [facility] 09/26/2024 7:49 AM EDT Narrative [facility] - 09/26/2024 7:51 AM EDT 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 HI 0.19 QRS 0.15 RR 0.59 QT 0.34 QTc 0.44 See Clinical Report link for waveform capture us Unknown Provider POINT OF CARE CARDIOLOGY Final Result Performing Organization Address [facility] de Phone Number [facility] [address] [place] [address] * (ABNORMAL) LIPID SCREEN (09/26/2024 6:00 AM EDT) Cholesterol 180 <200 mg/dL 09/26/2024 9:38 AM EDT [facility] Comment: < 200 Desirable 200 - 239 Borderline High >= 240 High Triglyceride 83 <150 mg/dL 09/26/2024 9:38 AM EDT [facility] Comment: < 150 Normal 150 - 199 Borderline High 200 - 499 High >= 500 Very High HDL 54 >=40 mg/dL 09/26/2024 9:38 AM EDT [facility] Comment: > 60 Optimal 40 - 60 Acceptable < 40 Low LDL Calculated 111(H) <100 mg/dL 09/26/2024 9:38 AM EDT [facility] Comment: < 100 Optimal 100 - 129 Near or above optimal 130 - 159 Borderline High 160 - 189 High >= 190 Very High The National Institutes of Health (NIH) equation is used for all lipid panels that report calculated LDL (LDL-C). Non-HDL-C Calculated 126 <=129 mg/dL 09/26/2024 9:38 AM EDT [facility] Comment: <130 Desirable 130-159 Above Desirable 160-189 Borderline High 190-219 High >= 220 Very High Fasting Specimen? Yes None 025 9:38 AM EDT [facility] Blood VENOUS BLOOD / Unknown Venipuncture / Unknown 09/26/2024 6:00 AM EDT 09/26/2024 6:17 AM EDT Sapphire DO CHEMISTRY ORDERABLES Final Re sult [facility] [address] [facility] , [address] [place] [id number] * (ABNORMAL) CBC (09/26/2024 6:00 AM EDT) WBC 13.1(H) 3.7 - 10.3 x10(3)/mcL 09/26/2024 6:23 AM EDT [facility] RBC 5.22(H) 3.90 - 5.20 x10(6)/mcL 09/26/2024 6:23 AM EDT [facility] Hgb 13.6 11.2 - 15.7 g/dL 09/26/2024 6:23 AM EDT [facility] Hct 43.8 34.0 - 45.0 % 09/26/2024 6:23 AM EDT [facility] MCV 83.9 80.0 - 100.0 fL 09/26/2024 6:23 AM EDT [facility] MCH 26.1 26.0 - 34.0 pg 09/26/2024 6:23 AM EDT [facility] MCHC 31.1 30.7 - 35.5 g/dL 09/26/2024 6:23 AM EDT [facility] RDW 15.6(H) <=14.9 % 09/26/2024 6:23 AM EDT [facility] Platelet 176 155 - 369 x10(3)/mcL 09/26/2024 6:23 AM EDT [facility] MPV 10.6 8.8 - 12.5 fL 09/26/2024 6:23 AM EDT [facility] Blood VENOUS BLOOD / Unknown Venipuncture / Unknown 09/26/2024 6:00 AM EDT 09/26/2024 6:17 AM EDT DO HEMATOLOGY ORDERABLES Final R esult [facility] [address] [place] [address] * (ABNORMAL) BASIC METABOLIC PANEL (09/26/2024 6:00 AM EDT) Sodium 145 136 - 145 mmol/L 09/26/2024 6:43 AM EDT [facility] Potassium 4.2 3.5 - 5.0 mmol/L 09/26/2024 6:43 AM EDT [facility] Chloride 110(H) 98 - 107 mmol/L 09/26/2024 6:43 AM EDT [facility] Total CO2 20(L) 22 - 29 mmol/L 09/26/2024 6:43 AM EDT [facility] Anion Gap 15 7 - 16 mmol/L 09/26/2024 6:43 AM EDT [facility] Calcium 9.2 8.8 - 10.4 mg/dL 09/26/2024 6:43 AM EDT [facility] Glucose Lvl 172(H) 70 - 99 mg/dL 09/26/2024 6:43 AM EDT [facility] BUN 15 8 - 23 mg/dL 09/26/2024 6:43 AM EDT [facility] Creatinine 0.59 0.51 - 1.30 mg/dL 09/26/2024 6:43 AM EDT [facility] eGFR (CKD-EPIcr 2020) 97 >=60 mL/min/1.7 3 m2 09/26/2024 6:43 AM EDT [facility] Comment:Estimated GFR was ca lculated using the CKD-EPIcr (2020) equation refit without race. The equation is recommended by the National Kidney Foundation - [place] [employer] of Nephrology Task Force. Blood VENOUS BLOOD / Unknown Venipuncture / Unknown 09/26/2024 6:00 AM EDT 09/26/2024 6:17 AM EDT us S Sapphire DO CHEMISTRY ORDERABLES Final Re sult Performing Organization Address City/[facility]/ZIP Co de Phone Number [facility] [address] [place] [address] * ECG AND WAVEFORMS - TELEMETRY (09/25/2024 9:53 PM EDT) ECG INTERPRET Sinus Arrythmia [facility] Comment:with IVCDs with PVCs 09/25/2024 9:53 PM EDT Narrative [facility] - 09/25/2024 10:21 PM EDT IVCD W/PVC'S SG HI 0.20 QRS 0.14 QT 0.39 See Clinical Report link for waveform capture us Unknown Provider POINT OF CARE CARDIOLOGY Final Result Performing Organization Address [facility]/ZIP Co de Phone Number [facility] [address] [place], [place] [id number] * CT HEAD WO CONTRAST (09/25/2024 8:12 PM EDT) Anatomical Region Laterality Modality Head Computed Tomogra phy 09/25/2024 8:12 PM EDT Impressions 09/25/2024 8:29 PM EDT No intracranial hemorrhage. Evolving known infarcts without definite new/acute finding. - Note: Radiology results need to be interpreted within a comprehensive clinical context. If you have questions about the radiology report, please contact the office of the ordering clinician. Narrative 09/25/2024 8:[address] HEAD WO CONTRAST 09/25/2024 8:12 PM CLINICAL HISTORY: -ICH. COMPARISON: Recent prior PROCEDURE COMMENTS: Routine noncontrast head CT with multiplanar reconstructions. Dose 1 : CT DLP Total : 898.01 mGycm DLP Spiral Max : 892.11 mGycm Maximum CTDI Vol : 47.7 mGy FINDINGS: Evidence of intracranial hemorrhage or extra-axial collection. Evolving infarcts. No definite new areas of low attenuation. Ventricles are stable in size and configuration. Included portions of the paranasal sinuses, mastoids, and orbits unremarkable. Procedure Note Neno Amaya MD - 09/25/2024 CT HEAD WO CONTRAST 09/25/2024 8:12 PM CLINICAL HISTORY: -ICH. COMPARISON: Recent prior PROCEDURE COMMENTS: Routine noncontrast head CT with multiplanar reconstructions. Dose 1 : CT DLP Total : 898.01 mGycm DLP Spiral Max : 892.11 mGycm Maximum CTDI Vol : 47.7 mGy FINDINGS: Evidence of intracranial hemorrhage or extra-axial collection. Evolving infarcts. No definite new areas of low attenuation. Ventricles are stablein size and configuration. Included portions of the paranasal sinuses, mastoids, and orbitsunremarkable. IMPRESSION: No intracranial hemorrhage. Evolving known infarcts without definitenew/acute finding. - Note: Radiology results need to be interpreted within a comprehensiveclinical context. If you have questions about the radiology report, please contactthe office of the ordering clinician. us Neville Gutierrez MD IMG CT ORDERABLES Magdalena l Result * ECG AND WAVEFORMS - TELEMETRY (09/25/2024 7:37 PM EDT) ECG INTERPRET First degree Sinus with IVCD [facility] 09/25/2024 7:37 PM EDT Narrative [facility] - 09/25/2024 8:04 PM EDT IVCD W/BLOCKED PAC SG HI 0.18 QRS 0.13 RR 0.59 QT 0.40 QTc 0.52 See Clinical Report link for waveform capture us Unknown Provider POINT OF CARE CARDIOLOGY Final Result [facility] [address] [place] [address] * ECG AND WAVEFORMS - TELEMETRY (09/25/2024 7:20 PM EDT) Pathologist [facility] ECG INTERPRET First degree Sinus with IVCD [facility] Comment:PVCs 09/25/2024 7:20 PM EDT Narrative [facility] - 09/25/2024 8:08 PM EDT 1ST DEGREE IVCD MF PVC'S PAC'S SG HI 0.22 QRS 0.14 RR 0.60 QT 0.34 QTc 0.44 See Clinical Report link for waveform capture us Unknown Provider POINT OF CARE CARDIOLOGY Final Result Performing Organization Address [facility]/ZIP Co de Phone Number [facility] [address] [place] [address] * (ABNORMAL) TROPONIN-T HIGH SENSITIVITY BASELINE W/ REFLEX (09/25/2024 6:01 PM EDT) [facility] my-cUepzwzrn-U 262(HH) <14 ng/L 09/25/2024 7:53 PM EDT [facility] Blood VENOUS BLOOD / Unknown Venipuncture / Unknown 09/25/2024 6:01 PM EDT 09/25/2024 7:35 PM EDT [facility] - 09/25/2024 7:53 PM EDT Ingestion of mindy doses of biotin (>5 mg/day) taken within 8 hours of drawing blood sample can interfere with this immunoassay test. us Timur Parr MD CHEMISTRY ORDERABLES Final Resul t Performing Organization Address City/[facility]/ZIP Co de Phone Number [facility] [address] [place] [address] * (ABNORMAL) GLUCOSE METER POC (09/25/2024 5:31 PM EDT) [facility] Glucose Meter POC 144(H) 70 - 100 mg/dL 09/25/2024 5:33 PM EDT [facility] Sample Type Capillary 09/25/2024 5:33 PM EDT [facility] Patient Status Non-Critical Patient 09/25/2024 5:33 PM EDT [facility] Blood BLOOD SPECIMEN / Unknown 09/25/2024 5:31 PM EDT 09/25/2024 5:33 PM EDT Troy Leary DO POINT OF CARE TEST ORDERABLES Final Result Performing Organization Address [facility] de Phone Number [facility] [address] [address] * (ABNORMAL) TROPONIN-T HIGH SENSITIVITY 2HR (09/25/2024 4:05 PM EDT) [id number]-wHuxsfdxg-K 2HR 269(HH) <14 ng/L 09/25/2024 5:03 PM EDT [facility] hs-cTnT 2Hr Delta from Baseline 14() <4 ng/L 09/25/2024 5:03 PM EDT [facility] Blood VENOUS BLOOD / Unknown Venipuncture / Unknown 09/25/2024 4:05 PM EDT 09/25/2024 4:44 PM EDT Narrative [facility] - 09/25/2024 5:03 PM EDT Ingestion of mindy doses of biotin (>5 mg/day) taken within 8 hours of drawing blood sample can interfere with this immunoassay test. Amy Rich APRN CHEMISTRY ORDERABLES Final R esult Performing Organization Address [facility] Co de Phone Number [facility] [address] [address] * CT HEAD WO CONTRAST (09/25/2024 2:50 PM EDT) Anatomical Region Laterality Modality Head Computed Tomogra phy 09/25/2024 2:50 PM EDT Impressions 09/25/2024 3:32 PM EDT 1. Tiny punctate focus of hyperdensity in the right occipital lobe, not seen on the prior exam and suspicious for a tiny focus of hemorrhage versus artifact. Recommend short interval follow-up imaging to assess to assess resolution. 2. Redemonstrated small areas of low attenuation involving the right superior cerebellum, right dorsal midbrain, and left cerebellar hemisphere compatible with the acute infarcts as seen on the prior MRI. 3. Unchanged curvilinear hyperdensity on the right lateral margin of the sergey, compatible with calcification/thrombus in the right superior cerebellar artery. CRITICAL RESULT: Concern for a tiny focus of intraparenchymal hemorrhage versus artifact. This finding was discussed with David uAgustin. on 09/25/2024 3:30 PM by telephone. They confirmed that they understood the findings communicated to them. #[id number]# Note: Radiology results need to be interpreted within a comprehensive clinical context. If you have questions about the radiology report, please contact the office of the ordering clinician. Narrative 09/25/2024 3:[address] HEAD WO CONTRAST 09/25/2024 2:50 PM CLINICAL HISTORY: -Stroke change. COMPARISON: MRI brain dated 09/24/2024, CTA head dated 09/24/2024 PROCEDURE COMMENTS: Routine noncontrast head CT with multiplanar reconstructions. Dose 1 : CT DLP Total : 966.99 mGycm DLP Spiral Max : 791 mGycm Maximum CTDI Vol : 44.22 mGy FINDINGS: Multifocal small areas of low attenuation involving the right superior cerebellum as well as the right dorsal midbrain, more conspicuous from the prior CT compatible with evolving acute infarcts as seen on the MRI brain dated 09/24/2024. Small focus of low attenuation in the left cerebellar hemisphere, also compatible with an area of acute ischemia seen on the prior MRI. Tiny punctate focus of hyperdensity in the right occipital lobe (image #12), not definitely seen on the prior exam. The schulz-white matter differentiation is otherwise preserved. The ventricles are normal in size and configuration for the patient's age. No extra-axial fluid collections. Linear hyperdensity course along the right lateral margin of the sergey, similar to the prior exam and likely related to dense calcification/thrombus within the right superior cerebellar artery. The globes and orbits unremarkable. The paranasal sinuses are clear. The mastoid air cells are well aerated bilaterally. Procedure Note Ar Lopez, DO - 09/25/2024 CT HEAD WO CONTRAST 09/25/2024 2:50 PM CLINICAL HISTORY: -Stroke change. COMPARISON: MRI brain dated 09/24/2024, CTA head dated 09/24/2024 PROCEDURE COMMENTS: Routine noncontrast head CT with multiplanar reconstructions. Dose 1 : CT DLP Total : 966.99 mGycm DLP Spiral Max : 791 mGycm Maximum CTDI Vol : 44.22 mGy FINDINGS: Multifocal small areas of low attenuation involving the right superior cerebellum as well as the right dorsal midbrain, more conspicuous from theprior CT compatible with evolving acute infarcts as seen on the MRI braindated 09/24/2024. Small focus of low attenuation in the left cerebellarhemisphere, also compatible with an area of acute ischemia seen on the prior MRI. Tinypunctate focus of hyperdensity in the right occipital lobe (image #12), notdefinitely seen on the prior exam. The schulz-white matter differentiation isotherwise preserved. The ventricles are normal in size and configuration for thepatient's age. No extra-axial fluid collections. Linear hyperdensity course alongthe right lateral margin of the sergey, similar to the prior exam and likelyrelated to dense calcification/thrombus within the right superior cerebellarartery. The globes and orbits unremarkable. The paranasal sinuses are clear. Themastoid air cells are well aerated bilaterally. IMPRESSION: 1. Tiny punctate focus of hyperdensity in the right occipital lobe, notseen on the prior exam and suspicious for a tiny focus of hemorrhage versusartifact. Recommend short interval follow-up imaging to assess to assessresolution. 2. Redemonstrated small areas of low attenuation involving the rightsuperior cerebellum, right dorsal midbrain, and left cerebellar hemispherecompatible with the acute infarcts as seen on the prior MRI. 3. Unchanged curvilinear hyperdensity on the right lateral margin of thepons, compatible with calcification/thrombus in the right superior cerebellarartery. CRITICAL RESULT: Concern for a tiny focus of intraparenchymal hemorrhageversus artifact. This finding was discussed with David Augustin. on 09/25/2024 3:30PM by telephone. They confirmed that they understood the findings communicatedto them. #[id number]# Note: Radiology results need to be interpreted within a comprehensiveclinical context. If you have questions about the radiology report, please contactthe office of the ordering clinician. us Neville Gutierrez MD IMG CT ORDERABLES Magdalena l Result * CT ANGIOGRAM HEAD AND NECK W CONTRAST (09/25/2024 2:50 PM EDT) Anatomical Region Laterality Modality Head Computed Tomogra phy 09/25/2024 2:50 PM EDT Impressions 09/25/2024 3:59 PM EDT 1. Asymmetric nonopacification of the right superior cerebellar artery concerning for occlusion. 2. Calcified and noncalcified plaque at the carotid bifurcations resulting in approximately 60% stenosis of the right ICA origin and less than 50% stenosis of the left ICA origin. 3. Irregular ill-defined intraluminal low-attenuation in the region of the left carotid bifurcation, which is indeterminate but could represent irregular intraluminal thrombus or carotid web versus streak artifact from dense calcifications. 4. Mild scattered bandlike and patchy groundglass opacities throughout the visualized upper lungs, most evident in the right upper lobe, nonspecific but may relate to atelectasis or mild infectious/inflammatory process. 5. Few scattered small sub 6 mm pulmonary nodules in the visualized upper lungs which are indeterminate. Current guidelines recommend optional follow-up CT chest in 12 months if the patient is considered high risk for malignancy. 6. Enlargement of the main pulmonary artery which can be seen with pulmonary arterial hypertension. - Note: Radiology results need to be interpreted within a comprehensive clinical context. If you have questions about the radiology report, please contact the office of the ordering clinician. NASCET criteria used for estimates of stenosis. Narrative 09/25/2024 3:59 PM EDT CTA HEAD AND NECK WITH CONTRAST, 09/25/2024 2:50 PM CLINICAL HISTORY: -Stroke, first CTA timed poorly. COMPARISON: CTA head/neck dated 09/24/2024 PROCEDURE COMMENTS: Isovue 370 IV contrast given as recorded in EPIC. Subsequently, multi-detector helical scanning was performed through the head and neck and multiplanar reconstructions generated per protocol. Review included 3D MIP reconstructions. Dose 1 : CT DLP Total : 966.99 mGycm DLP Spiral Max : 791 mGycm Maximum CTDI Vol : 44.22 mGy FINDINGS: CTA NECK: ARCH: Visible aortic arch patent shows no gross aneurysm or dissection. Moderate atherosclerotic calcifications throughout the aortic arch and origin of the great vessels. Severe luminal narrowing of the origin of the left subclavian artery secondary to calcified and noncalcified plaque. Mild/moderate luminal narrowing of the origin of the right brachiocephalic artery. RIGHT CAROTID SYSTEM: The right common carotid artery opacifies normally. Calcified and noncalcified plaque at the right carotid bifurcation with approximately 60% stenosis of the right ICA origin. The remaining cervical right internal carotid artery opacifies normally to the skull base without significant stenosis or occlusion. LEFT CAROTID SYSTEM: The left common carotid artery opacifies normally. Calcified and noncalcified plaque at the left carotid bifurcation resulting in less than 50% stenosis of the left ICA origin. There is irregular ill-defined intraluminal low-attenuation in the region of the left carotid bifurcation (image #[id number]), which is indeterminate but could represent irregular intraluminal thrombus or web versus streak artifact from dense calcifications. The remaining cervical left internal carotid artery opacifies normally to the skull base without significant stenosis or occlusion. VERTEBRAL ARTERIES: Vertebral arteries are grossly patent without flow-limiting stenosis or dissection. CTA HEAD: Mild atherosclerotic calcifications left V4 vertebral artery segment resulting in mild luminal narrowing. The right V4 vertebral segment opacifies normally. Normal opacification of the basilar artery. Normal opacification of bilateral PICA and AICA. The left superior cerebellar artery opacifies normally with mild opacification of the right superior cerebellar artery. The left P1 segment opacifies normally. Mild multifocal luminal narrowing and irregularity of the left P2 and distal left [employer]. The right P1 segment opacifies normally with normal opacification of the right P2 posterior cerebral artery segment. Moderate atherosclerotic calcification of the cavernous and parasellar internal carotid arteries resulting in mild luminal narrowing. Normal opacification of the M1 and M2 segments of the middle cerebral arteries. The A1 and A2 segments opacify normally. OTHER: Enlargement of the main pulmonary artery measuring up to 3.7 cm. The thyroid gland is atrophic or surgically absent. Mild scattered bandlike and patchy groundglass opacities throughout the visualized upper lungs, most evident in the right upper lobe. Scattered sub-6 mm pulmonary nodules in the visualized upper lungs including a 4 mm pulmonary nodule in the right upper lobe. Straightening of the normal cervical lordosis. Mild multilevel degenerative disc disease and moderate facet arthrosis throughout cervical spine. Median sternotomy wires are present. Procedure Note Ar Lopez, DO - 07/10/2025 CTA HEAD AND NECK WITH CONTRAST, 09/25/2024 2:50 PM CLINICAL HISTORY: -Stroke, first CTA timed poorly. COMPARISON: CTA head/neck dated 09/24/2024 PROCEDURE COMMENTS: Isovue 370 IV contrast given as recorded in EPIC. Subsequently, multi-detector helical scanning was performed through thehead and neck and multiplanar reconstructions generated per protocol. Review included 3D MIP reconstructions. Dose 1 : CT DLP Total : 966.99 mGycm DLP Spiral Max : 791 mGycm Maximum CTDI Vol : 44.22 mGy FINDINGS: CTA NECK: ARCH: Visible aortic arch patent shows no gross aneurysm or dissection.Moderate atherosclerotic calcifications throughout the aortic arch and origin ofthe great vessels. Severe luminal narrowing of the origin of the leftsubclavian artery secondary to calcified and noncalcified plaque. Mild/moderateluminal narrowing of the origin of the right brachiocephalic artery. RIGHT CAROTID SYSTEM: The right common carotid artery opacifiesnormally. Calcified and noncalcified plaque at the right carotid bifurcation with approximately 60% stenosis of the right ICA origin. The remaining cervicalright internal carotid artery opacifies normally to the skull base withoutsignificant stenosis or occlusion. LEFT CAROTID SYSTEM: The left common carotid artery opacifies normally. Calcified and noncalcified plaque at the left carotid bifurcationresulting in less than 50% stenosis of the left ICA origin. There is irregularill-defined intraluminal low-attenuation in the region of the left carotidbifurcation (image #[id number]), which is indeterminate but could represent irregularintraluminal thrombus or web versus streak artifact from dense calcifications. Theremaining cervical left internal carotid artery opacifies normally to the skullbase without significant stenosis or occlusion. VERTEBRAL ARTERIES: Vertebral arteries are grossly patent withoutflow-limiting stenosis or dissection. CTA HEAD: Mild atherosclerotic calcifications left V4 vertebral arterysegment resulting in mild luminal narrowing. The right V4 vertebral segmentopacifies normally. Normal opacification of the basilar artery. Normal opacificationof bilateral PICA and AICA. The left superior cerebellar artery opacifiesnormally with mild opacification of the right superior cerebellar artery. The leftP1 segment opacifies normally. Mild multifocal luminal narrowing andirregularity of the left P2 and distal left [employer]. The right P1 segment opacifiesnormally with normal opacification of the right P2 posterior cerebral artery segment.Moderate atherosclerotic calcification of the cavernous and parasellar internalcarotid arteries resulting in mild luminal narrowing. Normal opacification of theM1 and M2 segments of the middle cerebral arteries. The A1 and A2 segmentsopacify normally. OTHER: Enlargement of the main pulmonary artery measuring up to 3.7 cm.The thyroid gland is atrophic or surgically absent. Mild scattered bandlikeand patchy groundglass opacities throughout the visualized upper lungs, mostevident in the right upper lobe. Scattered sub-6 mm pulmonary nodules in thevisualized upper lungs including a 4 mm pulmonary nodule in the right upper lobe. Straightening of the normal cervical lordosis. Mild multileveldegenerative disc disease and moderate facet arthrosis throughout cervical spine. Median sternotomy wires are present. IMPRESSION: 1. Asymmetric nonopacification of the right superior cerebellar artery concerning for occlusion. 2. Calcified and noncalcified plaque at the carotid bifurcationsresulting in approximately 60% stenosis of the right ICA origin and less than 50%stenosis of the left ICA origin. 3. Irregular ill-defined intraluminal low-attenuation in the region ofthe left carotid bifurcation, which is indeterminate but could representirregular intraluminal thrombus or carotid web versus streak artifact from dense calcifications. 4. Mild scattered bandlike and patchy groundglass opacities throughoutthe visualized upper lungs, most evident in the right upper lobe, nonspecificbut may relate to atelectasis or mild infectious/inflammatory process. 5. Few scattered small sub 6 mm pulmonary nodules in the visualized upperlungs which are indeterminate. Current guidelines recommend optional follow-upCT chest in 12 months if the patient is considered high risk formalignancy. 6. Enlargement of the main pulmonary artery which can be seen withpulmonary arterial hypertension. - Note: Radiology results need to be interpreted within a comprehensiveclinical context. If you have questions about the radiology report, please contactthe office of the ordering clinician. NASCET criteria used for estimates of stenosis. Neville Gutierrez MD IMG CT ORDERABLES Magdalena l Result * (ABNORMAL) TROPONIN-T HIGH SENSITIVITY BASELINE W/ REFLEX (09/25/2024 1:42 PM EDT) of-iPthurkhk-R 255(HH) <14 ng/L 09/25/2024 2:30 PM EDT [facility] Blood VENOUS BLOOD / Unknown Venipuncture / Unknown 09/25/2024 1:42 PM EDT 09/25/2024 2:06 PM EDT Narrative [facility] - 09/25/2024 2:30 PM EDT Ingestion of mindy doses of biotin (>5 mg/day) taken within 8 hours of drawing blood sample can interfere with this immunoassay test. Amy Rich APRN CHEMISTRY ORDERABLES Final R esult Performing Organization Address [facility] Co de Phone Number [facility] [address] [place] [address] * (ABNORMAL) GLUCOSE METER POC (09/25/2024 12:54 PM EDT) [facility] Glucose Meter POC 169(H) 70 - 100 mg/dL 09/25/2024 12:59 PM EDT [facility] Sample Type Capillary 09/25/2024 12:59 PM EDT [facility] Patient Status Non-Critical Patient 09/25/2024 12:59 PM EDT [facility] Blood BLOOD SPECIMEN / Unknown 09/25/2024 12:54 PM EDT 09/25/2024 12:59 PM EDT Sapphire DO POINT OF CARE TEST ORDERABLES Final Result Performing Organization Address [facility] de Phone Number [facility] [address] [place] [address] * EC ECHOCARDIOGRAM 2D M MODE COMPLETE W CONTRAST (09/25/2024 11:37 AM EDT) Pathologist [facility] MITRAL REGURGITATION mild PYRAMIS Ejection Fraction 35-40% PYRAMIS LV DIASTOLIC PLAX 5.74 cm PYRAMIS Anatomical Region Laterality Modality Electrocardiogra phy 09/25/2024 10:1 3 AM EDT Impressions 09/25/2024 2:02 PM EDT Conclusions * Left ventricular function is moderately reduced with an estimated ejection fraction of 35-40%. * Left ventricular chamber dimension is moderately enlarged. * There is mildly increased left ventricular wall thickness with a sigmoid shaped septum that is moderately thickened. * Left ventricular segmental wall motion is abnormal with akinesis of the mid anteroseptal, mid inferoseptal, apical septal and mid to apical inferior myocardium and hypokinesis of the apical lateral and apical myocardium. * The left ventricular diastolic function is consistent with diastolic dysfunction and normal left atrial pressure. * Right ventricular systolic function is normal, with a tricuspid annular plane systolic excursion of 2.2 cm and a RV s' of 16.1 cm/s. * Estimated pulmonary artery systolic pressure is at least mildly elevated, estimated to be at least 36 mmHg assuming a right atrial pressure of 15 mmHg. 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 * The mean gradient across the prosthetic aortic valve is 13 mmHg, which is within normal limits. * There is no transvalvular regurgitation of the prosthetic aortic valve. * There is no paravalvular regurgitation of the prosthetic aortic valve. * The mitral valve is mildly thickened and calcified with restricted posterior leaflet mobility. * There is moderate mitral annular calcification. * There is progressive to severe mitral valve stenosis. Unable to measure MVA by planimetry but with mean gradient 8 mmHg with a heart rate in the 80s. * There is mild mitral valve regurgitation. * There is mild pulmonic regurgitation. * The proximal ascending aorta is mildly dilated measuring 3.9 cm with an index of 2.1 cm/m2. * Left atrial chamber dimension is moderately enlarged. Narrative Procedure Note Timur Parr MD - 09/25/2024 IMPRESSION Conclusions * Left ventricular function is moderately reduced with an estimatedejection fraction of 35-40%. * Left ventricular chamber dimension is moderately enlarged. * There is mildly increased left ventricular wall thickness with asigmoid shaped septum that is moderately thickened. * Left ventricular segmental wall motion is abnormal with akinesis ofthe mid anteroseptal, mid inferoseptal, apical septal and mid to apicalinferior myocardium and hypokinesis of the apical lateral and apical myocardium. * The left ventricular diastolic function is consistent with diastolic dysfunction and normal left atrial pressure. * Right ventricular systolic function is normal, with a tricuspidannular plane systolic excursion of 2.2 cm and a RV s' of 16.1 cm/s. * Estimated pulmonary artery systolic pressure is at least mildlyelevated, estimated to be at least 36 mmHg assuming a right atrial pressure of 15mmHg. 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 * The mean gradient across the prosthetic aortic valve is 13 mmHg, whichis within normal limits. * There is no transvalvular regurgitation of the prosthetic aorticvalve. * There is no paravalvular regurgitation of the prosthetic aorticvalve. * The mitral valve is mildly thickened and calcified with restricted posterior leaflet mobility. * There is moderate mitral annular calcification. * There is progressive to severe mitral valve stenosis. Unable tomeasure MVA by planimetry but with mean gradient 8 mmHg with a heart rate in the80s. * There is mild mitral valve regurgitation. * There is mild pulmonic regurgitation. * The proximal ascending aorta is mildly dilated measuring 3.9 cm withan index of 2.1 cm/m2. * Left atrial chamber dimension is moderately enlarged. Feli Harper MD IMG ECHO ORDERABLES Final R esult * SCANNED EKG (09/25/2024 9:59 AM EDT) Anatomical Region Laterality Modality Other 09/25/2024 9:59 AM EDT us Unknown Provider IMG ECG ORDERABLES Final Result * (ABNORMAL) CBC (09/25/2024 9:52 AM EDT) WBC 10.9(H) 3.7 - 10.3 x10(3)/mcL 09/25/2024 10:22 AM EDT [facility] RBC 5.18 3.90 - 5.20 x10(6)/mcL 09/25/2024 10:22 AM EDT [facility] Hgb 13.6 11.2 - 15.7 g/dL 09/25/2024 10:22 AM EDT [facility] Hct 42.4 34.0 - 45.0 % 09/25/2024 10:22 AM EDT [facility] MCV 81.9 80.0 - 100.0 fL 09/25/2024 10:22 AM EDT [facility] MCH 26.3 26.0 - 34.0 pg 09/25/2024 10:[address] [facility] MCHC 32.1 30.7 - 35.5 g/dL 09/25/2024 10:22 AM EDT [facility] RDW 15.3(H) <=14.9 % 09/25/2024 10:22 AM EDT [facility] Platelet 189 155 - 369 x10(3)/mcL 09/25/2024 10:22 AM EDT [facility] MPV 10.3 8.8 - 12.5 fL 09/25/2024 10:22 AM EDT [facility] Blood VENOUS BLOOD / Unknown Venipuncture / Unknown 09/25/2024 9:52 AM EDT 09/25/2024 10:20 AM EDT S Sapphire DO HEMATOLOGY ORDERABLES Final R esult [facility] [address] [place] [address] * (ABNORMAL) LIPID SCREEN (09/25/2024 9:52 AM EDT) Pathologist [facility] Cholesterol 185 <200 mg/dL 09/25/2024 5:03 PM EDT [facility] Comment: < 200 Desirable 200 - 239 Borderline High >= 240 High Triglyceride 117 <150 mg/dL 09/25/2024 5:03 PM EDT [facility] Comment: < 150 Normal 150 - 199 Borderline High 200 - 499 High >= 500 Very High HDL 55 >=40 mg/dL 09/25/2024 5:03 PM EDT [facility] Comment: > 60 Optimal 40 - 60 Acceptable < 40 Low LDL Calculated 109(H) <100 mg/dL 09/25/2024 5:03 PM EDT [facility] Comment: < 100 Optimal 100 - 129 Near or above optimal 130 - 159 Borderline High 160 - 189 High >= 190 Very High The National Institutes of Health (NIH) equation is used for all lipid panels that report calculated LDL (LDL-C). Non-HDL-C Calculated 130(H) <=129 mg/dL 09/25/2024 5:03 PM EDT [facility] Comment: <130 Desirable 130-159 Above Desirable 160-189 Borderline High 190-219 High >= 220 Very High Fasting Specimen? Yes None 025 5:03 PM EDT [facility] Blood VENOUS BLOOD / Unknown Venipuncture / Unknown 09/25/2024 9:52 AM EDT 09/25/2024 10:19 AM EDT us Sapphire DO CHEMISTRY ORDERABLES Final Re sult [facility] [address] [facility] , [place] [address] * (ABNORMAL) BASIC METABOLIC PANEL (09/25/2024 9:52 AM EDT) Sodium 145 136 - 145 mmol/L 09/25/2024 11:18 AM EDT [facility] Potassium 3.9 3.5 - 5.0 mmol/L 09/25/2024 11:18 AM EDT [facility] Chloride 108(H) 98 - 107 mmol/L 09/25/2024 11:18 AM EDT [facility] Total CO2 25 22 - 29 mmol/L 09/25/2024 11:18 AM EDT [facility] Anion Gap 12 7 - 16 mmol/L 09/25/2024 11:18 AM EDT [facility] Calcium 9.3 8.8 - 10.4 mg/dL 09/25/2024 11:18 AM EDT [facility] Glucose Lvl 151(H) 70 - 99 mg/dL 09/25/2024 11:18 AM EDT [facility] BUN 13 8 - 23 mg/dL 09/25/2024 11:18 AM EDT [facility] Creatinine 0.54 0.51 - 1.30 mg/dL 09/25/2024 11:18 AM EDT [facility] eGFR (CKD-EPIcr 2020) 99 >=60 mL/min/1.7 3 m2 09/25/2024 11:18 AM EDT [facility] Comment:Estimated GFR was ca lculated using the CKD-EPIcr (2020) equation refit without race. The equation is recommended by the National Kidney Foundation - [place] [employer] of Nephrology Task Force. Blood VENOUS BLOOD / Unknown Venipuncture / Unknown 09/25/2024 9:52 AM EDT 09/25/2024 10:19 AM EDT us Sapphire DO CHEMISTRY ORDERABLES Final Re sult [facility] [address] [place] [address] * VA US CAROTID DUPLEX BILATERAL (09/25/2024 9:12 AM EDT) Anatomical Region Laterality Modality Vascular, Head, Neck Vascular Im aging 09/25/2024 7:41 AM EDT Impressions 09/25/2024 9:11 AM EDT Conclusions * There is a right proximal internal carotid artery severely obstructive lesion noted, with an estimated 60-79% stenosis by EDV and ICA/CCA ratio criteria. A more significant stenosis cannot be excluded secondary to acoustic shadowing. * Antegrade flow visualized in the right vertebral artery. * There is a left proximal internal carotid artery moderately obstructive lesion noted, with an estimated high end 40-59% stenosis. A more significant stenosis cannot be excluded secondary to acoustic shadowing. * Abnormal, antegrade flow visualized in the left vertebral artery, demonstrating early systolic deceleration/ bunny sign. Unable to visualize any hemodynamically significant stenosis in the left subclavian artery, however, it cannot be ruled out secondary to abnormal vertebral artery flow. * Unable to obtain the bilateral brachial pressures secondary to patient responsiveness/ recent CVA. Narrative Procedure Note Jone Javier MD - 09/25/2024 IMPRESSION Conclusions * There is a right proximal internal carotid artery severelyobstructive lesion noted, with an estimated 60-79% stenosis by EDV and ICA/CCA ratio criteria. A more significant stenosis cannot be excluded secondary toacoustic shadowing. * Antegrade flow visualized in the right vertebral artery. * There is a left proximal internal carotid artery moderatelyobstructive lesion noted, with an estimated high end 40-59% stenosis. A moresignificant stenosis cannot be excluded secondary to acoustic shadowing. * Abnormal, antegrade flow visualized in the left vertebral artery, demonstrating early systolic deceleration/ bunny sign. Unable tovisualize any hemodynamically significant stenosis in the left subclavian artery, however, it cannot be ruled out secondary to abnormal vertebral arteryflow. * Unable to obtain the bilateral brachial pressures secondary topatient responsiveness/ recent CVA. Feli Harper MD IMG VASCULAR ORDERABLES Fin al Result * (ABNORMAL) GLUCOSE METER POC (09/25/2024 8:42 AM EDT) [facility] Glucose Meter POC 161(H) 70 - 100 mg/dL 09/25/2024 8:44 AM EDT [facility] Sample Type Capillary 09/25/2024 8:44 AM EDT [facility] Patient Status Non-Critical Patient 09/25/2024 8:44 AM EDT [facility] Blood BLOOD SPECIMEN / Unknown 09/25/2024 8:42 AM EDT 09/25/2024 8:44 AM EDT jwa DO POINT OF CARE TEST ORDERABLES Final Result [facility] [address] [place] [address] * ECG AND WAVEFORMS - TELEMETRY (09/25/2024 7:28 AM EDT) [facility] ECG INTERPRET NSR [facility] 09/25/2024 7:28 AM EDT Narrative [facility] - 09/25/2024 7:45 AM EDT 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 Blood VENOUS BLOOD / Unknown Venipuncture / Unknown 09/25/2024 4:14 AM EDT 09/25/2024 4:18 AM EDT Sapphire DO HEMATOLOGY ORDERABLES Final R esult Performing Organization Address City/[facility]/ZIP Co de Phone Number [facility] [address] [place] [address] * (ABNORMAL) CBC (09/25/2024 4:14 AM EDT) WBC 10.8(H) 3.7 - 10.3 x10(3)/mcL 09/25/2024 4:20 AM EDT [facility] RBC 4.97 3.90 - 5.20 x10(6)/mcL 09/25/2024 4:20 AM EDT [facility] Hgb 13.1 11.2 - 15.7 g/dL 09/25/2024 4:20 AM EDT [facility] Hct 41.0 34.0 - 45.0 % 09/25/2024 4:20 AM EDT [facility] MCV 82.5 80.0 - 100.0 fL 09/25/2024 4:20 AM EDT [facility] MCH 26.4 26.0 - 34.0 pg 09/25/2024 4:20 AM EDT [facility] MCHC 32.0 30.7 - 35.5 g/dL 09/25/2024 4:20 AM EDT [facility] RDW 15.2(H) <=14.9 % 09/25/2024 4:20 AM EDT [facility] Platelet 194 155 - 369 x10(3)/mcL 09/25/2024 4:20 AM EDT [facility] MPV 10.5 8.8 - 12.5 fL 09/25/2024 4:20 AM EDT [facility] Blood VENOUS BLOOD / Unknown Venipuncture / Unknown 09/25/2024 4:14 AM EDT 09/25/2024 4:18 AM EDT S Sapphire DO HEMATOLOGY ORDERABLES Final R esult Performing Organization Address City/[facility]/ZIP Co de Phone Number [address] [address] * ECG AND WAVEFORMS - TELEMETRY (09/24/2024 11:24 PM EDT) ECG INTERPRET NSR [facility] 09/24/2024 11:2 4 PM EDT Narrative [facility] - 09/24/2024 11:28 PM EDT SR,IVCD//HW ADMIT HI 0.22 QRS 0.14 RR 0.70 QT 0.38 QTc 0.45 See Clinical Report link for waveform capture us Unknown Provider POINT OF CARE CARDIOLOGY Final Result Performing Organization Address City/[facility]/ZIP Co de Phone Number [facility] [address] [place], [place] [id number] * MRI BRAIN WO CONTRAST (09/24/2024 9:16 PM EDT) Anatomical Region Laterality Modality Head Magnetic Resonan ce 09/24/2024 9:16 PM EDT Addenda Addendum by Brock Burleson MD on 09/25/2024 11:28 AM EDT Addendum: Additionally on the diffusion images there is restricted diffusion in the dorsal midbrain on the RIGHT compatible with acute infarct. Impressions 09/24/2024 9:25 PM EDT Multifocal posterior fossa acute appearing infarcts most pronounced in the superior RIGHT cerebellum - Note: Radiology results need to be interpreted within a comprehensive clinical context. If you have questions about the radiology report, please contact the office of the ordering clinician. Narrative 09/24/2024 9:25 PM EDT MRI BRAIN WITHOUT CONTRAST, 09/24/2024 9:16 PM CLINICAL HISTORY: -L sided weakness. COMPARISON: None. PROCEDURE COMMENTS: Multiplanar multiecho MR imaging of the brain including standard spin echo and diffusion sequences. FINDINGS: There are multifocal areas of punctate restricted diffusion in the posterior fossa involving both RIGHT and LEFT cerebellum. The most prominent area of involvement is in the superior and medial RIGHT cerebellum extending to the cerebellar vermis but there are punctate foci of restricted diffusion in the LEFT cerebellum as well. On the ADC map these show low signal and on the FLAIR sequence these areas are very difficult to appreciate. No compression of the fourth ventricle. Ventricles normal in size. Atrophy and small vessel ischemic white matter change is present Included portions of the paranasal sinuses, mastoids, and orbits unremarkable. Procedure Note Brock Burleson MD - 09/24/2024 MRI BRAIN WITHOUT CONTRAST, 09/24/2024 9:16 PM CLINICAL HISTORY: -L sided weakness. COMPARISON: None. PROCEDURE COMMENTS: Multiplanar multiecho MR imaging of the brainincluding standard spin echo and diffusion sequences. FINDINGS: There are multifocal areas of punctate restricted diffusion in theposterior fossa involving both RIGHT and LEFT cerebellum. The most prominent areaof involvement is in the superior and medial RIGHT cerebellum extending tothe cerebellar vermis but there are punctate foci of restricted diffusion inthe LEFT cerebellum as well. On the ADC map these show low signal and on theFLAIR sequence these areas are very difficult to appreciate. No compression of the fourth ventricle. Ventricles normal in size. Atrophy and small vessel ischemic white matter change is present Included portions of the paranasal sinuses, mastoids, and orbitsunremarkable. IMPRESSION: Multifocal posterior fossa acute appearing infarcts most pronounced in the superior RIGHT cerebellum - Note: Radiology results need to be interpreted within a comprehensiveclinical context. If you have questions about the radiology report, please contactthe office of the ordering clinician. 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1955 Requested By: FELI Nunez Order Number: [id number] Reading MD: Timur Parr Measurements Intervals [place] Rate: 84 P: 0 HI: 237 QRS: -70 QRSD: 158 T: 45 QT: 434 QTc: 515 Interpretive Statements SINUS TACHYCARDIA WITH FIRST DEGREE AV BLOCK LEFT AXIS DEVIATION LEFT BUNDLE BRANCH BLOCK Electronically Signed On 09-25-2024 07:05:13 EDT by Timur Parr Narrative Procedure Note Timur Parr MD - 09/25/2024 IMPRESSION [facility] Test Date: 2024-09-24 Pat Name: SUNITA TRENT Department: DEPID Room: E3715 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1955 Requested By: FELI Nunez Order Number: [id number] Reading : Timur Parr Measurements Intervals [place] Rate: 84 P: 0 HI: 237 QRS: -70 QRSD: 158 T: 45 QT: 434 QTc: 515 Interpretive Statements SINUS TACHYCARDIA WITH FIRST DEGREE AV BLOCK LEFT AXIS DEVIATION LEFT BUNDLE BRANCH BLOCK Electronically Signed On 09-25-2024 07:05:13 EDT by Timur Parr us Feli Harper MD IMG ECG ORDERABLES Final Re sult * (ABNORMAL) BLOOD GAS, VENOUS (09/24/2024 7:28 PM EDT) pH Venous 7.41 7.32 - 7.42 pH 09/24/2024 7:33 PM EDT [facility] pCO2 Venous 46 41 - 51 mmHg 09/24/2024 7:33 PM EDT [facility] pO2 Venous 56(H) 25 - 40 mmHg 09/24/2024 7:33 PM EDT [facility] Comment:Interpret with cauti on. Not recommended to evaluate patient's oxygenation status. Base Excess Momo 3.3 mmol/L 7:33 PM EDT [facility] Hco3 Venous 28.7(H) 24.0 - 28.0 mmol/L 09/24/2024 7:33 PM EDT [facility] CO2 Total Momo 26 25 - 29 mmol/L 09/24/2024 7:33 PM EDT [facility] O2 Sat. Venous 88.6(H) 40.0 - 70.0 % 09/24/2024 7:33 PM EDT [facility] Inspired O2 2 09/24/2024 7:33 PM EDT [facility] Blood VENOUS BLOOD / Unknown Venipuncture / Unknown 09/24/2024 7:28 PM EDT 09/24/2024 7:32 PM EDT Sapphire DO CHEMISTRY ORDERABLES Final Re sult [address] [address] * (ABNORMAL) TROPONIN-T HIGH SENSITIVITY 2HR (09/24/2024 7:28 PM EDT) [id number] 2HR 177(HH) <14 ng/L 09/24/2024 7:52 PM EDT [facility] hs-cTnT 2Hr Delta from Baseline 90(HH) <4 ng/L 09/24/2024 7:[address] [facility] Blood VENOUS BLOOD / Unknown Venipuncture / Unknown 09/24/2024 7:28 PM EDT 09/24/2024 7:[address] [facility] - 09/24/2024 7:52 PM EDT Ingestion of mindy doses of biotin (>5 mg/day) taken within 8 hours of drawing blood sample can interfere with this immunoassay test. us Feli Harper MD CHEMISTRY ORDERABLES Final Result [facility] [address] [place] [address] * DRUGS OF ABUSE WITH REFLEX TO CONFIRMATION, URINE (09/24/2024 6:56 PM EDT) 6 AM (Heroin) Absent Cutoff 10 ng/mL 09/24/2024 7:[address] [facility] Amphetamines Absent Cutoff 500 ng/mL 09/24/2024 7:[address] [facility] Barbiturates Absent Cutoff 200 ng/mL 09/24/2024 7:[address] [facility] Benzodiazepines Absent Cutoff 200 ng/mL 09/24/2024 7:[address] [facility] Buprenorphine Absent Cutoff 5 ng/mL 09/24/2024 7:[address] [facility] Cannabinoid Metabolite Absent Cutoff 50 ng/mL 09/24/2024 7:[address] [facility] Cocaine Metabolite Absent Cutoff 150 ng/mL 09/24/2024 7:[address] [facility] Fentanyl Absent Cutoff 5 ng/mL 09/24/2024 7:24 PM EDT [facility] Methadone and Metabolite Absent Cutoff 300 ng/mL 09/24/2024 7:[address] [facility] Opiate Absent Cutoff 300 ng/mL 09/24/2024 7:24 PM EDT [facility] Oxycodone Lvl Absent Cutoff 100 ng/mL 09/24/2024 7:24 PM EDT [facility] Urine Creatinine 16.7 mg/dL 09/25/19 25 7:24 PM EDT [facility] Comment: Greater than 20: Consistent with valid sample Greater than 2 but less than 20: Possible dilution Less than 2: Questionable valid sample Urine STRUCTURE OF URINARY TRACT PROPER / Unknown 09/24/2024 6:56 PM EDT 09/24/2024 7:04 PM EDT Narrative [facility] - 09/24/2024 7:24 PM EDT These drug classes have been qualitatively screened by immunoassay and are for medical purposes only. Results should not be used for non-medical purposes. Results reported as presumptive positive will be sent for confirmation. Due to possible factors, such as, dilute/adulterated urine, concentration of drug/metabolite being below the cut-off, or antibody specificity of test reagent, a negative result does not rule out drug use. These results are only valid for urine specimens. Any contamination with vaginal pool/amniotic fluid could cause erroneous results. Troy Leary DO URINE ORDERABLES Final Result Performing Organization Address [facility] Co de Phone Number [facility] [address] [place] [address] * EXTRA SCHULZ URINE CX (09/24/2024 6:56 PM EDT) Urine STRUCTURE OF URINARY TRACT PROPER / Unknown 09/24/2024 6:56 PM EDT 09/24/2024 7:04 PM EDT Feli Harper MD MICROBIOLOGY - GENERAL LAWRENCE LOZANO Final Result Performing Organization Address [facility] de Phone Number [facility] [address] [place] [address] * (ABNORMAL) URINALYSIS REFLEX (09/24/2024 6:56 PM EDT) UA Color Yellow 09/24/2024 7:13 PM EDT [facility] UA Appear Clear Clear 09/24/2024 7:13 PM EDT [facility] UA Glucose >=1000(A) Negative mg/dL 09/24/2024 7:13 PM EDT [facility] UA Ketones Trace (5 mg/dL)(A) Negative mg/dL 09/24/2024 7:13 PM EDT [facility] UA Blood Negative Negative 09/24/2024 7:[address] [facility] UA pH 8.0 5.0 - 8.0 pH 09/24/2024 7:[address] [facility] UA Protein Trace(A) Negative mg/dL 09/24/2024 7:[address] [facility] UA Urobilinogen 0.2 <=1 mg/dL 7:[address] [facility] UA Bili Negative Negative 09/24/2024 7:[address] [facility] UA Nitrite Negative Negative 09/24/2024 7:[address] [facility] UA Leuk Est Negative Negative 09/24/2024 7:[address] [facility] UA Spec Grav 1.010 1.001 - 1.035 no units 09/24/2024 7:[address] [facility] Comment:Reference range jagjit d for random specimens only. UA WBC <1 0 - 4 /HPF 09/24/2024 7:13 PM EDT [facility] UA Squam Epi Rare /LPF 09/24/2024 7:[address] [facility] UA Amorph 1+ /HPF 09/24/2024 7:[address] [facility] Urine STRUCTURE OF URINARY TRACT PROPER / Unknown 09/24/2024 6:56 PM EDT 09/24/2024 7:04 PM EDT us Feli Harper MD URINE ORDERABLES Final Resu lt [address] [address] * POTASSIUM REPEAT (09/24/2024 5:47 PM EDT) Potassium 3.9 3.5 - 5.0 mmol/L 09/24/2024 6:[address] [facility] Blood VENOUS BLOOD / Unknown Venipuncture / Unknown 09/24/2024 5:47 PM EDT 09/24/2024 5:49 PM EDT Feli Harper MD CHEMISTRY ORDERABLES Final Result Performing Organization Address [facility] de Phone Number [facility] [address] [place] [address] * (ABNORMAL) TROPONIN-T HIGH SENSITIVITY BASELINE W/ REFLEX (09/24/2024 5:47 PM EDT) [facility] ur-aNhoumhbp-B 87(H) <14 ng/L 09/24/2024 6:06 PM EDT [facility] Blood VENOUS BLOOD / Unknown Venipuncture / Unknown 09/24/2024 5:47 PM EDT 09/24/2024 5:49 PM EDT Narrative [facility] - 09/24/2024 6:06 PM EDT Ingestion of mindy doses of biotin (>5 mg/day) taken within 8 hours of drawing blood sample can interfere with this immunoassay test. Feli Harper MD CHEMISTRY ORDERABLES Final Result Performing Organization Address [facility] de Phone Number [facility] [address] [place] [address] * (ABNORMAL) HEMOGLOBIN A1C (09/24/2024 4:35 PM EDT) [facility] Hgb A1C 7.2(H) 4.2 - 5.6 % 09/25/2024 1:02 AM EDT [facility]ED [facility] Est. Avg Glucose 160 mg/dL 09/25/2024 1:02 AM EDT [facility] Blood VENOUS BLOOD / Unknown Venipuncture / Unknown 09/24/2024 4:35 PM EDT 09/24/2024 4:46 PM EDT Narrative [facility] - 09/25/2024 1:02 AM EDT REFERENCE RANGE: Normal: 4.0-5.6% Pre-diabetes: 5.7-6.4% Provisional diagnosis of diabetes: >6.4% Hgb F>10% and anything which shortens red cell survival, such as hemolytic anemia, or unstable hemoglobin variants such as HbSS, HbSC, or HbCC, will lower the HbA1c value associated with a given level of glycemic control. Troy Leary DO CHEMISTRY ORDERABLES Final Re sult Performing Organization Address [facility] Co de Phone Number [facility] [employer] [address], [address] [place] [phone] * PARTIAL THROMBOPLASTIN TIME (09/24/2024 4:35 PM EDT) PTT 32.7 25.7 - 36.8 second(s) 09/24/2024 4:58 PM EDT [facility] Comment: Therapeutic range for unfractionated heparin: 50.1 - 98.7 seconds Therapeutic range for direct thrombin inhibitors: Argatroban is 1.5 to 3 times the aPTT baseline. Lepirudin is 1.5 to 2 times the aPTT baseline. The aPTT should not exceed 100 seconds. The dosage of Argatroban should be decreased in patients with hepatic impairment. The dosage of Lepirudin should be decreased in renal insufficiency. Blood VENOUS BLOOD / Unknown Venipuncture / Unknown 09/24/2024 4:35 PM EDT 09/24/2024 4:46 PM EDT eFli Harper MD HEMATOLOGY ORDERABLES Final Result Performing Organization Address [facility] de Phone Number [facility] [address] [place] [address] * PT / INR (09/24/2024 4:35 PM EDT) PT 11.3 10.5 - 13.6 second(s) 09/24/2024 4:58 PM EDT [facility] INR 0.98 0.91 - 1.18 (ratio) 09/24/2024 4:58 PM EDT [facility] Comment: Level of Therapy Indications Target INR Range Standard Dose Treatment and prophylaxis of venous 2.0 - 3.0 thrombosis, pulmonary embolism High Dose High risk patients with mechanical 2.5 - 3.5 heart valves Blood VENOUS BLOOD / Unknown Venipuncture / Unknown 09/24/2024 4:35 PM EDT 09/24/2024 4:46 PM EDT us Feli Harper MD HEMATOLOGY ORDERABLES Final Result [facility] [address] [place] [address] * (ABNORMAL) BASIC METABOLIC PANEL (09/24/2024 4:35 PM EDT) Sodium 138 136 - 145 mmol/L 09/24/2024 5:04 PM EDT [facility] Potassium 09/24/2024 5:04 PM EDT [facility] Comment:Unable to result pot assium due to elevated hemolysis. Chloride 101 98 - 107 mmol/L 09/24/2024 5:04 PM EDT [facility] Total CO2 25 22 - 29 mmol/L 09/24/2024 5:04 PM EDT [facility] Anion Gap 12 7 - 16 mmol/L 09/24/2024 5:04 PM EDT [facility] Calcium 8.9 8.8 - 10.4 mg/dL 09/24/2024 5:04 PM EDT [facility] Glucose Lvl 147(H) 70 - 99 mg/dL 09/24/2024 5:04 PM EDT [facility] BUN 20 8 - 23 mg/dL 09/24/2024 5:04 PM EDT [facility] Creatinine 0.63 0.51 - 1.30 mg/dL 09/24/2024 5:04 PM EDT [facility] eGFR (CKD-EPIcr 2020) 95 >=60 mL/min/1.7 3 m2 09/24/2024 5:04 PM EDT [facility] Comment:Estimated GFR was ca lculated using the CKD-EPIcr (2020) equation refit without race. The equation is recommended by the [employer] - [place] [employer] Neph[employer] Task Force. Blood VENOUS BLOOD / Unknown Venipuncture / Unknown 09/24/2024 4:35 PM EDT 09/24/2024 4:46 PM EDT Feli Harper MD CHEMISTRY ORDERABLES Final Result Performing Organization Address [facility] Co de Phone Number [facility] [address] [place] [address] * EXTRA LIGHT BLUE (09/24/2024 4:35 PM EDT) Blood VENOUS BLOOD / Unknown Venipuncture / Unknown 09/24/2024 4:35 PM EDT 09/24/2024 4:46 PM EDT Feli Harper MD HEMATOLOGY ORDERABLES Final Result Performing Organization Address [facility] Phone Number [facility] [address] [place] [address] * (ABNORMAL) CBC (09/24/2024 4:35 PM EDT) [facility] WBC 7.9 3.7 - 10.3 x10(3)/mcL 09/24/2024 4:49 PM EDT [facility] RBC 5.08 3.90 - 5.20 x10(6)/mcL 09/24/2024 4:49 PM EDT [facility] Hgb 13.5 11.2 - 15.7 g/dL 09/24/2024 4:49 PM EDT [facility] Hct 41.2 34.0 - 45.0 % 09/24/2024 4:49 PM EDT [facility] MCV 81.1 80.0 - 100.0 fL 09/24/2024 4:49 PM EDT [facility] MCH 26.6 26.0 - 34.0 pg 09/24/2024 4:49 PM EDT [facility] MCHC 32.8 30.7 - 35.5 g/dL 09/24/2024 4:49 PM EDT [facility] RDW 15.2(H) <=14.9 % 09/24/2024 4:49 PM EDT [facility] Platelet 202 155 - 369 x10(3)/mcL 09/24/2024 4:49 PM EDT [facility] MPV 10.9 8.8 - 12.5 fL 09/24/2024 4:49 PM EDT [facility] Blood VENOUS BLOOD / Unknown Venipuncture / Unknown 09/24/2024 4:35 PM EDT 09/24/2024 4:46 PM EDT us Feli Harper MD HEMATOLOGY ORDERABLES Final Result [facility] [address] [facility] [place] [address] * CT ANGIOGRAM HEAD AND NECK STROKE PROTOCOL (09/24/2024 4:32 PM EDT) Anatomical Region Laterality Modality Head Computed Tomogra phy 09/24/2024 4:32 PM EDT Impressions 09/24/2024 5:14 PM EDT 1. Limited evaluation of the proximal carotid arteries and proximal vertebral arteries due to poor opacification. Potentially significant bilateral proximal ICA stenosis. Repeat study to assess for ICA stenosis is warranted. 2. Intracranial arteries are diagnostically evaluated. No intracranial large vessel occlusion or aneurysm. 3. This scan was analyzed using ContaCT ( LVO), using -based computer-aided triage to detect the presence of a suspected large vessel occlusion (LVO). - Note: Radiology results need to be interpreted within a comprehensive clinical context. If you have questions about the radiology report, please contact the office of the ordering clinician. NASCET criteria used for estimates of stenosis. This scan was analyzed using Viz ContaCT (Viz LVO), using AI-based computer-aided triage to detect the presence of a suspected large vessel occlusion (LVO). Narrative 09/24/2024 5:14 PM EDT CTA HEAD AND NECK WITH CONTRAST, STROKE PROTOCOL, 09/24/2024 4:32 PM CLINICAL HISTORY: -stroke protocol. COMPARISON: None. PROCEDURE COMMENTS: Isovue 370 IV contrast given as recorded in EPIC. Subsequently, multi-detector helical scanning performed and multiplanar reconstructions generated per protocol. Review included 3D MIP reconstructions. FINDINGS: CTA NECK: ARCH: No aneurysm. The arch is not well opacified. RIGHT CAROTID SYSTEM: Right common carotid artery and proximal IVC is not well opacified. This limits evaluation for carotid stenosis. Atherosclerotic plaque near circumferentially at the right ICA origin is present. Repeat study to assess for ICA stenosis warranted. Distal to the origin, there is acceptable opacification of the mid to distal ICA which otherwise appears widely patent along its course. LEFT CAROTID SYSTEM: The left common and proximal internal carotid artery is not well opacified. There is extensive calcification at the origin of the left ICA, however poor vessel opacification limits evaluation of the degree of stenosis. Again repeat study to assess for ICA stenosis is warranted. Distal to the origin, there is acceptable opacification of the ICA which appears otherwise patent along its course. VERTEBRAL ARTERIES: Limited evaluation proximally. Distally the vessels are patent, no aneurysm or occlusion. CTA HEAD: The intracranial arteries all well opacified. There is no flow limiting stenosis, LVO, or aneurysm. OTHER: Lung apices appear clear. No neck mass is identified. No acute osseous abnormality. Procedure Note Jose Anthony MD - 09/24/2024 CTA HEAD AND NECK WITH CONTRAST, STROKE PROTOCOL, 09/24/2024 4:32 PM CLINICAL HISTORY: -stroke protocol. COMPARISON: None. PROCEDURE COMMENTS: Isovue 370 IV contrast given as recorded in EPIC. Subsequently, multi-detector helical scanning performed and multiplanar reconstructions generated per protocol. Review included 3D MIPreconstructions. FINDINGS: CTA NECK: ARCH: No aneurysm. The arch is not well opacified. RIGHT CAROTID SYSTEM: Right common carotid artery and proximal IVC is notwell opacified. This limits evaluation for carotid stenosis. Atheroscleroticplaque near circumferentially at the right ICA origin is present. Repeat studyto assess for ICA stenosis warranted. Distal to the origin, there isacceptable opacification of the mid to distal ICA which otherwise appears widelypatent along its course. LEFT CAROTID SYSTEM: The left common and proximal internal carotid arteryis not well opacified. There is extensive calcification at the origin of the leftICA, however poor vessel opacification limits evaluation of the degree ofstenosis. Again repeat study to assess for ICA stenosis is warranted. Distal tothe origin, there is acceptable opacification of the ICA which appearsotherwise patent along its course. VERTEBRAL ARTERIES: Limited evaluation proximally. Distally the vesselsare patent, no aneurysm or occlusion. CTA HEAD: The intracranial arteries all well opacified. There is no flow limiting stenosis, LVO, or aneurysm. OTHER: Lung apices appear clear. No neck mass is identified. No acuteosseous abnormality. IMPRESSION: 1. Limited evaluation of the proximal carotid arteries and proximalvertebral arteries due to poor opacification. Potentially significant bilateralproximal ICA stenosis. Repeat study to assess for ICA stenosis is warranted. 2. Intracranial arteries are diagnostically evaluated. No intracraniallarge vessel occlusion or aneurysm. 3. This scan was analyzed using ContaCT ( LVO), using -basedcomputer-aided triage to detect the presence of a suspected large vessel occlusion(LVO). - Note: Radiology results need to be interpreted within a comprehensiveclinical context. If you have questions about the radiology report, please contactthe office of the ordering clinician. NASCET criteria used for estimates of stenosis. This scan was analyzed using Viz ContaCT (Viz LVO), using AI-based computer-aided triage to detect the presence of a suspected large vessel occlusion (LVO). us Feli Harper MD IMG CT ORDERABLES Final Res ult * CT HEAD STROKE PROTOCOL (09/24/2024 4:31 PM EDT) Anatomical Region Laterality Modality Head Computed Tomogra phy 09/24/2024 4:31 PM EDT Impressions 09/24/2024 4:39 PM EDT No acute intracranial abnormality. Direct communication performed per protocol by report author. Notification type: Telephone call center operations manager notified: FELI HARPER Approximate time of notification: 09/24/2024 4:37 PM. Code STROKE Narrative 09/24/2024 4:[address] HEAD STROKE PROTOCOL 09/24/2024 4:31 PM CLINICAL HISTORY: -Stroke protocol. Stroke symptoms. COMPARISON: None. PROCEDURE COMMENTS: Stroke protocol head CT. Multiplanar MIPS. Dose 1 : CT DLP Total : 1604.47 mGycm DLP Spiral Max : 891.65 mGycm Maximum CTDI Vol : 47.28 mGy FINDINGS: Normal ventricles. No evidence of acute stroke, mass, or hemorrhage. No fracture or extra-axial collection. No hyperdense vessel segments. ASPECTS SCORE: 10. Included portions of the paranasal sinuses, mastoids, and orbits unremarkable. Procedure Note Brock Burleson MD - 09/24/2024 CT HEAD STROKE PROTOCOL 09/24/2024 4:31 PM CLINICAL HISTORY: -Stroke protocol. Stroke symptoms. COMPARISON: None. PROCEDURE COMMENTS: Stroke protocol head CT. Multiplanar MIPS. Dose 1 : CT DLP Total : 1604.47 mGycm DLP Spiral Max : 891.65 mGycm Maximum CTDI Vol : 47.28 mGy FINDINGS: Normal ventricles. No evidence of acute stroke, mass, or hemorrhage. Nofracture or extra-axial collection. No hyperdense vessel segments. ASPECTS SCORE: 10. Included portions of the paranasal sinuses, mastoids, and orbitsunremarkable. IMPRESSION: No acute intracranial abnormality. Direct communication performed per protocol by report author. Notification type: Telephone call center operations manager notified: FELI HARPER Approximate time of notification: 09/24/2024 4:37 PM. 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1955 Requested By: FELI Nunez Order Number: [id number] Reading : Timur Parr Measurements Intervals [place] Rate: 85 P: 74 HI: 232 QRS: 76 QRSD: 122 T: 10 QT: 390 QTc: 465 Interpretive Statements SINUS RHYTHM WITH FIRST DEGREE AV BLOCK WITH FREQUENT VENTRICULARPREMATURE COMPLEXES LEFT ATRIAL ENLARGEMENT NONSPECIFIC INTRAVENTRICULAR CONDUCTION BLOCK ANTERIOR MYOCARDIAL INFARCTION, PROBABLY OLD Electronically Signed On 09-25-2024 07:03:18 EDT by Timur Parr us Feli Harper MD IMG ECG ORDERABLES Final Re sult * (ABNORMAL) GLUCOSE METER POC (09/24/2024 4:16 PM EDT) Glucose Meter POC 167(H) 70 - 100 mg/dL 09/24/2024 4:18 PM EDT [facility] Sample Type Capillary 09/24/2024 4:18 PM EDT [facility] Patient Status Non-Critical Patient 09/24/2024 4:18 PM EDT [facility] Blood BLOOD SPECIMEN / Unknown 09/24/2024 4:16 PM EDT 09/24/2024 4:18 PM EDT us Feli Harper MD POINT OF CARE TEST ORDERABL ES Final Result [facility] [address] [facility] [place] [address] documented in this encounter Visit Diagnoses Diagnosis Left-sided weakness- Primary Muscle weakness (generalized) Left-sided weakness Muscle weakness (generalized) Acquired hypothyroidism Unspecified hypothyroidism Arteriosclerosis of coronary artery Coronary atherosclerosis of unspecified type of vessel, [place] or graft Chronic kidney disease Chronic kidney disease, unspecified Chronic obstructive pulmonary disease (HCC) Chronic airway obstruction, not elsewhere classified Morbid obesity (HCC) Morbid obesity Acute arterial ischemic stroke, vertebrobasilar, brainstem, right (HCC) Type 2 myocardial infarction (HCC) Chronic diastolic heart failure (HCC) Chronic diastolic heart failure Acute systolic heart failure (HCC) Acute systolic heart failure Acute respiratory failure with hypoxemia (HCC) HFrEF (heart failure with reduced ejection fraction) ([facility]) S/P CABG (coronary artery bypass graft) Postsurgical aortocoronary bypass status documented in this encounter Admitting Diagnoses Diagnosis Left-sided weakness Muscle weakness (generalized) documented in this encounter Administered Medications Inactive Administered Medications - up to 1 most recent administrations Medication Order MAR Action Action Date Dose Rate Site acetaminophen (TYLENOL) suppository 650 mg 650 mg, Rectal, EVERY 4 HOURS PRN, Starting on Marylu 09/25/24 at 0315, Until Marylu 10/02/24 at 1935, Fever, Headaches, Maximum adult dose of acetaminophen is 4000 mg from all sources in 24 hours. acetaminophen (TYLENOL) tablet 650 mg 650 mg, Oral, EVERY 4 HOURS PRN, Starting on Marylu 09/25/24 at 0315, Until Marylu 10/02/24 at 1935, Fever, Headaches, Maximum adult dose of acetaminophen is 4000 mg from all sources in 24 hours. albuterol (PROVENTIL HFA;VENTOLIN HFA) inhaler 2 Puff 2 Puff, Inhalation, PRN, Starting on Marylu 09/25/24 at 1453, Until Marylu 10/02/24 at 1935, Wheezing, Shortness of Breath, Waste Sort Code = BLACK RCRA Hazardous Waste Container albuterol (PROVENTIL) nebulizer solution 2.5 mg 2.5 mg, Nebulization, PRN, Starting on Sun09/25/24 at 1453, Until Sun10/02/24 at 1935, Wheezing, Shortness of Breath, Bronchospasm Given 10/01/2024 8:14 AM EDT 2.5 mg amoxicillin-clavulanat e (AUGMENTIN) 875-125 mg per tablet 1 Tablet 1 Tablet, Oral, EVERY 12 HOURS SCHEDULED (2 times per day), 4 doses, First dose on Sun09/30/24 at 1130, Last dose on Sun10/01/24 at 2100, Reason for Therapy: Infection Documented, Indication: Upper Respiratory Given 10/01/2024 8:24 PM EDT 1 Tablet ampicillin-sulbactam (UNASYN) 1.5 g in sodium chloride 0.9 % 50 mL IVPB 1.5 g, Intravenous, EVERY 6 HOURS SCHEDULED (4 times per day), 28 doses, First dose on Sun09/26/24 at 1315, Last dose on Sun10/03/24 at 0600, Administer over 30 Minutes, Reason for Therapy: Infection Suspected, Indication: Upper Respiratory IV Started 09/30/2024 5:11 AM EDT 1.5 g 100 mL/hr aspirin suppository 300 mg 300 mg, Rectal, DAILY, First dose on Sun09/25/24 at 1630, Until Discontinued Given 09/27/2024 10:42 AM EDT 300 mg aspirin suppository 300 mg 300 mg, Rectal, DAILY WITH MEAL, First dose on Sun09/28/24 at 0915, Until Discontinued aspirin tablet 325 mg 325 mg, Oral, DAILY WITH MEAL, First dose on Sun09/28/24 at 0915, Until Discontinued Given 10/02/2024 8:07 AM EDT 325 mg atorvastatin (LIPITOR) tablet 40 mg 40 mg, Oral, NIGHTLY, First dose on Sun09/25/24 at 2100, Until Discontinued Given 10/01/2024 8:24 PM EDT 40 mg dextrose 50 % solution 25 mL 25 mL, Intravenous, PRN, Starting on Sun09/24/24 at 1842, Until Sun10/02/24 at 1935, Low blood sugar, If FSBS less than 70 mg/dl and patient cannot take orally, Check FSBS every 15 minutes and repeat 25 mL of D50 IV push and notify physician if FSBS less than 70 mg/dL VESICANT , Insulin Calculator fUROsemide (LASix) injection 20 mg 20 mg, Intravenous, TWICE DAILY DIURETIC, First dose on Sun09/26/24 at 1245, Until Discontinued, Give IV push at 20 to 40 mg/min. MAX ADMIN RATE = 40 mg/min Given 09/28/2024 8:52 AM EDT 20 mg fUROsemide (LASix) injection 20 mg 20 mg, Intravenous, ONCE, 1 dose, On Sun10/02/24 at 1100, MAXIMUM ADMINISTRATION RATE = 40 mg/min Given 10/02/2024 10:39 AM EDT 20 mg fUROsemide (LASix) injection 40 mg 40 mg, Intravenous, ONCE, 1 dose, On Sun10/01/24 at 1330, Give IV push at 20 to 40 mg/min. MAX ADMIN RATE = 40 mg/min Given 10/01/2024 2:06 PM EDT 40 mg glucagon (GLUCAGEN) injection 1 mg 1 mg, Intramuscular, PRN, Starting on Sun09/24/24 at 1842, Until Sun10/02/24 at 1935, Low blood sugar, If FSBS less than 70 mg/dl, patient cannot take orally and without IV access, If patient is without IV access, give Glucagon 1 mg Intramuscularly, insert IV and call physician., Insulin Calculator GLUCERNA Therapeutic oral supplement 1 'box' 1 'box', Oral, 2 TIMES DAILY WITH MEALS (NUTR), First dose on Sun09/29/24 at 1800, Until Discontinued, Administer orally. Do not administer if NPO or on clear liquid diet. Not for IV use. Supplied by [employer] [facility] Given 10/02/2024 9:00 AM EDT 1 'box' heparin (porcine) injection 4,500 Units 4,500 Units, Intravenous, ONCE, 1 dose, On Sun09/24/24 at 2115 Given 09/24/2024 9:49 PM EDT 4,500 Units heparin 25,000 units in 250 mL 0.45% NaCl 1,050 Units/hr (10.5 mL/hr), Intravenous, CONTINUOUS, Starting on Sun09/24/24 at 2115, Until Sun09/25/24 at 1204 IV Restarted 09/25/2024 11:20 AM EDT 1,050 Units/hr 10.5 mL/hr insulin aspart U-100 (NovoLOG) injection 0-40 Units 0-40 Units, Subcutaneous, 4 TIMES DAILY AFTER MEALS, First dose on Sun09/24/24 at 1845, Until Discontinued, PO Diet: Obtain FSBS before patient begins eating. Administer this dose, which includes nutritional (prandial) and correctional insulin upon completion of meal. Notify physician if FSBS less than 50 or greater than 350. Correction insulin doses must be by at least 3 hours. Insulin Calculator UX DEVELOPER DESIGNER - DBN, ICUs, and CVSICU Only Waste Sort Code = BLACK RCRA Hazardous Waste Container, Carb Ratio (Patient Specific, Resistant) (g/unit): 8, Blood Glucose Target - Daytime (mg/dL): 140, Blood Glucose Target - Nighttime (mg/dL): 180, Hyperglycemic Correction Factor (Patient Specific, Resistant): 29, Insulin Calculator Given 10/02/2024 12:51 PM EDT 12 Units Left Arm Insulin Calculator (UX DEVELOPER DESIGNER) - FSBS and Carb Intake Input MISCELLANEOUS, 4 TIMES DAILY AFTER MEALS, First dose on Sun09/24/24 at 1845, Until Discontinued, Carb Ratio (Patient Specific, Resistant) (g/unit): 8, Blood Glucose Target - Daytime (mg/dL): 140, Blood Glucose Target - Nighttime (mg/dL): 180, Hyperglycemic Correction Factor (Patient Specific, Resistant): 29, Insulin Calculator iopamidoL (ISOVUE-370) 370 mg iodine /mL (76 %) injection (LOW) 100 mL 100 mL, Intravenous, ONCE PRN, 1 dose, Starting on Sun09/24/24 at 1631, Until Sun09/24/24 at 1632, Radiography/Imaging, Radiology Procedure, VESICANT , CT (Contrasts) Given 09/24/2024 4:32 PM EDT 100 mL iopamidoL (ISOVUE-370) 370 mg iodine /mL (76 %) injection (LOW) 75 mL 75 mL, Intravenous, ONCE PRN, 1 dose, Starting on Sun09/25/24 at 1418, Until Sun09/25/24 at 1450, Radiography/Imaging, Radiology Procedure, VESICANT , CT (Contrasts) Given 09/25/2024 2:50 PM EDT 75 mL losartan (COZAAR) tablet 25 mg 25 mg, Oral, DAILY, First dose on Sun09/26/24 at 1245, Until Discontinued, +++ARB Medication+++ Given 10/02/2024 8:07 AM EDT 25 mg Magic Cup Dessert oral supplement 1 Each 1 Each, Oral, DAILY (NUTR), First dose on Sun09/29/24 at 1300, Until Discontinued, Administer orally. Do not administer if NPO or on clear liquid diet. Not for IV use. Supplied by [employer] Given 09/30/2024 1:00 PM EDT 1 Each nebivoloL (BYSTOLIC) tablet 2.5 mg 2.5 mg, Oral, DAILY, First dose on Sun09/27/24 at 1645, Until Discontinued Given 10/02/2024 8:07 AM EDT 2.5 mg ondansetron (ZOFRAN) injection 4 mg 4 mg, Intravenous, EVERY 6 HOURS PRN, Starting on Sun09/25/24 at 0315, Until Marylu 10/02/24 at 1935, Nausea ondansetron (ZOFRAN) tablet 4 mg 4 mg, Oral, EVERY 6 HOURS PRN, Starting on Sun09/25/24 at 0315, Until Marylu 10/02/24 at 1935, Nausea perflutren lipid microspheres (DEFINITY) 1.3 mL in sodium chloride 0.9% 10 mL injection 10 mL, Injection, ONCE PRN, 1 dose, Starting on Sun09/25/24 at 1054, Until Sun09/25/24 at 1137, Bring vial to room temperature. Shake for 45 seconds using Vialmix apparatus. FIRST withdraw 8.7 mL of 0.9% NaCl into a 10-mL syringe. SECOND, vent the activated vial using an 18- or 20-gauge needle tip. THIRD, attach second 18- or 20-gauge needle to 10-ml syringe and insert in vial. Invert vial, and slowly withdraw 1.3 ml activated product. Do NOT inject air into vial. Gently hand agitate then administer ordered dose. VESICANT , Echo Meds Given 09/25/2024 11:37 AM EDT 3 mL Right Hand sodium chloride 0.9% IV line flush 20-50 mL 20-50 mL, Intravenous, at 150-600 mL/hr, PRN, Starting on Sun09/26/24 at 1643, Until Marylu10/02/25 at 1935, Line Care, Flush with a minimum of 20 mL after IVPB to insure complete administration of the dose. May use the saline infusion to back flush IVPB tubing as needed. sodium chloride 0.9% syringe Intravenous, ONCE PRN, 1 dose, Starting on Sun09/24/24 at 1631, Until Sun09/24/24 at 1632, Line Care, Flush peripheral lines every 12 hours, central lines every 8 hours, and after IV medication, CT (Contrasts) Given 09/24/2024 4:32 PM EDT sodium chloride 0.9% syringe Intravenous, ONCE PRN, 1 dose, Starting on Sun09/25/24 at 1418, Until Sun09/25/24 at 1450, Line Care, Flush peripheral lines every 12 hours, central lines every 8 hours, and after IV medication, CT (Contrasts) Given 09/25/2024 2:50 PM EDT sodium chloride 0.9% syringe Intravenous, EVERY 12 HOURS SCHEDULED (2 times per day), First dose on Sun09/26/24 at 2100, Until Discontinued, Flush with 3-5 mL saline for PERIPHERAL saline lock maintenance. Given 10/02/2024 8:11 AM EDT 10 mL sodium chloride 0.9% syringe Intravenous, PRN, Starting on Sun09/26/24 at 1643, Until Sun10/02/24 at 1935, Line Care, Flush with 5-10 mL saline pre/post IVP, and 5 mL prior to IVPB or blood product administration. sterile water injection 1 mL 1 mL, Injection, PRN, Starting on Sun09/24/24 at 1842, Until Sun10/02/24 at 1935, Use for drug dilution, Use to dilute and administer glucagon injection, Insulin Calculator documented in this encounter Discontinued Medications Medication Sig Discontinue Reason Start Date End Da te aspirin 81 mg Oral Tablet, Delayed Release (E.C.) Take 81 mg by mouth daily. Stop Taking at Discharge 10/02/2024 torsemide (DEMADEX) 100 mg Oral Tablet Take 50 mg by mouth daily. Stop Taking at Discharge 10/02/2024 nitroGLYCERIN (NITROSTAT) 0.4 mg SL Tablet, Sublingual Place 0.4 mg under the tongue once. Stop Taking at Discharge 10/02/2024 lisinopriL (PRINIVIL;ZESTRIL) 5 mg Oral Tablet Take 5 mg by mouth daily. Stop Taking at Discharge 10/02/2024 COMBIVENT RESPIMAT 20-100 mcg/actuation Inhl Mist Inhale 1 Puff into the lungs every 6 hours as needed. Stop Taking at Discharge 10/02/2024 TRULICITY 1.5 mg/0.5 mL SubQ Pen Injector once a week. Stop Taking at Discharge 10/02/2024 clopidogreL (PLAVIX) 75 mg Oral Tablet Take 75 mg by mouth daily. Stop Taking at Discharge 10/02/2024 cephALEXin (KEFLEX) 500 mg Oral Capsule Take 500 mg by mouth every 6 hours. Stop Taking at Discharge 10/02/2024 documented as of this encounter Active and Recently Administered Medications Times are shown in EDT. Scheduled Medication Order 09/30/2024 10/01/2024 10/02/2024 amoxicillin-clavulanat e (AUGMENTIN) 875-125 mg per tablet 1 Tablet (COMPLETED) 1 Tablet, Oral, EVERY 12 HOURS SCHEDULED (2 times per day), 4 doses, First dose on Sun09/30/24 at 1130, Last dose on Sun10/01/24 at 2100, Reason for Therapy: Infection Documented, Indication: Upper Respiratory 1122 (Given - Provider: Jean Rendon RN)2110 (Given - Provider: Zora Baron, MARJORIE) 809 (Given - Provider: David Aaron RN)2023 (Given - Provider: Zora Baron, MARJORIE) ampicillin-sulbactam (UNASYN) 1.5 g in sodium chloride 0.9 % 50 mL IVPB (CANCELED) 1.5 g, Intravenous, EVERY 6 HOURS SCHEDULED (4 times per day), 28 doses, First dose on Sun09/26/24 at 1315, Last dose on Sun10/03/24 at 0600, Administer over 30 Minutes, Reason for Therapy: Infection Suspected, Indication: Upper Respiratory 0021 (Stopped - Provider: Zora Baron, MARJORIE)0511 (IV Started - Provider: Zora Baron, MARJORIE)0541 (Stopped - Provider: Zora Baron, RN) aspirin suppository 300 mg(Linked Group 1) 300 mg, Rectal, DAILY WITH MEAL, First dose on Sun09/28/24 at 0915, Until Discontinued 804 (See Alternative - Provider: Jean Rendon, MARJORIE) 08 (See Alternative - Provider: David Aaron, RN) 806 (See Alternative - Provider: David Aaron, RN) aspirin tablet 325 mg(Linked Group 1) 325 mg, Oral, DAILY WITH MEAL, First dose on Sun09/28/24 at 0915, Until Discontinued 804 (Given - Provider: Jean Rendon, MARJORIE) 08 (Given - Provider: David Aaron, RN) 806 (Given - Provider: David Aaron, RN) atorvastatin (LIPITOR) tablet 40 mg 40 mg, Oral, NIGHTLY, First dose on Sun09/25/24 at 2100, Until Discontinued 2110 (Given - Provider: Zora Baron, RN) 2023 (Given - Provider: Zora Baron, RN) fUROsemide (LASix) injection 20 mg (COMPLETED) 20 mg, Intravenous, ONCE, 1 dose, On Sun10/02/24 at 1100, MAXIMUM ADMINISTRATION RATE = 40 mg/min 1039 (Given - Provider: José Aquino, MARJORIE) fUROsemide (LASix) injection 40 mg (COMPLETED) 40 mg, Intravenous, ONCE, 1 dose, On Sun10/01/24 at 1330, Give IV push at 20 to 40 mg/min. MAX ADMIN RATE = 40 mg/min 1406 (Given - Provider: Remi Covington, MARJORIE) GLUCERNA Therapeutic oral supplement 1 'box' 1 'box', Oral, 2 TIMES DAILY WITH MEALS (NUTR), First dose on Sun09/29/24 at 1800, Until Discontinued, Administer orally. Do not administer if NPO or on clear liquid diet. Not for IV use. Supplied by [facility] 0900 (Given - Provider: Jean Rendon, MARJORIE)1800 (Given - Provider: Jean Rendon RN) 0900 (Not Given - Provider: David Aaron, MARJORIE - Reason: Patient Declined)1800 (Not Given - Provider: David Aaron, RN - Reason: Patient Declined) 0900 (Given - Provider: David Aaron, RN) insulin aspart U-100 (NovoLOG) injection 0-40 Units(Linked Group 2) 0-40 Units, Subcutaneous, 4 TIMES DAILY AFTER MEALS, First dose on Sun09/24/24 at 1845, Until Discontinued, PO Diet: Obtain FSBS before patient begins eating. Administer this dose, which includes nutritional (prandial) and correctional insulin upon completion of meal. Notify physician if FSBS less than 50 or greater than 350. Correction insulin doses must be by at least 3 hours. Insulin Calculator UX DEVELOPER DESIGNER - DBN, ICUs, and CVSICU Only Waste Sort Code = BLACK RCRA Hazardous Waste Container, Carb Ratio (Patient Specific, Resistant) (g/unit): 8, Blood Glucose Target - Daytime (mg/dL): 140, Blood Glucose Target - Nighttime (mg/dL): 180, Hyperglycemic Correction Factor (Patient Specific, Resistant): 29, Insulin Calculator 0913 (Given - Provider: Jean Rendon RN - Comment: bs162, 30 carbs)1234 (Given - Provider: Jean Rendon RN - Comment: bs185, 19 carbs)1753 (Given - Provider: Jean Rendon, MARJORIE)2100 (Given - Provider: Zora Baron, RN) 0902 (Given - Provider: David Aaron, RN)1405 (Given - Provider: Remi Covington, MARJORIE)1800 (Given - Provider: David Aaron, RN)2100 (Given - Provider: Zora Baron, RN) 0920 (Given - Provider: David Aaron, RN)1251 (Given - Provider: David Aaron, RN) Insulin Calculator (UX DEVELOPER DESIGNER) - FSBS and Carb Intake Input(Linked Group 2) MISCELLANEOUS, 4 TIMES DAILY AFTER MEALS, First dose on Sun09/24/24 at 1845, Until Discontinued, Carb Ratio (Patient Specific, Resistant) (g/unit): 8, Blood Glucose Target - Daytime (mg/dL): 140, Blood Glucose Target - Nighttime (mg/dL): 180, Hyperglycemic Correction Factor (Patient Specific, Resistant): 29, Insulin Calculator 0911 (Non- Med Documentation - Provider: Jean Rendon RN)1231 (Non- Med Documentation - Provider: Jean Rendon RN)1749 (Non- Med Documentation - Provider: Jean Rendon RN)2100 (Non- Med Documentation - Provider: Zora Baron, RN) 0800 (Non- Med Documentation - Provider: David Aaron, MARJORIE)1200 (Non- Med Documentation - Provider: Remi Covington, MARJORIE)1800 (Non- Med Documentation - Provider: David Aaron, RN)2100 (Non- Med Documentation - Provider: Zora Baron, RN) 0800 (Non- Med Documentation - Provider: David Aaron, MARJORIE)1200 (Non- Med Documentation - Provider: David Aaron, MARJORIE) losartan (COZAAR) tablet 25 mg 25 mg, Oral, DAILY, First dose on Sun09/26/24 at 1245, Until Discontinued, +++ARB Medication+++ 0805 (Given - Provider: Jean Rendon RN) 0810 (Given - Provider: David Araon, RN) 0807 (Given - Provider: David Aaron, RN) Magic Cup Dessert oral supplement 1 Each 1 Each, Oral, DAILY (NUTR), First dose on Sun09/29/24 at 1300, Until Discontinued, Administer orally. Do not administer if NPO or on clear liquid diet. Not for IV use. Supplied by [facility] 1300 (Given - Provider: Jean Rendon RN) 1300 (Not Given - Provider: Remi Covington, MARJORIE - Reason: Patient Declined) 1300 (Not Given - Provider: David Aaron, RN - Reason: Patient Declined) nebivoloL (BYSTOLIC) tablet 2.5 mg 2.5 mg, Oral, DAILY, First dose on Sun09/27/24 at 1645, Until Discontinued 0805 (Given - Provider: Jean Rendon RN) 0810 (Given - Provider: David Aaron, MARJORIE) 0807 (Given - Provider: David Aaron, MARJORIE) sodium chloride 0.9% syringe Intravenous, EVERY 12 HOURS SCHEDULED (2 times per day), First dose on Sun09/26/24 at 2100, Until Discontinued, Flush with 3-5 mL saline for PERIPHERAL saline lock maintenance. 0805 (Given - Provider: Jean Rendon RN)2100 (Given - Provider: Zora Baron, RN) 0900 (Not Given - Provider: David Aaron, RN - Reason: Loss of IV access)2100 (Given - Provider: Zora Baron, RN) 0811 (Given - Provider: David Aaron, RN) PRN Medication Order 09/30/2024 10/01/2024 10/02/2024 acetaminophen (TYLENOL) suppository 650 mg(Linked Group 3) 650 mg, Rectal, EVERY 4 HOURS PRN, Starting on Sun09/25/24 at 0315, Until Marylu 10/02/24 at 1935, Fever, Headaches, Maximum adult dose of acetaminophen is 4000 mg from all sources in 24 hours. acetaminophen (TYLENOL) tablet 650 mg(Linked Group 3) 650 mg, Oral, EVERY 4 HOURS PRN, Starting on Sun09/25/24 at 0315, Until Marylu 10/02/24 at 1935, Fever, Headaches, Maximum adult dose of acetaminophen is 4000 mg from all sources in 24 hours. albuterol (PROVENTIL HFA;VENTOLIN HFA) inhaler 2 Puff(Linked Group 4) 2 Puff, Inhalation, PRN, Starting on Sun09/25/24 at 1453, Until Marylu 10/02/24 at 1935, Wheezing, Shortness of Breath, Waste Sort Code = BLACK RCRA Hazardous Waste Container 0814 (See Alternative - Provider: Diann Bobo, HILL) albuterol (PROVENTIL) nebulizer solution 2.5 mg(Linked Group 4) 2.5 mg, Nebulization, PRN, Starting on Sun09/25/24 at 1453, Until Marylu 10/02/24 at 1935, Wheezing, Shortness of Breath, Bronchospasm 0814 (Given - Provider: Holley Bobo, REFRIGERATING OILER) dextrose 50 % solution 25 mL 25 mL, Intravenous, PRN, Starting on Sun09/24/24 at 1842, Until Sun10/02/24 at 1935, Low blood sugar, If FSBS less than 70 mg/dl and patient cannot take orally, Check FSBS every 15 minutes and repeat 25 mL of D50 IV push and notify physician if FSBS less than 70 mg/dL VESICANT , Insulin Calculator glucagon (GLUCAGEN) injection 1 mg(Linked Group 5) 1 mg, Intramuscular, PRN, Starting on Sun09/24/24 at 1842, Until Sun10/02/24 at 193, Low blood sugar, If FSBS less than 70 mg/dl, patient cannot take orally and without IV access, If patient is without IV access, give Glucagon 1 mg Intramuscularly, insert IV and call physician., Insulin Calculator ondansetron (ZOFRAN) injection 4 mg(Linked Group 6) 4 mg, Intravenous, EVERY 6 HOURS PRN, Starting on Sun09/25/24 at 0315, Until Sun10/02/24 at 193, Nausea ondansetron (ZOFRAN) tablet 4 mg(Linked Group 6) 4 mg, Oral, EVERY 6 HOURS PRN, Starting on Sun09/25/24 at 0315, Until Sun10/02/24 at 1934, Nausea sodium chloride 0.9% IV line flush 20-50 mL 20-50 mL, Intravenous, at 150-600 mL/hr, PRN, Starting on Sun09/26/24 at 1643, Until Sun10/02/24 at 193, Line Care, Flush with a minimum of 20 mL after IVPB to insure complete administration of the dose. May use the saline infusion to back flush IVPB tubing as needed. sodium chloride 0.9% syringe Intravenous, PRN, Starting on Sun09/26/24 at 1643, Until Sun10/02/24 at 193, Line Care, Flush with 5-10 mL saline pre/post IVP, and 5 mL prior to IVPB or blood product administration. sterile water injection 1 mL(Linked Group 5) 1 mL, Injection, PRN, Starting on Sun09/24/24 at 1842, Until Sun10/02/24 at 193, Use for drug dilution, Use to dilute and administer glucagon injection, Insulin Calculator Linked Groups Order Group 1: aspirin tablet 325 mgJump to med 325 mg, Oral, DAILY WITH MEAL, First dose on 09/28/24 at 0915, Until Discontinued Or aspirin suppository 300 mgJump to med 300 mg, Rectal, DAILY WITH MEAL, First dose on Sun09/28/24 at 0915, Until Discontinued Group 2: Insulin Calculator (UX DEVELOPER DESIGNER) - FSBS and Carb Intake InputJump to med MISCELLANEOUS, 4 TIMES DAILY AFTER MEALS, First dose on Sun09/24/24 at 1845, Until Discontinued, Carb Ratio (Patient Specific, Resistant) (g/unit): 8, Blood Glucose Target - Daytime (mg/dL): 140, Blood Glucose Target - Nighttime (mg/dL): 180, Hyperglycemic Correction Factor (Patient Specific, Resistant): 29, Insulin Calculator And insulin aspart U-100 (NovoLOG) injection 0-40 UnitsJump to med 0-40 Units, Subcutaneous, 4 TIMES DAILY AFTER MEALS, First dose on Sun09/24/24 at 1845, Until Discontinued, PO Diet: Obtain FSBS before patient begins eating. Administer this dose, which includes nutritional (prandial) and correctional insulin upon completion of meal. Notify physician if FSBS less than 50 or greater than 350. Correction insulin doses must be by at least 3 hours. Insulin Calculator UX DEVELOPER DESIGNER - DBN, ICUs, and CVSICU Only Waste Sort Code = BLACK RCRA Hazardous Waste Container, Carb Ratio (Patient Specific, Resistant) (g/unit): 8, Blood Glucose Target - Daytime (mg/dL): 140, Blood Glucose Target - Nighttime (mg/dL): 180, Hyperglycemic Correction Factor (Patient Specific, Resistant): 29, Insulin Calculator Group 3: acetaminophen (TYLENOL) tablet 650 mgJump to med 650 mg, Oral, EVERY 4 HOURS PRN, Starting on Sun09/25/24 at 0315, Until Marylu 10/02/24 at 1935, Fever, Headaches, Maximum adult dose of acetaminophen is 4000 mg from all sources in 24 hours. Or acetaminophen (TYLENOL) suppository 650 mgJump to med 650 mg, Rectal, EVERY 4 HOURS PRN, Starting on Sun09/25/24 at 0315, Until Marylu 10/02/24 at 1935, Fever, Headaches, Maximum adult dose of acetaminophen is 4000 mg from all sources in 24 hours. Group 4: albuterol (PROVENTIL HFA;VENTOLIN HFA) inhaler 2 PuffJump to med 2 Puff, Inhalation, PRN, Starting on Sun09/25/24 at 1453, Until Sun10/02/24 at 1935, Wheezing, Shortness of Breath, Waste Sort Code = BLACK RCRA Hazardous Waste Container Or albuterol (PROVENTIL) nebulizer solution 2.5 mgJump to med 2.5 mg, Nebulization, PRN, Starting on Sun09/25/24 at 1453, Until Sun10/02/24 at 1935, Wheezing, Shortness of Breath, Bronchospasm Group 5: glucagon (GLUCAGEN) injection 1 mgJump to med 1 mg, Intramuscular, PRN, Starting on Sun09/24/24 at 1842, Until Sun10/02/24 at 193, Low blood sugar, If FSBS less than 70 mg/dl, patient cannot take orally and without IV access, If patient is without IV access, give Glucagon 1 mg Intramuscularly, insert IV and call physician., Insulin Calculator And sterile water injection 1 mLJump to med 1 mL, Injection, PRN, Starting on Sun09/24/24 at 1842, Until Sun10/02/24 at 193, Use for drug dilution, Use to dilute and administer glucagon injection, Insulin Calculator Group 6: ondansetron (ZOFRAN) tablet 4 mgJump to med 4 mg, Oral, EVERY 6 HOURS PRN, Starting on Sun09/25/24 at 0315, Until Sun10/02/24 at 193, Nausea Or ondansetron (ZOFRAN) injection 4 mgJump to med 4 mg, Intravenous, EVERY 6 HOURS PRN, Starting on Sun09/25/24 at 0315, Until Sun10/02/24 at 193, Nausea documented in this encounter Orders Medications Ordered That Angelo ht Not Have Been Administered Count Last Ordered Date First Ordered Date aspirin suppository 300 mg 09/28/2024 sodium chloride 0.9% IV line flush 20-50 mL 09/26/2024 sodium chloride 0.9% syringe 09/26/2024 acetaminophen (OFIRMEV) infusion 1,000 mg 09/25/2024 acetaminophen (TYLENOL) suppository 650 mg 09/25/2024 acetaminophen (TYLENOL) tablet 650 mg 12/2024 albuterol (PROVENTIL HFA;MOMO TOLIN HFA) inhaler 2 Puff 2 09/25/2024 aspirin tablet 325 mg 09/25/2024 ondansetron (ZOFRAN) injection 4 mg 09/25 ondansetron (ZOFRAN) tablet 4 mg 1 09/26/19 25 dextrose 50 % solution 25 mL 1 09/24/2024 glucagon (GLUCAGEN) injection 1 mg 1 2024 Insulin Calculator (UX DEVELOPER DESIGNER) - FSBS and Carb Intake Input 1 09/24/2024 sodium chloride 0.9% IV line flush 50 mL 2 09/24/2024 sodium chloride 0.9% syringe 5 mL 1 025 sodium chloride 0.9% syringe 5-10 mL 1 11/2024 sterile water injection 1 mL 1 09/24/2024 Nursing Count Last Ordered Date First Orde red Date BLOOD GLUCOSE 1 09/24/2024 Consult Count Last Ordered Date First Orde red Date IP CONSULT TO NEUROLOGY 1 09/25/2024 IP CONSULT TO NUTRITION 1 09/25/2024 IP CONSULT TO SOCIAL WORK 1 09/25/2024 IP CONSULT TO CARDIOLOGY 1 09/24/2024 IP CONSULT TO PHARMACY 3 09/24/2024 OT Count Last Ordered Date First Orde red Date IP CONSULT TO OCCUPATIONAL THERAPY 1 2024 PT Count Last Ordered Date First Orde red Date IP CONSULT TO PHYSICAL THERAPY 1 09/25/2024 Respiratory Care Count Last Ordered Date First Ordered Date RESPIRATORY EVALUATE & TREAT 1 09/27/2024 BOAT ENGINES INSTALLER Count Last Ordered Date First Orde red Date IP CONSULT TO SPEECH THERAPY 1 09/25/2024 Admission Count Last Ordered Date First Orde red Date ADMIT 2 09/25/2024 09/24/2024 Discharge Count Last Ordered Date First Orde red Date DISCHARGE PATIENT 1 10/02/2024 documented in this encounter Additional Health Concerns Infection Onset Date Last Indicated Resolved Time R/O COVID-19 10/01/2024 10/01/2024 10/01/2024 11:4 7 AM EDT documented as of this encounter Care Teams Crankshaft Straightener Relationship Specialty Start Date End Date Estiven No MD [address] [place] [address] PCP - General Family Medicine 09/24/24 documented as of this encounter
[2024-11-18 19:17] LABS: Hematocrit 37.8 % (37.0-47.0); Hemoglobin 12.1 g/dL (12.2-16.2); Immature Granulocytes % 0.3 %; Mean Corpuscular HGB Conc 32.0 g/dL (31.8-35.4); Mean Corpuscular Hemoglobin 26.4 pg (27.0-31.2); Mean Corpuscular Volume 82.5 fl (81-99); Nucleated Red Blood Cells % 0 %; Platelet Count 207 K/mm3 (142-424); Red Blood Count 4.58 M/mm3 (4.20-5.40); Red Cell Distribution Width-SD 49.6 fL; White Blood Count 6.1 K/mm3 (4.8-10.8)
[2024-11-18 20:00] LABS: Alanine Aminotransferase 16 U/L (12-78); Albumin Level 3.4 g/dl (3.5-5.0); Albumin/Globulin Ratio 1.3 (1.1-1.8); Alkaline Phosphatase 114 U/L (38-126); Anion Gap 8.0 mEq/L (5-15); Aspartate Amino Transferase 19 U/L (14-36); Bilirubin,Total 0.7 mg/dl (0.2-1.3); Blood Urea Nitrogen 11 mg/dl (7-17); Calcium 9.1 mg/dl (8.4-10.2); Carbon Dioxide 28 mmol/L (22.0-30.0); Chloride 107 mmol/L (98-107); Creatinine,Serum 0.60 mg/dl (0.52-1.04); Estimated Glomerular Filt Rate 99 ml/min (>60); GFR (African American) 120 ML/MIN (>60); Globulin 2.6 g/dL (1.3-3.2); Glucose 145 mg/dl (74-100); Potassium 4.0 mmoL/L (3.5-5.1); Sodium 139 mmol/L (136-145); Total Protein,Serum 6.0 g/dl (6.3-8.2)
[2024-11-18 20:28] LABS: Thyroid Stimulating Hormone 0.03 uIU/mL (0.465-4.68)
[2024-11-18 20:47] LABS: Vitamin B12 610 pg/mL (239-931)
--- OUTSIDE RECORDS SUMMARY | 2024-11-20 10:17 | XMS_ITS | Clinical Summary ---
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 Less than 7% demonstrates glycemic control in diabetic patients. Hemoglobin AlC % Suggested Diagnosis > or = 6.5 Diabetic 5.7 - 6.4 Prediabetic <5.7 Non-diabetic eAVG Glucose 205.86 mg/dL 08/05/2022 12:00 PM EDT [facility] Blood Venipuncture / Unknown 08/04/2022 8:23 PM EDT 08/04/2022 8:29 PM EDT us William Lau PA-C LAB BLOOD ORDERABLES Final Re sult [facility] [address] [phone] from Last 3 Months or Most Recently Relevant to [place] [address] [facility] ADV [facility] MEDICARE ADVANTAGE Advance Directives For more information, please contact: [phone] * Full Code (Latest Code Status on File) Date Activated Date Inactivated Comments 08/04/2022 6:56 PM 08/09/2022 12:06 AM
--- OUTSIDE RECORDS SUMMARY | 2024-11-20 10:17 | XMS_ITS | Referral Summary ---
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 Comment: Hemoglobin A1C levels are related to mean glucose during the preceding 2-3 months. Less than 7% demonstrates glycemic control in diabetic patients. Hemoglobin AlC % Suggested Diagnosis > or = 6.5 Diabetic 5.7 - 6.4 Prediabetic <5.7 Non-diabetic eAVG Glucose 205.86 mg/dL 08/05/2022 12:[address] [facility] Blood Venipuncture / Unknown 08/04/2022 8:23 PM EDT 08/04/2022 8:29 PM EDT us William Lau PA-C LAB BLOOD ORDERABLES Final Re sult [facility] [address] [phone] from Last 3 Months or Most Recently Relevant to Health [place] [address] [facility] DUAL COMPLETE MCR ADV [facility] MEDICARE ADVANTAGE Advance Directives For more information, please contact: [phone] * Full Code (Latest Code Status on File) Date Activated Date Inactivated Comments 08/04/2022 6:56 PM 08/09/2022 12:06 AM
--- OUTSIDE RECORDS SUMMARY | 2024-11-20 10:17 | XMS_ITS | Clinical Summary ---
Author Organization [facility] Address [address] [facility] [address] [place] [id number] Phone Care Team Providers Care News Internship Name Role Phone Estiven No MD Primary Care Provider Allergies Active Allergy Reactions Criticality Noted Date Comments Adhesive Rash 10/16/2022 Medications albuterol (PROVENTIL) 2.5 mg /3 mL (0.083 %) Inhl Solution for Nebulization Take 2.5 mg by nebulization every 6 hours as needed. Active albuterol (PROVENTIL HFA;VENTOLIN HFA) 90 mcg/actuation Inhl HFA Aerosol Inhaler Inhale 2 Puffs into the lungs every 6 hours as needed. Active rosuvastatin (CRESTOR) 40 mg Oral Tablet Take 40 mg by mouth nightly. Active pioglitazone (ACTOS) 15 mg Oral Tablet Take 15 mg by mouth daily. Active montelukast (SINGULAIR) 10 mg Oral Tablet Take 10 mg by mouth daily. Active metFORMIN (GLUCOPHAGE) 1,000 mg Oral Tablet Take 1,000 mg by mouth 2 times daily (with meals). Active LEVOthyroxine (SYNTHROID) 150 mcg Oral Tablet Take 300 mcg by mouth daily. Active fluticasone propionate (FLONASE) 50 mcg/actuation Nasl [place], Suspension 2 Sprays by Nasal route daily. Active empagliflozin (JARDIANCE) 10 mg Oral Tablet Take 10 mg by mouth daily. Active Oxygen and Equipment MISCELLANEOU 1 Device by MISCELLANEOUS route once. 2-3 L continuously Active pantoprazole (PROTONIX) 40 mg Oral Tablet, Delayed Release (E.C.) Take 1 Tablet by mouth daily. 30 Tablet 2 10/22/19 23 Active spironolactone (ALDACTONE) 25 mg Oral TabletIndication s:SOB (shortness of breath) Take 1 Tablet by mouth 2 times daily. 60 Tablet 11 10/31/19 Active Additional Information Patient not taking.Reason: Pt electing to not take the medication, Reported on 09/24/2024 bumetanide (BUMEX) 2 mg Oral Tablet Take 2 mg by mouth daily. Active aspirin 325 mg Oral Tablet Take 1 Tablet by mouth daily (with breakfast). 30 Tablet 10/02/19 25 Active losartan (COZAAR) 25 mg Oral Tablet Take 1 Tablet by mouth daily. 30 Tablet 10/02/19 25 Active nebivoloL (BYSTOLIC) 2.5 mg Oral Tablet Take 1 Tablet by mouth daily. 30 Tablet 10/02/19 25 Active Active Problems Problem Noted Date Diagnosed Date Acute respiratory failure with hypoxemia HFrEF (heart failure with reduced ejection fract ion) 09/27/2024 S/P CABG (coronary artery bypass graft) 09/28/19 Acute systolic heart failure 09/26/2024 Acute arterial ischemic stro ke, vertebrobasilar, brainstem, right 09/25/2024 Type 2 myocardial infarction 09/25/2024 Chronic diastolic heart failure 09/25/2024 Left-sided weakness 09/24/2024 Severe aortic stenosis 10/06/2022 Overview (10/06/2022): Added automatically from request for surgery [id number] Chronic kidney disease 11/04/2019 Gastroesophageal reflux disease 08/08/2017 Acquired hypothyroidism 02/15/2016 Arteriosclerosis of coronary artery 02/15/2016 Chronic obstructive pulmonary disease 02/15/2016 Congestive heart failure 02/15/2016 Morbid obesity 02/15/2016 Encounters Date Type Department Care Team Description 09/24/2024 4:13 PM EDT - 10/02/2024 3:34 PM EDT Hospital Encounter [facility] [address] [address] [place] [id number] Feli Vela MD Bajwa, Troy S, DO Left-sided weakness (Primary Dx) Discharge Disposition: Custodial Facility 09/24/2024 Travel from Last 3 Months Surgical History Surgery Date Site/Laterality Comments CARDIAC CATHETERIZATION CARDIAC SURGERY stents x4 CHOLECYSTECTOMY TUBAL LIGATION DENTAL SURGERY full teeth extracted AORTIC VALVE REPLACEMENT 10/19/2022 N/A Transcatheter aortic valve replacement with echocardiogram and [place]; Surgeon: Alfred Greenberg MD; Location: [facility]; Service: Open Heart Medical devices from this surgery are in the Medical Devices section. Medical History Medical History Date Comments Asthma COPD (chronic obstructive pulmonary disease) (HC C) Pulmonary emphysema (HCC) Shortness of breath Sleep apnea can not wear Cpa p Pneumonia 2021 Bronchitis, chronic (HCC) Oxygen dependent 2-3 L continuou sly Hyperlipidemia Hypertension AR (myocardial infarction) (HCC) 12/13/1998 Heart murmur CAD (coronary artery disease) [...] drink = 0.6 oz pur e alcohol) [facility] Utilities Answer Date Recorded In the past 12 months has e [employer], gas, oil, or water [employer] threatened to shut off services in your home? No 09/25/2024 Overall Financial Resource Strain (CARDIA) Answe r Date Recorded How hard is it for you to pa y for the very basics like food, housing, medical care, and heating? Not hard at all 09/25/2024 [facility] [place] of Occupat ional Health - Occupational Stress [...] money to get more. Never true 09/25/2024 [facility] IP Transportation Answer D ate Recorded [...] Mass Index 33.28 09/24/2024 11:12 PM EDT Plan of Treatment Health Maintenance Due Date Last Done Comments Wellness Exam Medicare 08/09/1958 Diabetic Eye Exam 08/09/1973 Hepatitis C Screening 08/09/1973 Kidney Health: uACR 08/09/1973 Breast Cancer Screening 1995 Cologuard 08/09/2000 Colon Cancer Screening 08/09/2000 Colonoscopy 08/09/2000 FIT 08/09/2000 Sigmoidoscopy 08/09/2000 Virtual Colonography 08/09/2000 Zoster (1 of 2) 08/09/2005 RSV or 60+ (1 - Risk 60-74 years 1-dose series) 2015 Bone Density Screening 08/09/2020 COVID-19 Vaccine ( season) 2024 02/22/2022, 10/12/2021, 01/26/2021, Additional history exists Influenza Vaccine (#1) 2024 , 01/03/2023, 12/20/2021, Additional history exists Hemoglobin A1c 03/27/2025 09/24/2024, 07/03/2022, 08/04/2022 Lipids 09/26/2025 09/26/2024, 09/16, 08/04/2022 Kidney Health: eGFR 10/02/2025 10/02/2024, 09/30/2024, 09/29/2024, Additional history exists Pneumococcal Vaccine 50+ (3 [...] this topic Medical Devices Implanted Type Area Pantographer Device Identifier Shelf Expiration Date Model / Serial / Lot Cardiac Stents V[employer] Mela 3 Ultra Transcatheter Heart Valve (26mm) - [id number] Implanted:Qty: 1 on 10/19/2022 by Alfred Greenberg MD at [facility] N/A: Heart [employer] [id number] 06/11/2025 [id number] / [id number] / Procedures Procedure Name Priority Date/Time Associated Diagnosis Comments SCANNED EKG 10/09/2024 10:09 AM EDT EV EVENT MONITOR Routine 10/02/2024 2:26 PM EDT GLUCOSE METER POC Routine 10/02/2024 12:22 PM EDT GLUCOSE METER POC Routine 10/02/2024 8:40 AM EDT ECG AND WAVEFORMS - TELEMETRY Routine 10/02/2024 7:35 AM EDT EXTRA LAVENDER Routine 10/02/2024 6:08 AM EDT EXTRA TUBES PANEL Routine 10/02/2024 6:08 AM EDT BASIC METABOLIC PANEL Early AM 10/02/2024 6:08 AM EDT GLUCOSE METER POC Routine 10/01/2024 7:54 PM EDT ECG AND WAVEFORMS - TELEMETRY Routine 10/01/2024 7:27 PM EDT GLUCOSE METER POC Routine 10/01/2024 5:04 PM EDT GLUCOSE METER POC Routine 10/01/2024 1:25 PM EDT [id number] Routine 10/01/2024 11:08 AM EDT XR CHEST [...] - TELEMETRY Routine 09/30/2024 7:32 AM EDT BASIC METABOLIC PANEL Early AM 09/30/2024 6:08 AM EDT CBC Early AM 09/30/2024 6:08 AM EDT GLUCOSE [...] - TELEMETRY Routine 09/29/2024 7:25 AM EDT BASIC METABOLIC PANEL Early AM 09/29/2024 6:32 AM EDT CBC Early AM 09/29/2024 6:32 AM EDT GLUCOSE [...] - TELEMETRY Routine 09/28/2024 7:00 AM EDT BASIC METABOLIC PANEL Early AM 09/28/2024 6:49 AM EDT CBC Early AM 09/28/2024 6:49 AM EDT GLUCOSE [...] - TELEMETRY Routine 09/26/2024 7:49 AM EDT LIPID SCREEN Early AM 09/26/2024 6:00 AM EDT CBC Early AM 09/26/2024 6:00 AM EDT BASIC [...] 2HR Timed 09/25/2024 4:[address] HEAD WO CONTRAST STAT 09/25/2024 2:[address] ANGIOGRAM HEAD AND NECK W CONTRAST ABHISHEK 09/25/2024 2:50 PM EDT TROPONIN-T HIGH SENSITIVITY [...] seeing in neurologic consultation atthe request of for evaluation of Stroke. Acute [...] seeing in neurologic consultation at therequest of for evaluation of Stroke. She developed [...] Date Arthritis Asthma Bladder problem Bronchitis, chronic ([facility]) CAD (coronary artery disease) CHF (congestive heart failure) ([facility]) Chronic kidney disease COPD (chronic obstructive pulmonary disease) ([facility]) Diabetes mellitus ([facility]) Headache migraines Heart murmur Heartburn Hyperlipidemia Hypertension AR (myocardial infarction) ([facility]) 12/13/1998 Motion sickness Oxygen dependent 2-3 L continuously Pneumonia 2021 Pulmonary emphysema ([facility]) Shortness of breath Sleep apnea can [...] daily. fluticasone propionate (FLONASE) 50 mcg/actuation Nasl [place], Suspension2 Sprays by Nasal route daily. LEVOthyroxine [...] (1.524 m) 170 lb6.7 oz (77.3 kg) 09/24/24 2230 -- -- -- 93 (!) 22 -- -- -- 09/24/24 2220 144/86 -- -- 92 18 -- -- -- General: This is a pleasant cooperative female in [facility]. HEENT: No bruising, erythema, or conjunctival injection. [...] - TELEMETRY Routine 09/25/2024 7:28 AM EDT CBC Early AM 09/25/2024 4:14 AM EDT HEPARIN ANTI-XA, UNF Timed 09/25/2024 4:14 AM EDT IP CONSULT TO SOCIAL WORK Routine 09/25/2024 3:32 AM EDT ECG AND WAVEFORMS - TELEMETRY Routine 09/24/2024 11:24 PM EDT MRI BRAIN WO CONTRAST ABHISHEK 09/24/2024 9:16 PM EDT IP CONSULT TO CARDIOLOGY Routine 09/24/2024 8:09 PM EDT Procedure Note - Timur Parr MD - 09/25/2024 10:15 AM EDTThis note is in progress. Heart & Vascular Consult Note PATIENT: Sunita Trent PCP: Estiven No MD Primary Digital Account Supervisor: Dr. Greenberg Reason for consult: Elevated troponin History provided by: Patient and chart History limited by: Continued slurred speech HPI: 69 year old current smoker PMH: Elevated Troponin CAD s/p CAB w subsequent 4 stents CHF HFpEF AR 1998 S/P TAVR 2022 COPD with O2 dependence CKD DM Sleep apnea Patient admitted for CVA after presenting to ED 09/24/24 for left sideweakness, slurred speech and gait disturbance one hour prior to [id number] d/t concern for stroke. EMS gave phenergan [...] Headache migraines Heart murmur Heartburn Hyperlipidemia Hypertension AR (myocardial infarction) (HCC) 12/13/1998 Motion sickness Oxygen dependent 2-3 L continuously Pneumonia 2021 Pulmonary emphysema (HCC) Shortness of breath Sleep apnea can not wear Cpap Thyroid disease Medication Insulin Calculator (IMAGE ASSEMBLER) - FSBS and Carb Intake Input 1 [...] Transcatheter aortic valve replacement with echocardiogram and [place];Surgeon: Alfred Greenberg MD; Location: [facility]; Service: Open Heart CARDIAC CATHETERIZATION [...] most recent cardiovascular imaging studies availabe in [facility] EMR werereviewed at time of consultation Assessment [...] s/p CABG w subsequent 4 stents -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 eventually [id number]. Also with difficulty speaking. Prior to this [...] overall picture more consistent wity type 2 AR related tostroke and not ACS. Euvolemic. Plan: [...] of her outside cardiac records from the year. Will follow along. Please call with any questions. Timur Parr MD [facility] Heart and Vascular IP CONSULT TO PHARMACY Routine 09/24/2024 8:09 PM EDT EK EKG 12 LEAD STAT 09/24/2024 7:56 PM EDT BLOOD GAS, VENOUS ABHISHEK 09/24/2024 7:28 PM EDT TROPONIN-T HIGH SENSITIVITY 2HR Timed 09/24/2024 7:28 PM EDT DRUGS OF ABUSE WITH REFLEX TO CONFIRMATION, URINE Routine 09/24/2024 6:56 PM EDT URINALYSIS REFLEX STAT 09/24/2024 6:56 PM EDT UA W/REFLEX TO CULTURE STAT 09/24/2024 6:56 PM EDT EXTRA SCHULZ URINE CX STAT 09/24/2024 6:56 PM EDT ADMIT Routine 09/24/2024 6:08 PM EDT POTASSIUM REPEAT Routine 09/24/2024 5:47 PM EDT TROPONIN-T HIGH SENSITIVITY BASELINE W/ REFLEX STAT 09/24/2024 5:47 PM EDT HEMOGLOBIN A1C Routine 09/24/2024 4:35 PM EDT PARTIAL THROMBOPLASTIN TIME STAT 09/24/2024 4:35 PM EDT PT / INR STAT 09/24/2024 4:35 PM EDT BASIC METABOLIC PANEL STAT 09/24/2024 4:35 PM EDT EXTRA LIGHT BLUE STAT 09/24/2024 4:35 PM EDT CBC STAT 09/24/2024 4:[address] ANGIOGRAM HEAD AND NECK STROKE PROTOCOL STAT 09/24/2024 4:[address] HEAD STROKE PROTOCOL STAT 09/24/2024 4:31 PM EDT IP CONSULT TO PHARMACY STAT 09/24/2024 4:28 PM EDT IP CONSULT TO PHARMACY STAT 09/24/2024 4:21 PM EDT EK EKG 12 LEAD STAT 09/24/2024 4:16 PM EDT GLUCOSE METER POC Routine 09/24/2024 4:16 PM EDT from Last 3 Months Results * SCANNED EKG (10/09/2024 10:09 AM EDT) Only the most recent of2 resultswithin the time period is included. Anatomical Region Laterality Modality Other 10/09/2024 10:0 9 AM EDT us Unknown Provider IMG ECG ORDERABLES Final Result * EV EVENT MONITOR (10/02/2024 2:26 PM EDT) Anatomical Region Laterality Modality Holter/Event Mon itoring 11/03/2024 9:22 AM EDT Impressions 11/06/2024 4:05 PM EDT [facility] Test Date: 2024-11-03 Pat Name: SUNITA TRENT Department: DEPID Room: [id number] Gender: Female Dip Stand Loader: : 1955 Requested By: VICENTA Wilder Order Number: [id number] Reading MD: Alfred Greenberg MD Interpretive Statements The patient's monitoring period was 10/02/2024 - 10/31/2024. Baseline sample showed Sinus Rhythm w/1st Degree AV Block/IVCD with a heart rate of 72.5 bpm. Predominantly sinus rhythm Occasional PVC's Episodes if short run NSVT Electronically Signed On 11-06-2024 16:05:24 EDT by Alfred Greenberg MD Narrative Procedure Note Alfred Greenberg MD - 11/06/2024 IMPRESSION [facility] Test Date: 2024-11-03 Pat Name: SUNITA TRENT Department: DEPID Room: [facility] Gender: Female Dip Stand Loader: : 1955 Requested By: VICENTA Wilder Order Number: [id number] Reading MD: Alfred Greenberg MD Interpretive Statements The patient's monitoring period was 10/02/2024 - 10/31/2024. Baseline sample showed Sinus Rhythm w/1st Degree AV Block/IVCD with aheart rate of 72.5 bpm. Predominantly sinus rhythm Occasional PVC's Episodes if short run NSVT Electronically Signed On 11-06-2024 16:05:24 EDT by Alfred Greenberg MD Vicenat Bell APRN IMG HOLTER MONITOR LAWRENCE LOZANO Final Result * (ABNORMAL) GLUCOSE METER POC (10/02/2024 12:22 PM EDT) Only the most recent of33 resultswithin the time period is included. Glucose Meter POC 227(H) 70 - 100 mg/dL 10/02/2024 12:23 PM EDT [facility] Sample Type Capillary 10/02/2024 12:23 PM EDT [facility] Patient Status Non-Critical Patient 10/02/2024 12:23 PM EDT [facility] Blood BLOOD SPECIMEN / Unknown 10/02/2024 12:22 PM EDT 10/02/2024 12:23 PM EDT Troy Leary DO POINT OF CARE TEST ORDERABLES Final Result [facility] [address] [place] [address] * ECG AND WAVEFORMS - TELEMETRY (10/02/2024 7:35 AM EDT) Only the most recent of21 resultswithin the time period is included. Pathologist [facility] ECG INTERPRET NSR [facility] 10/02/2024 7:35 AM EDT Narrative [facility] - 10/02/2024 7:38 AM EDT ROUTINE/PVC'S/SHEET METAL LAY OUT WORKER [place] 0.24 QRS 0.12 RR 0.78 QT 0.38 QTc 0.43 See Clinical Report link for waveform capture us Unknown Provider POINT OF CARE CARDIOLOGY Final Result Performing Organization Address [facility] Co de Phone Number [facility] [address] [place] [phone] * EXTRA LAVENDER (10/02/2024 6:08 AM EDT) Blood VENOUS BLOOD / Unknown Venipuncture / Unknown 10/02/2024 6:08 AM EDT 10/02/2024 7:18 AM EDT us S Sapphire DO HEMATOLOGY ORDERABLES Final R esult Performing Organization Address [facility] de Phone Number [facility] [address] [place] [address] * (ABNORMAL) BASIC METABOLIC PANEL (10/02/2024 6:08 AM EDT) Only the most recent of8 resultswithin the time period is included. Sodium 146(H) 136 - 145 mmol/L 10/02/2024 7:29 AM EDT [facility] Potassium 4.1 3.5 - 5.0 mmol/L 10/02/2024 7:29 AM EDT [facility] Chloride 106 98 - 107 mmol/L 10/02/2024 7:29 AM EDT [facility] Total CO2 31(H) 22 - 29 mmol/L 10/02/2024 7:29 AM EDT [facility] Anion Gap 9 7 - 16 mmol/L 10/02/2024 7:29 AM EDT [facility] Calcium 8.7(L) 8.8 - 10.4 mg/dL 10/02/2024 7:29 AM EDT [facility] Glucose Lvl 138(H) 70 - 99 mg/dL 10/02/2024 7:29 AM EDT [facility] BUN 17 8 - 23 mg/dL 10/02/2024 7:29 AM EDT [facility] Creatinine 0.51 0.51 - 1.30 mg/dL 10/02/2024 7:29 AM EDT [facility] eGFR (CKD-EPIcr 2020) 100 >=60 mL/min/1.7 3 m2 10/02/2024 7:29 AM EDT [facility] Comment:Estimated GFR was ca lculated using the CKD-EPIcr (2020) equation refit without race. The equation is recommended by the National Kidney [employer] - [place] [employer] of Nephrology Task Force. Blood VENOUS BLOOD / Unknown Venipuncture / Unknown 10/02/2024 6:08 AM EDT 10/02/2024 7:11 AM EDT Vicenta Bell TECHNOLOGY TEACHER CHEMISTRY ORDERABLES Fi nal Result [facility] [address] [place] [id number] * [id number] (10/01/2024 11:08 AM EDT) CORONAVIRUS [id number] Not Detected Not Detected 10/01/2024 11:47 AM EDT [facility] Influenza A DNA Not Detected Not Detected 10/01/2024 11:47 AM EDT [facility] Influenza B DNA Not Detected Not Detected 10/01/2024 11:47 AM EDT [facility] RSV DNA Not Detected Not Detected 10/01/2024 11:47 AM EDT [facility] Swab BOTH ANTERIOR NARES / Unknown 10/01/2024 11:08 AM EDT 10/01/2024 11:25 AM EDT Narrative [facility] - 10/01/2024 11:47 AM EDT This test is performed using the Mely ed diamond system and is for use under the FDA s Emergency Use Authorization. Vicenta Natarajansole TECHNOLOGY TEACHER MICROBIOLOGY - GENERAL ORDERABLES Final Result [facility] [address] [facility] [place] [address] * XR CHEST AP PORTABLE (10/01/2024 9:15 AM EDT) Only the most recent of2 resultswithin the time period is included. Anatomical Region Laterality Modality Chest Radiographic Jessica [...] DIAGNOSTIC IMAGING ORDERABLES Final Result * (ABNORMAL) CBC (09/30/2024 6:08 AM EDT) Only the most recent of8 resultswithin the time period is included. WBC 9.3 3.7 - 10.3 x10(3)/mcL 09/30/2024 6:38 AM EDT [facility] RBC 4.68 3.90 - 5.20 x10(6)/mcL 09/30/2024 6:38 AM EDT [facility] Hgb 12.3 11.2 - 15.7 g/dL 09/30/2024 6:38 AM EDT [facility] Hct 39.9 34.0 - 45.0 % 09/30/2024 6:38 AM EDT [facility] MCV 85.3 80.0 - 100.0 fL 09/30/2024 6:38 AM EDT [facility] MCH 26.3 26.0 - 34.0 pg 09/30/2024 6:38 AM EDT [facility] MCHC 30.8 30.7 - 35.5 g/dL 09/30/2024 6:38 AM EDT [facility] RDW 14.9 <=14.9 % 09/30/2024 6:38 AM EDT [facility] Platelet 150(L) 155 - 369 x10(3)/mcL 09/30/2024 6:38 AM EDT [facility] MPV 10.7 8.8 - 12.5 fL 09/30/2024 6:38 AM EDT [facility] Blood VENOUS BLOOD / Unknown Venipuncture / Unknown 09/30/2024 6:08 AM EDT 09/30/2024 6:31 AM EDT S Sapphire DO HEMATOLOGY ORDERABLES Final R esult [facility] [address] [facility] [place] [address] * EK EKG 12 LEAD (09/27/2024 12:32 AM EDT) Only the most recent of4 resultswithin the time period is included. Anatomical Region Laterality Modality Electrocardiogra phy 09/27/2024 12:4 1 AM EDT Impressions 09/27/2024 12:[address] [facility] Test Date: 2024-09-27 Pat Name: SUNITA TRENT Department: DEPID Room: [facility] Gender: Female Dip Stand Loader: [id number] : 1955 Requested By: YENIFER AUGUSTINE Order Number: [id number] Reading MD: Abrahan Adkins MD Measurements Intervals [place] Rate: 125 P: 16 WY: 132 QRS: 10 QRSD: 160 T: 92 QT: 324 QTc: 468 Interpretive Statements SINUS TACHYCARDIA INTRAVENTRICULAR CONDUCTION DELAY Non specific ST-T abnormality. Electronically Signed On 09-27-2024 12:12:26 EDT by Abrahan Adkins MD Narrative Procedure Note Abrahan Adkins MD - 09/27/[address] [facility] Test Date: 2024-09-27 Pat Name: SUNITA TRENT Department: DEPID Room: [facility] Gender: Female Dip Stand Loader: [id number] : 1955 Requested By: YENIFER AUGUSTINE Order Number: [id number] Reading MD: Abrahan Adkins MD Measurements Intervals [place] Rate: 125 P: 16 WY: 132 QRS: 10 QRSD: 160 T: 92 QT: 324 QTc: 468 Interpretive Statements SINUS TACHYCARDIA INTRAVENTRICULAR CONDUCTION DELAY Non specific ST-T abnormality. Electronically Signed On 09-27-2024 12:12:26 EDT by Abrahan Adkins MD us Yenifer Augustine TECHNOLOGY TEACHER IMG ECG ORDERABLES Final Resu lt * STAPHYLOCOCCUS AUREUS SCREEN (09/26/2024 12:18 PM EDT) Pathologist [facility] Staph aureus PCR Not Detected Not Detected 09/27/2024 2:45 AM EDT [facility] MRSA PCR Not Detected Not Detected 09/27/2024 2:45 AM EDT [facility] Swab BOTH ANTERIOR NARES / Unknown 09/26/2024 12:18 PM EDT 09/26/2024 7:27 PM EDT Narrative [facility] - 09/27/2024 2:45 AM EDT Staphylococcus aureus target DNA sequence is not detected. This qualitative assay is intended for the detection of Staphylococcus aureus proprietary sequences for the staphylococcal protein A (spa) gene, the gene for methicillin resistance (mecA), and the staphylococcal cassette chromosome mec (SCCmec) inserted into the SA chromosomal attB site. This assay utilizes real time PCR on the [employer] Gene[employer]pert Infinity, and its performance has been verified by the [facility]. A negative result does not rule [...] been developed and validated by the [facility] laboratory. Detailed methodology is available upon request. S Sapphire DO MICROBIOLOGY - GENERAL ORDERA BLES Final Result Performing Organization Address [facility]/ZIP Co de Phone Number [address] , [place] [address] * [place] MODIFIED BARIUM SWALLOW (09/26/2024 9:45 AM EDT) Narrative PACS - 09/26/2024 11:06 AM EDT Modified Barium Swallow was performed in the Radiology department by Speech Pathology. No Radiologist in attendance. No charge from [facility]. Refer to Speech Pathology for further information. S Sapphire DO IMG FLUOROSCOPY ORDERABLES Fi nal Result Performing Organization Address [facility]/ZIP Co de Phone Number PACS * (ABNORMAL) LIPID SCREEN (09/26/2024 6:00 AM EDT) Only the most recent of2 resultswithin the time period is included. Cholesterol 180 <200 mg/dL 09/26/2024 9:38 AM EDT [facility] Comment: < 200 Desirable 200 - 239 Borderline High >= 240 High Triglyceride 83 <150 mg/dL 09/26/2024 9:38 AM EDT [facility] Comment: < 150 Normal 150 - 199 Borderline High 200 - 499 High >= 500 Very High HDL 54 >=40 mg/dL 09/26/2024 9:38 AM EDT [facility] Comment: > 60 Optimal 40 - 60 Acceptable < 40 Low LDL Calculated 111(H) <100 mg/dL 09/26/2024 9:38 AM EDT [facility] Comment: < 100 Optimal 100 - 129 Near or above optimal 130 - 159 Borderline High 160 - 189 High >= 190 Very High The National Institutes of Health (NIH) equation is used for all lipid panels that report calculated LDL (LDL-C). Non-HDL-C Calculated 126 <=129 mg/dL 09/26/2024 9:38 AM EDT [facility] Comment: <130 Desirable 130-159 Above Desirable 160-189 Borderline High 190-219 High >= 220 Very High Fasting Specimen? Yes None 025 9:38 AM EDT [facility] Blood VENOUS BLOOD / Unknown Venipuncture / Unknown 09/26/2024 6:00 AM EDT 09/26/2024 6:17 AM EDT Sapphire DO CHEMISTRY ORDERABLES Final Re sult [facility] 1 [facility] , [address] [place] [id number] * CT HEAD WO CONTRAST (09/25/2024 8:12 PM EDT) Only the most recent of2 resultswithin the time period is included. Anatomical Region Laterality Modality Head Computed Tomogra [...] please contactthe office of the ordering clinician. Neville Gutierrez MD IMG CT ORDERABLES Magdalena l Result * (ABNORMAL) TROPONIN-T HIGH SENSITIVITY BASELINE W/ REFLEX (09/25/2024 6:01 PM EDT) Only the most recent of3 resultswithin the time period is included. pz-cDxsifkaf-Q 262(HH) <14 ng/L 09/25/2024 7:53 PM EDT [facility] Blood VENOUS BLOOD / Unknown Venipuncture / Unknown 09/25/2024 6:01 PM EDT 09/25/2024 7:35 PM EDT Narrative [facility] - 09/25/2024 7:53 PM EDT Ingestion of mindy doses of biotin (>5 mg/day) taken within 8 hours of drawing blood sample can interfere with this immunoassay test. us Timur Parr MD CHEMISTRY ORDERABLES Final Resul t Performing Organization Address [facility] de Phone Number [address] [address] * (ABNORMAL) TROPONIN-T HIGH SENSITIVITY 2HR (09/25/2024 4:05 PM EDT) Only the most recent of2 resultswithin the time period is included. og-cUpykcrws-G 2HR 269(HH) <14 ng/L 09/25/2024 5:03 PM EDT [facility] hs-cTnT 2Hr Delta from Baseline 14() <4 ng/L 09/25/2024 5:03 PM EDT [facility] Blood VENOUS BLOOD / Unknown Venipuncture / Unknown 09/25/2024 4:05 PM EDT 09/25/2024 4:44 PM EDT Narrative [facility] - 09/25/2024 5:03 PM EDT Ingestion of mindy doses of biotin (>5 mg/day) taken within 8 hours of drawing blood sample can interfere with this immunoassay test. us Venkatesh Rich APRN CHEMISTRY ORDERABLES Final R esult Performing Organization Address [facility] Co de Phone Number [facility] [address] [place] [address] * CT ANGIOGRAM HEAD AND NECK W [...] of the left P2 and distal left CARGO VESSEL STEWARDESS. The right P1 segment opacifies normally with [...] present. Procedure Note Ar Lopez, DO - 09/25/2024 CTA HEAD AND NECK WITH CONTRAST, 09/25/2024 [...] of the left P2 and distal left CARGO VESSEL STEWARDESS. The right P1 segment opacifiesnormally with normal [...] for estimates of stenosis. Neville Gutierrez MD IM CT ORDERABLES Magdalena l Result * EC ECHOCARDIOGRAM 2D M MODE COMPLETE W CONTRAST (09/25/2024 11:37 AM EDT) MITRAL REGURGITATION mild PYRAMIS Ejection Fraction 35-40% [...] 15 mmHg. * There is a 26mm Vickers MELA TAVR present in the aortic position. [...] of 15mmHg. * There is a 26mm Vickers MELA TAVR present in the aortic position. [...] Left atrial chamber dimension is moderately enlarged. us Feli Vela MD IMG ECHO ORDERABLES Final R esult * [facility] US CAROTID DUPLEX BILATERAL (09/25/2024 [...] brachial pressures secondary topatient responsiveness/ recent CVA. us Feli Vela MD IMG VASCULAR ORDERABLES Fin al Result * (ABNORMAL) HEPARIN ANTI-XA, UNF (09/25/2024 4:14 AM EDT) Heparin Level UNF 0.23(L) 0.30 - 0.70 IU/mL 09/25/2024 4:28 AM EDT [facility] Comment:The therapeutic rang e for heparinized patients monitored by the Heparin Lvl UF is 0.30-0.70 IU/mL. Blood VENOUS BLOOD / Unknown Venipuncture / Unknown 09/25/2024 4:14 AM EDT 09/25/2024 4:18 AM EDT Troy S Sapphire DO HEMATOLOGY ORDERABLES Final R esult Performing Organization Address City/State/[facility] Co de Phone Number [facility] [address] [place] [address] * MRI BRAIN WO CONTRAST (09/24/2024 9:16 [...] please contactthe office of the ordering clinician. [facility] ORDERABLES Edited Res ult - Final * (ABNORMAL) BLOOD GAS, VENOUS (09/24/2024 7:28 PM EDT) pH Venous 7.41 7.32 - 7.42 pH 09/24/2024 7:33 PM EDT [facility] pCO2 Venous 46 41 - 51 mmHg 09/24/2024 7:33 PM EDT [facility] pO2 Venous 56(H) 25 - 40 mmHg 09/24/2024 7:33 PM EDT [facility] Comment:Interpret with cauti on. Not recommended to evaluate patient's oxygenation status. Base Excess Momo 3.3 mmol/L 7:33 PM EDT [facility] Hco3 Venous 28.7(H) 24.0 - 28.0 mmol/L 09/24/2024 7:33 PM EDT [facility] CO2 Total Momo 26 25 - 29 mmol/L 09/24/2024 7:33 PM EDT [facility] O2 Sat. Venous 88.6(H) 40.0 - 70.0 % 09/24/2024 7:33 PM EDT [facility] Inspired O2 2 09/24/2024 7:33 PM EDT [facility] Blood VENOUS BLOOD / Unknown Venipuncture / Unknown 09/24/2024 7:28 PM EDT 09/24/2024 7:32 PM EDT [facility] CHEMISTRY ORDERABLES Final Re sult [facility] [address] [place] [address] * (ABNORMAL) URINALYSIS REFLEX (09/24/2024 6:56 PM EDT) UA Color Yellow 09/24/2024 7:13 PM EDT [facility] UA Appear Clear Clear 09/24/2024 7:13 PM EDT [facility] UA Glucose >=1000(A) Negative mg/dL 09/24/2024 7:13 PM EDT [facility] UA Ketones Trace (5 mg/dL)(A) Negative mg/dL 09/24/2024 7:13 PM EDT [facility] UA Blood Negative Negative 09/24/2024 7:13 PM EDT [facility] UA pH 8.0 5.0 - 8.0 pH 09/24/2024 7:13 PM EDT [facility] UA Protein Trace(A) Negative mg/dL 09/24/2024 7:13 PM EDT [facility] UA Urobilinogen 0.2 <=1 mg/dL 7:13 PM EDT [facility] UA Bili Negative Negative 09/24/2024 7:13 PM EDT [facility] UA Nitrite Negative Negative 09/24/2024 7:13 PM EDT [facility] UA Leuk Est Negative Negative 09/24/2024 7:13 PM EDT [facility] UA Spec Grav 1.010 1.001 - 1.035 no units 09/24/2024 7:13 PM EDT [facility] Comment:Reference range jagjit d for random specimens only. UA WBC <1 0 - 4 /HPF 09/24/2024 7:13 PM EDT [facility] UA Squam Epi Rare /LPF 09/24/2024 7:13 PM EDT [facility] UA Amorph 1+ /HPF 09/24/2024 7:13 PM EDT [facility] Urine STRUCTURE OF URINARY TRACT PROPER / Unknown 09/24/2024 6:56 PM EDT 09/24/2024 7:04 PM EDT us Feli Vela MD URINE ORDERABLES Final Resu lt [address] [address] * EXTRA SCHULZ URINE CX (09/24/2024 6:56 PM EDT) Urine STRUCTURE OF URINARY TRACT PROPER / Unknown 09/24/2024 6:56 PM EDT 09/24/2024 7:04 PM EDT us Feli Vela MD MICROBIOLOGY - GENERAL LAWRENCE LOZANO Final Result [facility] [address] [facility] [place] [address] * DRUGS OF ABUSE WITH REFLEX TO CONFIRMATION, URINE (09/24/2024 6:56 PM EDT) 6 AM (Heroin) Absent Cutoff 10 ng/mL 09/24/2024 7:24 PM EDT [facility] Amphetamines Absent Cutoff 500 ng/mL 09/24/2024 7:24 PM EDT [facility] Barbiturates Absent Cutoff 200 ng/mL 09/24/2024 7:24 PM EDT [facility] Benzodiazepines Absent Cutoff 200 ng/mL 09/24/2024 7:24 PM EDT [facility] Buprenorphine Absent Cutoff 5 ng/mL 09/24/2024 7:24 PM EDT [facility] Cannabinoid Metabolite Absent Cutoff 50 ng/mL 09/24/2024 7:24 PM EDT [facility] Cocaine Metabolite Absent Cutoff 150 ng/mL 09/24/2024 7:24 PM EDT [facility] Fentanyl Absent Cutoff 5 ng/mL 09/24/2024 7:24 PM EDT [facility] Methadone and Metabolite Absent Cutoff 300 ng/mL 09/24/2024 7:24 PM EDT [facility] Opiate Absent Cutoff 300 ng/mL 09/24/2024 7:24 PM EDT [facility] Oxycodone Lvl Absent Cutoff 100 ng/mL 09/24/2024 7:24 PM EDT [facility] Urine Creatinine 16.7 mg/dL 09/25/19 7:24 PM EDT [facility] Comment: Greater than 20: Consistent with valid sample Greater than 2 but less than 20: Possible dilution Less than 2: Questionable valid sample Urine STRUCTURE OF URINARY TRACT PROPER / Unknown 09/24/2024 6:56 PM EDT 09/24/2024 7:04 PM EDT Narrative [facility] - 09/24/2024 7:24 PM EDT These [...] URINE ORDERABLES Final Result Performing Organization Address [facility] Phone Number [facility] [address] [address] * POTASSIUM REPEAT (09/24/2024 5:47 PM EDT) Potassium 3.9 3.5 - 5.0 mmol/L 09/24/2024 6:06 PM EDT [facility] Blood VENOUS BLOOD / Unknown Venipuncture / Unknown 09/24/2024 5:47 PM EDT 09/24/2024 5:49 PM EDT Feli Vela MD CHEMISTRY ORDERABLES Final Result Performing Organization Address [facility] Phone Number [facility] [address] [place] [address] * EXTRA LIGHT BLUE (09/24/2024 4:35 PM EDT) Blood VENOUS BLOOD / Unknown Venipuncture / Unknown 09/24/2024 4:35 PM EDT 09/24/2024 4:46 PM EDT Feli Vela MD HEMATOLOGY ORDERABLES Final Result Performing Organization Address [facility] Phone Number [facility] [address] [place] [address] * PARTIAL THROMBOPLASTIN TIME (09/24/2024 4:35 PM EDT) [facility] PTT 32.7 25.7 - 36.8 second(s) 09/24/2024 4:58 PM EDT [facility] Comment: Therapeutic range for unfractionated heparin: [...] PM EDT 09/24/2024 4:46 PM EDT Feli Vela MD HEMATOLOGY ORDERABLES Final Result Performing Organization Address [facility] de Phone Number [facility] [address] [place] [address] * PT / INR (09/24/2024 4:35 PM EDT) [facility] PT 11.3 10.5 - 13.6 second(s) 09/24/2024 4:58 PM EDT [facility] INR 0.98 0.91 - 1.18 (ratio) 09/24/2024 4:58 PM EDT [facility] Comment: Level of Therapy Indications Target INR Range Standard Dose Treatment and prophylaxis of venous 2.0 - 3.0 thrombosis, pulmonary embolism High Dose High risk patients with mechanical 2.5 - 3.5 heart valves Blood VENOUS BLOOD / Unknown Venipuncture / Unknown 09/24/2024 4:35 PM EDT 09/24/2024 4:46 PM EDT Feli Vela MD HEMATOLOGY ORDERABLES Final Result Performing Organization Address [facility]/State/ZIP Co de Phone Number [facility] [address] [place] [address] * (ABNORMAL) HEMOGLOBIN A1C (09/24/2024 4:35 PM EDT) Hgb A1C 7.2(H) 4.2 - 5.6 % 09/25/2024 1:02 AM EDT [facility] Est. Avg Glucose 160 mg/dL 09/25/2024 1:02 AM EDT [facility] Blood VENOUS BLOOD / Unknown Venipuncture / Unknown 09/24/2024 4:35 PM EDT 09/24/2024 4:46 PM EDT Narrative [facility] - 09/25/2024 1:02 AM EDT REFERENCE RANGE: Normal: 4.0-5.6% Pre-diabetes: 5.7-6.4% Provisional diagnosis of diabetes: >6.4% Hgb F>10% and anything which shortens red cell survival, such as hemolytic anemia, or unstable hemoglobin variants such as HbSS, HbSC, or HbCC, will lower the HbA1c value associated with a given level of glycemic control. Sapphire DO CHEMISTRY ORDERABLES Final Re sult [facility] [address] [place] [address] , [place] [address] * CT ANGIOGRAM HEAD AND NECK STROKE [...] suspected large vessel occlusion (LVO). us Feli Vela MD IMG CT ORDERABLES Final Res ult * CT HEAD STROKE PROTOCOL (09/24/2024 4:31 PM EDT) Anatomical Region Laterality Modality Head Computed Tomogra phy 09/24/2024 4:31 PM EDT Impressions 09/24/2024 4:39 PM EDT No acute intracranial abnormality. Direct communication performed per protocol by report author. Notification type: Telephone call center associate notified: FELI VELA Approximate time of notification: 09/24/2024 4:37 PM. [...] report author. Notification type: Telephone call center associate notified: FELI VELA Approximate time of notification: 09/24/2024 4:37 PM. Code STROKE us Feli Vela MD IMG CT ORDERABLES Final Res ult from Last 3 Months Insurance [facility] [address] [facility] [place] [address] Advance Directives For more information, please contact: [phone] Documents on File Type Date Recorded Patient Pocket Builder Expl anation Power of Mushroom Cultivator 10/19/2022 9:00 AM * Full Code (Latest Code Status on File) Date Activated Date Inactivated Comments 09/24/2024 6:43 PM 10/02/2024 7:40 PM * Full Code Date Activated Date Inactivated Comments 10/19/2022 3:07 PM 10/20/2022 5:12 PM Care Teams News Internship Relationship Specialty Start Date End Date Estiven No MD [address] [place] [address] PCP - General Family Medicine 09/24/24
--- OUTSIDE RECORDS SUMMARY | 2024-11-20 10:18 | XMS_ITS | Encounter Summary ---
Author Organization [facility] [place] [address] Care Team Providers Care Chicken Stuffer Name Role Phone Estiven No MD Primary Care Provider [phone] Encounter Details Date Type Department Care Team (Latest Contact Info) Description 09/24/2024 Travel Social History Tobacco Use Types Packs/Day Years Used Date Smoking Tobacco: Former Cigarettes Q uit: 1976 Smokeless Tobacco: Never Alcohol Use Standard Drinks/Week Comments Never 0 (1 standard drink = 0.6 oz pur e alcohol) [facility] Utilities Answer Date Recorded In the past 12 months has [employer] electric, gas, oil, or water [employer] threatened to shut off services in your home? No 09/25/2024 Overall Financial Resource Strain (CARDIA) Answe r Date Recorded How hard is it for you to pa y for the very basics like food, housing, medical care, and heating? Not hard at all 09/25/2024 [facility] [place] of Occupat ional Health - Occupational Stress [...] money to get more. Never true 09/25/2024 [facility] Transportation Answer D ate Recorded [...] on file documented as of this encounter Functional Status * Alcohol Screening [...] 4:19 PM EDT Carly Briggs RN * [place] Suicide Severity Rating Scale (Q shift for [...] Briggs RN documented as of this encounter Plan of Treatment Not on file documented as of this encounter Visit Diagnoses Not on filedocumented in this encounter Care Teams Chicken Stuffer Relationship Specialty Start Date End Date Estiven No MD [address] [place] [address] PCP - General Family Medicine 09/24/24 documented as of this encounter
== END 2024-11-18 23:59 | disposition home or self-care (01) ==
LOC: LAB.DROPOF 11-20 10:14
PROVIDERS: PCP Family Medicine; Visit Provider Family Medicine
DX: J44.9 Chronic obstructive pulmonary disease, unspecified (principal); E03.9 Hypothyroidism, unspecified; Z72.0 Tobacco use
CPT/HCPCS: 80053; 82607; 84443; 85025

== ENCOUNTER 2024-12-23 14:40 | Outpatient (CLI) | payer MEDICARE, OTHER, SELFPAY ==
[2024-12-23 20:12] LABS: Anion Gap 11.1 mEq/L (5-15); Blood Urea Nitrogen 10 mg/dl (7-17); Calcium 9.0 mg/dl (8.4-10.2); Carbon Dioxide 30 mmol/L (22.0-30.0); Chloride 98 mmol/L (98-107); Creatinine,Serum 0.50 mg/dl (0.52-1.04); Estimated Glomerular Filt Rate 122 ml/min (>60); GFR (African American) 148 ML/MIN (>60); Glucose 349 mg/dl (74-100); Potassium 4.1 mmoL/L (3.5-5.1); Sodium 135 mmol/L (136-145)
--- OUTSIDE RECORDS SUMMARY | 2024-12-23 22:38 | XMS_ITS | Clinical Summary ---
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 Less than 7% demonstrates glycemic control in diabetic patients. Hemoglobin AlC % Suggested Diagnosis > or = 6.5 Diabetic 5.7 - 6.4 Prediabetic <5.7 Non-diabetic eAVG Glucose 205.86 mg/dL 08/05/2022 12:00 PM EDT [facility] Blood Venipuncture / Unknown 08/04/2022 8:23 PM EDT 08/04/2022 8:29 PM EDT us William Lau PA-C LAB BLOOD ORDERABLES Final Re sult [facility] [address] [phone] from Last 3 Months or Most Recently Relevant to Health Maintenance Insurance * Guarantor: Sunita Trent Account Type Relation to Patient Date of Phone Billing Address Personal/Family Self [address] [place] [address] [place] [address] [facility] D[facility] COM[facility]TE MCR ADV [facility] MEDICARE ADVANTAGE Advance Directives For more information, please contact: [phone] * Full Code (Latest Code Status on File) Date Activated Date Inactivated Comments 08/04/2022 6:56 PM 08/09/2022 12:06 AM
--- OUTSIDE RECORDS SUMMARY | 2024-12-23 22:38 | XMS_ITS | Referral Summary ---
Author Organization [facility] ([place], [place], [place], [place]) Address [address] [place] [address] Care Team Providers Care Decorator Mannequin Name Role Phone Unavailable Primary Care Provider [...] Problem Noted Date Diagnosed Date CAD in [place] artery 08/04/2022 Asthma 08/04/2022 CHF (congestive heart [...] Date Sammy rded Speak language other than Pakistani at home Not on file 03/30/2023 Want [...] A1C 8.8 % 08/05/2022 12:00 PM EDT [facility] Comment: Hemoglobin A1C levels are related to mean glucose during the preceding 2-3 months. Less than 7% demonstrates glycemic control in diabetic patients. Hemoglobin AlC % Suggested Diagnosis > or = 6.5 Diabetic 5.7 - 6.4 Prediabetic <5.7 Non-diabetic eAVG Glucose 205.86 mg/dL 08/05/2022 12:00 PM EDT [facility] Blood Venipuncture / Unknown 08/04/2022 8:23 PM EDT 08/04/2022 8:29 PM EDT us William Lau PA-C LAB BLOOD ORDERABLES Final Re sult [facility] [address] [phone] from Last 3 Months or Most Recently Relevant to [place] [address] [facility] DUAL COMPLETE MCR ADV [facility] MEDICARE ADVANTAGE Advance Directives For more information, please contact: [phone] * Full Code (Latest Code Status on File) Date Activated Date Inactivated Comments 08/04/2022 6:56 PM 08/09/2022 12:06 AM
--- OUTSIDE RECORDS SUMMARY | 2024-12-23 22:38 | XMS_ITS | Data Portability ---
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 Plan of Treatment Reminders Order Date Submit Date Provider Last Modified By Organization Details Last Modified Time Details Appointments None recorded. Lab HbA1c (hemoglobin A1c), blood 2024 025 [facility], [address] [place], [address], 5 15:06:25 HbA1c (hemoglobin A1c), blood 2023 024 ELO[facility], [address], [address], [place], [address], 4 08:37:42 CMP, serum or plasma 2023 024 ELO[facility], [address], [address], [place], [address], 4 08:37:41 CBC w/ auto diff 2023 024 ELO[facility], [address], [address], [place], [address], 4 08:37:40 lipid panel, serum 2023 024 ELO[facility], [address], [address], [place], [address], 4 08:37:42 vitamin D, 25-hydroxy, total, serum 2023 024 ELO[facility], [address], [address], [place], [address], 4 08:37:43 HbA1c (hemoglobin A1c), blood [email or web address], [address] [place], [address], 4 14:43:14 HbA1c (hemoglobin A1c), blood 2023 024 ELOISA [facility], [address], [address], [place], [address], 4 10:36:53 CMP, serum or plasma 2023 024 E[facility], [address], [address], [place], [address], 4 10:36:50 CBC w/ auto diff 2023 024 [facility], [address], [address], [place], [address], 4 10:36:49 lipid panel, serum 2023 024 ELOISA [facility], [address], [address], [place], [address], 4 10:36:52 TSH + free T4, serum 2023 024 ELO[facility], [address], [address], [place], [address], 4 10:36:48 vitamin D, 25-hydroxy, total, serum 2023 024 ELOISA [facility], [address], [address], [place], [address], 4 10:36:54 vitamin B12 + folate, serum or blood 2023 024 VANDIVER [facility], [address], [place], [address], 4 10:36:52 Referral None recorded. Procedures None recorded. Surgeries None recorded. Imaging None recorded. Medication Orders fluticasone propionate 50 mcg/actuati on nasal spray,suspe nsion [address], [address], 5 10:44:00 OneTouch Verio test strips [address], [address], 5 10:43:59 ergocalcife rol (vitamin D2) 1,250 mcg (50,000 unit) capsule [address], [address], 5 10:43:59 Januvia 100 mg tablet [address], [address], 5 09:26:29 Mounjaro 7.5 mg/0.5 mL subcutaneou s pen injector [address], [address], 5 09:28:06 ergocalcife rol (vitamin D2) 1,250 mcg (50,000 unit) capsule 12/2023 [facility], [address] [place] [address], [place], [address], 4 11:00:11 Mounjaro 7.5 mg/0.5 mL subcutaneou s pen injector [email or web address] - [address], [place], [address], 5 09:13:27 amoxicillin 875 mg-potassiu m clavulanate 125 mg tablet [address], [place], [address], 4 16:08:46 prednisone 10 mg tablet [address], [address], 4 16:08:43 omeprazole 40 mg capsule,del ayed release [address], [address], 4 11:23:20 ropinirole 0.25 mg tablet [address], [address], 4 11:23:20 Mounjaro 5 mg/0.5 mL subcutaneou s pen injector [address], [address], 4 14:14:46 Patient TargetsNo targets recorded. Patient Instructions Encounter Date Encounter Id Patient Instructions Last Modified By Organization Details Last Modified Time 11/05/2023 [id number] smoking cessatio n counseling, greater than 3 [...] or issues Not available 11/05/2023 18:06:40 01/15/2024 [id number] learning about healthy weight Not available 01/15/2024 11:14:19 body mass index: care instructions Not available 01/15/2024 11:14:19 diabetic foot exam* Not available 01/15/2024 11:13:46 Advised to take medication as directed Discussed result of POC hgb A1c with pt Reviewed importance of hydration and rest To call office for questions, concerns or issues Not available 01/15/2024 15:03:27 03/10/2024 [id number] smoking cessatio n counseling, greater than 3 [...] or issues Not available 03/10/2024 11:02:36 04/30/2024 [id number] smoking cessatio n counseling, greater than 3 [...] or issues Not available 04/30/2024 10:48:10 06/17/2024 [id number] Discussed result s of in office testing [...] L 0.450- 4.500 normal Not Available [facility] ([facility]) [address] [place], [address], 11/06/2023 10:36:48 11/05/19 24 11/06/2023 TSH+F REE T4 T4,free(dire ct) 1.46 NG/dL 0.82-1 .77 normal Not Available [facility] ([facility]) [address] [place], [address], 11/06/2023 10:36:48 11/05/19 24 11/06/2023 CBC WITH DIFFE RENTI AL/PL ATELE T WBC 8.8 x10e3 /uL 3.4-10 .8 normal Not Available [facility] ([facility]) [address] [place], [address], 11/06/2023 10:36:49 11/05/19 24 11/06/2023 CBC WITH DIFFE RENTI AL/PL ATELE T RBC 6.05 x10e6 /uL 3.77-5 .28 above high normal Not Available [facility] ([facility]) [address] [place], [address], 11/06/2023 10:36:49 11/05/19 24 11/06/2023 CBC WITH DIFFE RENTI AL/PL ATELE T hemoglobin 16.4 g/dL 11.1-1 5.9 above high normal Not Available [facility] ([facility]) [address] [facility], [place], [address], 11/06/2023 10:36:49 11/05/19 24 11/06/2023 CBC WITH DIFFE RENTI AL/PL ATELE T hematocrit 52.7 % 34.0-4 6.6 above high normal Not Available [facility] ([facility]) [address] [place], [address], 11/06/2023 10:36:49 11/05/19 24 11/06/2023 CBC WITH DIFFE RENTI AL/PL ATELE T MCV 87 fL 79-97 normal Not Available [facility] ([facility]) [address] [place], [address], 11/06/2023 10:36:49 11/05/19 24 11/06/2023 CBC WITH DIFFE RENTI AL/PL ATELE T MCH 27.1 pg 26.6-3 3.0 normal Not Available [facility] ([facility]) [address] [place], [address], 11/06/2023 10:36:49 11/05/19 24 11/06/2023 CBC WITH DIFFE RENTI AL/PL ATELE T MCHC 31.1 g/dL 31.5-3 5.7 below low normal Not Available [facility] ([facility]) [address] [place], [address], 11/06/2023 10:36:49 11/05/19 24 11/06/2023 CBC WITH DIFFE RENTI AL/PL ATELE T RDW 13.7 % 11.7-1 5.4 Not Available [facility] ([facility]) [address] [place], [address], 11/06/2023 10:36:49 11/05/19 24 11/06/2023 CBC WITH DIFFE RENTI AL/PL ATELE T platelets 184 x10e3 /uL 150-45 0 normal Not Available [facility] ([facility]) [address] [facility], [place], [address], 11/06/2023 10:36:49 11/05/19 24 11/06/2023 CBC WITH DIFFE RENTI AL/PL ATELE T neutrophils 63 % not estab. normal Not Available [facility] ([facility]) [address] [facility], [place], [address], 11/06/2023 10:36:49 11/05/19 24 11/06/2023 CBC WITH DIFFE RENTI AL/PL ATELE T lymphs 23 % not estab. normal Not Available [facility] ([facility]) [address] [facility], [place], [address], 11/06/2023 10:36:49 11/05/19 24 11/06/2023 CBC WITH DIFFE RENTI AL/PL ATELE T monocytes 10 % not estab. normal Not Available [facility] ([facility]) [address] [facility], [place], [address], 11/06/2023 10:36:49 11/05/19 24 11/06/2023 CBC WITH DIFFE RENTI AL/PL ATELE T eos 3 % not estab. normal Not Available [facility] ([facility]) [address] [facility], [place], [address], 11/06/2023 10:36:49 11/05/19 24 11/06/2023 CBC WITH DIFFE RENTI AL/PL ATELE T basos 1 % not estab. normal Not Available [facility] ([facility]) [address] [facility], [place], [address], 11/06/2023 10:36:49 11/05/19 24 11/06/2023 CBC WITH DIFFE RENTI AL/PL ATELE T immature cells GAS PROVER Not Available [facility] ([facility]) [address] [place], [address], 11/06/2023 10:36:49 11/05/19 24 11/06/2023 CBC WITH DIFFE RENTI AL/PL ATELE T neutrophils (absolute) 5.6 x10e3 /uL 1.4-7. 0 normal Not Available [facility] ([facility]) [address] [place], [address], 11/06/2023 10:36:49 11/05/19 24 11/06/2023 CBC WITH DIFFE RENTI AL/PL ATELE T lymphs (absolute) 2.0 x10e3 /uL 0.7-3. 1 normal Not Available [facility] ([facility]) [address] [place], [address], 11/06/2023 10:36:49 11/05/19 24 11/06/2023 CBC WITH DIFFE RENTI AL/PL ATELE T monocytes(ab solute) 0.8 x10e3 /uL 0.1-0. 9 normal Not Available [facility] ([facility]) [address] [place], [address], 11/06/2023 10:36:49 11/05/19 24 11/06/2023 CBC WITH DIFFE RENTI AL/PL ATELE T eos (absolute) 0.3 x10e3 /uL 0.0-0. 4 normal Not Available [facility] ([facility]) [address] [place], [address], 11/06/2023 10:36:49 11/05/19 24 11/06/2023 CBC WITH DIFFE RENTI AL/PL ATELE T baso (absolute) 0.1 x10e3 /uL 0.0-0. 2 normal Not Available [facility] ([facility]) [address] [place], [address], 11/06/2023 10:36:49 11/05/19 24 11/06/2023 CBC WITH DIFFE RENTI AL/PL ATELE T immature granulocytes 0 % not estab. Not Available [facility] ([facility]) [address] [facility], [place], [address], 11/06/2023 10:36:49 11/05/19 24 11/06/2023 CBC WITH DIFFE RENTI AL/PL ATELE T immature grans (abs) 0.0 x10e3 /uL 0.0-0. 1 Not Available [facility] ([facility]) [address] [facility], [place], [address], 11/06/2023 10:36:49 11/05/19 24 11/06/2023 CBC WITH DIFFE RENTI AL/PL ATELE T NRBC GAS PROVER Not Available [facility] ([facility]) [address] [facility], [place], [address], 11/06/2023 10:36:49 11/05/19 24 11/06/2023 CBC WITH DIFFE RENTI AL/PL ATELE T hematology comments: GAS PROVER Not Available [facility] ([facility]) [address] [facility], [place], [address], 11/06/2023 10:36:49 11/05/19 24 11/06/2023 COMP. METAB OLIC PANEL (14) glucose 321 mg/dL 70-99 above high normal Not Available [facility] ([facility]) [address] [facility], [place], [address], 11/06/2023 10:36:50 11/05/19 24 11/06/2023 COMP. METAB OLIC PANEL (14) BUN 27 mg/dL 8-27 normal Not Available [facility] ([facility]) [address] [place], [address], 11/06/2023 10:36:50 11/05/19 24 11/06/2023 COMP. METAB OLIC PANEL (14) creatinine 1.26 mg/dL 0.57-1 .00 above high normal Not Available [facility] ([facility]) [address] [facility] [place], [address], 11/06/2023 10:36:50 11/05/19 24 11/06/2023 COMP. METAB OLIC PANEL (14) eGFR 47 mL/mi n/1.7 3 >59 below low normal Not Available [facility] ([facility]) [address] [facility] [place], [address], 11/06/2023 10:36:50 11/05/19 24 11/06/2023 COMP. METAB OLIC PANEL (14) BUN/creatini ne ratio 21 12-28 normal Not Available [facility] ([facility]) [address] [facility] [place], [address], 11/06/2023 10:36:50 11/05/19 24 11/06/2023 COMP. METAB OLIC PANEL (14) sodium 135 mmol/ L 134-14 4 normal Not Available [facility] ([facility]) [address] [facility] [place], [address], 11/06/2023 10:36:50 11/05/19 24 11/06/2023 COMP. METAB OLIC PANEL (14) potassium 4.0 mmol/ L 3.5-5. 2 normal Not Available [facility] ([facility]) [address] [facility] [place], [address], 11/06/2023 10:36:50 11/05/19 24 11/06/2023 COMP. METAB OLIC PANEL (14) chloride 91 mmol/ L 96-106 below low normal Not Available [facility] ([facility]) [address] [facility] [place], [address], 11/06/2023 10:36:50 11/05/19 24 11/06/2023 COMP. METAB OLIC PANEL (14) carbon dioxide, total 28 mmol/ L 20-29 normal Not Available [facility] ([facility]) [address], [place], [address], 11/06/2023 10:36:50 11/05/19 24 11/06/2023 COMP. METAB OLIC PANEL (14) calcium 9.3 mg/dL 8.7-10 .3 normal Not Available [facility] ([facility]) [address] [place], [address], 11/06/2023 10:36:50 11/05/19 24 11/06/2023 COMP. METAB OLIC PANEL (14) protein, total 6.6 g/dL 6.0-8. 5 normal Not Available [facility] ([facility]) [address], [place], [address], 11/06/2023 10:36:50 11/05/19 24 11/06/2023 COMP. METAB OLIC PANEL (14) albumin 4.1 g/dL 3.9-4. 9 normal Not Available [facility] ([facility]) [address] [facility] [place], [address], 11/06/2023 10:36:50 11/05/19 24 11/06/2023 COMP. METAB OLIC PANEL (14) globulin, total 2.5 g/dL 1.5-4. 5 Not Available [facility] ([facility]) [address] [facility] [place], [address], 11/06/2023 10:36:50 11/05/19 24 11/06/2023 COMP. METAB OLIC PANEL (14) bilirubin, total 0.8 mg/dL 0.0-1. 2 normal Not Available [facility] ([facility]) [address] [facility] [place], [address], 11/06/2023 10:36:50 11/05/19 24 11/06/2023 COMP. METAB OLIC PANEL (14) alkaline phosphatase 154 IU/L 44-121 above high normal Not Available [facility] ([facility]) [address] [facility], [place], [address], 11/06/2023 10:36:50 11/05/19 24 11/06/2023 COMP. METAB OLIC PANEL (14) AST (SGOT) 14 IU/L 0-40 normal Not Available [facility] ([facility]) [address] [place], [address], 11/06/2023 10:36:50 11/05/19 24 11/06/2023 COMP. METAB OLIC PANEL (14) ALT (SGPT) 12 IU/L 0-32 normal Not Available [facility] ([facility]) [address] [place], [address], 11/06/2023 10:36:50 11/05/19 24 11/06/2023 LIPID PANEL cholesterol, total 239 mg/dL 100-19 9 above high normal Not Available [facility] ([facility]) [address] [place], [address], 11/06/2023 10:36:51 11/05/19 24 11/06/2023 LIPID PANEL triglyceride s 168 mg/dL 0-149 above high normal Not Available [facility] ([facility]) [address] [place], [address], 11/06/2023 10:36:51 11/05/19 24 11/06/2023 LIPID PANEL HDL cholesterol 58 mg/dL >39 normal Not Available [facility]) [address] [place], [address], 11/06/2023 10:36:51 11/05/19 24 11/06/2023 LIPID PANEL VLDL cholesterol tico 30 mg/dL 5-40 Not Available [facility] ([facility]) [address] [place], [address], 11/06/2023 10:36:51 11/05/19 24 11/06/2023 LIPID PANEL LDL chol calc ([facility]) 151 mg/dL 0-99 above high normal Not Available [facility] ([facility]) [address] [place], [address], 11/06/2023 10:36:51 11/05/19 24 11/06/2023 LIPID PANEL LDL calc comment: GAS PROVER Not Available [facility] ([facility]) [address] [facility], [place], [address], 11/06/2023 10:36:51 11/05/19 24 11/06/2023 VITAM IN B12 AND FOLAT E vitamin B12 1250 pg/mL 232-12 45 above high normal Not Available [facility] ([facility]) [address] [facility], [place], [address], 11/06/2023 10:36:52 11/05/19 24 11/06/2023 VITAM IN B12 AND FOLAT E folate (folic acid), serum 10.1 NG/mL >3.0 normal A serum folat e laura ntrat ion of less than 3.1 ng/mL is consi dered to repre sent clini tico defic iency . Not Available [facility] ([facility]) [address] [facility], [place], [address], 11/06/2023 10:36:52 11/05/19 24 11/06/2023 HEMOG LOBIN A1C hemoglobin A1C 14.6 % 4.8-5. 6 above high normal Predi abete s: 5.7 - 6.4 Diabe cedrick: >6.4 Glyce jong contr ol for adult s with diabe cedrick: <7.0 Not Available [facility] ([facility]) [address] [place], [address], 11/06/2023 10:36:53 11/05/19 24 11/06/2023 VITAM IN [...] um and D. Heidi ashton [place]: The [facility] . 2. Prudencio amor MF, Brent alexis [place], Vlad off-F errar i MYRICK, et al. Evalu ation , treat ment, and preve ntion of vitam in D defic iency : an Endoc rine Socie ty clini tico pract ice guide line. JCEM. 2010; 96(7) :1911 -30. Not Available [facility] ([facility]) [address] [place], [address], 11/06/2023 10:36:54 01/15/20 24 01/15/2024 HbA1c (hemo globi n A1c), blood HbA1C 9.2 % Not Available [facility] [address] [place], [address], 01/15/2024 10:59:43 03/10/20 24 03/11/2024 CBC WITH DIFFE RENTI AL/PL ATELE T WBC 8.3 x10e3 /uL 3.4-10 .8 normal Not Available [facility] ([facility]) [address] [place], [address], 03/11/2024 08:37:40 03/10/20 24 03/11/2024 CBC WITH DIFFE RENTI AL/PL ATELE T RBC 4.68 x10e6 /uL 3.77-5 .28 normal Not Available [facility] ([facility]) [address] [place], [address], 03/11/2024 08:37:40 03/10/20 24 03/11/2024 CBC WITH DIFFE RENTI AL/PL ATELE T hemoglobin 13.1 g/dL 11.1-1 5.9 normal Not Available [facility] ([facility]) [address] [place], [address], 03/11/2024 08:37:40 03/10/20 24 03/11/2024 CBC WITH DIFFE RENTI AL/PL ATELE T hematocrit 40.3 % 34.0-4 6.6 normal Not Available [facility] ([facility]) [address] [place], [address], 03/11/2024 08:37:40 03/10/2003/11/2024 CBC WITH DIFFE RENTI AL/PL ATELE T MCV 86 fL 79-97 normal Not Available [facility] ([facility]) [address] [place], [address], 03/11/2024 08:37:40 03/10/20 24 03/11/2024 CBC WITH DIFFE RENTI AL/PL ATELE T MCH 28.0 pg 26.6-3 3.0 normal Not Available [facility] ([facility]) [address] [place], [address], 03/11/2024 08:37:40 03/10/20 24 03/11/2024 CBC WITH DIFFE RENTI AL/PL ATELE T MCHC 32.5 g/dL 31.5-3 5.7 normal Not Available [facility] ([facility]) [address] [place], [address], 03/11/2024 08:37:40 03/10/20 24 03/11/2024 CBC WITH DIFFE RENTI AL/PL ATELE T RDW 12.8 % 11.7-1 5.4 Not Available [facility] ([facility]) [address] [place], [address], 03/11/2024 08:37:40 03/10/20 24 03/11/2024 CBC WITH DIFFE RENTI AL/PL ATELE T platelets 216 x10e3 /uL 150-45 0 normal Not Available [facility] ([facility]) [address] [facility], [place], [address], 03/11/2024 08:37:40 03/10/20 24 03/11/2024 CBC WITH DIFFE RENTI AL/PL ATELE T neutrophils 66 % not estab. normal Not Available [facility] ([facility]) [address] [facility], [place], [address], 03/11/2024 08:37:40 03/10/20 24 03/11/2024 CBC WITH DIFFE RENTI AL/PL ATELE T lymphs 22 % not estab. normal Not Available [facility] ([facility]) [address] [facility], [place], [address], 03/11/2024 08:37:40 03/10/20 24 03/11/2024 CBC WITH DIFFE RENTI AL/PL ATELE T monocytes 8 % not estab. normal Not Available [facility] ([facility]) [address] [facility], [place], [address], 03/11/2024 08:37:40 03/10/20 24 03/11/2024 CBC WITH DIFFE RENTI AL/PL ATELE T eos 3 % not estab. normal Not Available [facility] ([facility]) [address] [facility], [place], [address], 03/11/2024 08:37:40 03/10/20 24 03/11/2024 CBC WITH DIFFE RENTI AL/PL ATELE T basos 1 % not estab. normal Not Available [facility] ([facility]) [address] [facility], [place], [address], 03/11/2024 08:37:40 03/10/20 24 03/11/2024 CBC WITH DIFFE RENTI AL/PL ATELE T immature cells GAS PROVER Not Available [facility] ([facility]) [address] [place], [address], 03/11/2024 08:37:40 03/10/20 24 03/11/2024 CBC WITH DIFFE RENTI AL/PL ATELE T neutrophils (absolute) 5.5 x10e3 /uL 1.4-7. 0 normal Not Available [facility] ([facility]) [address] [place], [address], 03/11/2024 08:37:40 03/10/20 24 03/11/2024 CBC WITH DIFFE RENTI AL/PL ATELE T lymphs (absolute) 1.8 x10e3 /uL 0.7-3. 1 normal Not Available [facility] ([facility]) [address] [place], [address], 03/11/2024 08:37:40 03/10/20 24 03/11/2024 CBC WITH DIFFE RENTI AL/PL ATELE T monocytes(ab solute) 0.7 x10e3 /uL 0.1-0. 9 normal Not Available [facility] ([facility]) [address] [place], [address], 03/11/2024 08:37:40 03/10/20 24 03/11/2024 CBC WITH DIFFE RENTI AL/PL ATELE T eos (absolute) 0.3 x10e3 /uL 0.0-0. 4 normal Not Available [facility] ([facility]) [address] [place], [address], 03/11/2024 08:37:40 03/10/20 24 03/11/2024 CBC WITH DIFFE RENTI AL/PL ATELE T baso (absolute) 0.1 x10e3 /uL 0.0-0. 2 normal Not Available [facility] ([facility]) [address] [place], [address], 03/11/2024 08:37:40 03/10/20 24 03/11/2024 CBC WITH DIFFE RENTI AL/PL ATELE T immature granulocytes 0 % not estab. Not Available [facility] ([facility]) [address] [facility], [place], [address], 03/11/2024 08:37:40 03/10/20 24 03/11/2024 CBC WITH DIFFE RENTI AL/PL ATELE T immature grans (abs) 0.0 x10e3 /uL 0.0-0. 1 Not Available [facility] ([facility]) [address] [facility], [place], [address], 03/11/2024 08:37:40 03/10/20 24 03/11/2024 CBC WITH DIFFE RENTI AL/PL ATELE T NRBC GAS PROVER Not Available [facility] ([facility]) [address] [facility], [place], [address], 03/11/2024 08:37:40 03/10/20 24 03/11/2024 CBC WITH DIFFE RENTI AL/PL ATELE T hematology comments: GAS PROVER Not Available [facility] ([facility]) [address] [facility], [place], [address], 03/11/2024 08:37:40 03/10/20 24 03/11/2024 COMP. METAB OLIC PANEL (14) glucose 113 mg/dL 70-99 above high normal Not Available [facility] ([facility]) [address] [facility], [place], [address], 03/11/2024 08:37:41 03/10/20 24 03/11/2024 COMP. METAB OLIC PANEL (14) BUN 32 mg/dL 8-27 above high normal Not Available [facility] ([facility]) [address] [facility], [place], [address], 03/11/2024 08:37:41 03/10/20 24 03/11/2024 COMP. METAB OLIC PANEL (14) creatinine 0.70 mg/dL 0.57-1 .00 normal Not Available [facility] ([facility]) [address] [facility] [place], [address], 03/11/2024 08:37:41 03/10/20 24 03/11/2024 COMP. METAB OLIC PANEL (14) eGFR 94 mL/mi n/1.7 3 >59 normal Not Available [facility] ([facility]) [address] [facility] [place], [address], 03/11/2024 08:37:41 03/10/20 24 03/11/2024 COMP. METAB OLIC PANEL (14) BUN/creatini ne ratio 46 12-28 above high normal Not Available [facility] ([facility]) [address] [facility] [place], [address], 03/11/2024 08:37:41 03/10/20 24 03/11/2024 COMP. METAB OLIC PANEL (14) sodium 140 mmol/ L 134-14 4 normal Not Available [facility] ([facility]) [address] [facility] [place], [address], 03/11/2024 08:37:41 03/10/20 24 03/11/2024 COMP. METAB OLIC PANEL (14) potassium 3.6 mmol/ L 3.5-5. 2 normal Not Available [facility] ([facility]) [address] [facility] [place], [address], 03/11/2024 08:37:41 03/10/20 24 03/11/2024 COMP. METAB OLIC PANEL (14) chloride 99 mmol/ L 96-106 normal Not Available [facility] ([facility]) [address] [place], [address], 03/11/2024 08:37:41 03/10/20 24 03/11/2024 COMP. METAB OLIC PANEL (14) carbon dioxide, total 23 mmol/ L 20-29 normal Not Available [facility] ([facility]) [address] [place], [address], 03/11/2024 08:37:41 03/10/20 24 03/11/2024 COMP. METAB OLIC PANEL (14) calcium 9.0 mg/dL 8.7-10 .3 normal Not Available [facility] ([facility]) [address] [place], [address], 03/11/2024 08:37:41 03/10/20 24 03/11/2024 COMP. METAB OLIC PANEL (14) protein, total 6.1 g/dL 6.0-8. 5 normal Not Available [facility] ([facility]) [address] [place], [address], 03/11/2024 08:37:41 03/10/20 24 03/11/2024 COMP. METAB OLIC PANEL (14) albumin 4.0 g/dL 3.9-4. 9 normal Not Available [facility] ([facility]) [address] [place], [address], 03/11/2024 08:37:41 03/10/20 24 03/11/2024 COMP. METAB OLIC PANEL (14) globulin, total 2.1 g/dL 1.5-4. 5 Not Available [facility] ([facility]) [address] [place], [address], 03/11/2024 08:37:41 03/10/20 24 03/11/2024 COMP. METAB OLIC PANEL (14) bilirubin, total 0.3 mg/dL 0.0-1. 2 normal Not Available [facility] ([facility]) [address] [place], [address], 03/11/2024 08:37:41 03/10/20 24 03/11/2024 COMP. METAB OLIC PANEL (14) alkaline phosphatase 132 IU/L 44-121 above high normal Not Available [facility] ([facility]) [address] [facility], [place], [address], 03/11/2024 08:37:41 03/10/20 24 03/11/2024 COMP. METAB OLIC PANEL (14) AST (SGOT) 14 IU/L 0-40 normal Not Available [facility] ([facility]) [address] [facility], [place], [address], 03/11/2024 08:37:41 03/10/20 24 03/11/2024 COMP. METAB OLIC PANEL (14) ALT (SGPT) 10 IU/L 0-32 normal Not Available [facility] ([facility]) [address] [place], [address], 03/11/2024 08:37:41 03/10/20 24 03/11/2024 LIPID PANEL cholesterol, total 175 mg/dL 100-19 9 normal Not Available [facility] ([facility]) [address] [place], [address], 03/11/2024 08:37:42 03/10/20 24 03/11/2024 LIPID PANEL triglyceride s 117 mg/dL 0-149 normal Not Available [facility] ([facility]) [address] [place], [address], 03/11/2024 08:37:42 03/10/20 24 03/11/2024 LIPID PANEL HDL cholesterol 46 mg/dL >39 normal Not Available [facility] ([facility]) [address] [place], [address], 03/11/2024 08:37:42 03/10/20 24 03/11/2024 LIPID PANEL VLDL cholesterol tico 21 mg/dL 5-40 Not Available [facility] ([facility]) [address] [place], [address], 03/11/2024 08:37:42 03/10/20 24 03/11/2024 LIPID PANEL LDL chol calc ([facility]) 108 mg/dL 0-99 above high normal Not Available [facility] ([facility]) [address] [facility], [place], [address], 03/11/2024 08:37:42 03/10/2003/11/2024 LIPID PANEL LDL calc comment: GAS PROVER Not Available [facility] ([facility]) [address] [facility], [place], [address], 03/11/2024 08:37:42 03/10/2003/11/2024 HEMOG LOBIN A1C hemoglobin A1C 6.9 % 4.8-5. 6 above high normal Predi abete s: 5.7 - 6.4 Diabe cedrick: >6.4 Glyce jong contr ol for adult s with diabe cedrick: <7.0 Not Available [facility] ([facility]) [address] [facility], [place], [address], 03/11/2024 08:37:42 03/10/2003/11/2024 VITAM IN D, 25-HY [...] [facility] in D insuf ficie ncy as a level betwe en 21 and 29 ng/mL (2). 1. IOM (Inst itute of Medic ine). 2010. Dieta ry refer ence intak es for calci um and D. Heidi ashton [place]: [facility] Press . 2. Prudencio amor MF, Brent alexis [place], Vlad off-F teresa i MYRICK, et al. Evalu ation , treat ment, and preve ntion of vitam in D defic iency : an Endoc rine Socie ty clini tico pract ice guide line. JCEM. 2010; 96(7) :1911 -30. Not Available [facility] ([facility]) [address], [place], [address], 03/11/2024 08:37:43 06/18/19 25 06/17/2024 HbA1c (hemo globi n A1c), blood HbA1C 7.8 % Not Available [facility] [address] [place], [address], 06/17/2024 10:42:37 Result Notes None recorded. Problems Name Problem SNOMED Code Status Onset Date Resolution Date Notes Provider Name and Address Organization Details Recorded Time Preinfar ction syndrome 6623637 Active Not Available [facility] 3 22:28:27 Uncontro lled type 2 diabetes mellitus 241805875 Completed 201502/15/2016 Micaela Reza [facility] [place] - [facility] 6 19:41:00 Diabetes mellitus 13274003 Active 2015 Not Available [facility] 3 22:28:27 Congesti ve heart failure 67730816 Active 2015 Not Available [facility] 3 22:28:27 Essentia l hyperten desire 63205931 Active 2015 Not Available [facility] 3 22:28:27 Morbid obesity 900383718 Active 2015 Not Available [facility] 3 22:28:27 Tobacco user 090211118 Completed 201504/04/2021 Christi Barrios APRN [address], [place], [address] , [place] - [facility] 2 21:27:12 Mixed hyperlip idemia 368963137 Active 2015 Not Available [facility] 3 22:28:27 Aortic valve stenosis 26451052 Active 2015 Not Available [facility] 3 22:28:27 Chronic obstruct benji pulmonar y disease 87704825 Active 2015 Not Available [facility] 3 22:28:26 Hypothyr oidism 06046108 Completed 201506/28/2016 Micaela Reza null, [place] - [facility] 7 19:20:39 Asthma 486137357 Completed 201501/03/2023 Christi Barrios, [employer] [address], [place], [address] , [place] - [facility] 3 22:03:03 Coronary arterios clerosis 56450682 Active 2015 Not Available [facility] 3 22:28:27 Stented coronary artery 646216999 Active 2015 Not Available [facility] 3 22:28:27 Influenz a vaccine needed 80484926426 06 Completed 201502/07/2017 Yesi Larry ai, [place] - [facility] 7 10:17:32 Renewal of prescrip tion Completed 201608/08/2017 Yesi Larry ai [place] - [facility] 8 09:25:19 Chronic diarrhea 491570085 Active 2016 Not Available [facility] 3 22:28:27 Heart murmur 30397161 Active 2016 Not Available [facility] 3 22:28:27 History of coronary artery bypass grafting 963941991 Active 2016 Not Available [facility] 3 22:28:27 Acquired hypothyr oidism 555237711 Active 2016 Not Available [facility] 3 22:28:26 Environm ental allergy 248182230 Active 2016 Not Available [facility] 3 22:28:27 Gastroes ophageal reflux disease 988529888 Active 2017 Not Available [facility] 3 22:28:27 Chronic kidney disease 159843776 Active 2019 Not Available [facility] 3 22:28:27 Peripher al venous insuffic iency 72156851 Active 2019 Not Available [facility] 3 22:28:27 Allergic rhinitis 31178361 Active 2019 Not Available [facility] 3 22:28:27 Type 2 diabetes mellitus 02329845 Active 2020 Not Available [facility] 3 22:28:27 Mammogra m declined 228378973 Completed 202009/03/2023 Crystal Laron null, [place] - [facility] 4 10:27:19 Colonosc opy declined 75816190364 9100 Completed 202009/03/2023 Crystal Laron null, [place] - [facility] 4 10:27:06 Peripher al edema 161711583 Active 2020 Not Available [facility] 3 22:28:27 Ex-heavy cigarett e smoker (20-39/d ay) 867990570 Completed 202104/04/2021 Christi Barrios, ISAAC [address], [place], [address] , [place] - [facility] 2 21:27:32 Heavy cigarett e smoker (20-39 cigs/day ) 164066411 Completed 202101/03/2023 Removal Reason: quit Fall 2022 Christi Barrios, ISAAC [address], [place], [address] , [place] - [facility] 3 22:03:37 Hypokale denise 83051641 Active 2021 Not Available [facility] 3 22:28:27 Former heavy tobacco smoker 62499026153 4100 Completed 202205/23/2023 Christi Barrios APRN [address], [place], [address] , [place] - [facility] 4 21:13:27 Dependen ce on suppleme ntal oxygen 50884082008 7 Active 2022 Not Available [facility] 3 22:28:27 Vitamin D deficien cy 16261987 Active 2023 Tana Cardenas, [employer] [address], [place], [address] , [place] - [facility] 4 14:23:44 Bilatera l cramp of muscle of lower limbs 34559158644 081048 Active 2023 Tana Ronald, [employer] [address], [place], [address] , [place] - [facility] 4 11:18:30 Acute sinusiti s 54217001 Completed 202304/30/2024 Yesi cloud, [place] - [facility] 5 08:44:32 Nicotine dependen ce 08799974 Active 2023 Tana Ronald, [employer] [address], [place], [address] , [place] - [facility] 4 11:02:40 Diarrhea 83719577 Active 2024 Tana Raygozaggs, [employer] [address], [place], [address] , [place] - [facility] 5 09:20:05 Acute cellulit is Active 2024 Tana Ronald, [employer] [address], [place], [address] , [place] - [facility] 5 15:05:40 Notes:Some problems listed i n Documents: #[id number], #[id number], #[id number], #[id number] could not be added to this patient's chart. Please review these documents and add these problems to the patient's chart manually as needed. Problem Notes None recorded. Procedures Surgical History Date Name Laterality Status Provider Name and Address Organization Details Recorded Time 07/23/19 24 A1C level 8.0 to 9.0 completed Christi Barrios APRN [address], [place], [address], [place] - [facility] 08/29/2023 11:47:21 01/23/20 23 Advance Care Planning cancelled Kiran Valentinr [place] - [facility] 01/19/2023 13:31:56 01/23/20 23 Functional Status Assessed cancelled Kiran Snedegar [place] - [facility] 01/19/2023 13:31:56 01/04/20 23 A1C level 6.9 and below completed Christi Barrios APRN [address], [place], [address], [place] - [facility] 01/03/2023 21:57:07 09/05/19 23 cardiac catheterization completed Yesi Larry [place] [facility] 09/07/2022 15:53:46 08/10/19 23 Medication Reconcilliation completed Tanisha Josepht [place] - [facility] 08/09/2022 13:14:51 12/21/19 22 A1C level 7.0 to 7.9 completed Christi Barrios APRN [address], [place], [address], [place] - [facility] 01/30/2022 20:44:46 11/04/19 20 Systolic B/P less than 130 mm Hg completed Araceli Cavazoscell [place] - [facility] 11/04/2019 09:34:43 11/04/19 20 Diastolic B/P less than 80 mm Hg completed Aracelielian Dietrich [place] - [facility] 11/04/2019 09:34:48 08/01/19 17 Advance Care Planning completed Bessy Alexander [place] [facility] 07/31/2016 12:53:13 Cholecystectomy, laparoscopic completed Micaela Reza [place] [facility] 02/15/2016 19:46:05 Stent, coated/cov w/del sys completed Micaela Reza [place] [facility] 01/03/2023 15:19:10 CABG completed Micaela Reza [place] [facility] 02/15/2016 19:46:27 Tubal Ligation completed Micaela Reza [place] [facility] 02/15/2016 19:46:41 Cardiac Cath completed Yesi Larry [place] [facility] 01/15/2024 10:52:22 Cardiac Surgery completed Yesi Larry [facility] 01/15/2024 10:52:22 Adnexal surgery [facility]24 10:52:22 Imaging Results None recorded. Procedure Notes None recorded. Medical Equipment None Reported. Allergies No known drug allergies Medications Name Sig Start Date Stop Date Status Note LastModified by Organization Details LastModified Time Prescript ion - Renewal 05/09 completed [facility] Not Available Not Available Not Available [...] completed On a 7 day trial from [facility] per [facility] 09/13/22 Not Available Not Available Not Available [...] Completi on: 05/23/19 10;Indic ation: Cough - (16.7502 00);Prin josé miguel: 05/12/19 10 Not Available [...] NEEDED FOR 30 DAYS, FOR LEG CRAMPS. 2024 active Not Available Not Available Not Avai lable insulin aspart U-100 100 unit/mL subcutane ous [...] nued on: 08/20/19 13 11:46AM; User: indy;Chelle Matos on: 05/05/19 12;Print ed: 04/25/19 12 [...] 11/12 completed Baby Aspirin 81 mg oral tablet,navid santhosh; Recorded Status: Recorded on: 03/31/19 12 5:32PM;D [...] WEEK BY ORAL ROUTE FOR 90 DAYS. 2024 active Not Available Not Available Not Avai lable levofloxa cindy 500 mg tablet Take 1 [...] ed on: 08/29/19 15 6:41PM;U ser: neuss;Es t. Completi on: 02/25/20 15;Pharm Ronna ied: 08/29/19 15 6:41PM Not Available Not [...] Disconti nued on: 07/29/19 15 12:17PM; User: k; Est. Completi on: 01/13/20 12;Indic ation: diabetes [...] TWICE A DAY BY INHALATI ON ROUTE. 2024 active Not Available Not Available Not Avai lable Mounjaro 7.5 mg/0.5 mL subcutane ous pen [...] Allergy 205.5 mcg (0.15 %) nasal spray Catharpin 1 spray twice a day by intranas al route as directed . 2023 active Not Available Not Available Not Avai lable Vitals Date Recorded Body height Body mass index (BMI) Body weight Heart rate Oxygen saturation Oxygen saturation in Arterial blood by Pulse oximetry Respiratory rate Pain severity - 0-10 verbal numeric rating [Score] - Reported Systolic And Diastolic Provider Name and Address Organization Details Last Updated DateTime 02/12/202 5 151.13 cm 35.2 kg/m2 73375.8 5 g 74 /min 98 % 98 % 18 /min 0 126/80 mm[Hg] Crystal Laron [place] - [facility] 5 08:49:22 Date Recorded Body height Body mass index (BMI) Body weight Body temperature Heart rate Oxygen saturation Oxygen saturation in Arterial blood by Pulse oximetry Respiratory rate Pain severity - 0-10 verbal numeric rating [Score] - Reported Systolic And Diastolic Provider Name and Address Organization Details Last Updated DateTime 5 151.13 cm 32.6 kg/m2 98696.8 5 g 98.4 [degF] 97 /min 93 % 93 % 18 /min 0 110/64 mm[Hg] Tana Joseph [place] - [facility] 5 10:22:20 Date Recorded Body height Body mass index (BMI) Body weight Heart rate Oxygen saturation Oxygen saturation in Arterial blood by Pulse oximetry Respiratory rate Pain severity - 0-10 verbal numeric rating [Score] - Reported Systolic And Diastolic Provider Name and Address Organization Details Last Updated DateTime 4 151.13 cm 38.7 kg/m2 40599.5 1 g 76 /min 91 % 91 % 18 /min 0 118/72 mm[Hg] Crystal Laron [place] - [facility] 4 09:11:24 Date Recorded Body height Body mass index (BMI) Body weight Heart rate Oxygen saturation Oxygen saturation in Arterial blood by Pulse oximetry Respiratory rate Pain severity - 0-10 verbal numeric rating [Score] - Reported Systolic And Diastolic Provider Name and Address Organization Details Last Updated DateTime 4 151.13 cm 37.5 kg/m2 49515.9 6 g 71 /min 97 % 97 % 18 /min 0 122/80 mm[Hg] Crystal Laron [place] - [facility] 4 10:58:27 Date Recorded Body height Body mass index (BMI) Body weight Heart rate Oxygen saturation Oxygen saturation in Arterial blood by Pulse oximetry Respiratory rate Pain severity - 0-10 verbal numeric rating [Score] - Reported Systolic And Diastolic Provider Name and Address Organization Details Last Updated DateTime 4 151.13 cm 36.5 kg/m2 30660 g 78 /min 93 % 93 % 18 /min 0 124/80 mm[Hg] Crystal Laron [place] - [facility] 4 10:40:51 Social History Question Answer Notes LastModified by Organizat ion Details LastModified Time Tobacco Smoking Status Former Smoker Yesi cloud, [place] - [facility] 01/15/2024 10:52:22 Do You Have An Advance Directive? No [email or web address] Information not available 07/31/2016 Are You Blind Or Do You Have Difficulty Seeing? No [email or web address] Information not available 07/31/2016 What Is Your Level Of Caffeine Consumption? Heavy Information not available 11/04/2019 How Much Tobacco Do You Chew? None Information not available 11/04/2019 Are You Deaf Or Do You Have Serious Difficulty Hearing? No [email or web address] Information not available 07/31/2016 What Type Of Diet Are You Following? REGULAR Information not available 07/31/2016 Which Illicit Or Recreational Drugs Have You Used? Never [email or web address] Information not available 02/15/2016 What Is The Highest Grade Or Level Of School You Have Completed Or The Highest Degree You Have Received? [id number] Information not available 01/15/2024 When Did You Quit Smoking? 1-5yearssinc elastcigaret te Has Went Back To Smoking [email or web address] Information not available 05/23/2023 Hard Of Hearing Or Deaf In One Or Both Ears? No [email or web address] Information not available 07/31/2016 Single Or Multi-level Home/work? Single Level Home Information not available 07/31/2016 Legally Blind In One Or Both Eyes? No [email or web address] Information not available 02/15/2016 Live Alone Or With Others? With Others [email or web address] Information not available 02/15/2016 Marital Status [email or web address] Informat ion not available 07/31/2016 What Was The Date Of Your Most Recent Tobacco Screening? 06/17/2024 Information not available 06/17/2024 How Many Children Do You Have? 4 Information not available 01/15/2024 What Is Your Current Pack Years? [email or web address] years [email or web address] Information not available 12/20/2021 Do You Use Protection Against STDs? No Information not available 01/15/2024 What Is Your Relationship Status? Domestic Partner Information not available 01/15/2024 Do You Use Your Seat Belt Or Car Seat Routinely? No Information not available 01/15/2024 Seat Belts Used Routinely Yes [email or web address] Information not available 07/31/2016 Are You Sexually Active? Yes Information not available 01/15/2024 Smoke Alarm In Home Yes [email or web address] Information not available 02/15/2016 At What Age Did You Start Smoking Tobacco? 11 [email or web address] Information not available 12/20/2021 Are You Passively Exposed To Smoke? Yes Information not available 01/15/2024 How Much Tobacco Do You Smoke? No Information not available 01/03/2023 Do You Use Sunscreen Routinely? Yes [email or web address] Information not available 07/31/2016 Has Tobacco Cessation Counseling Been Provided? Yes [email or web address] Information not available 07/31/2016 On What Date Was Tobacco Cessation Counseling Provided? 06/17/2024 Information not available 06/17/2024 How Many Years Have You Smoked Tobacco? 55 [email or web address] Information not available 12/20/2021 Do You Have Difficulty Walking Or Climbing Stairs? No [email or web address] Information not available 07/31/2016 Sex: Female Functional Status Question Answer Note LastModified by Organizat ion Details LastModified Time Do you or have you ever used smokeless tobacco? Never used smokeless tobacco Information not available 11/04/2019 Are you currently employed? No [email or web address] Information not available 02/15/2016 Urinary incontinence assessment performed? Yes [email or web address] Information not available 07/31/2016 Are you able to care for yourself independently? Yes [email or web address] Information not available 02/15/2016 Do you have difficulty dressing, bathing, grooming, or toileting? No Information not available 07/31/2016 Do you or have you ever used e-cigarettes or vape? Never used electronic cigarettes Information not available 11/04/2019 What is your exercise level? Occasional [email or web address] Information not available 02/15/2016 Do you use any illicit or recreational drugs? No Information not available 04/01/2021 Do you or have you ever used any other forms of tobacco or nicotine? No Information not available 04/01/2021 What is your level of alcohol consumption? Occasional Information not available 11/04/2019 Are you able to walk independently without assistance or assistive devices? [email or web address] Information not available 07/31/2016 Do you have difficulty doing errands alone? No [email or web address] Information not available 07/31/2016 What is your occupation? retired [email or web address] Information not available 05/11/2020 Mental Status Question Answer Note LastModified by Organizat ion Details LastModified Time Do you feel stressed (tense, restless, nervous, or anxious, or unable to sleep at night)? [id number] Information not available 01/15/2024 Do you have difficulty concentrating, remembering or making decisions? No [email or web address] Information no t available 07/31/2016 Family History Relationship Description Onset Age of this Age Resolved Age Notes LastModified by Organization Details LastModified Time Father Coronary arterioscler osis Not available 2023 10:52:21 Father Diabetes mellitus Not available 2023 10:52:21 Paternal Grandmother Coronary arterioscler osis Not available 2023 10:52:21 Mother Malignant neoplasm of esophagus Not available 2023 10:52:21 Daughter [...] pneumococcal polysaccharide PPV23 017 completed Not Available [facility] 04/05/2019 03:54:29 Tdap 017 completed Not Available [facility] 04/05/2019 03:54:30 Influenza, high-dose, quadrivalent, PF 020 completed Evita Mead null, [place] - [facility] 03/03/2020 18:12:29 Influenza, high-dose, quadrivalent, PF 021 completed Evita [place] null, [place] - [facility] 12/15/2020 11:15:26 Pneumococcal conjugate PCV 13 021 completed Evita [place] null, [place] - [facility] 12/15/2020 11:16:42 Pneumococcal conjugate PCV 13 012 completed Not Available [facility] 01/26/2023 22:28:28 influenza, unspecified formulation 010 completed Not Available [facility] 01/26/2023 22:28:28 influenza, unspecified formulation 012 completed Not Available [facility] 01/26/2023 22:28:28 influenza, unspecified formulation 013 completed Not Available [facility] 01/26/2023 22:28:28 influenza, unspecified formulation 014 completed Not Available [facility] 01/26/2023 22:28:28 influenza, unspecified formulation 015 completed Not Available [facility] 01/26/2023 22:28:28 influenza, unspecified formulation 012 completed Not Available [facility] 01/26/2023 22:28:27 Influenza, high-dose, quadrivalent, PF 022 completed Christi Barrios, [employer] [address], [place], [address], [place] [facility] 01/30/2022 20:40:07 Influenza, split virus, quadrivalent, preservative 017 cancelled patient objection Not Available [facility] 04/05/2019 03:54:47 Influenza, high-dose, quadrivalent, PF 023 completed Christi Barrios, [employer] [address], [place], [address], [place] [facility] 01/03/2023 18:20:18 Influenza, high-dose, trivalent, PF 024 completed Tana Cardenas, [employer] [address], [place], [address], [place] [facility] 03/10/2024 13:06:29 SARS-COV-2 (COVID-19) vaccine, UNSPECIFIED 021 completed Not Available [facility] 01/26/2023 22:28:27 pneumococcal polysaccharide PPV23 009 completed Not Available [facility] 01/26/2023 22:28:27 Influenza, split virus, trivalent, PF 009 completed Not Available [facility] 01/26/2023 22:28:28 COVID-19, mRNA, LNP-S, PF, 100 mcg/0.5mL dose or 50 mcg/0.25mL dose 022 completed Not Available [facility] 01/26/2023 22:28:27 COVID-19, mRNA, LNP-S, bivalent, PF, 50 mcg/0.5 mL or 25mcg/0.25 mL dose 022 completed Not Available [facility] 01/26/2023 22:28:27 COVID-19, mRNA, LNP-S, PF, 100 mcg/0.5mL dose or 50 mcg/0.25mL dose 021 completed Not Available [facility] 01/26/2023 22:28:27 pneumococcal polysaccharide PPV23 012 completed Not Available [facility] 01/26/2023 22:28:27 Past Encounters Encounter ID Performer Location Encounter Start Date Encounter Closed Date Diagnosis/Indication Diagnosis SNOMED-CT Code Diagnosis ICD10 Code Diagnosis IMO Codes Diagnosis Note [id number] Estiven No MD [place] [address] [place] [address] 02/22/2016 13:45:17 02/22/2016 15:11:56 Type 2 diabetes mellitus 82569176 E11.9 Diabetes mellitus 456305 09 E11.9 Chronic ob structive pulmonary disease 42465589 J44.9 Aortic valve stenosis 60 071245 I35.0 Hypothyroidism 73962806 E03.9 Tobacco user 604205477 Z 72.0 Coronary arteriosclerosis 27248073 I25.10 Stented co ronary artery 544581248 Z95.5 Influenza vaccine needed 0098575126 106 Z23 Morbid obesity 610380967 E66.01 Allergic rhinitis 400036 04 J30.89 [id number] Estiven No MD [place] [address] [place] [address] 06/28/2016 17:14:11 06/28/2016 20:39:41 Stented coronary artery 200039720 Z95.5 Congestive heart failure 12356865 I50.9 Chronic ob structive pulmonary disease 99995240 J44.9 Diabetes mellitus 713562 09 E11.9 Renewal of prescription 041384142 Z76.0 Tobacco user 266421959 Z 72.0 Chronic diarrhea 5681416 09 K52.9 Acquired hypothyroidism 645316987 E03.9 Diarrhea 24543051 R19.7 [id number] Estiven No MD [facility] [address] [place] [address] [place] [address] 07/12/2016 15:29:16 07/12/2016 18:26:13 Congestive heart failure 26180240 I50.9 Chronic ob structive pulmonary disease 84270558 J44.9 Nicotine dependence 5629 4008 F17.200 Screening for malignant neoplasm of colon 880547746 Z12.11 Acquired hypothyroidism 279673799 E03.9 [id number] Shona Burton APRN [facility] [address] [place] [address] [place] [address] 07/31/2016 12:49:03 07/31/2016 13:57:55 General examination of patient 427141362 Z00.00 Body mass index 40+ - severely obese 836545243 Z68.42 Nicotine dependence 5629 4008 F17.200 Screening mammography 24 556092 Z12.31 Diabetes mellitus 677033 09 E11.9 Viral screening 58171790 4 Z11.59 At [facility] risk for falls 437096721 Z91.81 Vaccination required 170 793000 Z28.3 Chronic ob structive pulmonary disease 04356924 J44.9 [id number] Estiven No MD [facility] [address] [place] [address] [place] [address] 09/22/2016 08:11:12 09/22/2016 10:03:53 Chronic obstructive pulmonary disease 93879758 J44.9 Dyspnea 850819826 R06.02 Type 2 rena betes mellitus without complication 252170496 E11.9 Abdominal pain 27799124 R10.9 Morbid obesity 491319862 E66.01 Acute sinusitis 58857597 J01.90 Edema of l ower extremity 910590223 R60.0 [id number] Estiven No MD [address] [place] [address] 02/07/2017 08:55:06 02/07/2017 10:30:42 Acquired hypothyroidism 730316654 E03.9 Heart murmur 14607327 R0 1.1 Chronic ob structive pulmonary disease 17781914 J44.9 Mixed hyperlipidemia 267 170510 E78.2 Essential hypertension 73939264 I10 Body mass index 40+ - severely obese 462898730 Z68.41 Administra tion of influenza vaccine 24250317 Z23 Type 2 rena betes mellitus without complication 896305366 E11.9 Environmental allergy 42 2982620 T78.49XD Renewal of prescription 252587040 Z76.0 Acute bila teral otitis media 518455545 H66.93 [id number] Estiven No MD [address] [place] [address] 05/09/2017 09:49:05 05/09/2017 10:43:14 Acquired hypothyroidism 569926151 E03.9 Chronic ob structive pulmonary disease 55389804 J44.9 Mixed hyperlipidemia 267 811565 E78.2 Congestive heart failure 85950215 I50.9 Essential hypertension 37883060 I10 Diabetes mellitus 957603 09 E11.9 Aortic valve stenosis 60 285075 I35.0 Body mass index 40+ - severely obese 806130865 Z68.41 [id number] Estiven No MD [address] [facility] [place] [address] 08/08/2017 09:14:38 08/08/2017 10:57:33 Acquired hypothyroidism 926284762 E03.9 Heart murmur 95942951 R0 1.1 Stented co ronary artery 880224226 Z95.5 Chronic ob structive pulmonary disease 35859928 J44.9 Morbid obesity 356933314 E66.01 Mixed hyperlipidemia 267 135885 E78.2 Congestive heart failure 07080650 I50.9 Coronary arteriosclerosis 50170969 I25.10 Essential hypertension 95540692 I10 Aortic valve stenosis 60 724926 I35.0 Diabetes mellitus 453994 09 E11.9 Body mass index 30+ - obesity 908413717 Z68.37 Type 2 rena betes mellitus without complication 455612886 E11.9 Asthma 833693220 J45.90 9 Environmental allergy 42 5678970 T78.49XD Gastroesop hageal reflux disease 367350071 K21.9 [id number] Neha Schilling MD [address] [place] [address] 11/04/2019 09:02:09 11/04/2019 11:06:00 Chronic obstructive pulmonary disease 57808444 J44.9 Mixed hyperlipidemia 267 839526 E78.2 Diabetes mellitus 801809 09 E11.21 Chronic ki dney disease 393479863 N18.9 Acquired hypothyroidism 212806995 E03.9 History of coronary artery bypass grafting 006684162 Z95.1 Congestive heart failure 57191370 I50.9 Coronary arteriosclerosis 66011019 I25.10 Essential hypertension 71336233 I10 Heart murmur 04777679 R0 1.1 Gastroesop hageal reflux disease 344286005 K21.9 Chronic diarrhea 3088642 09 K52.9 Peripheral venous insufficiency 38220163 I87.2 Allergic rhinitis 516336 04 J30.9 [id number] Neha Schilling MD [address] [place] [address] 01/13/2020 18:27:35 01/13/2020 19:00:01 Chronic obstructive pulmonary disease 02780513 J44.9 Allergic rhinitis 373149 04 J30.9 Acquired hypothyroidism 926770276 E03.9 Coronary arteriosclerosis 52437101 I25.10 Diabetes mellitus 825398 09 E11.21 Mixed hyperlipidemia 267 431173 E78.2 Essential hypertension 19400998 I10 Asthma 578591268 J45.90 9 Gastroesop hageal reflux disease without esophagitis 821719999 K21.9 [id number] Neha Schilling MD [address] [place] [address] 02/04/2020 09:32:15 02/04/2020 13:16:07 Administration of influenza vaccine 27064985 Z23 [id number] Neha Tonie, MD [address] [place] [address] 03/23/2020 16:54:17 03/23/2020 17:56:46 Diabetes mellitus 43531368 E11.21 Chronic ob structive pulmonary disease 58163809 J44.9 Acute exac erbation of chronic obstructive pulmonary disease 375191632 J44.1 Acquired hypothyroidism 017956317 E03.9 Asthma 501100781 J45.90 9 Gastroesop hageal reflux disease 689069983 K21.9 Mixed hyperlipidemia 267 727530 E78.2 History of coronary artery bypass grafting 442282594 Z95.1 Stented co ronary artery 859902181 Z95.5 Congestive heart failure 89967206 I50.9 Coronary arteriosclerosis 79580496 I25.10 Essential hypertension 65686189 I10 Allergic rhinitis 857565 04 J30.9 Chronic ki dney disease 772770758 N18.9 Heart murmur 31882645 R0 1.1 [id number] Neha Schilling MD [address] [place] [address] 06/21/2020 12:34:51 06/21/2020 13:56:17 Body mass index 40+ - severely obese 277730843 Z68.42 Type 2 rena betes mellitus 60034633 E11.21 Nicotine d ependence with current use 696826308 F17.200 Mammogram declined 79768 5004 Z53.20 Colonoscopy declined 498 7873374 71910 Z53.20 Acute exac erbation of chronic obstructive pulmonary disease 536021541 J44.1 and rash on left arm Acquired hypothyroidism 894808684 E03.9 Chronic ob structive pulmonary disease 61399786 J44.9 Asthma 135423532 J45.90 9 [id number] Neha Schilling MD [address] [place] [address] 09/21/2020 11:42:08 09/21/2020 16:22:49 Type 2 diabetes mellitus 36264081 E11.21 Peripheral edema 3648153 00 R60.9 Acquired hypothyroidism 089286257 E03.9 Mixed hyperlipidemia 267 278284 E78.2 Hypertensive disorder 38 247529 I10 [id number] Neha Schilling MD [address] [place] [address] 12/15/2020 09:50:17 12/15/2020 11:27:01 Administration of influenza vaccine 55178591 Z23 Type 2 rena betes mellitus 38552394 E11.21 Screening mammography 24 162333 Z12.31 Essential hypertension 71232948 I10 Infection of skin and/or subcutaneous tissue 67376069 L08.9 Administra tion of pneumococcal vaccine 84873616 Z23 [id number] Christi Barrios [facility] [address] [place], [place] [address] [place] [address] 04/01/2021 14:13:42 04/01/2021 16:22:44 Chronic obstructive pulmonary disease 84366759 J44.9 Type 2 rena betes mellitus 00210677 E11.21 Congestive heart failure 14918064 I50.9 Acquired hypothyroidism 015545720 E03.9 Acute bact erial bronchitis 154344430 J20.9 Heavy ciga rette smoker (20-39 cigs/day) 625949471 Z72.0 Coronary arteriosclerosis 20915415 I25.10 Hypokalemia 24600980 E87 .6 Mixed hyperlipidemia 267 654792 E78.2 Gastroesop hageal reflux disease 363828569 K21.9 Morbid obesity 088091442 E66.01 [id number] Chrystal Welch [address] [address] 09/06/2021 13:43:04 09/06/2021 14:50:20 Chronic obstructive pulmonary disease 17330938 J44.9 Acute exac erbation of chronic obstructive pulmonary disease 095740720 J44.1 Type 2 rena betes mellitus 19425061 E11.65 Heavy ciga rette smoker (20-39 cigs/day) 298169520 Z72.0 [id number] Christi Barrios [facility] [address] [place], [place] [address] [place] [address] 12/20/2021 13:21:30 12/20/2021 15:15:38 Screening mammography 52551290 Z12.31 Screening for malignant neoplasm of colon 759400494 Z12.11 Body mass index 40+ - severely obese 331478814 Z68.42 Morbid obesity 429848983 E66.01 Chronic ob structive pulmonary disease 46548733 J44.9 Diabetes mellitus 244155 09 E11.21 Acquired hypothyroidism 884511266 E03.9 Mixed hyperlipidemia 267 452471 E78.2 Allergic rhinitis 927846 04 J30.9 Acute exac erbation of chronic obstructive pulmonary disease 584512219 J44.1 Influenza vaccine needed 4916994810 106 Z23 Heavy ciga rette smoker (20-39 cigs/day) 546164095 Z72.0 [id number] Christi Barrios[address] [address] 02/27/2022 12:51:25 02/27/2022 15:00:27 Chronic obstructive pulmonary disease 55847491 J44.9 Type 2 rena betes mellitus 16732161 E11.21 Respirator y tract congestion 720923356 R09.89 Acute bact erial sinusitis 19431916 J01.90 [id number] Christi Barrios[address] [place] [address] 04/05/2022 15:28:16 04/05/2022 17:33:58 Acquired hypothyroidism 858317969 E03.9 Mixed hyperlipidemia 267 013202 E78.2 Essential hypertension 00991820 I10 Type 2 rena betes mellitus 53878196 E11.21 Acute bact erial sinusitis 54260571 J01.90 Body mass index 40+ - severely obese 293191782 Z68.42 Left Achil les tendinitis 3377647133 31724 M76.62 [id number] Christi Barrios [address] [place] [address] 08/09/2022 13:00:25 08/09/2022 13:57:19 Chronic obstructive pulmonary disease 83753406 J44.9 Type 2 rena betes mellitus 56135031 E11.21 Essential hypertension 86027038 I10 controlled Renewal of prescription 356433858 Z76.0 Gastroesop hageal reflux disease 858787849 K21.9 Hospital i npatient stay within past 30 days 5838670217 106 Z76.89 Acute non- ST segment elevation myocardial infarction 519429107 I21.4 Aortic valve stenosis 60 510731 I35.0 Congestive heart failure 83320279 I50.9 [id number] Chrystal Welch [facility] [address] [place] [address] 09/01/2022 10:43:24 09/01/2022 12:23:56 Dyspnea 270161749 R06.00 Chest x-ray ordered. Results discussed with patient at time of office visit. Encouraged patient to notify cardiology of results of chest x-ray. Patient verbalized understand ing. Congestive heart failure 78775255 I50.9 Patient reports she is scheduled to f/u with her cardiologi st, Dr. Landers, on 09/04/22. Encouraged patient to attend cardiology appointmen t as scheduled. Cough 80558740 R05.9 Body mass index 40+ - severely obese 805114038 Z68.41 Morbid obesity 996270966 E66.01 Ex-smoker 6679710 Z87.89 1 [id number] Christi Ulrichrahul [facility] [address] [place], [place] [address] 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 [address] 05/23/2023 15:50:09 05/23/2023 17:20:15 Chronic obstructive pulmonary disease 69478759 J44.9 Type 2 rena betes mellitus 52260300 E11.21 stable, controlled Acute bact erial sinusitis 18404009 J01.90 Acute exac erbation of chronic obstructive pulmonary disease 917986596 J44.1 Cellulitis of lower leg 800521513 L03.116 Heart murmur 05829556 R0 1.1 Cigarette smoker 9401977 7 F17.159 [id number] Christi Barrios[address] [place] [address] 07/23/2023 15:24:04 07/23/2023 17:21:25 History of coronary artery bypass grafting 875398685 Z95.1 Type 2 rena betes mellitus 35784554 E11.21 Chronic ob structive pulmonary disease 26094403 J44.9 Acute bact erial sinusitis 93956892 J01.90 Cellulitis of lower leg 023310994 L03.116 Heart murmur 06985883 R0 1.1 Cigarette smoker 1540064 7 F17.318 [id number] Tana Cardenas [address] [place] [address] 09/03/2023 10:18:36 09/03/2023 11:12:24 Acquired hypothyroidism 348814592 E03.9 Chronic ob structive pulmonary disease 16640318 J44.9 Mixed hyperlipidemia 267 447781 E78.2 Type 2 rena betes mellitus 86257301 E11.21 Essential hypertension 43987262 I10 Nicotine dependence 5629 4008 F17.200 Body mass index 40+ - severely obese 027415660 Z68.41 Morbid obesity 076925165 E66.01 [id number] Tana Cardenas [address] [place] [address] 11/05/2023 08:57:31 11/05/2023 10:24:29 Acquired hypothyroidism 511175010 E03.9 Gastroesop hageal reflux disease 558386633 K21.9 Mixed hyperlipidemia 267 408239 E78.2 Essential hypertension 46287629 I10 Type 2 rena betes mellitus 35638266 E11.21 Nicotine dependence 5629 4008 F17.200 Body mass index 30+ - obesity 689108571 Z68.38 Obesity 491002484 E66.9 [id number] Tana Cardenas [address] [place] [address] 01/15/2024 10:08:29 01/15/2024 12:26:22 Type 2 diabetes mellitus 68415810 E11.21 Body mass index 30+ - obesity 497730602 Z68.37 Obesity 334351590 E66.9 Gastroesop hageal reflux disease 771421749 K21.9 Bilateral cramp of muscle of lower limbs 2902056045 6565399 R25.2 Acute sinusitis 75007188 J01.90 [id number] Tanaveronica Cardenas[address] [place] [address] 03/10/2024 10:18:07 03/10/2024 12:03:27 Essential hypertension 49062707 I10 Type 2 rena betes mellitus 26703893 E11.21 Chronic ki dney disease 113917845 N18.9 Hypokalemia 05486085 E87 .6 Vitamin D deficiency 347 70404 E55.9 Peripheral edema 6313099 00 R60.9 Gastroesop hageal reflux disease 572555172 K21.9 Acquired hypothyroidism 754777697 E03.9 Chronic ob structive pulmonary disease 15335642 J44.9 Influenza vaccine needed 1099399960 106 Z23 Mammogram declined 03185 5004 Z53.20 Body mass index 30+ - obesity 711928512 Z68.36 Obesity 293313485 E66.9 Nicotine dependence 5629 4008 F17.862 [id number] Tanaveronica Cardenas [address] [place] [address] 04/30/2024 08:16:00 04/30/2024 09:22:11 Body mass index 30+ - obesity 956884298 Z68.35 Obesity 377685205 E66.9 Nicotine dependence 5629 4008 F17.200 Type 2 rena betes mellitus 89724232 E11.21 intolerant to Mounjaro - diarrhea Diarrhea 34439008 R19.7 [id number] Tana Cardenas APRN [facility] [address] [place] [address] [place] [address] 06/17/2024 10:09:30 06/17/2024 11:46:20 Acquired hypothyroidism 991159290 E03.9 Chronic ob structive pulmonary disease 37293338 J44.9 Gastroesop hageal reflux disease 635085391 K21.9 Mixed hyperlipidemia 267 696717 E78.2 Type 2 rena betes mellitus 61245622 E11.21 intolerant to Mounjaro - diarrhea Vitamin D deficiency 347 34311 E55.9 Allergic rhinitis 513258 04 J30.9 Health Concerns Section Related Observation LastModified by Organization Detai ls LastModified Time None Recorded Concern Status LastModified by Organization Details LastModified Time None Recorded Advance Directives Directive N: Payers Insurance Date Sequence Insurance Name Policy Number Policy Low Covered Member ID Low Member ID Guarantor Name 04/27/2021 [place] Sunita Trent [id number] Sunita Trent 06/25/2021 1 [place] Sunita Trent [id number] Sunita Trent 06/18/2024 [place] DANIELLA Trent [id number] Sunita Trent 06/17/2024 2 [facility] Sunita Trent [id number] Sunita Trent 04/01/2021 [employer] [place] [place] [facility] (MEDICARE) Sunita Trent [id number] Sunita Trent 04/13/2016 2 UNSPECIFIED REMIT PAYOR Sunita Trent 06/19/2024 [facility] - DUAL ELIGIBLE (MEDICARE REPLACEMENT/AD VANTAGE - HMO) DANIELLA Trent [id number] Sunita Trent 06/17/2024 1 [facility] JENNIFERYARIEL Pittsrubén Wilder Twan [id number] Sunita Tina Twan 04/01/2021 1 [facility] (MEDICARE REPLACEMENT/AD VANTAGE - HMO) JENNIFERYARIEL Sunita M Twan [id number] Sunita Tina Twan 04/28/2016 1 UNSPECIFIED REMIT PAYOR Sunita Trent 05/16/2016 2 UNSPECIFIED REMIT PAYOR Sunita Trent 12/07/2021 [place] Sunita Trent [id number] Sunita Trent 12/07/2021 1 [facility] Sunita Trent [id number] Sunita Trent 04/01/2021 2 [place] [facility] [place] FFS/TRADITIONA L Sunita Trent [id number] Sunita Trent Notes Date Note Type Note Provider Name and Address Organization Details Recorded Time 4 text/html ROS as noted in the HPI Presents for follow up DM, HTN, HLD, ASFeeling wellStates she has been released from [facility] following TAVR last yearNo chest pain, shortness of breath, dizziness, lightheadedness, syncope, palpitations or edema.No fever, chills or cough.Smoking 1 ppdDenies alcohol and illicit drug usageCompliant with medications Tana Cardenas APRN [address], [place], [address], [facility] - [facility] 11/05/2023 18:06:46 4 text/html ROS as noted in the HPI Presents for sore throat, sinus pressure, ear pain for past 7-10 daysDoes endorse subjective fever, nasal drainage, headaches, muscle cramps to hands and legsNo body achesNo chest pain, shortness of breath, dizziness, lightheadedness, syncope, palpitations or edema.Compliant with medicationsDoes smoke 1 ppdDenies alcohol and illicit drug usageHas not taken anything OTC for symptoms Tana Cardenas APRN [address], [place], [address], [facility] - [facility] 01/15/2024 15:03:33 4 text/html ROS as noted in the HPI Presents for follow up regarding hypothyroidism, COPD, CHF, DM, HTN, HLDFeeling wellTolerating mounjaroNo chest pain, shortness of breath, dizziness, lightheadedness, syncope, palpitations or edema.No fever or chillsDoes endorse cough non productive - attributes to smokeCompliant with medicationsSmoking 1-1.5 ppdDenies alcohol and illicit drug usage Tana Cardenas, ISAAC [address], [place], [address], [facility] - [facility] 03/10/2024 13:06:46 5 text/html ROS as noted in the HPI Presents for issues diarrheaHas been occurring intermittently since starting Mounjaro but has recently worsenedNo chest pain, shortness of breath, dizziness, lightheadedness, syncope, palpitations or edema. No fever, chills or cough.No hematochezia, hematuria, melenaCompliant with medicationsSmoking 1 ppdDenies alcohol and illicit drug usage. Tana Cardenas, ISAAC [address], [place], [address], [facility] - [facility] 04/30/2024 10:48:27 5 text/html ROS as noted in the HPI Patient in for check up and lab work. Patient is fasting. Presents for follow up regarding DM, HTN, HLDFeeling wellNo chest pain, shortness of breath, dizziness, lightheadedness, syncope, palpitations or edema. No fever, chills or cough.Compliant with medicationsSmoking 1 ppdDenies alcohol and illicit drug usage. Tana Cardenas, ISACA [address], [place], [address], [facility] - [facility] 06/17/2024 15:07:43 OBGyn Episode No OBEpisode recorded.
--- OUTSIDE RECORDS SUMMARY | 2024-12-23 22:38 | XMS_ITS | Clinical Summary ---
Author Organization [facility] Address [address] [facility] [address] [place] [id number] Phone Care Team Providers Care Architectural Representative Name Role Phone Estiven No MD Primary Care Provider [phone] Allergies Active Allergy Reactions Criticality Noted Date [...] Active fluticasone propionate (FLONASE) 50 mcg/actuation Nasl [place], Suspension 2 Sprays by Nasal route daily. [...] (10/06/2022): Added automatically from request for surgery [id number] Chronic kidney disease 11/04/2019 Gastroesophageal reflux disease 08/08/2017 Acquired hypothyroidism 02/15/2016 Arteriosclerosis of coronary artery 02/15/2016 Chronic obstructive pulmonary disease 02/15/2016 Congestive heart failure 02/15/2016 Morbid obesity 02/15/2016 Encounters Date Type Department Care Team Description 09/24/2024 4:13 PM EDT - 10/02/2024 3:34 PM EDT Hospital Encounter [facility] [address] [place] [id number] Feli Vela MD Bajwa, Troy S, DO Left-sided weakness (Primary Dx) Discharge Disposition: Retirement Facility 09/24/2024 Travel from Last 3 Months Surgical History Surgery Date Site/Laterality Comments CARDIAC CATHETERIZATION CARDIAC SURGERY stents x4 CHOLECYSTECTOMY TUBAL LIGATION DENTAL SURGERY full teeth extracted AORTIC VALVE REPLACEMENT 10/19/2022 N/A Transcatheter aortic valve replacement with echocardiogram and [place]; Surgeon: Alfred Greenberg MD; Location: [facility] MAIN OR; Service: Open Heart Medical devices from this surgery are in the Medical Devices section. Medical History Medical History Date Comments Asthma COPD (chronic obstructive pulmonary disease) (HC C) Pulmonary emphysema (HCC) Shortness of breath Sleep apnea can not wear Cpa p Pneumonia 2021 Bronchitis, chronic (HCC) Oxygen dependent 2-3 L continuou sly Hyperlipidemia Hypertension DC (myocardial infarction) (HCC) 12/13/1998 Heart murmur CAD [...] drink = 0.6 oz pur e alcohol) [facility] Utilities Answer Date Recorded In the past 12 months has e [email or web address], gas, oil, or water ibabybox threatened to shut off services in your home? No 09/25/2024 Overall Financial Resource Strain (CARDIA) Answe r Date Recorded How hard is it for you to pa y for the very basics like food, housing, medical care, and heating? Not hard at all 09/25/2024 [facility] [place] [facility] Occupat ional Health - Occupational Stress [...] money to get more. Never true 09/25/2024 [facility] IP Transportation Answer D ate Recorded [...] this topic Medical Devices Implanted Type Area Sheet Mill Supervisor Device Identifier Shelf Expiration Date Model / Serial / Lot Cardiac Stents Vickers Mela 3 Ultra Transcatheter Heart Valve (26mm) - [id number] Implanted:Qty: 1 on 10/19/2022 by Alfred Greenberg MD at [facility] N/A: Heart [employer] [id number] 06/11/2025 [id number] / [id number] / Procedures Procedure Name Priority Date/Time Associated [...] METER POC Routine 10/01/2024 1:25 PM EDT POSS-[id number]-[id number] Routine 10/01/2024 11:08 AM EDT XR CHEST [...] Date Arthritis Asthma Bladder problem Bronchitis, chronic ([facility]) CAD (coronary artery disease) CHF (congestive heart failure) ([facility]) Chronic kidney disease COPD (chronic obstructive pulmonary disease) ([facility]) Diabetes mellitus ([facility]) Headache migraines Heart murmur Heartburn Hyperlipidemia Hypertension DC (myocardial infarction) ([facility]) 12/13/1998 Motion sickness Oxygen dependent 2-3 L continuously Pneumonia 2021 Pulmonary emphysema ([facility]) Shortness of breath Sleep apnea can not [...] daily. fluticasone propionate (FLONASE) 50 mcg/actuation Nasl [place], Suspension2 Sprays by Nasal route daily. LEVOthyroxine [...] This is a pleasant cooperative female in [facility]. HEENT: No bruising, erythema, or conjunctival injection. [...] Sunita Trent PCP: Estiven No MD Primary Transition Mgr Rn: Dr. Greenberg Reason for consult: Elevated troponin History provided by: Patient and chart History limited by: Continued slurred speech HPI: 69 year old current smoker PMH: Elevated Troponin CAD s/p CAB w subsequent 4 stents CHF HFpEF DC 1998 S/P TAVR 2022 COPD with O2 dependence CKD DM Sleep apnea Patient admitted for CVA after presenting to ED 09/24/24 for left sideweakness, slurred speech and gait disturbance one hour prior to [id number] d/t concern for stroke. EMS gave phenergan [...] Headache migraines Heart murmur Heartburn Hyperlipidemia Hypertension DC (myocardial infarction) ([facility]) 12/13/1998 Motion sickness Oxygen dependent 2-3 L continuously Pneumonia 2021 Pulmonary emphysema (HCC) Shortness of breath Sleep apnea can not wear Cpap Thyroid disease Medication Insulin Calculator (COAT EXAMINER) - FSBS and Carb Intake Input 1 [...] Transcatheter aortic valve replacement with echocardiogram and [place];Surgeon: Alfred Greenberg MD; Location: [facility] MAIN OR; Service: Open Heart CARDIAC CATHETERIZATION [...] most recent cardiovascular imaging studies availabe in [facility] EMR werereviewed at time of consultation [...] s/p CABG w subsequent 4 stents -Cont DIRECTOR OF ACADEMIC SUPPORT plavix, crestor, ASA CHF HFpEF -Continue boat captain lisinopril, spironolactone, jardiance, crestor, bumex S/P aortic valve replacement TAVR 2022 -Continue boat captain lisinopril, spironolactone, jardiance, crestor, bumex [...] If echo stable then no additional w/u Venkatesh Rich APRN Attending Transition Mgr Rn Attestation: I have seen and examined the [...] dizzy and weak on left side. eventually [id number]. Also with difficulty speaking. Prior to this [...] overall picture more consistent wity type 2 DC related tostroke and not ACS. Euvolemic. Plan: [...] call with any questions. Timur Parr MD [facility] Heart [facility] Vascular IP CONSULT TO PHARMACY [...] AM EDT Impressions 11/06/2024 4:05 PM EDT [facility] Test Date: 2024-11-03 Pat Name: SUNITA TRENT Department: DEPID Room: E3715 Gender: Female Video Game Technician: : 1955 Requested By: VICENTA Wilder Order Number: [id number] Reading MD: Alfred Greenberg MD Interpretive Statements The patient's monitoring period was 10/02/2024 - 10/31/2024. Baseline sample showed Sinus Rhythm w/1st Degree AV Block/IVCD with a heart rate of 72.5 bpm. Predominantly sinus rhythm Occasional PVC's Episodes if short run NSVT Electronically Signed On 11-06-2024 16:05:24 EDT by Alfred Greenberg MD Narrative Procedure Note Alfred Greenberg MD - 11/06/[address] Test Date: 2024-11-03 Pat Name: SUNITA TRENT Department: DEPID Room: [facility] Gender: Female Video Game Technician: : 1955 Requested By: VICENTA Wilder Order Number: [id number] Reading MD: Alfred Greenberg MD Interpretive Statements The patient's monitoring period was 10/02/2024 - 10/31/2024. Baseline sample showed Sinus Rhythm w/1st Degree AV Block/IVCD with aheart rate of 72.5 bpm. Predominantly sinus rhythm Occasional PVC's Episodes if short run NSVT Electronically Signed On 11-06-2024 16:05:24 EDT by Alfred Greenberg MD us Vicenta Bell APRN IMG HOLTER MONITOR LAWRENCE LOZANO Final Result * (ABNORMAL) GLUCOSE METER POC (10/02/2024 12:22 PM EDT) Only the most recent of33 resultswithin the time period is included. [facility] Signature Glucose Meter POC 227(H) 70 - 100 mg/dL 10/02/2024 12:23 PM EDT [facility] Sample Type Capillary 10/02/2024 12:23 PM EDT [facility] Patient Status Non-Critical Patient 10/02/2024 12:23 PM EDT [facility] Blood BLOOD SPECIMEN / Unknown 10/02/2024 12:22 PM EDT 10/02/2024 12:23 PM EDT Troy S Sapphire DO POINT OF CARE TEST ORDERABLES Final Result [facility] [address] [place] [address] * ECG AND WAVEFORMS - TELEMETRY (10/02/2024 7:35 AM EDT) Only the most recent of21 resultswithin the time period is included. Pathologist [facility] ECG INTERPRET NSR [facility] 10/02/2024 7:35 AM EDT Narrative [facility] - 10/02/2024 7:38 AM EDT ROUTINE/PVC'S/CARROT HARVESTER SC 0.24 QRS 0.12 RR 0.78 QT 0.38 QTc 0.43 See Clinical Report link for waveform capture us Unknown Provider POINT OF CARE CARDIOLOGY Final Result Performing Organization Address [facility] Co de Phone Number [facility] [address] [place] [id number] * EXTRA LAVENDER (10/02/2024 6:08 AM EDT) Blood VENOUS BLOOD / Unknown Venipuncture / Unknown 10/02/2024 6:08 AM EDT 10/02/2024 7:18 AM EDT us S Sapphire DO HEMATOLOGY ORDERABLES Final R esult Performing Organization Address [facility] Co de Phone Number [facility] [address] [place] [address] * (ABNORMAL) BASIC METABOLIC PANEL (10/02/2024 6:08 AM EDT) Only the most recent of8 resultswithin the time period is included. Sodium 146(H) 136 - 145 mmol/L 10/02/2024 7:29 AM EDT [facility] Potassium 4.1 3.5 - 5.0 mmol/L 10/02/2024 7:29 AM EDT [facility] Chloride 106 98 - 107 mmol/L 10/02/2024 7:29 AM EDT [facility] Total CO2 31(H) 22 - 29 mmol/L 10/02/2024 7:29 AM EDT [facility] Anion Gap 9 7 - 16 mmol/L 10/02/2024 7:29 AM EDT [facility] Calcium 8.7(L) 8.8 - 10.4 mg/dL 10/02/2024 7:29 AM EDT [facility] Glucose Lvl 138(H) 70 - 99 mg/dL 10/02/2024 7:29 AM EDT [facility] BUN 17 8 - 23 mg/dL 10/02/2024 7:29 AM EDT [facility] Creatinine 0.51 0.51 - 1.30 mg/dL 10/02/2024 7:29 AM EDT [facility] eGFR (CKD-EPIcr 2020) 100 >=60 mL/min/1.7 3 m2 10/02/2024 7:29 AM EDT [facility] Comment:Estimated GFR was ca lculated using the CKD-EPIcr (2020) equation refit without race. The equation is recommended by the National Kidney Foundation - [place] [employer] of Nephrology Task Force. Blood VENOUS BLOOD / Unknown Venipuncture / Unknown 10/02/2024 6:08 AM EDT 10/02/2024 7:11 AM EDT Vicenta Bell IMPROVEMENT SPEC CHEMISTRY ORDERABLES Fi nal Result [facility] [address] [place] [address] * [id number] (10/01/2024 11:08 AM EDT) CORONAVIRUS [id number]-[id number] Not Detected Not Detected 10/01/2024 11:47 AM EDT [facility] Influenza A DNA Not Detected Not Detected 10/01/2024 11:47 AM EDT [facility] Influenza B DNA Not Detected Not Detected 10/01/2024 11:47 AM EDT [facility] RSV DNA Not Detected Not Detected 10/01/2024 11:47 AM EDT [facility] Swab BOTH ANTERIOR NARES / Unknown 10/01/2024 11:08 AM EDT 10/01/2024 11:25 AM EDT Narrative [facility] - 10/01/2024 11:47 AM EDT This test is performed using the Mely ed diamond system and is for use under the FDA s Emergency Use Authorization. Vicenta Natarajansole IMPROVEMENT SPEC MICROBIOLOGY - GENERAL ORDERABLES Final Result [facility] [address] [facility] [place] [address] * XR CHEST AP PORTABLE [...] 10.3 x10(3)/mcL 09/30/2024 6:38 AM EDT [facility] RBC 4.68 3.90 - 5.20 x10(6)/mcL 09/30/2024 6:38 AM EDT [facility] Hgb 12.3 11.2 - 15.7 g/dL 09/30/2024 6:38 AM EDT [facility] Hct 39.9 34.0 - 45.0 % 09/30/2024 6:38 AM EDT [facility] MCV 85.3 80.0 - 100.0 fL 09/30/2024 6:38 AM EDT [facility] MCH 26.3 26.0 - 34.0 pg 09/30/2024 6:38 AM EDT [facility] MCHC 30.8 30.7 - 35.5 g/dL 09/30/2024 6:38 AM EDT [facility] RDW 14.9 <=14.9 % 09/30/2024 6:38 AM EDT [facility] Platelet 150(L) 155 - 369 x10(3)/mcL 09/30/2024 6:38 AM EDT [facility] MPV 10.7 8.8 - 12.5 fL 09/30/2024 6:38 AM EDT [facility] Blood VENOUS BLOOD / Unknown Venipuncture / Unknown 09/30/2024 6:08 AM EDT 09/30/2024 6:31 AM EDT Sapphire DO HEMATOLOGY ORDERABLES Final R esult [facility] [address] [facility] [place] [address] * EK EKG 12 LEAD (09/27/2024 12:32 AM EDT) Only the most recent of4 resultswithin the time period is included. Anatomical Region Laterality Modality Electrocardiogra phy 09/27/2024 12:4 1 AM EDT Impressions 09/27/2024 12:[address] [facility] Test Date: 2024-09-27 Pat Name: SUNITA TRENT Department: DEPID [facility]: [facility] Gender: Female Video Game Technician: [id number] : 1955 Requested By: YENIFER AUGUSTINE Order Number: [id number] Reading MD: Abrahan Adkins MD Measurements Intervals Mcintosh Rate: 125 P: 16 SC: 132 QRS: 10 QRSD: 160 T: 92 QT: 324 QTc: 468 Interpretive Statements SINUS TACHYCARDIA INTRAVENTRICULAR CONDUCTION DELAY Non specific ST-T abnormality. Electronically Signed On 09-27-2024 12:12:26 EDT by Abrahan Adkins MD Narrative Procedure Note Abrahan Adkins MD - 09/27/[address] 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 Electronically Signed On 09-27-2024 12:12:26 EDT by Abrahan Adkins MD us Yenifer Augustine IMPROVEMENT SPEC IMG ECG ORDERABLES Final Resu lt * STAPHYLOCOCCUS AUREUS SCREEN (09/26/2024 12:18 PM EDT) Staph aureus PCR Not Detected Not Detected 09/27/2024 2:45 AM EDT [facility] MRSA PCR Not Detected Not Detected 09/27/2024 2:45 AM EDT [facility] Swab BOTH ANTERIOR NARES / Unknown 09/26/2024 12:18 PM EDT 09/26/2024 7:27 PM EDT Narrative [facility] - 09/27/2024 2:45 AM EDT Staphylococcus aureus target DNA sequence is not detected. This qualitative assay is intended for the detection of Staphylococcus aureus proprietary sequences for the staphylococcal protein A (spa) gene, the gene for methicillin resistance (mecA), and the staphylococcal cassette chromosome mec (SCCmec) inserted into the SA chromosomal attB site. This assay utilizes real time PCR on the [employer] GeneXpert Infinity, and its performance has been verified by the [facility]. A negative result does not rule [...] has been developed and validated by the [facility] laboratory. Detailed methodology is available upon request. S Sapphire DO MICROBIOLOGY - GENERAL ORDERA BLES Final Result Performing Organization Address [facility]/ZIP Co de Phone Number [address] , [place] [address] * [place] MODIFIED BARIUM SWALLOW (09/26/2024 9:45 AM EDT) Narrative PACS - 09/26/2024 11:06 AM EDT Modified Barium Swallow was performed in the Radiology department by Speech Pathology. No Radiologist in attendance. No charge from [facility]. Refer to Speech Pathology for further information. S Sapphire DO IMG FLUOROSCOPY ORDERABLES Fi nal Result Performing Organization Address [facility]/ZIP Co de Phone Number PACS * (ABNORMAL) LIPID SCREEN (09/26/2024 6:00 AM EDT) Only the most recent of2 resultswithin the time period is included. Cholesterol 180 <200 mg/dL 09/26/2024 9:38 AM EDT [facility] Comment: < 200 Desirable 200 - 239 Borderline High >= 240 High Triglyceride 83 <150 mg/dL 09/26/2024 9:38 AM EDT [facility] Comment: < 150 Normal 150 - 199 Borderline High 200 - 499 High >= 500 Very High HDL 54 >=40 mg/dL 09/26/2024 9:38 AM EDT [facility] Comment: > 60 Optimal 40 - 60 Acceptable < 40 Low LDL Calculated 111(H) <100 mg/dL 09/26/2024 9:38 AM EDT [facility] Comment: < 100 Optimal 100 - 129 Near or above optimal 130 - 159 Borderline High 160 - 189 High >= 190 Very High The National Institutes of Health (NIH) equation is used for all lipid panels that report calculated LDL (LDL-C). Non-HDL-C Calculated 126 <=129 mg/dL 09/26/2024 9:38 AM EDT [facility] Comment: <130 Desirable 130-159 Above Desirable 160-189 Borderline High 190-219 High >= 220 Very High Fasting Specimen? Yes None 025 9:38 AM EDT [facility] Blood VENOUS BLOOD / Unknown Venipuncture / Unknown 09/26/2024 6:00 AM EDT 09/26/2024 6:17 AM EDT Sapphire DO CHEMISTRY ORDERABLES Final Re sult [facility] [employer] [address] [facility] , [place] [address] * CT HEAD WO CONTRAST (09/25/2024 8:12 [...] of the ordering clinician. Neville Gutierrez MD IM CT ORDERABLES Magdalena l Result * (ABNORMAL) TROPONIN-T HIGH SENSITIVITY BASELINE W/ REFLEX (09/25/2024 6:01 PM EDT) Only the most recent of3 resultswithin the time period is included. [id number] 262(HH) <14 ng/L 09/25/2024 7:53 PM EDT [facility] Blood VENOUS BLOOD / Unknown Venipuncture / Unknown 09/25/2024 6:01 PM EDT 09/25/2024 7:35 PM EDT Narrative [facility] - 09/25/2024 7:53 PM EDT Ingestion of mindy doses of biotin (>5 mg/day) taken within 8 hours of drawing blood sample can interfere with this immunoassay test. us Timur Parr MD CHEMISTRY ORDERABLES Final Resul t Performing Organization Address [facility] Co de Phone Number [address] [address] * (ABNORMAL) TROPONIN-T HIGH SENSITIVITY 2HR (09/25/2024 4:05 PM EDT) Only the most recent of2 resultswithin the time period is included. [id number]-zZdavkicm-J 2HR 269(HH) <14 ng/L 09/25/2024 5:03 PM EDT [facility] hs-cTnT 2Hr Delta from Baseline 14() <4 ng/L 09/25/2024 5:03 PM EDT [facility] Blood VENOUS BLOOD / Unknown Venipuncture / Unknown 09/25/2024 4:05 PM EDT 09/25/2024 4:44 PM EDT Narrative [facility] - 09/25/2024 5:03 PM EDT Ingestion of mindy doses of biotin (>5 mg/day) taken within 8 hours of drawing blood sample can interfere with this immunoassay test. us Venkatesh Rich APRN CHEMISTRY ORDERABLES Final R esult Performing Organization Address [facility] Co de Phone Number [facility] [address] [place] [address] * CT ANGIOGRAM HEAD AND [...] of the left P2 and distal left GRAIN INSPECTOR. The right P1 segment opacifies normally with [...] of the left P2 and distal left GRAIN INSPECTOR. The right P1 segment opacifiesnormally with normal [...] 0.70 IU/mL 09/25/2024 4:28 AM EDT [facility] Comment:The therapeutic rang e for heparinized patients monitored by the Heparin Lvl UF is 0.30-0.70 IU/mL. Blood VENOUS BLOOD / Unknown Venipuncture / Unknown 09/25/2024 4:14 AM EDT 09/25/2024 4:18 AM EDT us Troy Leary DO HEMATOLOGY ORDERABLES Final R esult Performing Organization Address City/State/[facility] Co de Phone Number [facility] [address] [place] [address] * MRI BRAIN WO CONTRAST (09/24/2024 [...] contactthe office of the ordering clinician. us [facility] DO IMG MRI ORDERABLES Edited Res ult - Final * (ABNORMAL) BLOOD GAS, VENOUS (09/24/2024 7:28 PM EDT) pH Venous 7.41 7.32 - 7.42 pH 09/24/2024 7:33 PM EDT [facility] pCO2 Venous 46 41 - 51 mmHg 09/24/2024 7:33 PM EDT [facility] pO2 Venous 56(H) 25 - 40 mmHg 09/24/2024 7:33 PM EDT [facility] Comment:Interpret with cauti on. Not recommended to evaluate patient's oxygenation status. Base Excess Momo 3.3 mmol/L 7:33 PM EDT [facility] Hco3 Venous 28.7(H) 24.0 - 28.0 mmol/L 09/24/2024 7:33 PM EDT [facility] CO2 Total Momo 26 25 - 29 mmol/L 09/24/2024 7:33 PM EDT [facility] O2 Sat. Venous 88.6(H) 40.0 - 70.0 % 09/24/2024 7:33 PM EDT [facility] Inspired O2 2 09/24/2024 7:33 PM EDT [facility] Blood VENOUS BLOOD / Unknown Venipuncture / Unknown 09/24/2024 7:28 PM EDT 09/24/2024 7:32 PM EDT [facility] CHEMISTRY ORDERABLES Final Re sult [facility] [address] [place] [address] * (ABNORMAL) URINALYSIS REFLEX (09/24/2024 6:56 PM EDT) UA Color Yellow 09/24/2024 7:13 PM EDT [facility] UA Appear Clear Clear 09/24/2024 7:13 PM EDT [facility] UA Glucose >=1000(A) Negative mg/dL 09/24/2024 7:13 PM EDT [facility] UA Ketones Trace (5 mg/dL)(A) Negative mg/dL 09/24/2024 7:13 PM EDT [facility] UA Blood Negative Negative 09/24/2024 7:13 PM EDT [facility] UA pH 8.0 5.0 - 8.0 pH 09/24/2024 7:13 PM EDT [facility] UA Protein Trace(A) Negative mg/dL 09/24/2024 7:13 PM EDT [facility] UA Urobilinogen 0.2 <=1 mg/dL 7:13 PM EDT [facility] UA Bili Negative Negative 09/24/2024 7:13 PM EDT [facility] UA Nitrite Negative Negative 09/24/2024 7:13 PM EDT [facility] UA Leuk Est Negative Negative 09/24/2024 7:13 PM EDT [facility] UA Spec Grav 1.010 1.001 - 1.035 no units 09/24/2024 7:13 PM EDT [facility] Comment:Reference range jagjit d for random specimens only. UA WBC <1 0 - 4 /HPF 09/24/2024 7:13 PM EDT [facility] UA Squam Epi Rare /LPF 09/24/2024 7:13 PM EDT [facility] UA Amorph 1+ /HPF 09/24/2024 7:13 PM EDT [facility] Urine STRUCTURE OF URINARY TRACT PROPER / Unknown 09/24/2024 6:56 PM EDT 09/24/2024 7:04 PM EDT us Feli Vela MD URINE ORDERABLES Final Resu lt [address] [address] * EXTRA SCHULZ URINE CX (09/24/2024 6:56 PM EDT) Urine STRUCTURE OF URINARY TRACT PROPER / Unknown 09/24/2024 6:56 PM EDT 09/24/2024 7:04 PM EDT us Feli Vela MD MICROBIOLOGY - GENERAL LAWRENCE LOZANO Final Result [facility] [address] [place] [address] * DRUGS OF ABUSE WITH REFLEX TO CONFIRMATION, URINE (09/24/2024 6:56 PM EDT) 6 AM (Heroin) Absent Cutoff 10 ng/mL 09/24/2024 7:24 PM EDT [facility] Amphetamines Absent Cutoff 500 ng/mL 09/24/2024 7:24 PM EDT [facility] Barbiturates Absent Cutoff 200 ng/mL 09/24/2024 7:24 PM EDT [facility] Benzodiazepines Absent Cutoff 200 ng/mL 09/24/2024 7:24 PM EDT [facility] Buprenorphine Absent Cutoff 5 ng/mL 09/24/2024 7:24 PM EDT [facility] Cannabinoid Metabolite Absent Cutoff 50 ng/mL 09/24/2024 7:24 PM EDT [facility] Cocaine Metabolite Absent Cutoff 150 ng/mL 09/24/2024 7:24 PM EDT [facility] Fentanyl Absent Cutoff 5 ng/mL 09/24/2024 7:24 PM EDT [facility] Methadone and Metabolite Absent Cutoff 300 ng/mL 09/24/2024 7:24 PM EDT [facility] Opiate Absent Cutoff 300 ng/mL 09/24/2024 7:24 PM EDT [facility] Oxycodone Lvl Absent Cutoff 100 ng/mL 09/24/2024 7:24 PM EDT [facility] Urine Creatinine 16.7 mg/dL 09/25/19 7:24 PM EDT [facility] Comment: Greater than 20: Consistent with valid sample Greater than 2 but less than 20: Possible dilution Less than 2: Questionable valid sample Urine STRUCTURE OF URINARY TRACT PROPER / Unknown 09/24/2024 6:56 PM EDT 09/24/2024 7:[address] [facility] - 09/24/2024 7:24 PM EDT [...] URINE ORDERABLES Final Result Performing Organization Address [facility] Phone Number [facility] [address] [address] * POTASSIUM REPEAT (09/24/2024 5:47 PM EDT) Potassium 3.9 3.5 - 5.0 mmol/L 09/24/2024 6:06 PM EDT [facility] Blood VENOUS BLOOD / Unknown Venipuncture / Unknown 09/24/2024 5:47 PM EDT 09/24/2024 5:49 PM EDT Feli Vela MD CHEMISTRY ORDERABLES Final Result Performing Organization Address [facility] Phone Number [address] [address] * EXTRA LIGHT BLUE (09/24/2024 4:35 PM EDT) Blood VENOUS BLOOD / Unknown Venipuncture / Unknown 09/24/2024 4:35 PM EDT 09/24/2024 4:46 PM EDT Feli Vela MD HEMATOLOGY ORDERABLES Final Result Performing Organization Address [facility] Phone Number [facility] [address] [place] [address] * PARTIAL THROMBOPLASTIN TIME (09/24/2024 4:35 PM EDT) Pathologist [facility] PTT 32.7 25.7 - 36.8 second(s) 09/24/2024 4:58 PM EDT [facility] Comment: Therapeutic range for unfractionated heparin: [...] HEMATOLOGY ORDERABLES Final Result Performing Organization Address [facility] de Phone Number [facility] [address] [place], [place] [address] [address] * PT / INR (09/24/2024 4:35 PM EDT) [facility] PT 11.3 10.5 - 13.6 second(s) 09/24/2024 4:58 PM EDT [facility] INR 0.98 0.91 - 1.18 (ratio) 09/24/2024 4:58 PM EDT [facility] Comment: Level of Therapy Indications Target INR Range Standard Dose Treatment and prophylaxis of venous 2.0 - 3.0 thrombosis, pulmonary embolism High Dose High risk patients with mechanical 2.5 - 3.5 heart valves Blood VENOUS BLOOD / Unknown Venipuncture / Unknown 09/24/2024 4:35 PM EDT 09/24/2024 4:46 PM EDT Feli Vela MD HEMATOLOGY ORDERABLES Final Result Performing Organization Address [facility]/ZIP Co de Phone Number [facility] [address] [facility] [place] [address] * (ABNORMAL) HEMOGLOBIN A1C (09/24/2024 4:35 PM EDT) Hgb A1C 7.2(H) 4.2 - 5.6 % 09/25/2024 1:02 AM EDT [facility] Est. Avg Glucose 160 mg/dL 09/25/2024 1:02 AM EDT [facility] Blood VENOUS BLOOD / Unknown Venipuncture / Unknown 09/24/2024 4:35 PM EDT 09/24/2024 4:46 PM EDT Narrative [facility] - 09/25/2024 1:02 AM EDT REFERENCE RANGE: Normal: 4.0-5.6% Pre-diabetes: 5.7-6.4% Provisional diagnosis of diabetes: >6.4% Hgb F>10% and anything which shortens red cell survival, such as hemolytic anemia, or unstable hemoglobin variants such as HbSS, HbSC, or HbCC, will lower the HbA1c value associated with a given level of glycemic control. [place] DO CHEMISTRY ORDERABLES Final Re sult [facility] [address] [place] [address] , [place] [address] * CT ANGIOGRAM HEAD AND [...] protocol by report author. Notification type: Telephone cavalry officer notified: FELI VELA Approximate time of notification: [...] protocol by report author. Notification type: Telephone cavalry officer notified: FELI VLEA Approximate time of notification: 09/24/2024 4:37 PM. 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
== END 2024-12-23 23:59 | disposition home or self-care (01) ==
LOC: LAB.DROPOF 22:35
PROVIDERS: PCP Family Medicine; Visit Provider Family Medicine
DX: I10 Essential (primary) hypertension (principal)
CPT/HCPCS: 80048